=== PATIENT | male | born 1965 | race Caucasian/White ===

== ENCOUNTER 2016-10-12 07:02 | Inpatient (IN) | payer BC, OTHER ==
[2016-10-12] VITALS (10 sets, daily range): BP systolic 116–151; BP diastolic 73–92; PULSE 67–85; TEMP 36.5–37.4; O2SAT 91–96; Ht 170.2 cm; Wt 100.0 kg
[~2016-10-12] VITALS: Ht 170.2 cm; Wt 100.0 kg
[~2016-10-12 07:02] MED LIST: ALLGUNK PO; ASPCH81 PO; ATV/1 PO; AZEL137S6 NAE; CALC-48 PO; CHOL100040 PO; EPP3/2 IM; IODI1TAB PO; IPRA1AER2 INH; LACTTAB7 PO; MECL1TAB42 PO; MILK140C PO; MOME50SP5; MONT1TAB3 PO; MULTTAB58 PO; NTRC PO; NXM/40 PO; OMEG10007 PO; OREGCAP PO; RIZA10TA19 PO; SERT1TAB68 PO; ZINC1TAB PO
[2016-10-12] MEDS ORDERED: ONDANSETRON INJ 2 MG/ML 2 ML VIAL ONE ×2 (07:16→18:41)
[2016-10-12] MEDS ORDERED: SODIUM CHLORIDE 0.9% 1000ML 1,000 ML IV STA (07:21)
[2016-10-12] MEDS ORDERED: MoRPHine SULFATE 4 MG/ML 1 ML CARP\\VIAL IV STA ×3 (07:21→11:19)
--- NOTE | 2016-10-12 07:37 | EMERGENCY ROOM VISIT NOTE ---
History First contact with patient: 07:11 Chief Complaint: TESTICULAR PAIN Stated Complaint: LFT TESTICULAR TORSION 31HRS Nursing Triage Summary: pt here with left testicular pain since 2300 2 nights. pt states pain in flank also denies urinary sx History of Present Illness The patient is a 51 year old male who presents to the Emergency Department by private vehicle for evaluation of pain to the LEFT testicle. He is concern for testicular torsion. The patient developed pain to the LEFT-sided testicle at 11 PM 2 nights ago. He has had approximately 31 hours of pain to the LEFT testicle. The pain is progressively worsened prompting his visit to the emergency department. He is tried [id number] medications including ibuprofen without relief of symptoms. He reports a history of some other symptoms in the past. He denies any history of testicular torsion or undescended testicle as a child. He rates his current discomfort as a 9/10. He reports pain radiating into his abdomen and flank. He denies any fevers, chills, chest pain, palpitations, short of breath, vomiting, hematochezia, melena, hematuria, or dysuria. He does feel nauseated. He denies any previous abdominal surgeries. Review of Systems A complete 10-point Review of Systems was discussed with the patient, with pertinent positives and negatives listed in the History of Present Illness. All remaining Review of Systems questions can be considered negative unless otherwise specified. Past Medical/Surgical History Medical Problems: (1) Asthma (2) GERD (gastroesophageal reflux disease) (3) Hydronephrosis with renal calculous obstruction Surgical Problems: (1) H/O sinus surgery Family History Diabetes mellitus FH: heart disease Hypertension Social History Smoking Status: Never Smoker Alcohol Use: occasionally Marital Status: Housing Status: lives with family Occupation Status: employed Current/Historical Medications Scheduled Aspirin (Aspirin 81), 81 MG PO DAILY Azelastine Hcl (Astelin Nasal [place]), 1-2 SPRAYS NA BID Bupropion HCl (Bupropion HCl), 75 MG PO DAILY Cholecalciferol (Vitamin D-1000), 10,000 UNIT(INT) PO DAILY Citalopram Hydrobromide (Citalopram Hydrobromide), 5 MG PO DAILY Epinephrine (Epipen), 0.3 MG IM UD Fish Oil ([place]-3), 1,000 MG PO BID Fluticasone Propionate (Fluticasone Propionate), 1 SPRAY EN DAILY Iodine (Kelp) (Kelp), Unknown Dose PO DAILY Lactobacillus (Acidophilus), 1 TAB PO DAILY Milk Thistle (Silybum [place] (Milk Thistle), Unknown Dose PO DAILY Montelukast Sodium (Singulair), 10 MG PO DAILY Multiple Minerals W/ Vitamins (Mwd-Wft-Sohk-D), 2 CAP PO DAILY Multiple Vitamin (Multivitamin), 1 TAB PO Q2D Nutraceuticals (Nutraceuticals), 1 TAB PO DAILY Omeprazole (Prilosec), 20 MG PO BID Oregano (Oil Of Oregano), 1 CAP PO DAILY Rizatriptan Benzoate (Maxalt-Tire Rebuilder), 10 MG PO UD Sertraline Hcl (Zoloft), 200 MG PO DAILY Tamsulosin HCl (Tamsulosin HCl), 0.4 MG PO HS Topiramate (Topamax), 50 MG PO BID Zinc Gluconate (Zinc), 25 MG PO DAILY Scheduled PRN Fexofenadine Hcl (Lluvia Allergy), 180 MG PO UD PRN for when getting allergy shots Ibuprofen (Ibuprofen), 1 TAB PO TIDM PRN for Pain Ipratropium-Albuterol (Combivent Respimat), 2 PUFFS INH for SOB/Wheezing Lorazepam (Ativan), 1 MG PO Q6H PRN for ANXIETY Meclizine Hcl (Meclizine Hcl), 25 MG PO for Dizziness or Vertigo Phenazopyridine HCl (Phenazopyridine HCl), 200 MG PO TID PRN for Bladder pain Allergies Coded Allergies: BEE STING (Verified Allergy, Unknown, `, 10/12/16) Dust (Verified Allergy, Unknown, sneezing,watery eyes, runny nosed, 10/12/16 ) Molds and Smuts (Verified Allergy, Unknown, sneezing,watery eyes, runny nose, 10/12/16) Penicillins (Verified Allergy, Unknown, `, 10/12/16) Valproic Acid (Verified Adverse Reaction, Unknown, PANIC ATTACKS, 10/12/16) Physical Exam Vital Signs Date Time Temp Pulse Resp B/P Pulse Ox O2 Delivery O2 Flow Rate FiO2 10/12/16 13:45 36.7 67 14 127/76 96 Room Air 10/12/16 13:45 96 Room Air 10/12/16 12:54 66 20 143/99 96 Room Air 10/12/16 12:50 96 Room Air 10/12/16 11:36 72 22 149/89 96 Room Air 10/12/16 11:00 70 16 158/97 96 Room Air 10/12/16 09:19 76 20 144/93 96 Room Air 10/12/16 08:30 72 20 143/86 95 Room Air 10/12/16 08:23 Room Air 10/12/16 07:08 37.0 78 16 192/114 96 Room Air Pain Rating (0-10): 9 Physical Exam VITAL SIGNS - Vital signs and nursing notes were reviewed. GENERAL - 51-year-old Male appearing his stated age who is in no acute distress. Communicates well with provider and answers questions appropriately. HEART - RRR with normal S1/S2. No murmurs, rubs, or gallops appreciated. LUNGS - CTA bilaterally. No wheezes, rales, or rhonchi appreciated. ABDOMEN - Abdominal contour obese and without pulsations or visible masses. BS normoactive all four quadrants. Moderate tenderness to palpation appreciated in the LEFT lower quadrant. No palpable masses, hepatosplenomegaly, or ascites noted. GENITOURINARY - Uncircumcised male without penile lesions or adhesions. No urethral discharge. Exquisite testicular tenderness to palpation appreciated to the LEFT sided testicle. High-riding Testicle. Decreased cremasteric reflex LEFT versus right. No palpable masses. PSYCH - A&Ox3 and cooperates fully with examiner. Pt is very pleasant and interacts well with examiner. Medical Decision & Procedures ER Provider Diagnostic Interpretation: Radiological imaging and reports were reviewed by myself. Radiologist's Interpretation as follows: TESTICULAR ULTRASOUND HISTORY: LEFT testicular pain - ?torsion COMPARISON: None. FINDINGS: Right testis: 4.0 x 3.2 x 2.4 cm. There are no intratesticular masses. Normal color flow. Trace hydrocele. The epididymis is unremarkable. Left testis: 4.0 x 3.1 x 2.2 cm. There are 2 small similar-appearing 3 mm echogenic foci within the upper to midpole. These are unlikely to represent masses. Normal color flow. Trace hydrocele at the lower pole. The epididymis is unremarkable. IMPRESSION: 1. There are 2 small similar appearing 3 mm echogenic foci within the left testis. These are unlikely to represent masses are likely benign. Six-month follow-up is recommended to ensure stability. 2. Normal right testis. 3. Trace bilateral hydroceles. CT SCAN OF THE ABDOMEN AND PELVIS WITHOUT CONTRAST CLINICAL HISTORY: Left flank pain. COMPARISON STUDY: No previous studies for comparison. TECHNIQUE: CT scan of the abdomen and pelvis was performed from the lung bases to the proximal femurs. Images are reviewed in the axial, sagittal, and coronal planes. IV contrast was not administered for this examination. CT DOSE: 1595.48 mGy.cm FINDINGS: Lower chest: There is a 4.8 mm right lower lobe pulmonary nodule as visualized in image #[id number]. Follow-up per Fleischner criteria is recommended. Liver: There is hepatic steatosis. No focal masses are visualized. Gallbladder: No gallstones are evident. Spleen: Normal in size and attenuation. Pancreas: Unremarkable. Adrenal glands: Unremarkable. Kidneys: There is a punctate nonobstructing right renal calculus. There is a 2 mm lower pole left renal calculus. There is left-sided hydronephrosis and perinephric stranding. There is left-sided hydroureter. There is obstructing 5 mm proximal left ureteral calculus at the L4 level. Bowel: There are no transition zones indicate bowel obstruction. There is colonic diverticulosis. There are no acute peridiverticular inflammatory changes. There is no evidence of acute appendicitis. Peritoneum: There is no intraperitoneal free air or abdominal ascites. Vasculature: The abdominal aorta is normal in course and caliber. Adenopathy: None. Pelvic viscera: There are few punctate calcifications within the anterior bladder wall. Skeletal structures: No destructive osseous lesions are seen. IMPRESSION: 1. Bilateral nephrolithiasis 2. 5 mm Obstructing proximal left ureteral calculus at the L4 level 3. No evidence of bowel obstruction. No evidence of free air 4. No evidence of acute diverticulitis. No evidence of appendicitis 5. Anterior bladder wall calcifications 6. 5 mm right lower lobe pulmonary nodule. Please refer to below summary of Fleischner criteria recommendations for follow-up of incidental CT nodules (Annika Leyva, Guidelines for management of small pulmonary nodules detected on CT scans: A statement from the Fleischner Society, Radiology 237: [phone].) Low Risk Patient: Minimal or no smoking or other known risk factors for malignancy <=4 mm: No follow-up needed. >4-6 mm: Initial follow-up CT at 12 months; if unchanged, no further follow-up. >6-8 mm: Initial follow-up CT at 6-12 months then at 18-24 months if no change. >8 mm: Follow-up CT at \R\3, 9, 24 months, or PET and/or biopsy. High Risk Patient: History of smoking or other known risk factors <=4 mm: Follow-up at 12 months; if unchanged, no further follow-up. >4-6 mm: Initial follow-up CT at 6-12 months then at 18-24 months if no change. >6-8 mm: Initial follow-up CT at 3-6 months then at 9-12 and 24 months if no change. >8 mm: Same as low risk patient. Note: Nodule size measured as average of length and width. Ground glass or partly solid nodules may require longer follow-up to exclude indolent adenocarcinoma. Laboratory Results Test 10/12/16 00:00 10/12/16 07:30 10/12/16 08:25 10/12/16 10:15 Total Bilirubin 0.3 mg/dl (0.2-1) Aspartate Amino Transf (AST/SGOT) 50 U/L (15-37) Alanine Aminotransferase (ALT/SGPT) 112 U/L (12-78) Alkaline Phosphatase 100 U/L (45-117) Total Protein 7.9 gm/dl (6.4-8.2) Albumin 4.1 gm/dl (3.4-5.0) Globulin 3.8 gm/dl (2.5-4.0) Albumin/Globulin Ratio 1.1 (0.9-2) Lipase 177 U/L (73-393) Immature Granulocyte % (Auto) 0.3 % White Blood Count 8.77 K/uL (4.8-10.8) Red Blood Count 4.51 M/uL (4.7-6.1) Hemoglobin 14.2 g/dL (14.0-18.0) Hematocrit 40.7 % (42-52) Mean Corpuscular Volume 90.2 fL (80-100) Mean Corpuscular Hemoglobin 31.5 pg (25-34) Mean Corpuscular Hemoglobin Concent 34.9 g/dl (32-36) Platelet Count 238 K/uL (130-400) Mean Platelet Volume 10.0 fL (7.4-10.4) Neutrophils (%) (Auto) 77.1 % Lymphocytes (%) (Auto) 15.4 % Monocytes (%) (Auto) 5.9 % Eosinophils (%) (Auto) 1.1 % Basophils (%) (Auto) 0.2 % Neutrophils # (Auto) 6.75 K/uL (1.4-6.5) Lymphocytes # (Auto) 1.35 K/uL (1.2-3.4) Monocytes # (Auto) 0.52 K/uL (0.11-0.59) Eosinophils # (Auto) 0.10 K/uL (0-0.5) Basophils # (Auto) 0.02 K/uL (0-0.2) Immature Granulocyte # (Auto) 0.03 K/uL (0.00-0.02) Urine Color YELLOW Urine Appearance CLEAR (CLEAR) Urine pH 7.0 (4.5-7.5) Urine Specific [place] 1.015 (1.000-1.030) Urine Protein NEG (NEG) Urine Glucose (UA) NEG (NEG) Urine Ketones NEG (NEG) Urine Occult Blood 3+ (NEG) Urine Nitrite NEG (NEG) Urine Bilirubin NEG (NEG) Urine Urobilinogen NEG (NEG) Urine Leukocyte Esterase TRACE (NEG) Urine WBC (Auto) 1-5 /hpf (0-5) Urine RBC (Auto) >30 /hpf (0-4) Urine Hyaline Casts (Auto) 0 /lpf (0-5) Urine Epithelial Cells (Auto) 0-5 /lpf (0-5) Urine Bacteria (Auto) NEG (NEG) Medications Administered Medications (Trade) Dose Ordered Sig/Rochelle Route Start Time Stop Time Status Last Admin Dose Admin Ondansetron HCl 4 mg 4 mg STK-MED ONCE .ROUTE 10/12/16 07:16 10/12/16 07:19 DC 10/12/16 07:32 4 MG Sodium Chloride (Nss 1000ml) 1,000 ml @ 125 mls/hr Q8H STAT IV 10/12/16 07:21 10/12/16 14:13 DC 10/12/16 07:32 125 MLS/HR Morphine Sulfate (MoRPHine SULFATE INJ) 4 mg NOW STAT IV 10/12/16 07:21 10/12/16 07:24 DC 10/12/16 07:32 4 MG Morphine Sulfate (MoRPHine SULFATE INJ) 4 mg NOW STAT IV 10/12/16 08:54 10/12/16 08:55 DC 10/12/16 09:13 4 MG Ciprofloxacin/ Dextrose (Cipro / D5w) 400 mg NOW STAT IV 10/12/16 10:06 10/12/16 10:07 DC 10/12/16 10:16 400 MG Sodium Chloride ([place] Nasal [place]) 2 sprays NOW ONCE NA 10/12/16 10:15 10/12/16 10:16 DC 10/12/16 10:16 2 SPRAYS Morphine Sulfate (MoRPHine SULFATE INJ) 4 mg NOW STAT IV 10/12/16 11:19 10/12/16 11:20 DC 10/12/16 11:41 4 MG Ketorolac Tromethamine 30 mg 30 mg NOW STAT IV 10/12/16 12:18 10/12/16 12:36 DC 10/12/16 12:54 30 MG Sodium Chloride (Nss 1000ml) 1,000 ml @ 100 mls/hr Q10H IV 10/12/16 12:30 10/13/16 11:11 DC 10/13/16 08:49 100 MLS/HR ED Course Patient was seen and evaluated by myself. Labs were drawn, saline lock in place. The patient was hydrated with normal saline at a rate of 125 mL per hour. Patient was treated with formal grams morphine and 4 mg Zofran. He was sent emergently to ultrasound for testicular ultrasound. Upon return, ultrasound was found be unremarkable. Laboratory results demonstrate no acute leukocytosis, significant anemia, or bandemia. The patient has no significant electrolyte abnormalities. He was treated with an additional 4 mg morphine for ongoing pain. CT the abdomen and pelvis without contrast was ordered. Imaging results as above. Imaging results concerning for hydronephrosis as well as obstructing stone. The patient was treated with IV Cipro pending urinalysis. Urinalysis is not concerning for infection, however. Patient was treated with an additional 4 mg morphine. Patient was offered admission versus outpatient management. Patient elects to be admitted for further evaluation and management. Patient admitted in stable condition. Medical Decision Given the patient's presentation and exam findings, I did elect to perform the above-mentioned workup. The patient presents today complained primarily of testicular pain. His symptoms have been ongoing for the past 31 hours. Well the patient's exam is not as consistent with acute torsion, but most immediate concern is to rule out this surgical emergency. Because, an immediate ultrasound was obtained. The patient's pain was adequately controlled the emergency setting. He has no fever leukocytosis. His labs are essentially unremarkable. After rule out of torsion, a CT of the abdomen and pelvis was obtained which confirms suspicion of ureteral lithiasis. The patient is also found to have hydronephrosis as well as perinephric straining. He was treated with intravenous antibiotics. The patient is not a good candidate for outpatient management this point as he is hard a substantial amount of pain medications in the emergency department which cannot be replicated in the outpatient setting. The patient will be admitted to medicine services with consultation from urology. Patient admitted in stable condition. In the evaluation and treatment of this patient, the following differential diagnoses were considered: Appendicitis, Diverticulitis, Diverticulosis, Colitis , Ischemic Colitis, Inflammatory Bowel Disease, Irritable Bowel Disease, Testicular Torsion, Kidney Stone, Pyelonephritis, Hydronephrosis, Cholecystitis , Ascending Cholangitis, Choledocholithiasis, GERD. Impression Primary Impression: Hydronephrosis with renal calculous obstruction Departure Information Dispostion Admitted as an inpatient Condition GOOD Prescriptions Ibuprofen (Ibuprofen) 800 Mg Tab 1 TAB PO TIDM Y for Pain for 5 Days, #15 TABS Take 1 tablet by mouth three times a day with meals as needed for pain. Prov: Sona Wolf .GABRIELLA 10/13/16 Phenazopyridine HCl (Phenazopyridine HCl) 200 Mg Tab 200 MG PO TID Y for Bladder pain for 3 Days, #9 TAB Take 1 tablet by mouth three times a day after meals as needed for burning with urination x 3 days. Prov: Sona Wolf .GABRIELLA 10/13/16 Tamsulosin HCl (Tamsulosin HCl) 0.4 Mg Cap 0.4 MG PO HS for 10 Days, #10 CAP Take 1 capsule by mouth at bedtime x 10 days Prov: Sona Wolf PA-C 10/13/16 Referrals Pritesh Caldwell M.D. (PCP) Patient Instructions My [facility]
[2016-10-12] MEDS ORDERED: ASTN (07:53)
[2016-10-12] MEDS ORDERED: FEXO1TAB49 PO (07:53)
[2016-10-12] MEDS ORDERED: TPM/50 PO (07:53)
[2016-10-12] MEDS ORDERED: CITA10TA4 PO (07:53)
[2016-10-12] MEDS ORDERED: OMEP20CA9 PO (07:53)
[2016-10-12] MEDS ORDERED: FLNIN/ EN (07:53)
[2016-10-12] MEDS ORDERED: ASPI-435 PO (07:53)
[2016-10-12] MEDS ORDERED: WLL75 PO (07:53)
[2016-10-12 08:07] LABS: BUN/CREATININE RATIO 11.2 (10-20); CALCIUM 8.9 mg/dl (8.5-10.1); CREATININE 1.2 mg/dl (0.60-1.40); MAGNESIUM 2.3 mg/dl (1.8-2.4); POTASSIUM 4.1 mmol/L (3.5-5.1)
[2016-10-12 08:09] LABS: ALB/GLOB RATIO 1.1 (0.9-2)
--- NOTE | 2016-10-12 08:13 | DIAGNOSTIC IMAGING REPORT ---
TESTICULAR ULTRASOUND HISTORY: LEFT testicular pain - ?torsion COMPARISON: None. FINDINGS: Right testis: 4.0 x 3.2 x 2.4 cm. There are no intratesticular masses. Normal color flow. Trace hydrocele. The epididymis is unremarkable. Left testis: 4.0 x 3.1 x 2.2 cm. There are 2 small similar-appearing 3 mm echogenic foci within the upper to midpole. These are unlikely to represent masses. Normal color flow. Trace hydrocele at the lower pole. The epididymis is unremarkable. IMPRESSION: 1. There are 2 small similar appearing 3 mm echogenic foci within the left testis. These are unlikely to represent masses are likely benign. Six-month follow-up is recommended to ensure stability. 2. Normal right testis. 3. Trace bilateral hydroceles. Electronically signed by: Karan Mae M.D. 10/12/2016 8:12 AM Dictated Date/Time: 10/12/2016 8:08 AM
[2016-10-12 08:34] LABS: BASO % 0.2 %; BASO ABS # 0.02 K/uL (0-0.2); COMPLETE YES; EOS % 1.1 %; HEMATOCRIT 40.7 % (42-52); IG% 0.3 %; LYMPH % 15.4 %; LYMPH ABS # 1.35 K/uL (1.2-3.4); MEAN CELL VOLUME 90.2 fL (80-100); MEAN CORPUSCULAR HEMOGLOBIN 31.5 pg (25-34); MEAN CORPUSCULAR HGB CONC 34.9 g/dl (32-36); MONO % 5.9 %; NEUT % 77.1 %; PLATELET COUNT 238 K/uL (130-400); RED BLOOD COUNT 4.51 M/uL (4.7-6.1); WHITE BLOOD COUNT 8.77 K/uL (4.8-10.8)
--- NOTE | 2016-10-12 09:36 | DIAGNOSTIC IMAGING REPORT ---
CT SCAN OF THE ABDOMEN AND PELVIS WITHOUT CONTRAST CLINICAL HISTORY: Left flank pain. COMPARISON STUDY: No previous studies for comparison. TECHNIQUE: CT scan of the abdomen and pelvis was performed from the lung bases to the proximal femurs. Images are reviewed in the axial, sagittal, and coronal planes. IV contrast was not administered for this examination. CT DOSE: 1595.48 mGy.cm FINDINGS: Lower chest: There is a 4.8 mm right lower lobe pulmonary nodule as visualized in image #[id number]. Follow-up per Fleischner criteria is recommended. Liver: There is hepatic steatosis. No focal masses are visualized. Gallbladder: No gallstones are evident. Spleen: Normal in size and attenuation. Pancreas: Unremarkable. Adrenal glands: Unremarkable. Kidneys: There is a punctate nonobstructing right renal calculus. There is a 2 mm lower pole left renal calculus. There is left-sided hydronephrosis and perinephric stranding. There is left-sided hydroureter. There is obstructing 5 mm proximal left ureteral calculus at the L4 level. Bowel: There are no transition zones indicate bowel obstruction. There is colonic diverticulosis. There are no acute peridiverticular inflammatory changes. There is no evidence of acute appendicitis. Peritoneum: There is no intraperitoneal free air or abdominal ascites. Vasculature: The abdominal aorta is normal in course and caliber. Adenopathy: None. Pelvic viscera: There are few punctate calcifications within the anterior bladder wall. Skeletal structures: No destructive osseous lesions are seen. IMPRESSION: 1. Bilateral nephrolithiasis 2. 5 mm Obstructing proximal left ureteral calculus at the L4 level 3. No evidence of bowel obstruction. No evidence of free air 4. No evidence of acute diverticulitis. No evidence of appendicitis 5. Anterior bladder wall calcifications 6. 5 mm right lower lobe pulmonary nodule. Please refer to below summary of Fleischner criteria recommendations for follow-up of incidental CT nodules (Annika Leyva, Guidelines for management of small pulmonary nodules detected on CT scans: A statement from the Fleischner Society, Radiology 237: [phone].) Low Risk Patient: Minimal or no smoking or other known risk factors for malignancy <=4 mm: No follow-up needed. >4-6 mm: Initial follow-up CT at 12 months; if unchanged, no further follow-up. >6-8 mm: Initial follow-up CT at 6-12 months then at 18-24 months if no change. >8 mm: Follow-up CT at \R\3, 9, 24 months, or PET and/or biopsy. High Risk Patient: History of smoking or other known risk factors <=4 mm: Follow-up at 12 months; if unchanged, no further follow-up. >4-6 mm: Initial follow-up CT at 6-12 months then at 18-24 months if no change. >6-8 mm: Initial follow-up CT at 3-6 months then at 9-12 and 24 months if no change. >8 mm: Same as low risk patient. Note: Nodule size measured as average of length and width. Ground glass or partly solid nodules may require longer follow-up to exclude indolent adenocarcinoma. Electronically signed by: Marty Bassett M.D. 10/12/2016 9:35 AM Dictated Date/Time: 10/12/2016 9:27 AM
[2016-10-12] MEDS ORDERED: CIPROFLOXACIN 400MG / 200ML D5W IV STA (10:06)
[2016-10-12] MEDS ORDERED: SODIUM CHLORIDE 0.65% NA SOLN 45 ML (OCEAN) ONE (10:15)
[2016-10-12 10:21] LABS: URINE APPEARANCE CLEAR (CLEAR); URINE BILIRUBIN NEG (NEG); URINE COLOR YELLOW; URINE EPITHELIAL CELL AUTO 0-5 /lpf (0-5); URINE NITRITE NEG (NEG); URINE SPECIFIC GRAVITY 1.015 (1.000-1.030); UROBILINOGEN NEG (NEG); ZZUR CULT IF INDIC CLEAN CATCH NO
[2016-10-12 10:24] LABS: MANUAL MICROSCOPIC REQUIRED? NO; REVIEW REQ? NO
[2016-10-12] MEDS ORDERED: KETOROLAC TROMETHAMINE 30 MG/ML VIAL IV STA (12:18)
[2016-10-12] MEDS ORDERED: POLYETHYLENE (MIRALAX) 17 GM PACK PO PRN (12:30)
[2016-10-12] MEDS ORDERED: ALUMINUM/MAGNESIUM/SIMETH (MAALOX MAX) 30 ML UDC PO PRN (12:30)
[2016-10-12] MEDS ORDERED: MAGNESIUM HYDROXIDE SUSP 30 ML UDC PO PRN (12:30)
[2016-10-12] MEDS ORDERED: ACETAMINOPHEN 325 MG TAB PO PRN (12:30)
[2016-10-12] MEDS ORDERED: KETOROLAC TROMETHAMINE 30 MG/ML VIAL IV PRN (12:30)
[2016-10-12] MEDS ORDERED: ONDANSETRON INJ 2 MG/ML 2 ML VIAL IV PRN (12:30)
[2016-10-12] MEDS ORDERED: MoRPHine SULFATE 4 MG/ML 1 ML CARP\\VIAL IV PRN (12:45)
[2016-10-12] MEDS ORDERED: IPRATROPIUM BROMIDE/ALBUTEROL respimat INH INH PRN (12:45)
[2016-10-12] MEDS ORDERED: MoRPHine SULFATE 2 MG/ML CARP IV PRN (12:45)
[2016-10-12] MEDS ORDERED: LORAZEPAM 1 MG TAB PO PRN (12:45)
[2016-10-12] MEDS ORDERED: MONTELUKAST SOD 10 MG TAB PO STA (12:59)
--- NOTE | 2016-10-12 13:00 | History and Physical ---
History & Physical Date & Time of Service: Oct 12, 2016 at 12:57 Chief Complaint: Lft Testicular Torsion 31HRS Primary Care Physician: No Doctor, Assigned History of Present Illness Source: patient Mr. Pike is a 51 y/o male with PMHx of CAD with PFO, Major Depression, Asthma , JENNI, and GERD who presents to the ED complaining of left testicular pain that started 2 nights ago. Patient states that he has a dull aching pain of the left testicle that was initially manageable. This pain has slowly been progressing over the past couple of days. He felt that his L testicle seem to be retracted. As this pain progressed he reports associated left flank pain and left lower quadrant abdominal pain. He rated his pain a 9/10 upon presentation with some improvement with narcotics. He has been utilizing over- the-counter ibuprofen without any relief. Associated nausea. He denies fever/ chills, chest pain, shortness of breath, vomiting, dysuria, constipation/ diarrhea. In the ED, he is afebrile, without leukocytosis, and normotensive. Urinalysis significant for 3+ occult blood. Left testicular ultrasound with 23 mm echogenic foci of the left testis which are likely benign with trace bilateral hydroceles. CT of the abdomen and pelvis shows bilateral nephrolithiasis, 5 mm obstructing proximal left ureteral calculi, left-sided hydronephrosis and perinephritic stranding, and left-sided hydroureter. He will be admitted to [facility] for pain management and hydration. Past Medical/Surgical History Medical Problems: (1) Asthma Status: Chronic (2) GERD (gastroesophageal reflux disease) Status: Chronic Surgical Problems: (1) H/O sinus surgery Status: Resolved Family History Diabetes mellitus FH: heart disease Hypertension Social History Smoking Status: Never Smoker Smokeless Tobacco Use: No Alcohol Use: socially Drug Use: none Marital Status: Occupational Status: employed Immunizations History of Influenza Vaccine: No Influenza Vaccine Date: May 12, 2011 History of Tetanus Vaccine?: Yes History of Pneumococcal: No History of Hepatitis B Vaccine: No Multi-Drug Resistant Organisms History of MDRO: No Allergies Coded Allergies: BEE STING (Verified Allergy, Unknown, `, 10/12/16) Dust (Verified Allergy, Unknown, sneezing,watery eyes, runny nosed, 10/12/16 ) Molds and Smuts (Verified Allergy, Unknown, sneezing,watery eyes, runny nose, 10/12/16) Penicillins (Verified Allergy, Unknown, `, 10/12/16) Valproic Acid (Verified Adverse Reaction, Unknown, PANIC ATTACKS, 10/12/16) Home Medications Scheduled Aspirin (Aspirin 81), 81 MG PO DAILY Azelastine Hcl (Astelin Nasal [place]), 1-2 SPRAYS NA BID Bupropion HCl (Bupropion HCl), 75 MG PO DAILY Cholecalciferol (Vitamin D-1000), 10,000 UNIT(INT) PO DAILY Citalopram Hydrobromide (Citalopram Hydrobromide), 5 MG PO DAILY Epinephrine (Epipen), 0.3 MG IM UD Fish Oil ([place]-3), 1,000 MG PO BID Fluticasone Propionate (Fluticasone Propionate), 1 SPRAY EN DAILY Iodine (Kelp) (Kelp), Unknown Dose PO DAILY Lactobacillus (Acidophilus), 1 TAB PO DAILY Milk Thistle (Silybum Marianum (Milk Thistle), Unknown Dose PO DAILY Montelukast Sodium (Singulair), 10 MG PO DAILY Multiple Minerals W/ Vitamins (Luw-Vrq-Eaju-D), 2 CAP PO DAILY Multiple Vitamin (Multivitamin), 1 TAB PO Q2D Nutraceuticals (Nutraceuticals), 1 TAB PO DAILY Omeprazole (Prilosec), 20 MG PO BID Oregano (Oil Of Oregano), 1 CAP PO DAILY Rizatriptan Benzoate (Maxalt-Power Checker), 10 MG PO UD Sertraline Hcl (Zoloft), 200 MG PO DAILY Topiramate (Topamax), 50 MG PO BID Zinc Gluconate (Zinc), 25 MG PO DAILY Scheduled PRN Fexofenadine Hcl (Lluvia Allergy), 180 MG PO UD PRN for when getting allergy shots Ipratropium-Albuterol (Combivent Respimat), 2 PUFFS INH for SOB/Wheezing Lorazepam (Ativan), 1 MG PO Q6H PRN for ANXIETY Meclizine Hcl (Meclizine Hcl), 25 MG PO for Dizziness or Vertigo Review of Systems Constitutional: No chills, No fever Eyes: No worsening of vision ENT: No nasal symptoms, No sore throat, No trouble swallowing Respiratory: No cough, No shortness of breath Cardiovascular: No chest pain Abdomen: + nausea, + pain (LLQ and L Flank), No constipation, No diarrhea, No vomiting Musculoskeletal: No calf pain, No swelling Genitourinary - Male: No dysuria Hematologic / Lymphatic: No abnormal bleeding/bruising, No clotting problems Integumentary: No rash Physical Exam Vital Signs Date Time Temp Pulse Resp B/P Pulse Ox O2 Delivery O2 Flow Rate FiO2 10/12/16 12:54 66 20 143/99 96 Room Air 10/12/16 11:36 72 22 149/89 96 Room Air 10/12/16 11:00 70 16 158/97 96 Room Air 10/12/16 09:19 76 20 144/93 96 Room Air 10/12/16 08:30 72 20 143/86 95 Room Air 10/12/16 08:23 Room Air 10/12/16 07:08 37.0 78 16 192/114 96 Room Air General Appearance: WD/WN, no apparent distress Head: normocephalic, atraumatic Eyes: sclerae normal ENT: hearing grossly normal Neck: supple, no JVD, trachea midline Respiratory/Chest: lungs clear, normal breath sounds, no respiratory distress, no accessory muscle use Cardiovascular: regular rate, rhythm, no gallop, no murmur Abdomen/GI: normal bowel sounds, soft, + tenderness (LLQ to light touch) Back: normal inspection, + left CVA tenderness Extremities/Musculoskelatal: normal inspection, normal capillary refill, no pedal edema Neurologic/Psych: alert, oriented x 3 Skin: normal color, warm/dry Diagnostics Laboratory Results Results Past 24 Hours Test 10/12/16 07:30 10/12/16 08:25 10/12/16 10:15 Range/Units Sodium Level 140 136-145 mmol/L Potassium Level 4.1 3.5-5.1 mmol/L Chloride Level 109 98-107 mmol/L Carbon Dioxide Level 20 21-32 mmol/L Anion Gap 11.0 3-11 mmol/L Blood Urea Nitrogen 13 7-18 mg/dl Creatinine 1.20 0.60-1.40 mg/dl Est Creatinine Clear Calc Drug Dose 80.2 ml/min Estimated GFR () 79.5 Estimated GFR (Non- 68.6 BUN/Creatinine Ratio 11.2 10-20 Random Glucose 135 70-99 mg/dl Calcium Level 8.9 8.5-10.1 mg/dl Magnesium Level 2.3 1.8-2.4 mg/dl Total Bilirubin 0.3 0.2-1 mg/dl Aspartate Amino Transf (AST/SGOT) 50 15-37 U/L Alanine Aminotransferase (ALT/SGPT) 112 12-78 U/L Alkaline Phosphatase 100 45-117 U/L Total Protein 7.9 6.4-8.2 gm/dl Albumin 4.1 3.4-5.0 gm/dl Globulin 3.8 2.5-4.0 gm/dl Albumin/Globulin Ratio 1.1 0.9-2 Lipase 177 73-393 U/L White Blood Count 8.77 4.8-10.8 K/uL Red Blood Count 4.51 4.7-6.1 M/uL Hemoglobin 14.2 14.0-18.0 g/dL Hematocrit 40.7 42-52 % Mean Corpuscular Volume 90.2 80-100 fL Mean Corpuscular Hemoglobin 31.5 25-34 pg Mean Corpuscular Hemoglobin Concent 34.9 32-36 g/dl Platelet Count 238 130-400 K/uL Mean Platelet Volume 10.0 7.4-10.4 fL Neutrophils (%) (Auto) 77.1 % Lymphocytes (%) (Auto) 15.4 % Monocytes (%) (Auto) 5.9 % Eosinophils (%) (Auto) 1.1 % Basophils (%) (Auto) 0.2 % Neutrophils # (Auto) 6.75 1.4-6.5 K/uL Lymphocytes # (Auto) 1.35 1.2-3.4 K/uL Monocytes # (Auto) 0.52 0.11-0.59 K/uL Eosinophils # (Auto) 0.10 0-0.5 K/uL Basophils # (Auto) 0.02 0-0.2 K/uL RDW Standard Deviation 43.5 36.4-46.3 fL RDW Coefficient of Variation 13.1 11.5-14.5 % Immature Granulocyte % (Auto) 0.3 % Immature Granulocyte # (Auto) 0.03 0.00-0.02 K/uL Urine Color YELLOW Urine Appearance CLEAR CLEAR Urine pH 7.0 4.5-7.5 Urine Specific [place] 1.015 1.000-1.030 Urine Protein NEG NEG Urine Glucose (UA) NEG NEG Urine Ketones NEG NEG Urine Occult Blood 3+ NEG Urine Nitrite NEG NEG Urine Bilirubin NEG NEG Urine Urobilinogen NEG NEG Urine Leukocyte Esterase TRACE NEG Urine WBC (Auto) 1-5 0-5 /hpf Urine RBC (Auto) >30 0-4 /hpf Urine Hyaline Casts (Auto) 0 0-5 /lpf Urine Epithelial Cells (Auto) 0-5 0-5 /lpf Urine Bacteria (Auto) NEG NEG Diagnostic Radiology CT SCAN OF THE ABDOMEN AND PELVIS WITHOUT CONTRAST CLINICAL HISTORY: Left flank pain. COMPARISON STUDY: No previous studies for comparison. TECHNIQUE: CT scan of the abdomen and pelvis was performed from the lung bases to the proximal femurs. Images are reviewed in the axial, sagittal, and coronal planes. IV contrast was not administered for this examination. CT DOSE: 1595.48 mGy.cm FINDINGS: Lower chest: There is a 4.8 mm right lower lobe pulmonary nodule as visualized in image #[id number]. Follow-up per Fleischner criteria is recommended. Liver: There is hepatic steatosis. No focal masses are visualized. Gallbladder: No gallstones are evident. Spleen: Normal in size and attenuation. Pancreas: Unremarkable. Adrenal glands: Unremarkable. Kidneys: There is a punctate nonobstructing right renal calculus. There is a 2 mm lower pole left renal calculus. There is left-sided hydronephrosis and perinephric stranding. There is left-sided hydroureter. There is obstructing 5 mm proximal left ureteral calculus at the L4 level. Bowel: There are no transition zones indicate bowel obstruction. There is colonic diverticulosis. There are no acute peridiverticular inflammatory changes. There is no evidence of acute appendicitis. Peritoneum: There is no intraperitoneal free air or abdominal ascites. Vasculature: The abdominal aorta is normal in course and caliber. Adenopathy: None. Pelvic viscera: There are few punctate calcifications within the anterior bladder wall. Skeletal structures: No destructive osseous lesions are seen. IMPRESSION: 1. Bilateral nephrolithiasis 2. 5 mm Obstructing proximal left ureteral calculus at the L4 level 3. No evidence of bowel obstruction. No evidence of free air 4. No evidence of acute diverticulitis. No evidence of appendicitis 5. Anterior bladder wall calcifications 6. 5 mm right lower lobe pulmonary nodule. Please refer to below summary of Fleischner criteria recommendations for follow-up of incidental CT nodules (Annika Leyva, Guidelines for management of small pulmonary nodules detected on CT scans: A statement from the Fleischner Society, Radiology 237: [phone].) Low Risk Patient: Minimal or no smoking or other known risk factors for malignancy <=4 mm: No follow-up needed. >4-6 mm: Initial follow-up CT at 12 months; if unchanged, no further follow-up. >6-8 mm: Initial follow-up CT at 6-12 months then at 18-24 months if no change. >8 mm: Follow-up CT at \R\3, 9, 24 months, or PET and/or biopsy. High Risk Patient: History of smoking or other known risk factors <=4 mm: Follow-up at 12 months; if unchanged, no further follow-up. >4-6 mm: Initial follow-up CT at 6-12 months then at 18-24 months if no change. >6-8 mm: Initial follow-up CT at 3-6 months then at 9-12 and 24 months if no change. >8 mm: Same as low risk patient. Note: Nodule size measured as average of length and width. Ground glass or partly solid nodules may require longer follow-up to exclude indolent adenocarcinoma. TESTICULAR ULTRASOUND HISTORY: LEFT testicular pain - ?torsion COMPARISON: None. FINDINGS: Right testis: 4.0 x 3.2 x 2.4 cm. There are no intratesticular masses. Normal color flow. Trace hydrocele. The epididymis is unremarkable. Left testis: 4.0 x 3.1 x 2.2 cm. There are 2 small similar-appearing 3 mm echogenic foci within the upper to midpole. These are unlikely to represent masses. Normal color flow. Trace hydrocele at the lower pole. The epididymis is unremarkable. IMPRESSION: 1. There are 2 small similar appearing 3 mm echogenic foci within the left testis. These are unlikely to represent masses are likely benign. Six-month follow-up is recommended to ensure stability. 2. Normal right testis. 3. Trace bilateral hydroceles. Impression Assessment and Plan Mr. Pike is a 51 y/o male with PMHx of CAD with PFO, Major Depression, Asthma , and GERD who presents to the ED complaining of left testicular pain that started 2 nights ago. L Obstructing Nephrolithiasis with Hydronephrosis: - Ciprofloxacin 400 mg IV BID - NSS at 100 mL/hr - Toradol 30 mg IV Q6H PRN - Morphine 2-4 mg IV Q2H PRN - Flomax 0.4 mg daily - Consult urology - spoke with Dr. Gill -- NPO at midnight - may pass without intervention - monitor JENNI: - Set-up CPAP Asthma: Without Exacerbation - Combivent PRN and Singulair 10 mg daily CAD with PFO: - Hold ASA in case of urology intervention GERD: - Protonix 40 mg daily as Nexium interchange Major Depression/Mood Disorder: - Wellbutrin 75 mg daily and Zoloft 200 mg daily - Topamax 50 mg BID DVT Prophylaxis: - NHAN/SCDs Code Status: - FULL RESUSCITATION Disposition: Return home Pt seen/examined - reviewed orders and above with PA 51 y/o M Hx CAD, depression - presenting with B/L flanks pain CT revealed a 5mm obstructing ureteral calculus OE AAO x 3 CTAB ND, ND (+) flank pain L P: Pt will be evaluated by urology Placed on Flomax, IVF and analgesics as needed Will cont home meds as possible Level of Care Med/Surg Resuscitation Status FULL RESUSCITATION VTE Prophylaxis VTE Risk Assessment Done? Y/N: Yes Risk Level: Moderate Given or contraindicated: T.E.D. Stockings, SCD's Social Service Consult None Apply
[2016-10-12] MEDS: SODIUM CHLORIDE 0.9% 1000ML 1,000 ML IV SCH ×2 (14:22→22:42)
--- NOTE | 2016-10-12 16:40 | Urology Consultation ---
History General Date of Service: Oct 12, 2016. Chief Complaint: left ureteral stone Primary Care Physician: No Doctor, Assigned Pt seen a urologist before?: No History of Present Illness I am asked by Dr Rudy Jaimes to evaluate and treat patient for left ureteral stone. he has had left renal colic for 2 days. he has associated nausea no emesis. He had referred pain to left testis and ER u/s shows a non suspicious echogenic focus in testis no tumor no torsion. CT shows a left 5mm upper ureteral stone with hydroureteronephrosis. he has small stones non obstructing in kidneys bilaterally. He is resting comfortably now. Imaging Imaging: CT, Ultrasound Laboratory Results Past 24 Hours Test 10/12/16 07:30 10/12/16 08:25 10/12/16 10:15 Range/Units Sodium Level 140 136-145 mmol/L Potassium Level 4.1 3.5-5.1 mmol/L Chloride Level 109 98-107 mmol/L Carbon Dioxide Level 20 21-32 mmol/L Anion Gap 11.0 3-11 mmol/L Blood Urea Nitrogen 13 7-18 mg/dl Creatinine 1.20 0.60-1.40 mg/dl Est Creatinine Clear Calc Drug Dose 80.2 ml/min Estimated GFR () 79.5 Estimated GFR (Non- 68.6 BUN/Creatinine Ratio 11.2 10-20 Random Glucose 135 70-99 mg/dl Calcium Level 8.9 8.5-10.1 mg/dl Magnesium Level 2.3 1.8-2.4 mg/dl Total Bilirubin 0.3 0.2-1 mg/dl Aspartate Amino Transf (AST/SGOT) 50 15-37 U/L Alanine Aminotransferase (ALT/SGPT) 112 12-78 U/L Alkaline Phosphatase 100 45-117 U/L Total Protein 7.9 6.4-8.2 gm/dl Albumin 4.1 3.4-5.0 gm/dl Globulin 3.8 2.5-4.0 gm/dl Albumin/Globulin Ratio 1.1 0.9-2 Lipase 177 73-393 U/L White Blood Count 8.77 4.8-10.8 K/uL Red Blood Count 4.51 4.7-6.1 M/uL Hemoglobin 14.2 14.0-18.0 g/dL Hematocrit 40.7 42-52 % Mean Corpuscular Volume 90.2 80-100 fL Mean Corpuscular Hemoglobin 31.5 25-34 pg Mean Corpuscular Hemoglobin Concent 34.9 32-36 g/dl Platelet Count 238 130-400 K/uL Mean Platelet Volume 10.0 7.4-10.4 fL Neutrophils (%) (Auto) 77.1 % Lymphocytes (%) (Auto) 15.4 % Monocytes (%) (Auto) 5.9 % Eosinophils (%) (Auto) 1.1 % Basophils (%) (Auto) 0.2 % Neutrophils # (Auto) 6.75 1.4-6.5 K/uL Lymphocytes # (Auto) 1.35 1.2-3.4 K/uL Monocytes # (Auto) 0.52 0.11-0.59 K/uL Eosinophils # (Auto) 0.10 0-0.5 K/uL Basophils # (Auto) 0.02 0-0.2 K/uL RDW Standard Deviation 43.5 36.4-46.3 fL RDW Coefficient of Variation 13.1 11.5-14.5 % Immature Granulocyte % (Auto) 0.3 % Immature Granulocyte # (Auto) 0.03 0.00-0.02 K/uL Urine Color YELLOW Urine Appearance CLEAR CLEAR Urine pH 7.0 4.5-7.5 Urine Specific [place] 1.015 1.000-1.030 Urine Protein NEG NEG Urine Glucose (UA) NEG NEG Urine Ketones NEG NEG Urine Occult Blood 3+ NEG Urine Nitrite NEG NEG Urine Bilirubin NEG NEG Urine Urobilinogen NEG NEG Urine Leukocyte Esterase TRACE NEG Urine WBC (Auto) 1-5 0-5 /hpf Urine RBC (Auto) >30 0-4 /hpf Urine Hyaline Casts (Auto) 0 0-5 /lpf Urine Epithelial Cells (Auto) 0-5 0-5 /lpf Urine Bacteria (Auto) NEG NEG Labs were reviewed and are within normal limits unless listed below. Labs are available in the chart and at [facility] Past History asthma (uses singulair), depression, GERD, seasonal allergies, other (patent foramen ovale) Past Surgical History: sinus surgery Family History Diabetes mellitus FH: heart disease Hypertension parents long lived Social History Hx Tobacco Use In Past Year?: No Smoking: non-smoker Alcohol: occasional Marital status: Occupation status: employed Immunizations History of Influenza Vaccine: No Influenza Vaccine Date: May 12, 2011 History of Tetanus Vaccine?: Yes History of Pneumococcal: No History of Hepatitis B Vaccine: No History of MDRO No Allergies Coded Allergies: BEE STING (Verified Allergy, Unknown, `, 10/12/16) Dust (Verified Allergy, Unknown, sneezing,watery eyes, runny nosed, 10/12/16 ) Molds and Smuts (Verified Allergy, Unknown, sneezing,watery eyes, runny nose, 10/12/16) Penicillins (Verified Allergy, Unknown, `, 10/12/16) Valproic Acid (Verified Adverse Reaction, Unknown, PANIC ATTACKS, 10/12/16) Medications Home Medications: Home Meds and Scripts Medications Dose Route/Sig Max Daily Dose Days Date Category Fluticasone Propionate 120 Sprays/6000 Mcg Inha 1 [place]anks EN DAILY 10/12/16 Reported Bupropion HCl 75 Mg Tab 75 Mg PO DAILY 10/12/16 Reported Prilosec (Omeprazole) 20 Mg Cap 20 Mg PO BID 10/12/16 Reported Topamax (Topiramate) 50 Mg Tab 50 Mg PO BID 10/12/16 Reported Citalopram Hydrobromide 10 Mg Tab 5 Mg PO DAILY 10/12/16 Reported Lluvia Allergy (Fexofenadine Hcl) 180 Mg Tab 180 Mg PO UD PRN 14 10/12/16 Reported Astelin Nasal [place] (Azelastine Hcl) 200 Sprays/30 Ml Cranks 1-2 Sprays NA BID 10/12/16 Reported Aspirin 81 (Aspirin) 81 Mg Tab 81 Mg PO DAILY 10/12/16 Reported Nutraceuticals (Miscellaneous) Ea 1 Tab PO DAILY 06/22/14 Reported Acidophilus (Lactobacillus) 1 Tab Tab 1 Tab PO DAILY 06/22/14 Reported Oil Of Oregano (Oregano) 1,500 Mg Cap 1 Cap PO DAILY 06/22/14 Reported Zinc (Zinc Gluconate) 50 Mg Tab 25 Mg PO DAILY 06/22/14 Reported Bqn-Fwh-Dlgu-D (Multiple Minerals W/ Vitamins) 1 Tab Tab 2 Cap PO DAILY 06/22/14 Reported Maxalt-Director Of Financial Planning (Rizatriptan Benzoate) 10 Mg Tab 10 Mg PO UD 06/22/14 Reported Zoloft (Sertraline Hcl) 100 Mg Tab 200 Mg PO DAILY 06/22/14 Reported Milk Thistle (Milk Thistle (Silybum Marianum) 140 Mg Cap Unknown Dose PO DAILY 06/22/14 Reported Kelp (Iodine (Kelp)) 150 Mcg Tab Unknown Dose PO DAILY 06/22/14 Reported Ativan (Lorazepam) 1 Mg Tab 1 Mg PO Q6H PRN 03/08/14 Reported Meclizine Hcl 25 Mg Tab 25 Mg PO PRN 03/08/14 Reported Combivent Respimat (Ipratropium-Albuterol) 1 Aer Aer 2 Puffs INH PRN 10/15/13 Reported Singulair (Montelukast Sodium) 10 Mg Tab 10 Mg PO DAILY 10/15/13 Reported Vitamin D-1000 (Cholecalciferol) 1,000 Unit Tab 10,000 Unit(Int) PO DAILY 07/29/13 Reported Epipen (Epinephrine) 0.3 Mg/0.3 Ml Inj 0.3 Mg IM UD 01/18/12 Reported Multivitamin (Multiple Vitamin) 1 Tab Tab 1 Tab PO Q2D 01/18/12 Reported [place]-3 (Fish Oil) 1 Ea Cap 1,000 Mg PO BID 08/06/11 Reported Inpatient Medications: Current Inpatient Medications Medications (Trade) Dose Ordered Sig/Rochelle Route Start Time Stop Time Status Last Admin Dose Admin Acetaminophen (Tylenol Tab) 650 mg Q4H PRN PO 10/12/16 12:30 11/11/16 12:29 Al Hydrox/Mg Hydrox/Simethicone (Maalox Max Susp) 15 ml Q4H PRN PO 10/12/16 12:30 11/11/16 12:29 Magnesium Hydroxide (Milk Of Magnesia Susp) 30 ml Q6H PRN PO 10/12/16 12:30 11/11/16 12:29 Polyethylene (Miralax Powder Packet) 17 gm DAILY PRN PO 10/12/16 12:30 11/11/16 12:29 Ondansetron HCl (Zofran Inj) 4 mg Q6H PRN IV 10/12/16 12:30 11/11/16 12:29 Ketorolac Tromethamine 30 mg 30 mg Q6H PRN IV 10/12/16 12:30 10/17/16 12:29 Ciprofloxacin/ Dextrose 400 mg/ Prmx 200 ml @ 100 mls/hr Q12H IV 10/12/16 21:00 10/17/16 08:59 Sodium Chloride (Nss 1000ml) 1,000 ml @ 100 mls/hr Q10H IV 10/12/16 12:30 11/11/16 12:29 10/12/16 14:22 100 MLS/HR Morphine Sulfate (MoRPHine SULFATE INJ) 2 mg Q2H PRN IV 10/12/16 12:45 10/26/16 12:44 Morphine Sulfate (MoRPHine SULFATE INJ) 4 mg Q2H PRN IV 10/12/16 12:45 10/26/16 12:44 Bupropion HCl (Wellbutrin Tab) 75 mg DAILY PO 10/13/16 09:00 11/12/16 08:59 Fluticasone Propionate (Flonase Nasal [place]) 1 sprays DAILY GENIE 10/13/16 09:00 11/12/16 08:59 Albuterol/ Ipratropium (Combivent Respimat Inh) 2 puffs QID PRN INH 10/12/16 12:45 11/11/16 12:44 Lactobacillus Acidophilus (Floranex Tab) 4 tab DAILY PO 10/13/16 09:00 11/12/16 08:59 Lorazepam (Ativan Tab) 1 mg Q6H PRN PO 10/12/16 12:45 11/11/16 12:44 Montelukast Sodium (Singulair Tab) 10 mg HS PO 10/12/16 21:00 11/11/16 20:59 Sertraline HCl (Zoloft Tab) 200 mg DAILY PO 10/13/16 09:00 11/12/16 08:59 Topiramate (Topamax Tab) 50 mg BID PO 10/12/16 21:00 11/11/16 20:59 Pantoprazole Sodium (Protonix Tab) 40 mg QAM PO 10/13/16 09:00 11/12/16 08:59 Tamsulosin HCl (Flomax Cap) 0.4 mg HS PO 10/12/16 21:00 11/11/16 20:59 Review of Systems Review of Systems Constitutional: No chills, No fever, No frequent headaches Endocrine: + excessive thirst, + tired/sluggish, + too cold Gastrointestinal: + abdominal pain, + indigestion, + nausea, No constipation Cardiovascular: No chest pain, No palpitations, No swelling ankles/feet Respiratory: No chronic cough, No shortness of breath, No wheezing Musculoskeletal: + arthritis, + joint pain Male : + kidney stones, No blood in urine, No frequent urination, No infections, No painful urination, No weak stream Physical Exam Vital Signs: Vital Signs Past 12 Hours Date Time Temp Pulse Resp B/P Pulse Ox O2 Delivery O2 Flow Rate FiO2 10/12/16 15:00 36.7 69 17 132/83 93 Room Air 10/12/16 13:45 36.7 67 14 127/76 96 Room Air 10/12/16 13:45 96 Room Air 10/12/16 12:54 66 20 143/99 96 Room Air 10/12/16 12:50 96 Room Air 10/12/16 11:36 72 22 149/89 96 Room Air 10/12/16 11:00 70 16 158/97 96 Room Air 10/12/16 09:19 76 20 144/93 96 Room Air 10/12/16 08:30 72 20 143/86 95 Room Air 10/12/16 08:23 Room Air 10/12/16 07:08 37.0 78 16 192/114 96 Room Air Physical Exam: General Appearance: WD/WN, no apparent distress, + obese Eyes: bilateral eyes normal inspection ENT: hearing grossly normal Neck: no adenopathy, no JVD, trachea midline Respiratory/Chest: normal breath sounds, no respiratory distress, no accessory muscle use Cardiovascular: regular rate, rhythm, no edema Gastrointestinal: Abdomen: normal abdomen Bladder: normal bladder Renal: normal renal Hernia: absent hernia Extremities: non-tender, normal inspection, no pedal edema, no calf tenderness Neurologic/Psychiatric: alert, normal mood/affect, oriented x 3 Skin: normal color, warm/dry, no rash Assessment & Plan Assessment & Plan 5mm left upper ureteral stone with obstruction and pain options are left ureteroscopy with laser lithotripsy basket stone extraction and stent tonight or observation and trial to pass stone over next few weeks He opted for ureteroscopy I explained surgery and risks he signed consent having had opportunity to ask questions. 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
[2016-10-12] MEDS ORDERED: FENTANYL CITRATE INJ 50 MCG/1 ML 2 ML VIAL IV PRN (17:00)
[2016-10-12] MEDS ORDERED: ATROPINE SULFATE 0.1 MG/ML 5ML SYR IV PRN (17:00)
[2016-10-12] MEDS ORDERED: EpHEDrine SULFATE INJ 50 MG/ML AMP IV PRN (17:00)
[2016-10-12] MEDS ORDERED: CEFAZOLIN IV 2,000 MG/60 ML D5W IV ONE (17:43)
[2016-10-12] MEDS ORDERED: FENTANYL CITRATE INJ 50 MCG/1 ML 2 ML VIAL ONE (17:49)
[2016-10-12] MEDS ORDERED: MIDAZOLAM HCL 1 MG/ML 2ML VIAL ONE (17:49)
[2016-10-12] MEDS ORDERED: DEXAMETHASONE SOD INJ 4 MG/ML VIAL ONE (18:41)
[2016-10-12] MEDS ORDERED: LIDOCAINE HCL 2% 2 ML VIAL (20MG/ML) ONE (18:41)
[2016-10-12] MEDS ORDERED: BELLADONNA/OPIUM SUPP 60 MG SUPP PR ONE (18:41)
[2016-10-12] MEDS ORDERED: PROPOFOL IV EMULSION 10 MG/ML 20 ML VIAL IV ONE (18:41)
[2016-10-12] MEDS ORDERED: BELLADONNA/OPIUM 60 MG SUPP PR ONE (18:45)
--- NOTE | 2016-10-12 19:08 | [facility] Operative Report ---
Operative Report Operative Date Oct 12, 2016. Pre-Operative Diagnosis Obstructing Left Ureteral Stone Post-Operative Diagnosis same Procedure(s) Performed cysto, left ureteroscopy laser lithotripsy basket stone extraction stent placement Surgeon Dr. Trinity Hancock Head Of Sales And Marketing Surgeon(s) None Estimated Blood Loss 2ml Findings radio-opaque left ureteral stone Specimens A. Left Ureteral Stone Fragments for Analysis Drains 6 fr 24 centimeter double J stent Anesthesia LMA Complication(s) None Disposition Recovery Room / PACU Indications obstructing 5mm left upper ureteral stone Description of Procedure Patient was given general LMA and placed in lithotomy position. His genitals were prepped and draped in sterile fashion. Time out held with team. I placed a 21 fr rigid cystoscope to bladder. The urethra is unremarkable. The prostate is not obstructing. The UOs are very laterally displaced. I placed a road runner wire up left ureter and once it went above the stone there was increased pink efflux from left UO. I removed scope and placed a dual lumen cath to place a second wire. I placed a flexible ureteroscope over the second wire easily to the mid ureter. Under vision I advanced the ureteroscope to the stone. I used a 200 micron to fragment the stone into about 6 pieces. i used a 1.9 fr zero tip basket to extract the stones until the ureter was clear. I then replaced the cystoscope and rinsed the fragments out of the ureter. I placed a 6 fr 24 centimeter double J stent under fluoro guidance. I placed a B and O suppository for post-op pain. He transferred to recovery under my escort, in stable condition. 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 Any exceptions are noted below.
[2016-10-12] MEDS ORDERED: PHENAZOPYRIDINE HCL 200 MG TAB PO PRN (19:15)
--- NOTE | 2016-10-12 19:19 | DIAGNOSTIC IMAGING REPORT ---
INTRAOPERATIVE RADIOGRAPH CLINICAL HISTORY: Laser lithotripsy and ureteral stent placement. Fluoroscopy time: 60 seconds. FINDINGS: A single spot fluoroscopic image of the left pelvis from a lithotripsy and left ureteral stent placement procedure is presented. The tip of the left ureteral stent is visualized projecting over the bladder. IMPRESSION: Fluoroscopic image from a left ureteral stent placement procedure as above. See operative report for detailed findings. Electronically signed by: Jett Lambert M.D. 10/12/2016 7:18 PM Dictated Date/Time: 10/12/2016 7:17 PM
[2016-10-12] MEDS ORDERED: HydrALAZINE HCL 20 MG/ML VIAL ONE (19:35)
[2016-10-12] MEDS ORDERED: NURSING VERBAL MED ORDER ONE (19:45)
--- NOTE | 2016-10-12 19:47 | Anesthesiology Progress Note ---
Anesthesia Post Op Note Date & Time Oct 12, 2016 at 19:48 Vital Signs Pain Intensity: 0 Vital Signs Past 12 Hours Date Time Temp Pulse Resp B/P Pulse Ox O2 Delivery O2 Flow Rate FiO2 10/12/16 19:37 77 20 151/96 94 10/12/16 19:37 77 20 10/12/16 19:36 137/104 10/12/16 19:33 148/96 10/12/16 19:32 86 18 10/12/16 19:32 86 18 90 10/12/16 19:31 151/100 10/12/16 19:27 87 22 10/12/16 19:27 87 22 98 10/12/16 19:26 150/96 10/12/16 19:22 81 19 100 10/12/16 19:22 82 19 10/12/16 19:21 159/99 10/12/16 19:17 74 18 10/12/16 19:17 75 18 100 10/12/16 19:16 143/96 10/12/16 19:13 156/108 10/12/16 19:12 92 18 10/12/16 19:12 90 18 100 10/12/16 19:10 187/112 10/12/16 19:10 184/110 10/12/16 19:08 154/113 10/12/16 19:07 37.1 82 20 175/110 100 Mask 10 10/12/16 19:07 101 23 175/110 100 10/12/16 19:07 101 23 10/12/16 17:00 Room Air 10/12/16 15:00 36.7 69 17 132/83 93 Room Air 10/12/16 13:45 36.7 67 14 127/76 96 Room Air 10/12/16 13:45 96 Room Air 10/12/16 12:54 66 20 143/99 96 Room Air 10/12/16 12:50 96 Room Air 10/12/16 11:36 72 22 149/89 96 Room Air 10/12/16 11:00 70 16 158/97 96 Room Air 10/12/16 09:19 76 20 144/93 96 Room Air 10/12/16 08:30 72 20 143/86 95 Room Air 10/12/16 08:23 Room Air Notes Mental Status: alert / awake / arousable, participated in evaluation Pt Amnestic to Procedure: Yes Nausea / Vomiting: adequately controlled Pain: adequately controlled Airway Patency, RR, SpO2: stable & adequate BP & HR: stable & adequate Hydration State: stable & adequate Anesthetic Complications: no major complications apparent
[2016-10-12] MEDS ORDERED: CIPROFLOXACIN / D5W 400 MG in PREMIXED IN D5W 200 ML IV SCH (21:00)
[2016-10-12] MEDS ORDERED: TAMSULOSIN HCL 0.4 MG CAP PO SCH (21:00)
[2016-10-12] MEDS ORDERED: MONTELUKAST SOD 10 MG TAB PO SCH (21:00)
[2016-10-12] MEDS: TOPIRAMATE 25 MG TAB PO SCH (21:05)
[2016-10-13 03:46] VITALS: BP 116/71; PULSE 76; TEMP 36.7; O2SAT 94
[2016-10-13] MEDS ORDERED: CEFAZOLIN IV 2,000 MG/60 ML D5W IV SCH (06:00)
[2016-10-13 06:26] LABS: MEAN CELL VOLUME 90.9 fL (80-100); MEAN CORPUSCULAR HEMOGLOBIN 30.9 pg (25-34); MEAN PLATELET VOLUME 9.8 fL (7.4-10.4); PLATELET COUNT 222 K/uL (130-400); WHITE BLOOD COUNT 10.15 K/uL (4.8-10.8)
[2016-10-13 06:57] LABS: CALCIUM 8.2 mg/dl (8.5-10.1); CREATININE 1.2 mg/dl (0.60-1.40); MAGNESIUM 2.3 mg/dl (1.8-2.4); POTASSIUM 4.2 mmol/L (3.5-5.1)
[2016-10-13 07:37] VITALS: BP 144/80; PULSE 84; TEMP 36.6; O2SAT 96
[2016-10-13] MEDS: SODIUM CHLORIDE 0.9% 1000ML 1,000 ML IV SCH (08:49)
[2016-10-13] MEDS: TOPIRAMATE 25 MG TAB PO SCH (08:50)
[2016-10-13] MEDS ORDERED: LACTOBACILLUS ACIDOPHILUS (FLORANEX) TAB PO SCH (09:00)
[2016-10-13] MEDS ORDERED: PANTOprazole SOD 40 MG TAB PO SCH (09:00)
[2016-10-13] MEDS ORDERED: FLUTICASONE PROPIONATE NA SPR 16 GM BTL NAE SCH (09:00)
[2016-10-13] MEDS ORDERED: SERTRALINE HCL 100 MG TAB PO SCH (09:00)
[2016-10-13] MEDS ORDERED: PHEN-1043 PO (09:27)
[2016-10-13] MEDS ORDERED: FLM4 PO (09:27)
[2016-10-13] MEDS ORDERED: MTR800 PO (09:47)
[2016-10-13] MEDS ORDERED: KETOROLAC TROMETHAMINE 30 MG/ML VIAL IV ONE (10:00)
--- NOTE | 2016-10-13 10:04 | Discharge Instructions ---
Discharge Instructions Date of Service Oct 13, 2016. Admission Reason for Admission: Hydronephrosis With Renal Calculous Obstruction Discharge Discharge Diagnosis / Problem: Obstructive left ureteral stone with left hydronephrosis Discharge Goals Goal(s): Decrease discomfort, Diagnostic testing, Therapeutic intervention Activity Recommendations Activity Limitations: resume your previous activity . Instructions / Follow-Up Instructions / Follow-Up You were admitted to the hospital with left testicular pain as well as left flank pain. In the ER you were found to have kidney stones, and there was a stone in the left ureter (which connects the kidney to the bladder) that was obstructive. Urology was consulted, and you underwent cystoscopy and lithotripsy to remove the stone. You are now medically stable for discharge to home. Due to the procedure and the stones, there may be some blood in the urine for the next few days; this is normal. You have been given medications to help with any residual pain. Medications: *You may take Pyridium (phenazopyridine) 200 mg by mouth three times a day with meals as needed for burning with urination. This medication will turn your urine orange; this is normal. *Please take Flomax (tamsulosin) 0.4 mg by mouth at bedtime for the next [address] Hancock' recommendations. *You may take ibuprofen 800 mg by mouth three times a day as needed for pain. Take this medication with food to help prevent GI upset. *You may resume your other home medications as prescribed. Follow up: *Please follow up with urology (Dr. Hancock) in 1-2 weeks regarding your procedure. *Please follow up with your primary care provider in 1 week regarding your hospital stay. Please seek medical attention if you experience fevers, chills, sweats, chest pain, shortness of breath, nausea, vomiting, or if your pain is not improving or is concerning. Current Hospital Diet Patient's current hospital diet: Regular Diet Discharge Diet Recommended Diet: Regular Diet Procedures Procedures Performed: Cystoscopy, Left Flexible Ureteroscopic Laser Lithotripsy with Basket Stone Extraction and Left Ureteral Stent Insertion Pending Studies Studies pending at discharge: yes List of pending studies: Ureteral stone analysis Medical Emergencies . Who to Call and When: Medical Emergencies: If at any time you feel your situation is an emergency, please call 911 immediately. . Non-Emergent Contact Non-Emergency issues call your: Primary Care Provider, Urologist Call Non-Emergent contact if: you have a fever, your pain is worsening, your pain is concerning you, you have any medication questions . Past History Medical & Surgical History: (1) Hydronephrosis with renal calculous obstruction . "Provider Documentation" section prepared by Sona Wolf. VTE Core Measure Inpt VTE Proph given/why not?: Rosamaria Henry, SCD's
[2016-10-13 10:15] VITALS: BP 144/80; PULSE 84; TEMP 36.6; O2SAT 96
--- NOTE | 2016-10-13 10:17 | Anesthesiology Progress Note ---
Anesthesia Post Op Note Date & Time Oct 13, 2016 at 10:17 Vital Signs Pain Intensity: 0.0 Vital Signs Past 12 Hours Date Time Temp Pulse Resp B/P Pulse Ox O2 Delivery O2 Flow Rate FiO2 10/13/16 07:37 36.6 84 16 144/80 96 Room Air 10/13/16 03:46 36.7 76 18 116/71 94 CPAP 10/12/16 23:46 36.7 80 18 126/82 91 Room Air 10/12/16 23:38 84 95 10/12/16 23:00 93 Room Air CPAP Notes Mental Status: alert / awake / arousable, participated in evaluation Pt Amnestic to Procedure: Yes Nausea / Vomiting: adequately controlled Pain: adequately controlled Airway Patency, RR, SpO2: stable & adequate BP & HR: stable & adequate Hydration State: stable & adequate Anesthetic Complications: no major complications apparent
--- NOTE | 2016-10-13 12:19 | Discharge Summary ---
Discharge Summary Date of Service Oct 13, 2016. (Sona Wolf PA-C) Discharge Summary Admission Date: Oct 12, 2016 at 13:57 Discharge Date: Oct 13, 2016 Discharge Disposition: Home Principal Diagnosis: Obstructing left ureteral stone with left hydronephrosis Immunizations: Have You Had Influenza Vaccine: No Influenza Vaccine Date: May 12, 2011 History of Tetanus Vaccine?: Yes History of Pneumococcal: No History of Hepatitis B Vaccine: No Procedures: [place], [place] Operative Report Patient Name: JUSTIN KNUTSON I Admit Date: 10/12/1702/08/17 [facility] Rec: [id number] Att Phy: Rudy Jaimes MD Acct ID: [id number] Kelsie Phy: No Doctor, Assigned Date: 1965 Fam Phy: Justin Caldwell M.D. Age: 51 Location: [facility] Sex: M Room/Bed: [facility] CC: No Doctor, Assigned Trinity Hancock MD *NOTICE TO RECEIVING LIBERTARIAN/AGENCY This information is strictly Confidential and protected under [place] law. [place] law prohibits you from making any further disclosure of this information unless further disclosure is expressly permitted by the written consent of the person to whom it pertains or is authorized by law. A general authorization for the release of medical or other information is not sufficient for this purpose. Hospital accepts no responsibility if the information is made available to any other person, INCLUDING THE PATIENT. Operative Report Operative Date Oct 12, 2016. Pre-Operative Diagnosis Obstructing Left Ureteral Stone Post-Operative Diagnosis same Procedure(s) Performed cysto, left ureteroscopy laser lithotripsy basket stone extraction stent placement Surgeon Dr. Trinity Hancock Dining Server Surgeon(s) None Estimated Blood Loss 2ml Findings radio-opaque left ureteral stone Specimens A. Left Ureteral Stone Fragments for Analysis Drains 6 fr 24 centimeter double J stent Anesthesia LMA Complication(s) None Disposition Recovery Room / PACU Indications obstructing 5mm left upper ureteral stone Description of Procedure Patient was given general LMA and placed in lithotomy position. His genitals were prepped and draped in sterile fashion. Time out held with team. I placed a 21 fr rigid cystoscope to bladder. The urethra is unremarkable. The prostate is not obstructing. The UOs are very laterally displaced. I placed a road runner wire up left ureter and once it went above the stone there was increased pink efflux from left UO. I removed scope and placed a dual lumen cath to place a second wire. I placed a flexible ureteroscope over the second wire easily to the mid ureter. Under vision I advanced the ureteroscope to the stone. I used a 200 micron to fragment the stone into about 6 pieces. i used a 1.9 fr zero tip basket to extract the stones until the ureter was clear. I then replaced the cystoscope and rinsed the fragments out of the ureter. I placed a 6 fr 24 centimeter double J stent under fluoro guidance. I placed a B and O suppository for post-op pain. He transferred to recovery under my escort, in stable condition. 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 Any exceptions are noted below. <Electronically signed by Trinity Hancock MD> Signed: 10/12/161907 Signed: The status of this report is Signed * If report status is Draft, the document has not been finalized by the responsible provider. MNE: OPREPORT <AttendingPhy>Rudy Jaimes MD</AttendingPhy><EDPhy>Jett Monteiro M.D.</EDPhy> <FamilyPhy>Justin Caldwell M.D.</FamilyPhy> <PrimaryPhy>No Doctor, Assigned</ PrimaryPhy><UnitNumber>[id number]</UnitNumber><VisitNumber>[id number]</ VisitNumber><PatientName>JUSTIN KNUTSON I</PatientName><DateOfBirth>1965</ DateOfBirth><Age>51</Age><Location>[facility]</Location><ServiceDate>10/12/16</ ServiceDate><CC>No Doctor, Assigned Trinity Hancock MD</CC><MNE>OPREPORT</MNE> (Sona Wolf PA-C) Medication Reconciliation New Medications: Ibuprofen (Ibuprofen) 800 Mg Tab 1 TAB PO TIDM PRN for Pain for 5 Days, #15 TABS Take 1 tablet by mouth three times a day with meals as needed for pain. Phenazopyridine HCl (Phenazopyridine HCl) 200 Mg Tab 200 MG PO TID PRN for Bladder pain for 3 Days, #9 TAB Take 1 tablet by mouth three times a day after meals as needed for burning with urination x 3 days. Tamsulosin HCl (Tamsulosin HCl) 0.4 Mg Cap 0.4 MG PO HS for 10 Days, #10 CAP Take 1 capsule by mouth at bedtime x 10 days Continued Medications: Aspirin (Aspirin 81) 81 Mg Tab 81 MG PO DAILY Azelastine Hcl (Astelin Nasal [place]) 200 Sprays/30 Ml [place] 1-2 SPRAYS NA BID, BTL Bupropion HCl (Bupropion HCl) 75 Mg Tab 75 MG PO DAILY, #90 Cholecalciferol (Vitamin D-1000) 1,000 Unit Tab 51512 UNIT(INT) PO DAILY Citalopram Hydrobromide (Citalopram Hydrobromide) 10 Mg Tab 5 MG PO DAILY, #15 Epinephrine (Epipen) 0.3 Mg/0.3 Ml Inj 0.3 MG IM UD, INJ Fexofenadine Hcl (Lluvia Allergy) 180 Mg Tab 180 MG PO UD PRN for when getting allergy shots for 14 Days, TAB 2 Refills Fish Oil (Minerva-3) 1 Ea Cap 1000 MG PO BID, 0 Refills Fluticasone Propionate (Fluticasone Propionate) 120 Sprays/6000 Mcg Inha 1 SPRAY EN DAILY, #16 Iodine (Kelp) (Kelp) 150 Mcg Tab Unknown Dose PO DAILY Ipratropium-Albuterol (Combivent Respimat) 1 Aer Aer 2 PUFFS INH PRN for SOB/Wheezing, INH Lactobacillus (Acidophilus) 1 Tab Tab 1 TAB PO DAILY Lorazepam (Ativan) 1 Mg Tab 1 MG PO Q6H PRN for ANXIETY, TAB Meclizine Hcl (Meclizine Hcl) 25 Mg Tab 25 MG PO PRN for Dizziness or Vertigo Milk Thistle (Silybum Marianum (Milk Thistle) 140 Mg Cap Unknown Dose PO DAILY Montelukast Sodium (Singulair) 10 Mg Tab 10 MG PO DAILY, TAB Multiple Minerals W/ Vitamins (Jgk-Alj-Zoap-D) 1 Tab Tab 2 CAP PO DAILY Multiple Vitamin (Multivitamin) 1 Tab Tab 1 TAB PO Q2D, TAB Nutraceuticals (Nutraceuticals) Ea 1 TAB PO DAILY Omeprazole (Prilosec) 20 Mg Cap 20 MG PO BID, #60 Oregano (Oil Of Oregano) 1,500 Mg Cap 1 CAP PO DAILY Rizatriptan Benzoate (Maxalt-Mold Filler And Drainer) 10 Mg Tab 10 MG PO UD, TAB Sertraline Hcl (Zoloft) 100 Mg Tab 200 MG PO DAILY, TAB Topiramate (Topamax) 50 Mg Tab 50 MG PO BID, #60 Zinc Gluconate (Zinc) 50 Mg Tab 25 MG PO DAILY Referrals At Discharge Follow up Referrals: Physician Referral - Within 1 Week with Justin Caldwell M.D. Urologist Referral - Within 1-2 Weeks with Trinity Hancock .MD Discharge Exam Patient complains of dysuria and hematuria. He states he has a 3/10 sharp pain in his left testicle and lower abdomen. This pain becomes much more severe during and following urination. He currently denies any back pain. The patient denies fevers, chills, sweats, chest pain, palpitations, claudication, cough, wheezing, shortness of breath, nausea, vomiting, urinary retention, paralysis, weakness, numbness and tingling. Review of Systems: Constitutional: No chills, No fever, No sweats Eyes: No diplopia, No eye pain, No worsening of vision ENT: No hearing loss, No sore throat, No trouble swallowing Respiratory: No cough, No shortness of breath, No wheezing Cardiovascular: No chest pain, No claudication, No palpitations Abdomen: + pain (lower abdomen), No nausea, No vomiting Musculoskeletal: No calf pain, No joint pain, No muscle pain Genitourinary - Male: + dysuria, + hematuria, + problem reported (left testicular pain), No urinary retention Neurologic: No numbness/tingling, No paralysis, No weakness Integumentary: No color change, No itch, No rash Physical Exam: General Appearance: WD/WN, no apparent distress, + obese Eyes: normal inspection, PERRL, EOMI ENT: normal ENT inspection, hearing grossly normal, pharynx normal Neck: supple, no JVD, trachea midline Respiratory/Chest: lungs clear, normal breath sounds, no respiratory distress Cardiovascular: regular rate, rhythm, no gallop, no murmur Abdomen / GI: normal bowel sounds, soft, + tenderness (LLQ TTP) Extremities: normal inspection, no calf tenderness, no pedal edema Neurologic/Psychiatric: alert, normal mood/affect, oriented x 3 Skin: normal color, warm/dry, no rash (Sona Wolf ., GABRIELLA) Hospital Course 51 y/o male with a history of CAD with PFO, depression, asthma, and GERD who presents to the ED on 10/12 complaining of left testicular pain that started 2 days prior to arrival. The pain then progressed to his left flank and left lower quadrant pain with associated nausea. CT of the abdomen/pelvis revealed bilateral nephrolithiasis with an obstructing stone in the left ureter along with left hydronephrosis. Testicular ultrasound showed small echogenic foci in the left testes which are likely benign. Patient is afebrile, vital signs stable. UA positive for 3+ blood. Labs otherwise grossly unremarkable. Left obstructing ureteral stone with hydronephrosis -Admitted to med/surg -Urology consulted, appreciate recs: left ureteroscopy with laser lithotripsy basket stone extraction and stent performed 10/12. Postoperatively recommended Pyridium 3 days, Flomax 10 days and oral pain management -NSS at 100 cc/hr -Toradol 30 mg IV Q6H prn pain -Morphine 2-4 mg IV Q2H prn pain -Flomax 0.4 mg daily. Will continue for 10 days as an outpatient per urology recommendations -Pt given ibuprofen 800 mg PO TID for pain at discharge as he received very little pain medication during stay. Gave 1 dose Toradol prior to discharge CAD with PFO -Hold ASA due to procedure Depression with anxiety -Continue Wellbutrin 75 mg PO qd and Zoloft 200 mg daily Migraines -Continue Topamax 50 mg BID Asthma--stable -Continue Combivent PRN and Singulair 10 mg PO qd GERD -Continue Prilosec 20 mg PO BID JENNI -Continue CPAP DVT prophylaxis -Hold chemical prophylaxis due to procedure -NHAN mejia and Yadira Code Status -Level I, FULL RESUSCITATION STATUS Dispo -Pt medically stable for discharge, will return home Total Time Spent: Greater than 30 minutes This includes examination of the patient, discharge planning, medication reconciliation, and communication with other providers. (Sona Wolf ., PA-C) I agree with PA assessment and plan and have seen and examined pt myself S/P lithotripsy and basket extraction VSS Labs reviewed Pyridium and flomax on DC F/U with urology on DC (Rich Brown D.OFalguni) Discharge Instructions Please refer to the electronic Patient Visit Report (Discharge Instructions) for additional information. (Sona Wolf ., PA-C) Additional Copies To Justin Caldwell M.D.
== END 2016-10-13 11:11 | disposition home or self-care (01) | DRG 694 ==
LOC: ENRESERVDT → ENRESERVTM → C.EDB 07:03 → C.MSW 13:57
PROVIDERS: ADMIT Internal Medicine; ATTEND Internal Medicine
PROC: 0T778DZ Dilation of Left Ureter with Intraluminal Device, Via Natural or Artificial Opening Endoscopic (ICD-10-PCS; principal; 2016-10-12 16:30)
PROC: 0TF78ZZ Fragmentation in Left Ureter, Via Natural or Artificial Opening Endoscopic (ICD-10-PCS; principal; 2016-10-12 16:30)
DX: N13.2 Hydronephrosis with renal and ureteral calculous obstruction (principal); Q21.1 Atrial septal defect; J45.909 Unspecified asthma, uncomplicated; K21.9 Gastro-esophageal reflux disease without esophagitis; G47.33 Obstructive sleep apnea (adult) (pediatric); I25.10 Atherosclerotic heart disease of native coronary artery without angina pectoris; F32.9 Major depressive disorder, single episode, unspecified; Z79.82 Long term (current) use of aspirin; Z91.030 Bee allergy status; Z88.0 Allergy status to penicillin; Z83.3 Family history of diabetes mellitus; Z82.49 Family history of ischemic heart disease and other diseases of the circulatory system

== ENCOUNTER → 2017-04-13 | Outpatient (CLI) | payer OTHER ==
[~2017-04-13] MED LIST changes: -ALLGUNK PO; -ASPCH81 PO; +ASPI-435 PO; +ASTN; -AZEL137S6 NAE; +CITA10TA4 PO; +FEXO1TAB49 PO; +FLM4 PO; +FLNIN/ EN; -MOME50SP5; +MTR800 PO; -NXM/40 PO; +OMEP20CA9 PO; +PHEN-1043 PO; +TPM/50 PO; +WLL75 PO
[2017-04-13 13:41] LABS: BASO % 0.6 %; BASO ABS # 0.04 K/uL (0-0.2); COMPLETE YES; EOS % 3.2 %; HEMATOCRIT 41.1 % (42-52); IG% 0.3 %; LYMPH % 34.7 %; LYMPH ABS # 2.31 K/uL (1.2-3.4); MEAN CELL VOLUME 91.3 fL (80-100); MEAN CORPUSCULAR HEMOGLOBIN 30.9 pg (25-34); MEAN CORPUSCULAR HGB CONC 33.8 g/dl (32-36); MEAN PLATELET VOLUME 10.2 fL (7.4-10.4); MONO % 8.9 %; NEUT % 52.3 %; PLATELET COUNT 222 K/uL (130-400); WHITE BLOOD COUNT 6.66 K/uL (4.8-10.8)
[2017-04-13 14:20] LABS: ALT/SGPT 151 U/L (12-78); BLOOD UREA NITROGEN 15 mg/dl (7-18); BUN/CREATININE RATIO 15.7 (10-20); CALCIUM 9.3 mg/dl (8.5-10.1); CARBON DIOXIDE 29 mmol/L (21-32); CHLORIDE 106 mmol/L (98-107); CHOLESTEROL 159 mg/dl (0-200); CREATININE 0.96 mg/dl (0.60-1.40); GLUCOSE 90 mg/dl (70-99); POTASSIUM 4.2 mmol/L (3.5-5.1); SODIUM 140 mmol/L (136-145); TRIGLYCERIDES 120 mg/dl (0-150); VERY LOW DENSITY LIPOPROT CALC 24 mg/dl
[2017-04-13 14:23] LABS: ALB/GLOB RATIO 1.2 (0.9-2); ALKALINE PHOSPHATASE 88 U/L (45-117); AST/SGOT 75 U/L (15-37); CHOLESTEROL/HDL RATIO 4.1; HDL CHOLESTEROL 39 mg/dl; LDL CHOLESTEROL CALCULATED 96 mg/dl
== END | disposition home or self-care (01) ==
LOC: C.LABBC 09:42
PROVIDERS: ATTEND Family Medicine Sports Medicine
DX: E78.5 Hyperlipidemia, unspecified (principal)

== ENCOUNTER 2019-07-08 15:53 | Inpatient (IN) ==
--- NOTE | 2019-07-08 16:25 | XRay Report ---
XR chest 1V portable CLINICAL HISTORY: SOB dyspnea COMPARISON STUDY: 06/10/2019 FINDINGS: The bones soft tissues and hemidiaphragms are normal. The cardiomediastinal silhouette is n ormal. The lungs are clear. The pulmonary vasculature is normal. IMPRESSION: Negative chest. The above report was generated using voice recognition software. It may contain grammatical, syntax or spelling errors. Electronically signed by: Anil Lorenzo M.D. 07/08/2019 4:23 PM
--- NOTE | 2019-07-08 16:38 | Emergency Department Note ---
Entered by Vicki Arias acting as a scribe for History of Present Illness General Chief complaint: Illness Stated complaint: WEAK LEGS,SORE MUSCLES,TINGLING HANDS AND FEET Time Seen by Provider: 07/08/19 16:00 Source: patient History of Present Illness Onset (ago): day(s) 3 Location: chest Radiation: non-radiation Pain Consistency: + intermittent Maximum Pain Intensity: 6 Current Pain Intensity: 7 Quality: + other (chest pain) Relieved By: + rest Exacerbated By: + movement Associated symptoms: + chest pain, + shortness of breath, + weakness and + other (tingling in feet and hands); no fever/chills Treatments prior to arrival: none The patient is a 54 year old male presenting to the Emergency Department complaining of intermittent chest pain starting 3 days ago. The patient reports that he sometimes experiences chest pain that is non-radiating. He states that his chest pain worsens with exertion and improves with rest. He explains that he experiences chest pain for 5 to 6 minutes at a time and that he has been experiencing these episodes 2 to 3 times per day. He notes that he becomes short of breath upon exertion along with his chest pain. He rates his chest pain when it is at its worst 7/10. He adds that both of his hands and both of his feet are tingling. The patient reports that both of his legs are bruised and that they feel weak. He states that he has not taken any medications for his chest pain. He notes that he follows with [facility] cardiology but that he has not been seen in the office since 2014. He adds that he regularly takes Aspirin. He reports that he has a PFO. The patient denies fevers, chills, history of blood clots and COPD. Home Medications Home Medications Medication Instructions Recorded Confirmed Type acidophilus-pectin, citrus 1 cap PO DAILY 07/03/18 07/08/19 History [Acidophilus Probiotic] aspirin 81 mg PO DAILY 07/03/18 07/08/19 History cholecalciferol (vitamin D3) 5,000 unit PO DAILY 07/03/18 07/08/19 History [Vitamin D3] epinephrine [EpiPen] 0.3 mg IM Q3H PRN 07/03/18 07/08/19 History fexofenadine [Lluvia Allergy] 180 mg PO DAILY PRN 07/03/18 07/08/19 History ipratropium-albuterol [Combivent 1 puff INHALATION QID PRN 07/03/18 07/08/19 History Respimat] montelukast 10 mg PO DAILY 07/03/18 07/08/19 History multivitamin 1 tab PO DAILY 07/03/18 07/08/19 History omega 5-ncu-tlo-fish oil [[place]-3] 1 cap PO DAILY 07/03/18 07/08/19 History sertraline 100 mg PO DAILY 07/03/18 07/08/19 History topiramate 100 mg PO DAILY 07/03/18 07/08/19 History zinc 50 mg PO DAILY 07/03/18 07/08/19 History ibuprofen 400 - 600 mg PO DIRECTED PRN 07/08/19 07/08/19 History iodine (kelp) [Kelp] 0.15 mcg PO DAILY 07/08/19 07/08/19 History Allergies Allergy/AdvReac Type Severity Reaction Status Date / Time bee venom protein (honey bee) Allergy Severe Anaphylaxis Verified 07/08/19 16:43 mold Allergy Intermediate sneezing,watery Verified 07/08/19 16:43 eyes, runny nose Penicillins Allergy Intermediate Hives Verified 07/08/19 16:43 rizatriptan [From Maxalt] AdvReac Severe Chest Pain Verified 07/08/19 16:43 valproic acid AdvReac Intermediate PANIC Verified 07/08/19 16:43 ATTACKS Dust Allergy Intermediate sneezing,watery Uncoded 07/08/19 16:43 eyes, runny nosed Past Med/Surg History Medical History Asthma (Chronic) Coronary artery disease GERD (gastroesophageal reflux disease) (Chronic) Kidney stone Surgical History H/O sinus surgery (Resolved) Social History Preferred Language: Yemeni Feels Safe at Home: Yes Smoking Status: Never smoker Review of Systems See HPI for pertinent positives & negatives. and A total of 10 systems reviewed and were otherwise negative Physical Exam Vital Signs Vital Signs - 24 hr 07/08/19 15:54 07/08/19 16:32 07/08/19 16:37 Temperature 36.8 C Temperature Source Oral Pulse Rate 88 70 Respiratory Rate 20 15 Respiratory Effort / Characteristics Non-Labored Respiratory Depth Normal Blood Pressure 144/89 H 116/78 Blood Pressure Mean 107 84 Pulse Oximetry 98 96 Oxygen Delivery Method Room Air Room Air Sepsis Recent Fever Within 48 Hours No Sepsis Action Taken by Nursing No Action Required 07/08/19 16:59 07/08/19 17:00 07/08/19 17:01 Temperature Temperature Source Pulse Rate 70 78 74 Respiratory Rate 15 14 13 Respiratory Effort / Characteristics Respiratory Depth Blood Pressure 114/76 Blood Pressure Mean 90 Pulse Oximetry Oxygen Delivery Method Sepsis Recent Fever Within 48 Hours Sepsis Action Taken by Nursing 07/08/19 17:06 Temperature Temperature Source Pulse Rate 70 Respiratory Rate 19 Respiratory Effort / Characteristics Respiratory Depth Blood Pressure 130/83 Blood Pressure Mean 89 Pulse Oximetry Oxygen Delivery Method Sepsis Recent Fever Within 48 Hours Sepsis Action Taken by Nursing GENERAL: Patient is in no acute distress. HEENT: No acute trauma, normocephalic atraumatic, mucous membranes moist, no nasal congestion, no scleral icterus. NECK: No stridor, no adenopathy, no meningismus, trachea is midline. LUNGS: Clear to auscultation bilaterally, no wheeze, no rhonchi, breath sounds equal. HEART: Without murmurs gallops or rubs, regular rate and rhythm. ABDOMEN: Soft, nontender, bowel sounds positive, no hernias, no peritonitis. EXTREMITIES: Fairly older contusion to right anterior proximal leg. No cyanosis or edema, full range of motion of all the joints without pain or difficulty. NEUROLOGIC: Oriented x 3, no acute motor or sensory deficits, no focal weakness. SKIN: No rash, no jaundice, no diaphoresis. Course Course 1602: The patient was evaluated in room C7, and a complete history and physical examination were performed. 1615: I discussed the patients case with Dr. Maximo Romero automatic brine mixer operator. He recommends that the patient stay in the hospital for a further workup including serial enzymes and a stress test. 1718: I reevaluated the patient at this time who is agreeable to staying in the hospital. 1728: I discussed the patients case with Dr. Shakir Romero hospitalist. He will evaluate the patient for further management. Medical Decision Making Differential Diagnosis Differential diagnoses include cardiac ischemia, FL, CHF, pneumonia, bronchitis, angina, anemia, aortic dissection and PE amongst others. Medical Records Attestation: I reviewed the patient's medical records. Home Medications Current Medication List: was personally reviewed by me Laboratory Data Attestation: I reviewed the patient's lab results. Result diagrams: 07/08/19 16:30 07/08/19 16:30 Lab Results 07/08/19 07/08/19 07/08/19 Range/Units 16:30 16:30 16:30 WBC 7.72 (4.8-10.8) K/uL RBC 4.14 L (4.7-6.1) M/uL Hgb 13.4 L (14.0-18.0) g/dL Hct 38.6 L (42-52) % MCV 93.2 (80-100) fL MCH 32.4 (25-34) pg MCHC 34.7 (32-36) g/dL RDW Std Deviation 42.8 (36.4-46.3) fL RDW Coeff of [place]aliy 12.5 (11.5-14.5) % Plt Count 232 (130-400) K/uL MPV 9.8 (7.4-10.4) fL Immature Gran % (Auto) 0.1 % Neut % (Auto) 49.5 % Lymph % (Auto) 38.0 % [place] % (Auto) 9.3 % Eos % (Auto) 2.7 % Baso % (Auto) 0.4 % Immature Gran # (Auto) 0.01 (0.00-0.02) K/uL Neut # (Auto) 3.82 (1.4-6.5) K/uL Lymph # (Auto) 2.93 (1.2-3.4) K/uL [place] # (Auto) 0.72 H (0.11-0.59) K/uL Eos # (Auto) 0.21 (0-0.5) K/uL Baso # (Auto) 0.03 (0-0.2) K/uL PT 10.7 (9.0-12.0) Seconds INR 1.0 (0.9-1.1) APTT 23.6 (21.0-31.0) Seconds PTT Ratio 0.9 Sodium 141 (136-145) mmol/L Potassium 3.6 (3.5-5.1) mmol/L Chloride 112 H (98-107) mmol/L Carbon Dioxide 24 (21-32) mmol/L Anion Gap 6.0 (3-11) BUN 16 (7-18) mg/dl Creatinine 1.08 (0.6-1.4) mg/dl Est Cr Clr Drug Dosing 84.6 ml/min Est GFR ( Amer) 88.5 Est GFR (Non-Af Amer) 76.3 BUN/Creatinine Ratio 14.7 (10-20) Glucose 111 H (70-99) mg/dl Calcium 9.2 (8.5-10.1) mg/dl Magnesium 2.3 (1.8-2.4) mg/dl Total Bilirubin 0.2 (0.2-1) mg/dl AST 48 H (15-37) U/L ALT 103 H (12-78) U/L Alkaline Phosphatase 124 H (45-117) U/L Troponin I < 0.015 (0-0.045) ng/ml Total Protein 7.5 (6.4-8.2) gm/dl Albumin 3.8 (3.4-5.0) gm/dl Globulin 3.7 (2.5-4.0) gm/dl Albumin/Globulin Ratio 1.0 (0.9-2) Imaging Data Radiologist's Impression: Radiology results as stated below per my review and the radiologist's interpretation: XR chest 1V portable CLINICAL HISTORY: SOB dyspnea COMPARISON STUDY: 06/10/2019 FINDINGS: The bones soft tissues and hemidiaphragms are normal. The cardiomediastinal silhouette is normal. The lungs are clear. The pulmonary vasculature is normal. IMPRESSION: Negative chest. The above report was generated using voice recognition software. It may contain grammatical, syntax or spelling errors. Electronically signed by: Anil Lorenzo M.D. 07/08/2019 4:23 PM ECG Data Attestation: I personally reviewed and interpreted this ECG as follows: Indication: + chest pain Rate (beats per minute): 77 Rhythm: + normal sinus ECG ST segments: no ST elevation ECG Findings: + Other (QTC 423.); no PVCs Blood Pressure Blood Pressure Findings: Elevated blood pressure Blood Pressure Disposition: further management by hospitalist [facility] Narrative There is no leukocytosis or concerning anemia. The patient has a normal platelet count. No coagulopathy. No significant electrolyte abnormality or kidney failure. There were a few liver enzyme elevations, the bilirubin however was normal. EKG shows a normal sinus rhythm, no acute ischemia. Cardiac enzyme testing x1 is not consistent with acute cardiac injury. Chest film does not show mediastinal widening, pneumonia or pneumothorax. The patient presents with exertional chest pain and dyspnea. He has to rest to feel better. He does have some known coronary disease diagnosed sometime ago. He apparently has not seen cardiology in 4-5 years. I discussed the case with his automatic brine mixer operator, a hospital stay and further cardiac work-up was felt warranted. I spoke to the patient, I talked with case management. The on-call hospitalist has been consulted. Impression & Plan Precordial chest pain, Shortness of breath Discharge Plan Visit Data Chief Complaint: Illness Stated Complaint: WEAK LEGS,SORE MUSCLES,TINGLING HANDS AND FEET ED Provider: Jett Monteiro Discharge Problem: Precordial chest pain, Shortness of breath Patient Disposition: Being Evaluated by Hospitalist Forms Stand Alone Forms: My [facility] Prescriptions Prescriptions: No Action Kelp 0.15 mg Tablet 0.15 mcg PO DAILY RF: 0 ibuprofen 200 mg Tablet 400 - 600 mg PO DIRECTED PRN (Reason: Pain) RF: 0 multivitamin Tablet 1 tab PO DAILY RF: 0 sertraline 100 mg tablet 100 mg PO DAILY RF: 0 fexofenadine [Lluvia Allergy] 180 mg Tablet 180 mg PO DAILY PRN (Reason: WHEN GETS ALLERGY SHOTS) RF: 0 aspirin 81 mg Tablet,Delayed Release (Dr/Ec) 81 mg PO DAILY RF: 0 montelukast 10 mg tablet 10 mg PO DAILY RF: 0 zinc 50 mg Tablet 50 mg PO DAILY RF: 0 epinephrine [EpiPen] 0.3 mg/0.3 mL Auto-Injector 0.3 mg IM Q3H PRN (Reason: Allergic Reaction) RF: 0 topiramate 100 mg tablet 100 mg PO DAILY RF: 0 cholecalciferol (vitamin D3) [Vitamin D3] 5,000 unit Tablet 5,000 unit PO DAILY RF: 0 acidophilus-pectin, citrus [Acidophilus Probiotic] 100 million cell-10 mg Capsule 1 cap PO DAILY RF: 0 Combivent Respimat 20-100 mcg/actuation Mist 1 puff INHALATION QID PRN (Reason: Shortness Of Breath) RF: 0 [place]-3 350 mg-235 mg- 90 mg-597 mg Capsule,Delayed Release(Dr/Ec) 1 cap PO DAILY RF: 0 Referrals Referrals: Alex Diamond DO [Primary Care Provider] - The scribe's documentation has been prepared under my direction and personally reviewed by me in its entirety. I confirm that the note above accurately reflects all work, treatment, procedures, and medical decision making performed by me.
[2019-07-08 16:41] LABS: Basophils # (auto) 0.03 K/uL (0-0.2); Basophils % (auto) 0.4 %; Eosinophils # (auto) 0.21 K/uL (0-0.5); Eosinophils % (auto) 2.7 %; Hematocrit (blood only) 38.6 % (42-52); Hemoglobin 13.4 g/dL (14.0-18.0); Immature Granulocytes # (auto) 0.01 K/uL (0.00-0.02); Immature Granulocytes % (auto) 0.1 %; Lymphocytes # (auto) 2.93 K/uL (1.2-3.4); Mean Corpuscular Hemoglobin 32.4 pg (25-34); Mean Corpuscular Hgb Conc 34.7 g/dL (32-36); Mean Corpuscular Volume 93.2 fL (80-100); Mean Platelet Volume 9.8 fL (7.4-10.4); Monocytes # (auto) 0.72 K/uL (0.11-0.59); Monocytes % (auto) 9.3 %; Neutrophils # (auto) 3.82 K/uL (1.4-6.5); Neutrophils % (auto) 49.5 %; Platelet Count 232 K/uL (130-400); RDW Coefficient of Variation 12.5 % (11.5-14.5); RDW Standard Deviation 42.8 fL (36.4-46.3); Red Blood Count 4.14 M/uL (4.7-6.1); White Blood Count 7.72 K/uL (4.8-10.8)
[2019-07-08 16:53] LABS: Partial Thromboplastin Ratio 0.9; Partial Thromboplastin Time 23.6 Seconds (21.0-31.0); Prothrombin Time 10.7 Seconds (9.0-12.0)
[2019-07-08 17:00] LABS: Alanine Aminotransferase 103 U/L (12-78); Albumin Level 3.8 gm/dl (3.4-5.0); Aspartate Aminotransferase 48 U/L (15-37); BUN Creatinine Ratio 14.7 (10-20); Blood Urea Nitrogen 16 mg/dl (7-18); Calcium 9.2 mg/dl (8.5-10.1); Carbon Dioxide 24 mmol/L (21-32); Chloride 112 mmol/L (98-107); Creatinine Clr Calc Pharmacy 84.6 ml/min; Est GFR (African American) 88.5; Est GFR (Non-African American) 76.3; Glucose 111 mg/dl (70-99); Magnesium 2.3 mg/dl (1.8-2.4); Potassium 3.6 mmol/L (3.5-5.1); Sodium 141 mmol/L (136-145)
[2019-07-08 17:04] LABS: Alkaline Phosphatase 124 U/L (45-117); Bilirubin,Total 0.2 mg/dl (0.2-1); Globulin 3.7 gm/dl (2.5-4.0); Total Protein 7.5 gm/dl (6.4-8.2); Troponin I < 0.015 ng/ml (0-0.045)
--- NOTE | 2019-07-08 18:07 | History & Physical Report ---
Date of Service July 08, 2019 Assessment & Plan (1) Precordial chest pain: Patient presents with exertional dyspnea and chest pressure. History of nonocclusive coronary artery disease per cardiac CT in 2013. History of slightly elevated cholesterol. No history of hypertension, although episodic elevations noted. Nonsmoker. No family history of premature CAD. Troponin ED negative. No acute EKG changes. Check repeat troponin in about 6 hours. Check lipid profile. Consult Cardiology. Keep NPO after midnight pending Cardiology input & plan. (2) Asthma: Pulmonary status appears to be stable. Continue montelukast and Combivent. Consider PFT's if cardiac work-up unrevealing. (3) Pulmonary nodules: CT of chest performed on 03/08/2019 demonstrated multiple small pulmonary nodules, largest measuring [address] of chest in 6 to 12 months recommended per Fleischner Society guidelines. (4) Abnormal LFTs: Total bilirubin 0.2, AST 48, ALT 103, alkaline phosphatase 124. Transaminases were elevated in April 2017. Recent CT scans of chest abdomen have demonstrated fatty liver. Patient does not consume alcoholic beverages. Follow. (5) DVT prophylaxis: Risk of VTE less than 1.5% per IMPROVE Risk Assessment Model. DVT prophylaxis, therefore, is not indicated. Ambulate. (6) Discharge planning issues: Anticipated discharge home. Primary care follow-up with Dr. Diamond. Cardiology follow-up with Dr. Marsh as needed. History of Present Illness Chief Complaint: chest pain and dyspnea Primary Care Provider: Alex Diamond DO 54-year-old male followed by Dr. Diamond in [place] for primary care and Dr. Marsh for Cardiology. History of nonocclusive coronary artery disease per cardiac CT in 2013. Also has history of PFO, asthma, GERD. Patient has noted increasing dyspnea on exertion that started few days ago. Symptoms start after walking around 150 feet, but more quickly if walking up hill. If he continues to ambulate, he then develops midsternal chest pressure that does not radiate. No associated sweats, nausea, vomiting. Symptoms relieved by rest. He has not tried taking any medications for symptoms. History of asthma, but current symptoms are different that he has experienced in the past. History of dyslipidemia. No history of hypertension. Non-smoker. No history of early coronary artery disease. Under a lot of stress. Allergies Allergy/AdvReac Type Severity Reaction Status Date / Time bee venom protein (honey bee) Allergy Severe Anaphylaxis Verified 07/08/19 16:43 mold Allergy Intermediate sneezing,watery Verified 07/08/19 16:43 eyes, runny nose Penicillins Allergy Intermediate Hives Verified 07/08/19 16:43 rizatriptan [From Maxalt] AdvReac Severe Chest Pain Verified 07/08/19 16:43 valproic acid AdvReac Intermediate PANIC Verified 07/08/19 16:43 ATTACKS Dust Allergy Intermediate sneezing,watery Uncoded 07/08/19 16:43 eyes, runny nosed Home Medications Home Medications Medication Instructions Recorded Confirmed Type acidophilus-pectin, citrus 1 cap PO DAILY 07/03/18 07/08/19 History [Acidophilus Probiotic] aspirin 81 mg PO DAILY 07/03/18 07/08/19 History cholecalciferol (vitamin D3) 5,000 unit PO DAILY 07/03/18 07/08/19 History [Vitamin D3] epinephrine [EpiPen] 0.3 mg IM Q3H PRN 07/03/18 07/08/19 History fexofenadine [Lluvia Allergy] 180 mg PO DAILY PRN 07/03/18 07/08/19 History ipratropium-albuterol [Combivent 1 puff INHALATION QID PRN 07/03/18 07/08/19 History Respimat] montelukast 10 mg PO DAILY 07/03/18 07/08/19 History multivitamin 1 tab PO DAILY 07/03/18 07/08/19 History omega 6-bco-qwx-fish oil [[place]-3] 1 cap PO DAILY 07/03/18 07/08/19 History sertraline 100 mg PO DAILY 07/03/18 07/08/19 History topiramate 100 mg PO DAILY 07/03/18 07/08/19 History zinc 50 mg PO DAILY 07/03/18 07/08/19 History ibuprofen 400 - 600 mg PO DIRECTED PRN 07/08/19 07/08/19 History iodine (kelp) [Kelp] 0.15 mcg PO DAILY 07/08/19 07/08/19 History Past Med/Surg History Medical History (Updated 07/08/19 @ 22:04 by Rinku Schilling MD) Asthma (Chronic) Coronary artery disease nonocclusive disease per cardiac CT 2013 GERD (gastroesophageal reflux disease) (Chronic) Patent foramen ovale Post concussion syndrome (Inactive) Pulmonary nodules (Chronic) Noted on CT chest 03/08/19, multiple, larges 7 mm. Follow-up CT 6-12 months per Fleischner Society guidelines Renal calculi CT 07/03/18 Surgical History (Updated 07/08/19 @ 21:48 by Rinku Schilling MD) History of sinus surgery Family History (Updated 07/08/19 @ 21:49 by Rinku Schilling MD) Mother Osteoporosis Father Hypertension Stroke suspected intracranial aneurysm Social History Preferred Language: Wolof Communication Ability: Effective Yard Attendant Required: No Beliefs That Will Affect Care: None Current Living Situation: Spouse Other Information That Helps Us Care for You: No Feels Safe at Home: Yes Safety Concerns: Feels Safe At This Time Smoking Status: Never smoker Hx Alcohol Use: No Hx Substance Use: No Review of Systems Constitutional: no fever and no weight loss Eyes: no diplopia and no worsening vision Ear, Nose, Mouth, Throat: + nasal congestion and + sinus pain/pressure; no sore throat Respiratory: + cough (attributed to postnasal drainage) Cardiovascular: as per Subjective / HPI Gastrointestinal: no nausea, no vomiting, no constipation, no diarrhea/loose stools, no blood in stools and no melena Musculoskeletal: + joint pain; no myalgia Integumentary: no rash and no new lesions Neurologic: + headache(s) (occasional) Psychiatric: lots of stress Endocrine: no polydipsia and no polyuria Hematologic / Lymphatic: no easy bleeding, no easy bruising and no lymphadenopathy Physical Exam Constitutional: WD/WN, vitals as above no acute distress Eyes: PERRL, conjunctivae normal, anicteric sclerae ENMT: external ear and nose normal, oropharynx normal Neck: trachea midline, no thyromegaly Respiratory: normal respiratory effort, lungs clear to auscultation Cardiovascular: Rate/Rhythm: regular rate Heart Sounds: no gallop, no murmur and no cardiac rub Vessels: no JVD Extremities: normal capillary refill; no calf tenderness and no edema Gastrointestinal (Abdomen): normal bowel sounds, soft, nontender, no hepatosplenomegaly Musculoskeletal: Head/Neck/Chest: neck supple Extremities: strength 5/5 throughout; no cyanosis and no clubbing Skin: no rashes, warm and dry Neurologic: PERRL, EOMI no facial palsy no dysarthria or aphasia patellar DTR's 2/2 bilat Psychiatric: Orientation: alert and oriented x 3 Affect: euthymic affect Lymphatic: no cervical lymphadenopathy Results & Data Vital Signs (Past 12 Hours) Vital Signs Temp Pulse Resp BP Pulse Ox 07/08/19 17:06 70 19 130/83 07/08/19 17:01 74 13 07/08/19 17:00 78 14 114/76 07/08/19 16:59 70 15 07/08/19 16:37 96 07/08/19 16:32 70 15 116/78 07/08/19 15:54 36.8 C 88 20 144/89 H 98 Laboratory Results Laboratory Results - last 24 hr 07/08/19 07/08/19 07/08/19 16:30 16:30 16:30 WBC 7.72 RBC 4.14 L Hgb 13.4 L Hct 38.6 L MCV 93.2 MCH 32.4 MCHC 34.7 RDW Std Deviation 42.8 RDW Coeff of Daily 12.5 Plt Count 232 MPV 9.8 Immature Gran % (Auto) 0.1 Neut % (Auto) 49.5 Lymph % (Auto) 38.0 [place] % (Auto) 9.3 Eos % (Auto) 2.7 Baso % (Auto) 0.4 Immature Gran # (Auto) 0.01 Neut # (Auto) 3.82 Lymph # (Auto) 2.93 [place] # (Auto) 0.72 H Eos # (Auto) 0.21 Baso # (Auto) 0.03 PT 10.7 INR 1.0 APTT 23.6 PTT Ratio 0.9 Sodium 141 Potassium 3.6 Chloride 112 H Carbon Dioxide 24 Anion Gap 6.0 BUN 16 Creatinine 1.08 Est Cr Clr Drug Dosing 84.6 Est GFR ( Amer) 88.5 Est GFR (Non-Af Amer) 76.3 BUN/Creatinine Ratio 14.7 Glucose 111 H Calcium 9.2 Magnesium 2.3 Total Bilirubin 0.2 AST 48 H ALT 103 H Alkaline Phosphatase 124 H Troponin I < 0.015 Total Protein 7.5 Albumin 3.8 Globulin 3.7 Albumin/Globulin Ratio 1.0 Diagnostic Findings Chest x-ray reviewed. Normal cardiac silhouette, no infiltrates, effusions, CHF. ECG Additional Comments: EKG performed at 1616 reviewed and demonstrated normal sinus rhythm at 80/minute, no acute ST or T wave abnormalities. Code Status & VTE Plan VTE Prophylaxis Plan VTE Prophylaxis will be ordered: No
[2019-07-08] MEDS ORDERED: IPRATROPIUM BROMIDE/ALBUTEROL respimat INH INH PRN (19:34)
[2019-07-08] MEDS ORDERED: FEXOFENADINE HCL 180 MG TAB PO PRN (19:34)
[2019-07-08] MEDS ORDERED: NITROGLYCERIN SL 0.4 MG/TAB TAB SL PRN (19:34)
[2019-07-08] MEDS ORDERED: ACETAMINOPHEN 325 MG TAB PO PRN (19:34)
[2019-07-08] MEDS: MONTELUKAST SODIUM 10 MG TABLET PO SCH (20:38)
[2019-07-09 06:18] LABS: Chol HDL Ratio 5; Cholesterol 162 mg/dl (0-200); HDL Cholesterol 36 mg/dl; LDL Cholesterol Calculated 98 mg/dl; Triglycerides 142 mg/dl (0-150); VLDL Cholesterol 28 mg/dl
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
[2019-07-09] MEDS: ASPIRIN 81 MG ECTAB PO SCH (08:33)
[2019-07-09] MEDS: TOPIRAMATE 100 MG TAB PO SCH (08:33)
[2019-07-09] MEDS: SERTRALINE HCL 100 MG TABLET PO SCH (08:34)
[2019-07-09] MEDS: LACTOBACILLUS ACIDOPHILUS (FLORANEX) TAB PO SCH ×2 (08:35→15:01)
[2019-07-09] MEDS: CHOLECALCIFEROL 1,000 UNITS TAB PO SCH ×2 (08:36→14:59)
[2019-07-09] MEDS ORDERED: NON-FORMULARY MEDICATION (Zinc 50 MG) PO SCH (09:00)
[2019-07-09] MEDS ORDERED: IODINE PO SCH (09:00)
[2019-07-09] MEDS ORDERED: ATROPINE SULFATE 0.1 MG/ML 10ML SYR IV ONE (10:14)
[2019-07-09] MEDS ORDERED: DOBUTamine HCL 12.5 MG/ML 20 ML VIAL IV ONE (10:15)
[2019-07-09] MEDS ORDERED: METOPROLOL TARTRATE 1 MG/ML VIAL IV ONE (10:15)
[2019-07-09] MEDS ORDERED: HEPARIN (PORCINE) 1000 UNIT/ML 10 ML (CATH LAB USE ONLY) ONE (12:16)
[2019-07-09] MEDS ORDERED: NiCARDipine HCL INJ 2.5 MG/ML 10 ML AMP ONE (12:16)
[2019-07-09] MEDS ORDERED: fentaNYL citrate 100 MCG/2 ML VIAL ONE (12:16)
[2019-07-09] MEDS ORDERED: MIDAZOLAM HCL 1 MG/ML 2ML VIAL ONE (12:17)
[2019-07-09] MEDS ORDERED: NITROGLYCERIN/D5W 100MCG/ML 20ML SYR ONE (12:17)
--- NOTE | 2019-07-09 13:03 | Pre Anesthesia Assessment ---
Date of Service July 09, 2019 Pre Sedation Assessment Vital Signs Temp Pulse Pulse Resp BP BP BP 07/09/19 12:13 78 18 118/78 07/09/19 11:49 36.8 C 72 18 141/66 H 07/09/19 07:53 36.8 C 62 18 132/69 07/09/19 04:04 36.5 C 58 L 20 122/81 07/09/19 04:00 60 18 07/09/19 01:39 70 07/08/19 23:36 36.4 C L 65 20 142/80 H 07/08/19 22:19 74 18 07/08/19 20:26 71 07/08/19 19:15 37.0 C 66 20 142/94 H 07/08/19 18:31 67 23 07/08/19 18:30 69 18 132/93 07/08/19 18:01 73 22 07/08/19 18:00 73 114/69 07/08/19 17:31 66 07/08/19 17:30 67 127/79 07/08/19 17:07 70 19 07/08/19 17:06 70 19 130/83 07/08/19 17:01 74 13 07/08/19 17:00 78 14 114/76 07/08/19 16:59 70 15 07/08/19 16:37 07/08/19 16:32 70 15 116/78 07/08/19 15:54 36.8 C 88 20 144/89 H Pulse Ox 07/09/19 12:13 07/09/19 11:49 96 07/09/19 07:53 92 07/09/19 04:04 98 07/09/19 04:00 96 07/09/19 01:39 07/08/19 23:36 97 07/08/19 22:19 96 07/08/19 20:26 07/08/19 19:15 97 07/08/19 18:31 07/08/19 18:30 07/08/19 18:01 07/08/19 18:00 07/08/19 17:31 07/08/19 17:30 07/08/19 17:07 07/08/19 17:06 07/08/19 17:01 07/08/19 17:00 07/08/19 16:59 07/08/19 16:37 96 07/08/19 16:32 07/08/19 15:54 98 Cardiovascular RRR, no murmur, no edema Respiratory normal respiratory effort, lungs clear to auscultation Pre-Sedation Airway Assessment Smoking Status: Never smoker Hx Sleep Apnea: Yes Short, Thick Neck: No Thyromental Distance: > or= 3.5 Finger Breadths Oral Cavity: + WNL Mallampati Class: III ASA: ASA2 NPO Status Date of Last Intake of Fluids: 07/08/19 Time of Last Intake of Fluids: 23:00 Date of Last Intake of Solid Food: 07/08/19 Time of Last Intake of Solid Foods: 23:00 Procedure Planning Contraindications for Sedation: none Current Medications Reviewed: Yes Notes The planned sedation has been discussed with the patient. Informed Consent was obtained. I have identified the patient, determined the appropriateness of sedation and have assessed the patient immediately prior to the procedure. All medicine(s) and interventions are by my order.
--- NOTE | 2019-07-09 13:52 | Post Anesthesia Assessment ---
Date of Service July 09, 2019 Post Sedation Assessment Vital Signs Temp Pulse Pulse Resp BP BP BP 07/09/19 12:13 78 18 118/78 07/09/19 11:49 36.8 C 72 18 141/66 H 07/09/19 07:53 36.8 C 62 18 132/69 07/09/19 04:04 36.5 C 58 L 20 122/81 07/09/19 04:00 60 18 07/09/19 01:39 70 07/08/19 23:36 36.4 C L 65 20 142/80 H 07/08/19 22:19 74 18 07/08/19 20:26 71 07/08/19 19:15 37.0 C 66 20 142/94 H 07/08/19 18:31 67 23 07/08/19 18:30 69 18 132/93 07/08/19 18:01 73 22 07/08/19 18:00 73 114/69 07/08/19 17:31 66 07/08/19 17:30 67 127/79 07/08/19 17:07 70 19 07/08/19 17:06 70 19 130/83 07/08/19 17:01 74 13 07/08/19 17:00 78 14 114/76 07/08/19 16:59 70 15 07/08/19 16:37 07/08/19 16:32 70 15 116/78 07/08/19 15:54 36.8 C 88 20 144/89 H Pulse Ox 07/09/19 12:13 07/09/19 11:49 96 07/09/19 07:53 92 07/09/19 04:04 98 07/09/19 04:00 96 07/09/19 01:39 07/08/19 23:36 97 07/08/19 22:19 96 07/08/19 20:26 07/08/19 19:15 97 07/08/19 18:31 07/08/19 18:30 07/08/19 18:01 07/08/19 18:00 07/08/19 17:31 07/08/19 17:30 07/08/19 17:07 07/08/19 17:06 07/08/19 17:01 07/08/19 17:00 07/08/19 16:59 07/08/19 16:37 96 07/08/19 16:32 07/08/19 15:54 98 Recovery Score Activity: Moves 4 extremities Respiration: Deep Breath/Cough Circulation: +/-20% PreAnes Value Consciousness: Fully Awake Oxygen Saturation: > 92% On Room Air Discharge Sedation Level of Care: Phase I Post Sedation Plan On clinical assessment, the patient appears to have tolerated the sedation without complications. Patient is recovering as anticipated. Patient will continue to be monitored by nursing and may be discharged when sedation discharge criteria are met per below protocol. Upon Completions of procedure up to 15 minutes continue every 5 minute vital signs and the P.A.R. score; then discharge to a Phase I or Fast Track to Phase II per the following guidelines: * Discharge Patient to appropriate Phase II area if PAR is 8 or greater or return to pre- procedure baseline. The post - procedure orders will be as directed. * If PAR score is less than 8 or not return to pre-procedure baseline then patient will follow Phase I monitoring till PAR is reached for Phase II. The Phase I may be done in procedure room or may call to secure a Phase I area. * If naloxone or flumazenil are used for reversal, hold in Phase I for continued monitoring from when last reversal dose was given for a minimum of 60 minutes or longer pending the nurse and/or physician discretion of patient condition before discharge to Phase II. Please call the Sedation Physician to re-evaluate and complete post-note for discharge to Phase II area. Do NOT discharge from procedure sedation or Phase 1 until post- sedation evaluation note is complete by procedure /sedation MD Sedation Discharge Instructions to be given to the patient at discharge to home.
--- NOTE | 2019-07-09 13:56 | Cardiac Catheterization ---
Cardiac Cath Procedure Full Procedure Date July 09, 2019 Pre-Procedure Diagnosis Pre-Procedure Diagnosis: Angina, Positive Stress Test and Cardiothoracic Symptom AUC Score AUC Score: 7 Post-Procedure Diagnosis Post-Procedure Diagnosis: Mild CAD and Elevated Intracardiac Pressures Procedure(s) Performed Procedure(s) Performed: Coronary Angiography and Left Heart Cath Javascript Application Developer Codey Marsh DO Cable Strander(s) Paulie VEGA Estimated Blood Loss Estimated Blood Loss: 5cc Medication(s) Medication(s): Fentanyl, Heparin, Lidocaine 1%, Nicardipine, Nitroglycerin and Versed Summary of Findings Mild nonobstructive CAD. Elevated LVEDP Hemodynamics Rest Ao:: 105/73/89 Final Ao: 104/68/86 Recommendations Recommendations: Medical Therapy and/or Counseling Specimens Specimens: None Radiation Exposure (mGy) 1881 Contrast (mls) 70 Fluids (cc crystalloids) Fluids (cc crystalloids): 60 Nss Anesthesia Moderate sedation. Start 1321. End 1347. Sedation monitor Dionne VEGA Procedural Complication(s) None Disposition PCU I attest to the content of the Intraoperative Record and any orders documented therein. Any exceptions are noted below. ACC Data: Nursing Secretary Cardiac Status Clinical evaluation leading to the procedure CAD Presenation: Unstable angina Anginal Classification: CCS III Heart Failure: No Cardiogenic Shock within 24 Hours: No Cardiac Arrest within 24 Hours: No Imaging Studies Past 6 Months: Yes Stress Studies Past 6 Months: Yes Stress Echocardiogram: Yes - Indeterminant Coronary Anatomy Dominant: Co-Dominant Left Main (% Stenosis): Distal (10%) LAD (% Stenosis): Distal (10-20%) D1 (% Stenosis): Ostial (20%) and Mid (20%) Circumflex (% Stenosis): Mid (10%) OM1 (% Stenosis): Normal L PL1 (% Stenosis): Normal L PDA (% Stenosis): Normal RCA (% Stenosis): Mid (20%) R PDA (% Stenosis): Distal (30%) AM (% Stenosis): Normal Ramus (% Stenosis): Normal Diagnostic Physicians Name: Codey Marsh DO Status: Urgent Closure Device Percutaneous Entry Location: Radial Closure Device: Radial Band Recommendations: Medical Therapy and/or Counseling Intraprocedure Events Significant Disection: No Perforation: No
[2019-07-09] MEDS ORDERED: ACETAMINOPHEN 325 MG TAB PO PRN (14:05)
[2019-07-09] MEDS ORDERED: ONDANSETRON INJ 2 MG/ML 2 ML VIAL IV PRN (14:05)
[2019-07-09] MEDS ORDERED: SODIUM CHLORIDE 0.65% NA SOLN 45 ML (OCEAN) ONE (14:22)
[2019-07-09] MEDS ORDERED: NURSING DECISION MEDICATION ONE (14:25)
[2019-07-09] MEDS ORDERED: SODIUM CHLORIDE 0.65% NA SOLN 45 ML (OCEAN) PRN (14:30)
[2019-07-09] MEDS: MONTELUKAST SODIUM 10 MG TABLET PO SCH (15:01)
--- NOTE | 2019-07-09 15:32 | Communication Note ---
Date of Service: July 09, 2019 Cardiac catheterization with favorable findings of very mild nonobstructive CAD. Patient's LDL cholesterol while hospitalized was 98 mg/dL. Recommend initiation of pravastatin 10 mg daily. This is being selected as it is well-tolerated, and affordable. Chest discomfort may be due to his left rib fracture diagnosed a month ago.
[2019-07-09] MEDS ORDERED: Nursing to Pharmacy Communication ONE (15:33)
[2019-07-09] MEDS ORDERED: PRAVASTATIN SOD 10 MG TAB PO SCH (17:00)
--- NOTE | 2019-07-09 19:54 | Hospitalist Progress Note ---
Date of Service July 09, 2019 Assessment & Plan (1) Precordial chest pain: symptom has resolved Patient presents with exertional dyspnea and chest pressure. History of nonocclusive coronary artery disease per cardiac CT in 2013. History of slightly elevated cholesterol. No history of hypertension, although episodic elevations noted. Nonsmoker. No family history of premature CAD. Troponin ED negative. No acute EKG changes. appreciate input from Cardiology pt had Chest discomfort during Dobutamine stress test underwent cardiac cath today -shows mild non occlusive coronary artery disease medical management with risk factor reduction recommended (2) Asthma: Pulmonary status appears to be stable. Continue montelukast and Combivent. Consider PFT's if cardiac work-up unrevealing. (3) Pulmonary nodules: CT of chest performed on 03/08/2019 demonstrated multiple small pulmonary nodules, largest measuring [address] of chest in 6 to 12 months recommended per Fleischner Society guid elijosh. (4) Abnormal LFTs: Total bilirubin 0.2, AST 48, ALT 103, alkaline phosphatase 124. Transaminases were elevated in April 2017. Recent CT scans of chest abdomen have demonstrated fatty liver. Patient does not consume alcoholic beverages. Follow. (5) DVT prophylaxis: Risk of VTE less than 1.5% per IMPROVE Risk Assessment Model. DVT prophylaxis, therefore, is not indicated. Ambulate. (6) Discharge planning issues: Anticipated discharge home. Primary care follow-up with Dr. Diamond. Cardiology follow-up with Dr. Marsh as needed. Subjective no complain of chest pain or SOB Physical Exam Constitutional: WD/WN, vitals as above + obese; no acute distress Eyes: PERRL, conjunctivae normal, anicteric sclerae ENMT: Mallampati Class: III Neck: trachea midline, no thyromegaly normal visual inspection Respiratory: normal respiratory effort, lungs clear to auscultation Cardiovascular: RRR, no murmur, no edema Rate/Rhythm: regular rate Heart Sounds: no gallop, no murmur and no cardiac rub Vessels: no JVD Extremities: normal capillary refill; no calf tenderness and no edema Gastrointestinal (Abdomen): normal bowel sounds, soft, nontender, no hepatosplenomegaly Musculoskeletal: no cyanosis or clubbing, extremities motor strength 5/5 Head/Neck/Chest: neck supple Extremities: strength 5/5 throughout; no cyanosis and no clubbing Skin: no rashes, warm and dry Neurologic: PERRL, EOMI, accommodation nl, no face palsy, no dysarthria Psychiatric: A+Ox3, euthymic affect Orientation: alert and oriented x 3 Affect: euthymic affect Lymphatic: no cervical lymphadenopathy Results & Data Vital Signs (Past 12 Hours) Vital Signs Temp Pulse Pulse Pulse Resp BP BP 07/09/19 19:21 36.8 C 71 18 114/76 07/09/19 19:17 67 07/09/19 18:20 74 18 134/82 07/09/19 17:20 71 17 118/73 07/09/19 16:20 72 18 133/82 07/09/19 15:43 36.6 C 70 18 120/80 07/09/19 15:20 72 17 112/72 07/09/19 15:05 70 20 111/72 07/09/19 14:49 78 20 114/73 07/09/19 14:30 67 20 111/75 07/09/19 14:17 36.8 C 68 20 114/71 07/09/19 14:05 63 18 114/68 07/09/19 14:00 63 18 117/80 07/09/19 13:55 63 18 114/80 07/09/19 12:13 78 18 118/78 07/09/19 11:49 36.8 C 72 18 141/66 H Pulse Ox 07/09/19 19:21 95 07/09/19 19:17 07/09/19 18:20 95 07/09/19 17:20 96 07/09/19 16:20 97 07/09/19 15:43 97 07/09/19 15:20 99 07/09/19 15:05 95 07/09/19 14:49 96 07/09/19 14:30 96 07/09/19 14:17 96 07/09/19 14:05 93 07/09/19 14:00 93 07/09/19 13:55 93 07/09/19 12:13 07/09/19 11:49 96
[2019-07-10] MEDS: TOPIRAMATE 100 MG TAB PO SCH (08:03)
[2019-07-10] MEDS: SERTRALINE HCL 100 MG TABLET PO SCH (08:03)
[2019-07-10] MEDS: CHOLECALCIFEROL 1,000 UNITS TAB PO SCH (08:36)
[2019-07-10] MEDS: ASPIRIN 81 MG ECTAB PO SCH (08:37)
[2019-07-10] MEDS: LACTOBACILLUS ACIDOPHILUS (FLORANEX) TAB PO SCH (08:37)
[2019-07-10] MEDS ORDERED: MONTELUKAST SODIUM 10 MG TABLET PO SCH (09:00)
[2019-07-10 11:47] VITALS: BP 94/61; TEMP 99; O2SAT 98
[2019-07-10 14:30] VITALS: PULSE 70
--- NOTE | 2019-07-10 14:35 | Discharge Summary ---
Date of Service July 10, 2019 Admission HPI Per Admitting Provider 54-year-old male followed by Dr. Diamond in [place] for primary care and Dr. Marcial for Cardiology. History of nonocclusive coronary artery disease per cardiac CT in 2013. Also has history of PFO, asthma, GERD. Patient has noted increasing dyspnea on exertion that started few days ago. Symptoms start after walking around 150 feet, but more quickly if walking uphill. If he continues to ambulate, he then develops midsternal chest pressure that does not radiate. No associated sweats, nausea, vomiting. Symptoms relieved by rest. He has not tried taking any medications for symptoms. History of asthma, but current symptoms are different that he has experienced in the past. History of dyslipidemia. No history of hypertension. Non-smoker. No history of early coronary artery disease. Under a lot of stress. Principal Diagnosis CHEST PAIN -RESOLVED, NON OCCLUSIVE CORONARY ARTERY DISEASE Discharge Exam Constitutional WD/WN, vitals as above + obese; no acute distress Eyes PERRL, conjunctivae normal, anicteric sclerae ENMT Mallampati Class: III Neck trachea midline, no thyromegaly normal visual inspection Respiratory normal respiratory effort, lungs clear to auscultation Cardiovascular RRR, no murmur, no edema Rate/Rhythm: regular rate Heart Sounds: no gallop, no murmur and no cardiac rub Vessels: no JVD Extremities: normal capillary refill; no calf tenderness and no edema Gastrointestinal (Abdomen) normal bowel sounds, soft, nontender, no hepatosplenomegaly Musculoskeletal no cyanosis or clubbing, extremities motor strength 5/5 Head/Neck/Chest: neck supple Extremities: strength 5/5 throughout; no cyanosis and no clubbing Skin no rashes, warm and dry Neurologic PERRL, EOMI, accommodation nl, no face palsy, no dysarthria Psychiatric A+Ox3, euthymic affect Orientation: alert and oriented x 3 Affect: euthymic affect Lymphatic no cervical lymphadenopathy Discharge Data Allergies Allergy/AdvReac Type Severity Reaction Status Date / Time bee venom protein (honey bee) Allergy Severe Anaphylaxis Verified 07/08/19 16:43 mold Allergy Intermediate sneezing,watery Verified 07/08/19 16:43 eyes, runny nose Penicillins Allergy Intermediate Hives Verified 07/08/19 16:43 rizatriptan [From [facility]] AdvReac Severe Chest Pain Verified 07/08/19 16:43 valproic acid AdvReac Intermediate PANIC Verified 07/08/19 16:43 ATTACKS Dust Allergy Intermediate sneezing,watery Uncoded 07/08/19 16:43 eyes, runny nosed Consultations 07/08/19 17:27 ED Decision to Admit Stat 07/08/19 19:34 Consult Cardiology Routine Procedures Performed Operation Date: 07/09/19 11:55 Actual Procedures p Cath, Left with Cors and Vent - Codey Marcial DO s Cineradiography w/Routine Exam - Codey Marcial DO Ordered Studies 07/09/19 11:54 CL Cath Imgs for PACS use only Routine Hospital Course (1) Precordial chest pain: symptom has resolved Patient presents with exertional dyspnea and chest pressure. History of nonocclusive coronary artery disease per cardiac CT in 2013. History of slightly elevated cholesterol. No history of hypertension, although episodic elevations noted. Nonsmoker. No family history of premature CAD. Troponin ED negative. No acute EKG changes. appreciate input from Cardiology pt had Chest discomfort during Dobutamine stress test underwent cardiac cath -shows mild non occlusive coronary artery disease medical management with risk factor reduction recommended pt started on statin Pt was kept overnight as noted to have woozing /bleeding at the rt radial artery cath site no bleeding noted at Cath site no complain of chest pain or sob stable to be discharged home today cardiology follow up with Dr Gregory Lyn at [facility] (2) Asthma: Pulmonary status appears to be stable. Continue montelukast and Combivent. Consider PFT's if cardiac work-up unrevealing. (3) Pulmonary nodules: CT of chest performed on 03/08/2019 demonstrated multiple small pulmonary nodules, largest measuring [address] of chest in 6 to 12 months recommended per Fleischner Society guidelines. (4) Abnormal LFTs: Total bilirubin 0.2, AST 48, ALT 103, alkaline phosphatase 124. Transaminases were elevated in April 2017. Recent CT scans of chest abdomen have demonstrated fatty liver. Patient does not consume alcoholic beverages. Follow. (5) DVT prophylaxis: Risk of VTE less than 1.5% per IMPROVE Risk Assessment Model. DVT prophylaxis, therefore, is not indicated. Ambulate. (6) Discharge planning issues: stable to be discharged home. Primary care follow-up with Dr. Diamond. Cardiology follow-up with Dr. Marcial Total Time Total Time Spent Total Time Spent (In Minutes): 35 mins Total Time Includes: Examination of the Patient, Discharge Planning, Medication Reconciliation and Communication With Other Providers Discharge Plan Discharge Items Patient Disposition: Home - Self-Care Reason For Visit: CHEST PAIN Discharge Diagnosis: CHEST PAIN /CORONARY ARTERY DISEASE Activity: As commented below Non-emergency contact: Primary Care Provider Call non-emergency contact if: you have any medication questions Follow-up/Referrals: Codey Marcial DO [Technical Support Representative] - (august 08 @ 11 am ) Alex Diamond DO [Primary Care Provider] - Diet: Heart Healthy Addtl Attending Provider Instructions: ACTIVITY RECOMMENDATIONS: Excess manipulation of the wrist should be avoided for the next 24 hours. * No lifting over 2 pounds (approximately a 1/2 gallon of milk) with the utilized arm for 24 hours. * No strenuous activity such as bowling or tennis for 2 days. *You may shower .. Do not take a tub bath or submerge the puncture site in water for the next 2 days. *Do not operate any motorized equipment for 2 days. SPECIAL CARE INSTRUCTIONS: The site may be slightly bruised and sore following your procedure. Should any of the following occur, contact the Dr. who performed your procedure. 1. Redness/inflammation, swelling, chills, or fever, or colored drainage at procedure site within 3-7 days after your procedure. 2. Coldness, discoloration, ongoing numbness, severe pain, or swelling. Expect mild tingling of hand and tenderness at the puncture site for up to three days. If this persists beyond three days, or other symptoms develop, notify the Dr. who performed your procedure. BLEEDING: If the procedure site on your wrist begins to bleed, do not panic 1. Place 1 or 2 fingers firmly just slightly above the insertion site to stop the bleeding. You may be able to feel your pulse as you hold pressure. 2. Lift your finger after 5 minutes to see if the bleeding has stopped. 3. Once the bleeding has stopped, gently wipe the wrist area clean with a bandage. * If the bleeding from your wrist does not stop after 10 minutes, or if there is a large amount of bleeding or spurting, call 911 (do not drive yourself to the hospital). SKIN IRRITATION: * You may experience some redness and/or swelling in the area where radiation was administered. If any skin irritation occurs, please contact your family physician. FOLLOW UP VISIT: Keep any scheduled doctor appointments. DO NOT TAKE IBUPROPHEN , NAPROXEN , ALEVE , ADVIL , MOTRIN -CAN INCREASE RISK FOR FUTURE HEART ATTACK CAN TAKE TYLENOL NEEDED FOR PAIN /FEVER CARDIOLOGY FOLLOW UP WITH DR GREGORY MARCIAL ON 08/08/2009 @ 11 AM Pending Studies at Discharge: No Stand-Alone Forms: My [facility] RefleXion Medical, Smoking Cessation Medications and DC Order Prescriptions: New pravastatin 10 mg Tablet 10 mg PO DAILY 30 Days Qty: 30 RF: 3 Continued Kelp 0.15 mg Tablet 0.15 mcg PO DAILY RF: 0 multivitamin Tablet 1 tab PO DAILY RF: 0 sertraline 100 mg tablet 100 mg PO DAILY RF: 0 fexofenadine [Lluvia Allergy] 180 mg Tablet 180 mg PO DAILY PRN (Reason: WHEN GETS ALLERGY SHOTS) RF: 0 aspirin 81 mg Tablet,Delayed Release (Dr/Ec) 81 mg PO DAILY RF: 0 montelukast 10 mg tablet 10 mg PO DAILY RF: 0 zinc 50 mg Tablet 50 mg PO DAILY RF: 0 epinephrine [EpiPen] 0.3 mg/0.3 mL Auto-Injector 0.3 mg IM Q3H PRN (Reason: Allergic Reaction) RF: 0 topiramate 100 mg tablet 100 mg PO DAILY RF: 0 cholecalciferol (vitamin D3) [Vitamin D3] 5,000 unit Tablet 5,000 unit PO DAILY RF: 0 acidophilus-pectin, citrus [Acidophilus Probiotic] 100 million cell-10 mg Capsule 1 cap PO DAILY RF: 0 Combivent Respimat 20-100 mcg/actuation Mist 1 puff INHALATION QID PRN (Reason: Shortness Of Breath) RF: 0 Sheridan-3 350 mg-235 mg- 90 mg-597 mg Capsule,Delayed Release(Dr/Ec) 1 cap PO DAILY RF: 0 Discontinued ibuprofen 200 mg Tablet 400 - 600 mg PO DIRECTED PRN (Reason: Pain) RF: 0 Discharge Orders: Discharge Order (Routine); Ordered 07/10/19 Ordered By: Vania Wright Admission Data Admit Date/Time: 07/09/19 14:06 Attending Provider: Vania Wright Admit Provider: Rinku Schilling Primary Care Provider: Alex Diamond Other Providers: Rinku Schilling ; Shimon Jack Other Interventions: Discharge Summary Assessment (RN) Last Done: 07/10/19 14:28 DC Date/Time DO NOT enter until pt leaves facility: 07/10/19 15:15
== END 2019-07-10 15:15 | disposition home or self-care (01) | DRG 287 ==
LOC: 2S 15:53 → ED 15:53 → SUATTDRO 18:06 → 2S 18:28
DX: Q21.1 Atrial septal defect; Z88.0 Allergy status to penicillin; R94.5 Abnormal results of liver function studies; Z79.899 Other long term (current) drug therapy; K21.9 Gastro-esophageal reflux disease without esophagitis; Z91.048 Other nonmedicinal substance allergy status; K76.0 Fatty (change of) liver, not elsewhere classified; R06.00 Dyspnea, unspecified; Z91.030 Bee allergy status; Z79.82 Long term (current) use of aspirin; J45.909 Unspecified asthma, uncomplicated; I25.10 Atherosclerotic heart disease of native coronary artery without angina pectoris; E78.00 Pure hypercholesterolemia, unspecified; R07.2 Precordial pain; Z88.8 Allergy status to other drugs, medicaments and biological substances

== ENCOUNTER 2022-04-13 22:51 | Observation (INO) ==
[2022-04-13] MEDS ORDERED: METOCLOPRAMIDE HCL INJ 5 MG/ML 2 ML VIAL IV STA (23:40)
[2022-04-13] MEDS ORDERED: diphenhydrAMINE 50 MG/ML VIAL IV STA (23:40)
--- NOTE | 2022-04-13 23:43 | Emergency Department Note ---
Impression & Plan Headache, Vertigo ADMIT ED Provider Note HPI: The patient is a 56-year-old male who presents emergency department chief complaint of a headache. Patient states his headache began about 2 and half hours prior to arrival to the ED. Patient states it was gradual in onset, states it now is in the top third of his head and he describes it as a "bandlike" pressure. Patient denies any fevers, states he has had some nausea. On arrival here to the ED the patient is hemodynamically stable, he does not have any focal deficits, he appears in mild distress secondary to his headache but otherwise is nontoxic-appearing and saturating well on room air. Patient is afebrile on arrival. ROS: -NEURO: Headache *10 point review systems was conducted and is otherwise negative unless stated above *Outpatient medications and allergy history reviewed PE: General: Alert, NAD HEENT: Normocephalic, atraumatic Eyes: Extraocular eye movement is intact, no scleral erythema Pulmonary: Clear to auscultation bilaterally, no wheezing Cardio: Regular rate and rhythm GI: Abdomen is soft, nontender : No suprapubic tenderness MSK: No evidence of trauma or malformation of the extremities, no edema Skin: No evidence of rash Neuro: Alert, no focal deficits, equal bilateral director stars strength, symmetrical facial movements are appreciated, patient does not have any drift of the upper extremities or lower extremities with testing against gravity, no ataxia on [id number] testing bilaterally 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: - An order was placed for continuous cardiac monitoring - Patient was noted to be in sinus rhythm with a rate of 78 EKG: Rate: 74 Rhythm: Normal sinus rhythm Intervals: Within normal limits ST changes: No ST elevation Time: 0152 NIH STROKE SCALE: 1A: Level of consciousness Alert; keenly responsive 0 1B: Ask month and age Both questions right 0 1C: 'Blink eyes' & 'squeeze hands' Performs both tasks 0 2: Horizontal extraocular movements Normal 0 3: Visual brooks No visual loss 0 4: Facial palsy Normal symmetry 0 5A: Left arm motor drift No drift for 10 seconds 0 5B: Right arm motor drift No drift for 10 seconds 0 6A: Left leg motor drift No drift for 5 seconds 0 6B: Right leg motor drift No drift for 5 seconds 0 7: Limb Ataxia No ataxia 0 8: Sensation Normal; no sensory loss 0 9: Language/aphasia Normal; no aphasia 0 10: Dysarthria Normal 0 11: Extinction/inattention No abnormality 0 TOTAL NIH SCORE =0 Medical Decision Making: Patient presented to the emergency department with cute onset headache, patient stated that the headache began about 2.5 hours prior to arrival to the ED. He describes it as a bandlike pressure sensation above the top portion of his head. Patient states he also has some nausea, on arrival here to the ED he does not have any focal deficits, he appears in mild distress secondary to his symptoms but otherwise is alert, he answers my questions appropriately and does not have any focal deficits. Shortly after arrival patient was placed on compliance monitor, IV was established, lab work obtained, lab work does not show any evidence of leukocytosis, patient does not have a fever here in the ED, low suspicion for meningitis. CT imaging of the head was obtained and does not show any evidence of any acute process, low suspicion for subarachnoid hemorrhage given that the CT imaging was obtained within the 6-hour window and does not show any evidence of any acute intracranial bleeding. Patient was given IV Reglan and IV Benadryl in addition IV fluids for symptoms, on my reassessment he states that he is feeling improved but remains with some headache as well as photophobia and some nausea. EKG was obtained that shows normal sinus rhythm without any ischemic changes or arrhythmia, troponin is negative x1. Chest x-ray was obtained that does not show any evidence of any acute process per my interpretation. On my reassessment patient is now saying that he is feeling improved, he was complaining of some dizziness later in his stay, and he does not exhibit any ataxia on [id number] testing, over concern for the possibility of a posterior circulation issue/stroke, patient was ambulated and unfortunately had multiple episodes of dizziness with ambulation that required him to sit back down in a chair. Although his symptoms do seem to worsen with certain motions they are relatively severe and the patient does appear to be uncomfortable. Given his age and risk factors, I do feel he should be admitted for MRI imaging of the brain to rule out a posterior circulation stroke. At this time given that patient is having transient episodes of symptomatic improvement and diagnosis of an ischemic event is still currently in question, we will forego any potential lysis as risk would likely outweigh benefit at this point. I dis cussed this with the patient and he is in agreement. Case was then discussed with the on-call admitting hospitalist for [facility], Dr. Huitron, and the patient was admitted in stable condition for further care. Patient was ordered aspirin prior to admission. Diagnosis: 1. Headache, acute, non-intractable 2. Vertigo, unspecified, intractable 3. Nausea Disposition: Admission Anil He DO Emergency Medicine Past Med/Surg History Medical History (Updated 04/14/22 @ 02:24 by Anil He DO) Asthma Coronary artery disease nonocclusive disease per cardiac CT 2013 GERD (gastroesophageal reflux disease) Patent foramen ovale Post concussion syndrome Pulmonary nodules Noted on CT chest 03/08/19, multiple, larges 7 mm. Follow-up CT 6-12 months per Fleischner Society guidelines Renal calculi CT 07/03/18 Surgical History History of sinus surgery Family History Mother Osteoporosis Father Hypertension Stroke suspected intracranial aneurysm Social History Smoking Status: Never smoker Hx Alcohol Use: No Hx Substance Use: No Preferred Language: Syriac Communication Ability: Effective Stripper Color Required: No Beliefs That Will Affect Care: None Current Living Situation: Spouse Feels Safe at Home: Yes Assistive Devices: None Allergies Allergies Allergy/AdvReac Type Severity Reaction Status Date / Time bee venom protein (honey bee) Allergy Severe Anaphylaxis Verified 04/14/22 01:48 mold Allergy Intermediate sneezing,watery Verified 04/14/22 01:48 eyes, runny nose Penicillins Allergy Intermediate Hives Verified 04/14/22 01:48 rizatriptan [From [facility]] AdvReac Severe Chest Pain Verified 04/14/22 01:48 Iodinated Contrast Media AdvReac Intermediate ITCHING Unverified 04/14/22 01:48 valproic acid AdvReac Intermediate PANIC Verified 04/14/22 01:48 ATTACKS Dust Allergy Intermediate sneezing,watery Uncoded 04/14/22 01:48 eyes, runny nosed Home Meds Home Medications Medication Instructions Recorded Confirmed acidophilus 100 million 1 cap PO QAM 07/03/18 04/14/22 cell-pectin, citrus 10 mg capsule (Acidophilus Probiotic) aspirin 81 mg tablet,delayed 81 mg PO QAM 07/03/18 04/14/22 release cholecalciferol (vitamin D3) 125 5,000 unit PO QAM 07/03/18 04/14/22 mcg (5,000 unit) tablet (Vitamin D3) epinephrine 0.3 mg/0.3 mL 0.3 mg IM Q3H PRN Allergic Reaction 07/03/18 04/14/22 injection, auto-injector (EpiPen) fexofenadine 180 mg tablet 180 mg PO DAILY PRN WHEN GETS 07/03/18 04/14/22 (Lluvia Allergy) ALLERGY SHOTS ipratropium 20 mcg-albuterol 100 1 puff inhalation QID PRN 07/03/18 04/14/22 mcg/actuation mist for inhalation Shortness Of Breath (Combivent Respimat) montelukast 10 mg tablet 10 mg PO QAM 07/03/18 04/14/22 multivitamin 1 tab PO QAM 07/03/18 04/14/22 omega 3 350 mg-dha 235 mg-epa 90 1 cap PO QAM 07/03/18 04/14/22 mg-fish oil 597 mg capsule,delay rel (Thornton-3) zinc 50 mg tablet 50 mg PO QAM 07/03/18 04/14/22 iodine (kelp) 0.15 mg tablet (Kelp) 0.15 mcg PO QAM 07/08/19 04/14/22 acetaminophen 500 mg tablet 500 mg PO Q6H PRN Pain 09/26/19 04/14/22 (Tylenol Extra Strength) omeprazole 20 mg capsule,delayed 20 mg PO DAILY PRN Acid Reflux 09/26/19 release Previous Rx's Medication Instructions Recorded docusate sodium 100 mg capsule 100 mg PO BID #60 caps 09/26/19 (Colace) oxycodone 5 mg tablet 5 mg PO Q6H PRN pain #14 tabs 09/26/19 Results & Data (ED) Vital Signs Vital Signs - 24 hr 04/13/22 23:02 04/14/22 00:17 04/14/22 01:08 Temperature 36.8 C Temperature Source Oral Pulse Rate 66 Pulse Rate [Apical] 68 74 Respiratory Rate 18 18 18 Respiratory Effort / Characteristics Non-Labored Respiratory Depth Normal Blood Pressure 152/91 H Blood Pressure [Right Arm] 133/87 127/76 Blood Pressure Mean 111 Blood Pressure Mean [Right Arm] 102 93 Pulse Oximetry 97 97 95 Oxygen Delivery Method Room Air Room Air Room Air Sepsis Recent Fever Within 48 Hours No Sepsis New/Unexplained Change in Mental Status No Sepsis Action Taken by Nursing No Action Required 04/14/22 01:30 Temperature Temperature Source Pulse Rate Pulse Rate [Apical] 72 Respiratory Rate 18 Respiratory Effort / Characteristics Non-Labored Respiratory Depth Normal Blood Pressure Blood Pressure [Right Arm] 123/71 Blood Pressure Mean Blood Pressure Mean [Right Arm] 88 Pulse Oximetry 96 Oxygen Delivery Method Room Air Sepsis Recent Fever Within 48 Hours Sepsis New/Unexplained Change in Mental Status Sepsis Action Taken by Nursing Laboratory Data Result diagrams: 04/14/22 00:18 04/14/22 00:18 Lab Results 04/14/22 04/14/22 04/14/22 Range/Units 00:18 00:18 00:18 WBC 10.50 (4.8-10.8) K/ul RBC 4.55 L (4.63-6.08) M/uL Hgb 14.6 (14.0-18.0) g/dl Hct 41.8 (40.1-51.0) % MCV 91.9 (80.0-100.0) fL MCH 32.1 (25.0-34.0) pg MCHC 34.9 (32.0-36.0) g/dL RDW Std Deviation 41.4 (36.4-46.3) fL RDW Coeff of Daily 12.3 (11.5-14.5) % Plt Count 230 (130-400) K/uL MPV 10.1 (9.4-12.4) fL Immature Gran % (Auto) 0.5 % Neut % (Auto) 58.8 % Lymph % (Auto) 27.4 % [place] % (Auto) 9.5 % Eos % (Auto) 3.3 % Baso % (Auto) 0.5 % Neut # (Auto) 6.17 (1.4-6.5) K/uL Lymph # (Auto) 2.88 (1.2-3.4) K/uL [place] # (Auto) 1.00 H (0.24-0.82) K/uL Eos # (Auto) 0.35 (0-0.50) K/uL Baso # (Auto) 0.05 (0-0.2) K/uL Immature Gran # (Auto) 0.05 H (0.00-0.02) K/uL PT 11.3 (9.0-12.0) Seconds INR 1.1 (0.9-1.1) Sodium 137 (136-145) mmol/L Potassium 3.5 (3.5-5.1) mmol/L Chloride 101 (98-107) mmol/L Carbon Dioxide 27 (21-32) mmol/L Anion Gap 9 (3-11) BUN 13 (6-23) mg/dl Creatinine 1.05 (0.6-1.4) mg/dl Est Cr Clr Drug Dosing 91.2 ml/min Est GFR ( Amer) 90.3 ml/min Est GFR (Non-Af Amer) 77.9 ml/min BUN/Creatinine Ratio 12.4 (10-20) Glucose 103 H (70-99(Fasting)) mg/dl Calcium 9.5 (8.5-10.1) mg/dl Total Bilirubin 0.5 (0.2-1.0) mg/dl AST 50 H (13-39) U/L ALT 80 H (7-52) U/L Alkaline Phosphatase 88 (34-104) U/L Troponin I High Sens (0-20) pg/ml Total Protein 7.2 (6.0-8.3) gm/dl Albumin 4.2 (3.4-5.0) gm/dl Globulin 3.0 (2.5-4.0) gm/dl Albumin/Globulin Ratio 1.4 (0.9-2) 04/14/22 Range/Units 00:18 WBC (4.8-10.8) K/ul RBC (4.63-6.08) M/uL Hgb (14.0-18.0) g/dl Hct (40.1-51.0) % MCV (80.0-100.0) fL MCH (25.0-34.0) pg MCHC (32.0-36.0) g/dL RDW Std Deviation (36.4-46.3) fL RDW Coeff of Daily (11.5-14.5) % Plt Count (130-400) K/uL MPV (9.4-12.4) fL Immature Gran % (Auto) % Neut % (Auto) % Lymph % (Auto) % [place] % (Auto) % Eos % (Auto) % Baso % (Auto) % Neut # (Auto) (1.4-6.5) K/uL Lymph # (Auto) (1.2-3.4) K/uL [place] # (Auto) (0.24-0.82) K/uL Eos # (Auto) (0-0.50) K/uL Baso # (Auto) (0-0.2) K/uL Immature Gran # (Auto) (0.00-0.02) K/uL PT (9.0-12.0) Seconds INR (0.9-1.1) Sodium (136-145) mmol/L Potassium (3.5-5.1) mmol/L Chloride (98-107) mmol/L Carbon Dioxide (21-32) mmol/L Anion Gap (3-11) BUN (6-23) mg/dl Creatinine (0.6-1.4) mg/dl Est Cr Clr Drug Dosing ml/min Est GFR ( Amer) ml/min Est GFR (Non-Af Amer) ml/min BUN/Creatinine Ratio (10-20) Glucose (70-99(Fasting)) mg/dl Calcium (8.5-10.1) mg/dl Total Bilirubin (0.2-1.0) mg/dl AST (13-39) U/L ALT (7-52) U/L Alkaline Phosphatase (34-104) U/L Troponin I High Sens 5.4 (0-20) pg/ml Total Protein (6.0-8.3) gm/dl Albumin (3.4-5.0) gm/dl Globulin (2.5-4.0) gm/dl Albumin/Globulin Ratio (0.9-2) Administered Medications Discontinued Medications Diphenhydramine HCl (Diphenhydramine 50 Mg/Ml Vial) 25 mg IV NOW STA Stop: 04/13/22 23:41 Last Admin: 04/14/22 00:21 Dose: 25 mg Documented By: LOUIE Sodium Chloride (Nss) 500 mls @ 999 mls/hr IV .Q31M WILLIE Stop: 04/14/22 00:15 Last Infusion: 04/14/22 00:55 Dose: 0 mls/hr Documented By: Admin: 04/14/22 00:21 Dose: 999 mls/hr Documented By: LOUIE Meclizine HCl (Meclizine Hcl 25 Mg Tab) 25 mg PO NOW STA Stop: 04/14/22 01:40 Last Admin: 04/14/22 01:51 Dose: 25 mg Documented By: LOUIE Metoclopramide HCl (Metoclopramide Hcl Inj 5 Mg/Ml 2 Ml Vial) 10 mg IV NOW STA Stop: 04/13/22 23:41 Last Admin: 04/14/22 00:21 Dose: 10 mg Documented By: LOUIE Discharge Plan Visit Data Chief Complaint: Headache Stated Complaint: Headache/Back Pain ED Provider: Anil He Discharge Problem: Headache, Vertigo Patient Disposition: Admitted As Inpatient Forms Stand Alone Forms: [facility] Prescriptions Prescriptions: No Action Kelp 0.15 mg Tablet 0.15 mcg PO QAM multivitamin Tablet 1 tab PO QAM fexofenadine [Lluvia Allergy] 180 mg Tablet 180 mg PO DAILY PRN (Reason: WHEN GETS ALLERGY SHOTS) aspirin 81 mg Tablet,Delayed Release (Dr/Ec) 81 mg PO QAM montelukast 10 mg tablet 10 mg PO QAM zinc 50 mg Tablet 50 mg PO QAM epinephrine [EpiPen] 0.3 mg/0.3 mL Auto-Injector 0.3 mg IM Q3H PRN (Reason: Allergic Reaction) cholecalciferol (vitamin D3) [Vitamin D3] 5,000 unit Tablet 5,000 unit PO QAM acidophilus-pectin, citrus [Acidophilus Probiotic] 100 million cell-10 mg Capsule 1 cap PO QAM Combivent Respimat 20-100 mcg/actuation Mist 1 puff INHALATION QID PRN (Reason: Shortness Of Breath) Thornton-3 350 mg-235 mg- 90 mg-597 mg Capsule,Delayed Release(Dr/Ec) 1 cap PO QAM oxycodone 5 mg tablet 5 mg PO Q6H PRN (Reason: pain) Qty: 14 0RF acetaminophen [Tylenol Extra Strength] 500 mg Tablet 500 mg PO Q6H PRN (Reason: Pain) omeprazole 20 mg Capsule,Delayed Release(Dr/Ec) 20 mg PO DAILY PRN (Reason: Acid Reflux) docusate sodium [Colace] 100 mg capsule 100 mg PO BID Qty: 60 0RF Referrals Referrals: Alex Diamond DO [Primary Care Provider] -
[2022-04-13] MEDS ORDERED: SODIUM CHLORIDE 0.9% 500 ML IV SCH (23:45)
[2022-04-14 00:26] LABS: Basophils # (auto) 0.05 K/uL (0-0.2); Basophils % (auto) 0.5 %; Eosinophils # (auto) 0.35 K/uL (0-0.50); Eosinophils % (auto) 3.3 %; Hematocrit (blood only) 41.8 % (40.1-51.0); Hemoglobin 14.6 g/dl (14.0-18.0); Immature Granulocytes # (auto) 0.05 K/uL (0.00-0.02); Immature Granulocytes % (auto) 0.5 %; Lymphocytes # (auto) 2.88 K/uL (1.2-3.4); Lymphocytes % (auto) 27.4 %; Mean Corpuscular Hemoglobin 32.1 pg (25.0-34.0); Mean Corpuscular Hgb Conc 34.9 g/dL (32.0-36.0); Mean Corpuscular Volume 91.9 fL (80.0-100.0); Mean Platelet Volume 10.1 fL (9.4-12.4); Monocytes % (auto) 9.5 %; Neutrophils # (auto) 6.17 K/uL (1.4-6.5); Neutrophils % (auto) 58.8 %; Platelet Count 230 K/uL (130-400); RDW Coefficient of Variation 12.3 % (11.5-14.5); RDW Standard Deviation 41.4 fL (36.4-46.3); Red Blood Count 4.55 M/uL (4.63-6.08)
[2022-04-14 01:35] LABS: INR 1.1 (0.9-1.1); Prothrombin Time 11.3 Seconds (9.0-12.0)
[2022-04-14 01:38] LABS: Albumin Globulin Ratio 1.4 (0.9-2); Albumin Level 4.2 gm/dl (3.4-5.0); BUN Creatinine Ratio 12.4 (10-20); Bilirubin,Total 0.5 mg/dl (0.2-1.0); Calcium 9.5 mg/dl (8.5-10.1); Creatinine Clr Calc Pharmacy 91.2 ml/min; Est GFR (African American) 90.3 ml/min; Est GFR (Non-African American) 77.9 ml/min; Potassium 3.5 mmol/L (3.5-5.1); Total Protein 7.2 gm/dl (6.0-8.3)
[2022-04-14] MEDS ORDERED: MECLIZINE HCL 25 MG TAB PO STA (01:39)
[2022-04-14] MEDS ORDERED: ASPIRIN CHEW 324 MG PO STA (02:14)
--- NOTE | 2022-04-14 02:29 | History & Physical Report ---
Date of Service April 14, 2022 Assessment & Plan (1) Headache: Plan: Headache symptoms associated with vertigo (hx BPPV, postconcussive syndrome as per records) and transient bilateral leg weakness TIA versus atypical migraine hx nonocclusive CAD asthma, stable hx NAFLD chronic anemia, hemoglobin better than baseline fibromyalgia OBS Medical telemetry Neurochecks MRI brain May need additional stroke work-up/Neurology opinion pending MRI results [facility] Full code Text document was generated using [employer] voice recognition software. It may contain grammatical or spelling errors. Kindly contact undersigned for clarification of any documentation item in question. History of Present Illness Chief Complaint: Headache, dizziness Primary Care Provider: Alex Diamond DO History obtained from patient and records. Medical history significant for nonocclusive CAD, PFO, asthma, GERD, NAFLD, chronic anemia (baseline hemoglobin of 13), BPPV, postconcussive syndrome as per records, past alcohol abuse, fibromyalgia. Last confinement July 2019 for chest pain. Nonocclusive CAD on cardiac catheterization. Last night, patient noted pins, needles whooshing sensation on the upper third of his head after he got out from under a vehicle he was working on. Sensation later transformed to an achy headache associated with dizziness described as spinning sensation similar to his BPPV attacks but not as bad. Some nausea symptoms. Transient bilateral leg weakness. No relief with Tylenol medication given by . No chest pain. Transient shortness of breath enroute to the ER. Discomfort improved after Phenergan, Reglan, and meclizine administration at the ER. Recurrent vertigo when ED staff tried to walk him around prior to ED discharge. Patient currently with a headache symptoms but not as bad as what he had at home. Medical History as above Surgical History : Nasal septum repair Family History : Appendiceal cancer, DM, stroke, hypertension Personal/Social history : Non-smoker, past alcohol abuse, disabled Allergies Allergy/AdvReac Type Severity Reaction Status Date / Time bee venom protein (honey bee) Allergy Severe Anaphylaxis Verified 04/14/22 01:48 mold Allergy Intermediate sneezing,watery Verified 04/14/22 01:48 eyes, runny nose Penicillins Allergy Intermediate Hives Verified 04/14/22 01:48 [facility] AdvReac Severe Chest Pain Verified 04/14/22 01:48 Iodinated Contrast Media AdvReac Intermediate ITCHING Unverified 04/14/22 01:48 valproic acid AdvReac Intermediate PANIC Verified 04/14/22 01:48 ATTACKS Dust Allergy Intermediate sneezing,watery Uncoded 04/14/22 01:48 eyes, runny nosed Home Medications Medication Instructions Recorded Confirmed Type acidophilus 100 million 1 cap PO QAM 07/03/18 04/14/22 History cell-pectin, citrus 10 mg capsule (Acidophilus Probiotic) aspirin 81 mg tablet,delayed 81 mg PO QAM 07/03/18 04/14/22 History release cholecalciferol (vitamin D3) 125 5,000 unit PO QAM 07/03/18 04/14/22 History mcg (5,000 unit) tablet (Vitamin D3) epinephrine 0.3 mg/0.3 mL 0.3 mg IM Q3H PRN Allergic Reaction 07/03/18 04/14/22 History injection, auto-injector (EpiPen) fexofenadine 180 mg tablet 180 mg PO DAILY PRN WHEN GETS 07/03/18 04/14/22 History (Lluvia Allergy) ALLERGY SHOTS ipratropium 20 mcg-albuterol 100 1 puff inhalation QID PRN 07/03/18 04/14/22 History mcg/actuation mist for inhalation Shortness Of Breath (Combivent Respimat) montelukast 10 mg tablet 10 mg PO QAM 07/03/18 04/14/22 History multivitamin 1 tab PO QAM 07/03/18 04/14/22 History omega 3 350 mg-dha 235 mg-epa 90 1 cap PO QAM 07/03/18 04/14/22 History mg-fish oil 597 mg capsule,delay rel (Reva-3) zinc 50 mg tablet 50 mg PO QAM 07/03/18 04/14/22 History iodine (kelp) 0.15 mg tablet (Kelp) 0.15 mcg PO QAM 07/08/19 04/14/22 History acetaminophen 500 mg tablet 500 mg PO Q6H PRN Pain 09/26/19 04/14/22 History (Tylenol Extra Strength) docusate sodium 100 mg capsule 100 mg PO BID #60 caps 09/26/19 04/14/22 Rx (Colace) omeprazole 20 mg capsule,delayed 20 mg PO DAILY PRN Acid Reflux 09/26/19 04/14/22 History release oxycodone 5 mg tablet 5 mg PO Q6H PRN pain #14 tabs 09/26/19 04/14/22 Rx Past Med/Surg History Medical History (Updated 04/14/22 @ 02:24 by Anil He DO) Asthma Coronary artery disease nonocclusive disease per cardiac CT 2013 GERD (gastroesophageal reflux disease) Patent foramen ovale Post concussion syndrome Pulmonary nodules Noted on CT chest 03/08/19, multiple, larges 7 mm. Follow-up CT 6-12 months per Fleischner Society guidelines Renal calculi CT 07/03/18 Surgical History History of sinus surgery Family History Mother Osteoporosis Father Hypertension Stroke suspected intracranial aneurysm Social History Smoking Status: Never smoker Second Hand Exposure: No; Do You Dip or Chew Tobacco: No; Tobacco Cessation Education Requested by Patient: No Hx Alcohol Use: Yes Hx Substance Use: No Preferred Language: [place] Rican Communication Ability: Effective Chief Strategy Officer Required: No Beliefs That Will Affect Care: None Current Living Situation: Spouse Other Information That Helps Us Care for You: No Feels Safe at Home: Yes Safety Concerns: Feels Safe At This Time Assistive Devices: Cane, Denture - Upper and Glasses Assistive Devices Comment: used cane in past but not always Review of Systems Review of Systems: As per HPI, all other systems reviewed and negative Physical Exam Physical Exam: GENERAL: Comfortable, slightly anxious, obese, no respiratory distress SKIN: Normal color, warm HEENT: Bespectacled, [place] palpebral conjunctivae, no ptosis, dry buccal mucosa NECK : Supple, short neck, no tenderness CHEST : CTA, no tenderness HEART : RRR, no obvious murmurs ABDOMEN: Some distention, nontender EXTREMITIES : No LE swelling/tenderness, no other conspicuous deformities noted NEUROLOGIC : Coherent, no facial asymmetry, gait and stance not assessed Results & Data Results & Data ([facility]) Vital Signs (Past 12 Hours) Vital Signs Temp Pulse Pulse Resp BP BP Pulse Ox 04/14/22 01:30 72 18 123/71 96 04/14/22 01:08 74 18 127/76 95 04/14/22 00:17 68 18 133/87 97 04/13/22 23:02 36.8 C 66 18 152/91 H 97 O2 Del Method 04/14/22 01:30 Room Air 04/14/22 01:08 Room Air 04/14/22 00:17 Room Air 04/13/22 23:02 Room Air Laboratory Results Laboratory Results WBC 10.50 K/ul (4.8-10.8) 04/14/22 00:18 RBC 4.55 M/uL (4.63-6.08) L 04/14/22 00:18 Hgb 14.6 g/dl (14.0-18.0) 04/14/22 00:18 Hct 41.8 % (40.1-51.0) 04/14/22 00:18 MCV 91.9 fL (80.0-100.0) 04/14/22 00:18 MCH 32.1 pg (25.0-34.0) 04/14/22 00:18 MCHC 34.9 g/dL (32.0-36.0) 04/14/22 00:18 RDW Std Deviation 41.4 fL (36.4-46.3) 04/14/22 00:18 RDW Coeff of Daily 12.3 % (11.5-14.5) 04/14/22 00:18 Plt Count 230 K/uL (130-400) 04/14/22 00:18 MPV 10.1 fL (9.4-12.4) 04/14/22 00:18 Immature Gran % (Auto) 0.5 % 04/14/22 00:18 Neut % (Auto) 58.8 % 04/14/22 00:18 Lymph % (Auto) 27.4 % 04/14/22 00:18 [place] % (Auto) 9.5 % 04/14/22 00:18 Eos % (Auto) 3.3 % 04/14/22 00:18 Baso % (Auto) 0.5 % 04/14/22 00:18 Neut # (Auto) 6.17 K/uL (1.4-6.5) 04/14/22 00:18 Lymph # (Auto) 2.88 K/uL (1.2-3.4) 04/14/22 00:18 [place] # (Auto) 1.00 K/uL (0.24-0.82) H 04/14/22 00:18 Eos # (Auto) 0.35 K/uL (0-0.50) 04/14/22 00:18 Baso # (Auto) 0.05 K/uL (0-0.2) 04/14/22 00:18 Immature Gran # (Auto) 0.05 K/uL (0.00-0.02) H 04/14/22 00:18 PT 11.3 Seconds (9.0-12.0) 04/14/22 00:18 INR 1.1 (0.9-1.1) 04/14/22 00:18 Sodium 137 mmol/L (136-145) 04/14/22 00:18 Potassium 3.5 mmol/L (3.5-5.1) 04/14/22 00:18 Chloride 101 mmol/L (98-107) 04/14/22 00:18 Carbon Dioxide 27 mmol/L (21-32) 04/14/22 00:18 Anion Gap 9 (3-11) 04/14/22 00:18 BUN 13 mg/dl (6-23) 04/14/22 00:18 Creatinine 1.05 mg/dl (0.6-1.4) 04/14/22 00:18 Est Cr Clr Drug Dosing 91.2 ml/min 04/14/22 00:18 Est GFR ( Amer) 90.3 ml/min 04/14/22 00:18 Est GFR (Non-Af Amer) 77.9 ml/min 04/14/22 00:18 BUN/Creatinine Ratio 12.4 (10-20) 04/14/22 00:18 Glucose 103 mg/dl (70-99(Fasting)) H 04/14/22 00:18 Calcium 9.5 mg/dl (8.5-10.1) 04/14/22 00:18 Total Bilirubin 0.5 mg/dl (0.2-1.0) 04/14/22 00:18 AST 50 U/L (13-39) H 04/14/22 00:18 ALT 80 U/L (7-52) H 04/14/22 00:18 Alkaline Phosphatase 88 U/L (34-104) 04/14/22 00:18 Troponin I High Sens 5.4 pg/ml (0-20) 04/14/22 00:18 Total Protein 7.2 gm/dl (6.0-8.3) 04/14/22 00:18 Albumin 4.2 gm/dl (3.4-5.0) 04/14/22 00:18 Globulin 3.0 gm/dl (2.5-4.0) 04/14/22 00:18 Albumin/Globulin Ratio 1.4 (0.9-2) 04/14/22 00:[address] head initial read: Prior head CT 03/08/2014 and MRI 04/29/2014 No evidence of acute intracranial abnormality. Prior sinus surgery. Partiallyvisualized paranasal sinuses and mastoid air cells are clear Chest x-ray as per my interpretation elevated right hemidiaphragm, atelectasis EKG as per my interpretation : Rate 75, NSR, normal axis, diffuse T wave flattening over the limb leads (1) Headache Headache chronicity pattern: episodic headache Headache type: unspecified Intractability: not intractable Qualified Code(s): R51.9 - Headache, unspecified
[2022-04-14] MEDS ORDERED: oxyCODONE HCL IR 5 MG TAB (IMMEDIATE RELEASE) PO STA (03:17)
[2022-04-14] MEDS ORDERED: PROMETHAZINE HCL 12.5 MG in SODIUM CHLORIDE 0.9% 50 ML IV PRN (03:17)
[2022-04-14] MEDS ORDERED: LACTATED RINGER'S 1,000 ML IV ONE (03:17)
[2022-04-14] MEDS ORDERED: LORazepam 0.5 MG TAB PO PRN (03:17)
[2022-04-14] MEDS ORDERED: PANTOprazole 40 MG TAB PO PRN (05:29)
[2022-04-14] MEDS ORDERED: oxyCODONE HCL IR 5 MG TAB (IMMEDIATE RELEASE) PO PRN (05:29)
[2022-04-14] MEDS ORDERED: ACETAMINOPHEN 500 MG TAB PO PRN (05:29)
[2022-04-14] MEDS ORDERED: FEXOFENADINE HCL 180 MG TAB PO PRN (05:29)
[2022-04-14] MEDS ORDERED: IPRATROPIUM BROMIDE/ALBUTEROL respimat INH INH PRN (05:29)
[2022-04-14] MEDS ORDERED: Albuterol HFA 8 GM Inhaler (Combivent Respimat P&T Subs) INH PRN (05:41)
[2022-04-14] MEDS ORDERED: Ipratropium HFA Inhaler (Combivent Respimat P&T Subs) INH PRN (05:42)
--- NOTE | 2022-04-14 06:44 | CT Scan Report ---
CT head/brain wo con CLINICAL HISTORY: 56 years-old Male with Headache. Acute headache TECHNIQUE: Multiple axial CT images of the head were obtained without contrast. A dose lowering tech nique was utilized adhering to the principles of ALARA. CT DOSE: 614.27 mGy.cm COMPARISON: Head CT 03/08/2014 FINDINGS: No acute intracranial hemorrhage, midline shift, intracranial mass, hydrocephalus, territorial ischem ia or abnormal extra-axial collection. The calvarium is intact. Trace left mastoid effusion. The right mastoid air cells are clear. Postope rative changes of the paranasal sinuses with mild mucoperiosteal thickening of the right maxillary si nus. IMPRESSION: No acute intracranial abnormality. ACT 112: Negative or not required by law. The above report was generated using voice recognition software. It may contain grammatical, syntax o r spelling errors. Electronically signed by: Jamal Wolfe M.D. 04/14/2022 6:42 AM
--- NOTE | 2022-04-14 07:59 | XRay Report ---
XR chest 1V portable CLINICAL HISTORY: dizzy COMPARISON STUDY: Chest CT December 14, 2020. FINDINGS: Lung volumes are normal. Is no consolidation to suggest pneumonia. Nodular densities within left midlung are similar to chest CT December 14, 2020. These were also present on chest CT March 08 9. There is no pneumothorax or pleural effusion. Cardiac size is normal. Mediastinal contours are nor mal. There is no evidence for pulmonary edema. IMPRESSION: 1. No acute cardiopulmonary findings. 2. Left midlung nodules which were present on prior CT. These these are likely benign and suggest a p revious infectious or granulomatous process. However, can be assessed on follow-up exams to ensure st ability. ACT 112: Negative or not required by law. Electronically signed by: Amari Kline M.D. 04/14/2022 7:58 AM
[2022-04-14] MEDS ORDERED: MONTELUKAST SODIUM 10 MG TABLET PO SCH (09:00)
[2022-04-14] MEDS ORDERED: ADVANCED PROBIOTIC 1250 MG CAPSULE PO SCH (09:00)
[2022-04-14] MEDS ORDERED: ENOXAPARIN INJ 40 MG/0.4 ML SYR SQ SCH (09:00)
[2022-04-14] MEDS ORDERED: DOCUSATE SODIUM 100 MG CAP PO SCH (09:00)
[2022-04-14] MEDS ORDERED: MULTIVITAMIN TAB PO SCH (09:00)
[2022-04-14] MEDS ORDERED: GADOBUTROL 65ML VIAL IV ONE (10:25)
--- NOTE | 2022-04-14 10:36 | Magnetic Resonance Report ---
MRA OF THE INTRACRANIAL CIRCULATION WITHOUT CONTRAST CLINICAL HISTORY: Vertigo. COMPARISON STUDY: Head CT performed earlier today. MRI of the brain April 29, 2014. TECHNIQUE: Utilizing a 1.5 Katty magnet and 3-D [id number] technique, unenhanced MRA of the intra cranial circulation was obtained. FINDINGS: Please note that the MRI of the brain will be reported separately. The bilateral M1, M2, A1 and A2 segments are patent. There is no intracranial aneurysm. There is no central vessel occlusion. Posterior circulation is intact. No stenosis is noted within the intracranial vessels. IMPRESSION: Unremarkable MRA of the head. ACT 112: Negative or not required by law. Electronically signed by: Amari Kline M.D. 04/14/2022 10:35 AM
--- NOTE | 2022-04-14 10:41 | Magnetic Resonance Report ---
MRI OF THE BRAIN WITHOUT AND WITH IV CONTRAST CLINICAL HISTORY: Headache. Vertigo. COMPARISON STUDY: MRI of the brain April 29, 2014. Head CT performed earlier today. TECHNIQUE: Utilizing a 1.5 Katty magnet and dedicated coil, multiplanar, multiecho imaging of the br ain was performed pre and postcontrast administration. IV administration of 10.5 mL of Gadavist cont rast was uneventful. FINDINGS: There are no foci of restricted diffusion to suggest acute infarct. No acute intracranial h emorrhage, midline shift or mass effect is present. Brain volume is normal. Ventricular system is nor mal. Basal cisterns are patent. There are no extra-axial collections. Flow-voids for the major intrac ranial vessels are present. There is no intracranial mass or pathologic enhancement. A few white carter er T2 hyperintense foci are similar to MRI April 29, 2014. Small amount of fluid within the infer ior left mastoid air cells is unchanged since previous MRI. Calvarial signal is normal. Postoperative findings within the sinuses are incidentally noted. IMPRESSION: 1. No acute intracranial findings. 2. No intracranial mass or pathologic enhancement. 3. No significant change since MRI of April 29, 2014. ACT 112: Negative or not required by law. Electronically signed by: Amari Kline M.D. 04/14/2022 10:40 AM
--- NOTE | 2022-04-14 11:43 | Ultrasound Report ---
ULTRASOUND BILATERAL LOWER EXTREMITY VENOUS CLINICAL HISTORY: Lower extremity edema. COMPARISON STUDY: No priors. TECHNIQUE: Real-time, grayscale, and color Doppler sonography of the deep veins of the right and left lower extremity was performed from the inguinal crease to the calf. Compression and augmentation wer e utilized. FINDINGS: There is no sonographic evidence of deep venous thrombosis identified in the right or left lower extremity. The common femoral, superficial femoral, and popliteal veins are patent and normally compressible bilaterally. The greater saphenous vein and the profunda femoris vein at the junction w ith the common femoral vein are clear in both legs. The visualized calf veins are patent bilaterally. IMPRESSION: There is no sonographic evidence of deep venous thrombosis identified in the right or lef t lower extremity. ACT 112: Negative or not required by law. Electronically signed by: Jett Lambert M.D. 04/14/2022 11:41 AM
--- NOTE | 2022-04-14 11:57 | Hospitalist Progress Note ---
Date of Service April 14, 2022 Assessment & Plan (1) Headache: Plan: Stroke like symptoms Likely complicated/Hemiplegic Migraine, DD TIA -MRI Brain:No acute intracranial findings. No intracranial mass or pathologic enhancement. No significant change since MRI of April 29, 2014. -MRA:Unremarkable MRA of the head. -Follows with PCP/ENT as outpatient for Vertigo as per patient Continue aspirin 81 mg daily Fall precaution PT OT evaluation Neurology consulted Currently symptoms resolved Pulmonary nodules CXR:Left midlung nodules which were present on prior CT. These these are likely benign and suggest a previous infectious or granulomatous process. However, can be assessed on follow-up exams to ensure stability. Needs follow-up with pulmonology as outpatient Nonocclusive CAD Continue aspirin Asthma stable No signs of exacerbation Continue home medications H/O NAFLD chronic anemia Fibromyalgia Continue home medications DVT Px: Lovenox SQ Code Status Full code Admission and Anticipated Discharge Date Admission Date: April 14, 2022 Subjective Patient is seen and examined at bedside States feeling a lot better. Headache, vertigo, leg weakness resolved Also denies any chest pain, dyspnea, dizziness, change in vision No other complaints Review of Systems Review of Systems: All systems reviewed & are unremarkable except as noted in Subjective Physical Exam Physical Exam: Physical Exam: Vitals signs as noted above General Appearance:Obese, no apparent distress Head: normocephalic, Atraumatic Eyes: normal inspection, EOMI Neck: supple, Trachea midline Respiratory/Chest: Normal breath sounds, CTA, No accessory muscle use Cardiovascular: S1, S2, No murmur Abdomen/GI:Soft, Non tender, Bowel sounds present Extremities/Musculoskeletal:normal inspection, no edema Neurologic/Psych:AAOX3, grossly no focal neurological deficits Skin: normal color, warm Results & Data Results & Data ([facility]) Vital Signs (Past 12 Hours) Vital Signs Temp Pulse Pulse Resp BP Pulse Ox O2 Del Method 04/14/22 07:39 36.5 C 72 18 136/89 96 Room Air 04/14/22 04:55 69 04/14/22 05:38 Room Air 04/14/22 05:38 36.7 C 66 18 131/83 95 Room Air 04/14/22 03:06 72 16 111/75 97 Room Air 04/14/22 02:30 70 18 124/75 95 Room Air 04/14/22 01:30 72 18 123/71 96 Room Air 04/14/22 01:08 74 18 127/76 95 Room Air 04/14/22 00:17 68 18 133/87 97 Room Air Laboratory Results Short CBC 04/14/22 Range/Units 00:18 WBC 10.50 (4.8-10.8) K/ul Hgb 14.6 (14.0-18.0) g/dl Hct 41.8 (40.1-51.0) % Plt Count 230 (130-400) K/uL BMP 04/14/22 00:18 Sodium 137 Potassium 3.5 Chloride 101 Carbon Dioxide 27 BUN 13 Creatinine 1.05 Glucose 103 H Calcium 9.5 Liver Function 04/14/22 Range/Units 00:18 Total Bilirubin 0.5 (0.2-1.0) mg/dl AST 50 H (13-39) U/L ALT 80 H (7-52) U/L Alkaline Phosphatase 88 (34-104) U/L Albumin 4.2 (3.4-5.0) gm/dl (1) Headache Headache chronicity pattern: episodic headache Headache type: unspecified Intractability: not intractable Qualified Code(s): R51.9 - Headache, unspecified
--- NOTE | 2022-04-14 12:28 | Neurology Consultation ---
Date of Consultation April 14, 2022 Assessment & Plan (1) Migraine with vertigo: (2) Basilar migraine: Plan 56-year-old male with a longstanding history of intermittent headaches with associated vertigo, presenting with a prolonged episode, with associated leg weakness. Symptoms resolved. Intact neurological examination, on remarkable imaging evaluation thus far including CT of the head, gadolinium-enhanced brain MRI, and MRA of the head. Patient does have an allergy to iodinated contrast media and CT angiography was not completed. However, it may be worthwhile to obtain a gadolinium enhanced MRA of the neck to further exclude vertebral artery stenosis. Alternatively, a carotid ultrasound could be completed which would evaluate vertebral artery flow. In any event, patient has been experiencing intermittent migraines and associated vertigo for many years. Symptom frequency is relatively low, 1 episode every 6 weeks or so according to the patient. Unfortunately, he has not really able to utilize acetaminophen or nonsteroidal anti-inflammatory drugs to treat his headaches. He would also be unable to utilize triptans. Of course, triptans are probably not optimal for basilar or complicated type migraine. I did discuss potentially starting a preventive medication for basilar/complicated migraine. A trial of verapamil would not be unreasonable. Would consider starting verapamil ER 120 mg at bedtime. Patient seems agreeable to a trial, this medication may be started prior to discharge. I considered a trial of topiramate although he reports a history of kidney stones which would be a relative contraindication to topiramate. He also has a history of asthma which would preclude use of beta-blockers for migraine prevention. If verapamil is not helpful, could consider lamotrigine as an alternative. It may also be reasonable to consider a trial of either Nurtec ODT or Ubrelvy for acute migraine treatment as these oral CGRP blockers are generally considered safe in individuals with a history of coronary artery disease. As above, other than potentially obtaining a gadolinium enhanced MRA of the neck and/or carotid ultrasound, I do not have any further immediate recommendations for testing. Also as above, will consider starting a trial of verapamil ER 120 mg at bedtime for treatment of suspected complicated/basilar type migraine. Patient to continue with daily low-dose aspirin. He may need an up-to-date lipid panel with consideration to start a statin as well. No further immediate recommendations. Patient may follow-up with me or one of our DENAE's in neurology clinic in 3 to 4 weeks. History of Present Illness Reason for Consultation: stroke like symptoms Requesting Physician: Irwin Farooq MD Attending Physician: Irwin Farooq MD History of Present Illness The patient is a 56-year-old male who presented to the emergency department yesterday with a chief complaint of headache and associated vertigo and leg weakness, difficulty standing. His symptoms are entirely resolved this morning. He does relay a history of intermittent headaches with associated vertigo, occurring once every 6 weeks or so, episodes typically resolve within a few hours, sometimes 1 day. He endorses a lifelong history of intermittent headache, probably migraine. Unable to take triptans given his history of coronary artery disease. Patient has an allergy to iodinated contrast media. He did not have CT angiography completed. He did have a noncontrast CT of the head that was negative for hemorrhage or acute process. It looks like he takes daily low-dose aspirin as an outpatient, he does not appear to be on a statin. There was some concern for possible posterior circulation stroke and he was admitted to the [facility] for further evaluation and management. Follow-up imaging has been completed. Gadolinium-enhanced brain MRI negative for acute infarct, hemorrhage, or other worrisome pathology. There is minimal chronic microvascular ischemic change. An MRA of the brain was completed as well, no significant abnormalities. I reviewed the images as well as the radiologist interpretation of these tests and agree with these findings. Allergies Allergy/AdvReac Type Severity Reaction Status Date / Time bee venom protein (honey bee) Allergy Severe Anaphylaxis Verified 04/14/22 01:48 mold Allergy Intermediate sneezing,watery Verified 04/14/22 01:48 eyes, runny nose Penicillins Allergy Intermediate Hives Verified 04/14/22 01:48 rizatriptan [From Maxalt] AdvReac Severe Chest Pain Verified 04/14/22 01:48 Iodinated Contrast Media AdvReac Intermediate ITCHING Unverified 04/14/22 01:48 valproic acid AdvReac Intermediate PANIC Verified 04/14/22 01:48 ATTACKS Dust Allergy Intermediate sneezing,watery Uncoded 04/14/22 01:48 eyes, runny nosed Home Medications Medication Instructions Recorded Confirmed Type acidophilus 100 million 1 cap PO QAM 07/03/18 04/14/22 History cell-pectin, citrus 10 mg capsule (Acidophilus Probiotic) aspirin 81 mg tablet,delayed 81 mg PO QAM 07/03/18 04/14/22 History release cholecalciferol (vitamin D3) 125 5,000 unit PO QAM 07/03/18 04/14/22 History mcg (5,000 unit) tablet (Vitamin D3) epinephrine 0.3 mg/0.3 mL 0.3 mg IM Q3H PRN Allergic Reaction 07/03/18 04/14/22 History injection, auto-injector (EpiPen) fexofenadine 180 mg tablet 180 mg PO DAILY PRN WHEN GETS 07/03/18 04/14/22 History (Lluvia Allergy) ALLERGY SHOTS ipratropium 20 mcg-albuterol 100 1 puff inhalation QID PRN 07/03/18 04/14/22 History mcg/actuation mist for inhalation Shortness Of Breath (Combivent Respimat) montelukast 10 mg tablet 10 mg PO QAM 07/03/18 04/14/22 History multivitamin 1 tab PO QAM 07/03/18 04/14/22 History omega 3 350 mg-dha 235 mg-epa 90 1 cap PO QAM 07/03/18 04/14/22 History mg-fish oil 597 mg capsule,delay rel (Quitaque-3) zinc 50 mg tablet 50 mg PO QAM 07/03/18 04/14/22 History iodine (kelp) 0.15 mg tablet (Kelp) 0.15 mcg PO QAM 07/08/19 04/14/22 History acetaminophen 500 mg tablet 500 mg PO Q6H PRN Pain 09/26/19 04/14/22 History (Tylenol Extra Strength) docusate sodium 100 mg capsule 100 mg PO BID #60 caps 09/26/19 04/14/22 Rx (Colace) omeprazole 20 mg capsule,delayed 20 mg PO DAILY PRN Acid Reflux 09/26/19 04/14/22 History release oxycodone 5 mg tablet 5 mg PO Q6H PRN pain #14 tabs 09/26/19 04/14/22 Rx Patient History Medical History (Updated 04/14/22 @ 12:21 by Reji Massey MD) Asthma Coronary artery disease nonocclusive disease per cardiac CT 2013 GERD (gastroesophageal reflux disease) Patent foramen ovale Post concussion syndrome Pulmonary nodules Noted on CT chest 03/08/19, multiple, larges 7 mm. 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 Beliefs That Will Affect Care: None Current Living Situation: Spouse Other Information That Helps Us Care for You: No Feels Safe at Home: Yes Safety Concerns: Feels Safe At This Time Assistive Devices: Cane, Denture - Upper and Glasses Assistive Devices Comment: used cane in past but not always Review of Systems Constitutional: no fever and no chills Eyes: no blind spots and no diplopia Ear, Nose, Mouth, Throat: no ear pain, no tinnitus and no hearing loss Respiratory: no cough and no dyspnea Cardiovascular: no chest pain and no palpitations Gastrointestinal: + nausea Genitourinary: no dysuria or no urinary incontinence Musculoskeletal: no back pain, no neck pain and no myalgia Integumentary: no rash and no lesions Neurologic: as per Subjective / HPI Psychiatric: no depression and no anxiety Hematologic / Lymphatic: no easy bleeding and no easy bruising Exam (Neuro) Constitutional: well developed and well nourished; no acute distress Eyes: normal visual brooks by confrontation, PERRL, normal accommodation and EOM intact bilaterally; no fundoscopic abnormality, no nystagmus and no papilledema Cardiovascular: Vessels: normal carotid upstroke; no carotid bruit Neurologic: Oriented to:: Person, Place and Time Memory: Short Term Intact and Remote Intact Attention: Span Intact and Concentration Intact Language: Naming Objects and Repeating Phrases Speech Fluency: negative Dysarthria Speech Aphasia: negative Aphasia Fund of Knowledge: Current Events, Past History and Vocabulary Cranial Nerves: Normal II (Visual brooks full to confrontation, visual acuity normal), III, IV, (Pupils equal round reactive to light and accommodation, eye movements normal), V (Facial sensation intact), VII (There is no facial droop or weakness), VIII (Hearing intact), IX, X (Palate elevates to midline), XI (Shoulder shrug intact) and XII (Tongue protrudes to midline) Motor Strength: Normal Lower Extremities and Normal Upper Extremities; negative Pronator Drift Motor Tone: Normal Lower Extremities and Normal Upper Extremities Muscle Bulk/Involuntary Movements: No Involuntary Movements; negative Muscle Atrophy Sensation: Light Touch Intact, Pain/Temperature Intact, Vibration Intact and Proprioception Intact Coordination: Normal; negative Limited Balance, Dysdiadochokinesia, Finger-Nose Abnormal or Heel-Palomo Abnormal Deep Tendon Reflexes: Rt Triceps: 2+, Lt Triceps: 2+, Rt Biceps: 2+, Lt Biceps: 2+, Rt Brachioradialis: 2+, Lt Brachioradialis: 2+, Rt Patellar: 2+, Lt Patellar: 2+, Rt Ankle: 2+ and Lt Ankle: 2+ Special Tests: negative Babinski Present Gait: Normal Station and Gait Results & Data ([facility]) Vital Signs (Past 12 Hours) Vital Signs Temp Pulse Pulse Resp BP BP Pulse Ox 04/14/22 11:46 37.3 C 84 20 124/86 96 04/14/22 07:39 36.5 C 72 18 136/89 96 04/14/22 04:55 69 04/14/22 05:38 04/14/22 05:38 36.7 C 66 18 131/83 04/14/22 03:06 72 16 111/75 97 04/14/22 02:30 70 18 124/75 04/14/22 01:30 72 18 123/71 96 04/14/22 01:08 74 18 127/76 95 04/14/22 00:17 68 18 133/87 97 O2 Del Method 04/14/22 11:46 Room Air 04/14/22 07:39 Room Air 04/14/22 04:55 04/14/22 05:38 Room Air 04/14/22 05:38 Room Air 04/14/22 03:06 Room Air 04/14/22 02:30 Room Air 04/14/22 01:30 Room Air 04/14/22 01:08 Room Air 04/14/22 00:17 Room Air Laboratory Results WBC 10.50, hemoglobin 14.6, hematocrit 41.8, MCV 91.9, platelet count 230, sodium 137, potassium 3.5, BUN 13, creatinine 1.05, glucose 103, calcium 9.5, magnesium 2.0, AST 50, ALT 80,, SARS-CoV-2 testing negative. Lipid panel from July 2019 reviewed, triglycerides 142, cholesterol 162, LDL 98, VLDL 28, HDL [address] of the head, brain MRI, and MRA of the head are as described in the history of present illness. I reviewed the images as well as the radiologist's interpretation of these tests. An electrocardiogram reveals a normal sinus rhythm, 74 bpm. Coding Level of Care Code 66134 Initial In Care Lvl 3 Diagnoses Migraine with vertigo G43.109 Basilar migraine G43.109
--- NOTE | 2022-04-14 13:48 | Electrocardiogram Report ---
Test Reason : Blood Pressure : / mmHG Vent. Rate : 074 BPM Atrial Rate : 074 BPM P-R Int : 160 ms QRS Dur : 092 ms QT Int : 418 ms P-R-T Axes : 028 -12 025 degrees QTc Int : 463 ms Normal sinus rhythm Normal ECG When compared with ECG of 10-JUL-2019 06:40, QT has lengthened Confirmed by Eliud Jaurez ([id number]) on 04/14/2022 1:48:07 PM Referred By: REFERRED SELF Confirmed By:Eliud Juarez
--- NOTE | 2022-04-14 14:48 | Ultrasound Report ---
ULTRASOUND OF THE CAROTID ARTERIES CLINICAL HISTORY: Strokelike symptoms. COMPARISON STUDY: No priors. TECHNIQUE: Real-time, grayscale, and color Doppler sonography of the carotid arteries is performed. I mages are reviewed in the transverse and longitudinal planes. FINDINGS: The carotid arteries are patent bilaterally and demonstrate antegrade flow. There is no significant a therosclerotic plaque identified. Normal doppler arterial waveforms are seen throughout. Velocity wilda surements are listed below. Common carotid peak systolic velocity (cm/sec): RIGHT: 114 LEFT: 116 ICA proximal peak systolic velocity (cm/sec): RIGHT: 52 LEFT: 56 ICA mid peak systolic velocity (cm/sec): RIGHT: 42 LEFT: 63 ICA distal peak systolic velocity (cm/sec): RIGHT: 20 LEFT: 52 ICA/CC peak systolic ratio: RIGHT: 0.5 LEFT: 0.5 Antegrade flow was shown in the vertebral arteries. The external carotid arteries are patent. IMPRESSION: 1. There is no sonographic evidence of hemodynamically significant stenosis in the right or left allred tid arterial system. 2. Antegrade flow is shown in the vertebral arteries. ACT 112: Negative or not required by law. Electronically signed by: Jett Lambert M.D. 04/14/2022 2:47 PM
--- NOTE | 2022-04-14 15:15 | Discharge Summary ---
Date of Service April 14, 2022 Admission HPI Per Admitting Provider History obtained from patient and records. Medical history significant for nonocclusive CAD, PFO, asthma, GERD, NAFLD, chronic anemia (baseline hemoglobin of 13), BPPV, postconcussive syndrome as per records, past alcohol abuse, fibromyalgia. Last confinement July 2019 for chest pain. Nonocclusive CAD on cardiac catheterization. Last night, patient noted pins, needles whooshing sensation on the upper third of his head after he got out from under a vehicle he was working on. Sensation later transformed to an achy headache associated with dizziness described as spinning sensation similar to his BPPV attacks but not as bad. Some nausea symptoms. Transient bilateral leg weakness. No relief with Tylenol medication given by . No chest pain. Transient shortness of breath enroute to the ER. Discomfort improved after Phenergan, Reglan, and meclizine administration at the ER. Recurrent vertigo when ED staff tried to walk him around prior to ED discharge. Patient currently with a headache symptoms but not as bad as what he had at home. Medical History as above Surgical History : Nasal septum repair Family History : Appendiceal cancer, DM, stroke, hypertension Personal/Social history : Non-smoker, past alcohol abuse, disabled Admission Exam Per Admitting Provider Physical Exam Physical Exam: GENERAL: Comfortable, slightly anxious, obese, no respiratory distress SKIN: Normal color, warm HEENT: Bespectacled, [place] palpebral conjunctivae, no ptosis, dry buccal mucosa NECK : Supple, short neck, no tenderness CHEST : CTA, no tenderness HEART : RRR, no obvious murmurs ABDOMEN: Some distention, nontender EXTREMITIES : No LE swelling/tenderness, no other conspicuous deformities noted NEUROLOGIC : Coherent, no facial asymmetry, gait and stance not assessed Principal Diagnosis Basilar/complicated migraine Pulmonary nodules Discharge Data Allergies Allergy/AdvReac Type Severity Reaction Status Date / Time bee venom protein (honey bee) Allergy Severe Anaphylaxis Verified 04/14/22 01:48 mold Allergy Intermediate sneezing,watery Verified 04/14/22 01:48 eyes, runny nose Penicillins Allergy Intermediate Hives Verified 04/14/22 01:48 rizatriptan [From [facility]] AdvReac Severe Chest Pain Verified 04/14/22 01:48 Iodinated Contrast Media AdvReac Intermediate ITCHING Unverified 04/14/22 01:48 valproic acid AdvReac Intermediate PANIC Verified 04/14/22 01:48 ATTACKS Dust Allergy Intermediate sneezing,watery Uncoded 04/14/22 01:48 eyes, runny nosed Consultations 04/14/22 02:17 ED Decision to Admit Stat 04/14/22 07:47 Consult Neurology Routine Ordered Studies 04/13/22 23:41 CT head/brain wo con Urgent 04/14/22 05:29 MR angio head wo con Urgent MR brain wo/w con Urgent 04/14/22 08:24 US venous doppler LE BI Routine 04/14/22 12:42 US carotid doppler BI Urgent Hospital Course (1) Headache: Stroke like symptoms Likely complicated/Hemiplegic Migraine, DD TIA -MRI Brain:No acute intracranial findings. No intracranial mass or pathologic enhancement. No significant change since MRI of April 29, 2014. -MRA:Unremarkable MRA of the head. -Follows with PCP/ENT as outpatient for Vertigo as per patient Continue aspirin 81 mg daily Fall precaution PT OT evaluation Neurology consulted Currently symptoms resolved Pulmonary nodules CXR:Left midlung nodules which were present on prior CT. These these are likely benign and suggest a previous infectious or granulomatous process. However, can be assessed on follow-up exams to ensure stability. Needs follow-up with pulmonology as outpatient Nonocclusive CAD Continue aspirin Asthma stable No signs of exacerbation Continue home medications H/O NAFLD chronic anemia Fibromyalgia Continue home medications DVT Px: Lovenox SQ Code Status Full code Total Time Total Time Spent Total Time Spent (In Minutes): 48 minutes Discharge Plan Discharge Items Patient Disposition: Home - Self-Care Reason For Visit: ROSAS, TRASIENT RICCO LE WEAKNESS Discharge Diagnosis: Basilar/complicated migraine Pulmonary nodules Activity: Resume your previous activity Exercise/Sports: Gradually increase as tolerated Non-emergency contact: Primary Care Provider and Neurologist Call non-emergency contact if: you have any medication questions, your symptoms worsen, your pain is concerning for you and you have a fever Follow-up/Referrals: Alex Diamond DO [Primary Care Provider] - Diet: Heart Healthy Addtl Attending Provider Instructions: Follow-up with your primary care physician in 1 week as advised. Follow up with your Neurologist Dr.Brain Massey in 3-4 weeks --- Start taking verapamil ER 120 mg at bedtime as suggested by her neurologist. -- You are incidentally noted to have lung nodules on chest x-ray. Follow-up with your physician for further management. Seek immediate medical attention if your symptoms reoccur or worsen Please take all medications as instructed on discharge list below. Please call if you have any questions or problems. You can reach a [facility] hospitalist on duty at [facility] 24 hours a day by calling [phone] Pending Studies at Discharge: No Stand-Alone Forms: My [facility], Smoking Cessation Medications and DC Order Prescriptions: New verapamil [Calan SR] 120 mg Tablet Extended Release 120 mg PO HS Qty: 30 1RF Continued Kelp 0.15 mg Tablet 0.15 mcg PO QAM multivitamin Tablet 1 tab PO QAM fexofenadine [Lluvia Allergy] 180 mg Tablet 180 mg PO DAILY PRN (Reason: WHEN GETS ALLERGY SHOTS) aspirin 81 mg Tablet,Delayed Release (Dr/Ec) 81 mg PO QAM montelukast 10 mg tablet 10 mg PO QAM zinc 50 mg Tablet 50 mg PO QAM epinephrine [EpiPen] 0.3 mg/0.3 mL Auto-Injector 0.3 mg IM Q3H PRN (Reason: Allergic Reaction) cholecalciferol (vitamin D3) [Vitamin D3] 5,000 unit Tablet 5,000 unit PO QAM acidophilus-pectin, citrus [Acidophilus Probiotic] 100 million cell-10 mg Capsule 1 cap PO QAM Combivent Respimat 20-100 mcg/actuation Mist 1 puff INHALATION QID PRN (Reason: Shortness Of Breath) [place]-3 350 mg-235 mg- 90 mg-597 mg Capsule,Delayed Release(Dr/Ec) 1 cap PO QAM oxycodone 5 mg tablet 5 mg PO Q6H PRN (Reason: pain) Qty: 14 0RF acetaminophen [Tylenol Extra Strength] 500 mg Tablet 500 mg PO Q6H PRN (Reason: Pain) omeprazole 20 mg Capsule,Delayed Release(Dr/Ec) 20 mg PO DAILY PRN (Reason: Acid Reflux) docusate sodium [Colace] 100 mg capsule 100 mg PO BID Qty: 60 0RF Discharge Orders: Discharge Order (Routine); Ordered 04/14/22 Ordered By: Irwin Farooq Admission Data Admit Date/Time: 04/14/22 03:14 Attending Provider: Irwin Farooq Admit Provider: Haider Dumas Primary Care Provider: Alex Diamond Other Providers: Haider Dumas ; Rjei Massey ; Fidencio Grant ; Hanane Guillen ; Rinku Baird ; Hanane Berger ; Bradley Foster ; Jed Gann ; Dulce Tanner
[2022-04-14] MEDS ORDERED: VERAPAMIL HCL 120 MG TABCR PO SCH (21:00)
[2022-04-15] MEDS ORDERED: ASPIRIN 81 MG ECTAB PO SCH (09:00)
--- NOTE | 2022-05-06 12:28 | Coding Query ---
A supporting diagnosis is required for the test/procedure performed on this patient in order for us to be reimbursed by the patient's insurance. Please provide a supporting diagnosis for the following test/procedure listed below next to the test name along with your signature. *If there is no additional diagnosis for this patient that would support the following test/procedure please document that below next to the test/procedure. Test(s)/Procedure(s) that require a supporting diagnosis: * 75050 CAROTID DOPPLER DIAGNOSIS: Basilar Migraine * 34988 VENOUS DOPPLER DIAGNOSIS:Lower Extremity Edema Provider Signature: DAVID LAUREANO Date: __05/10/22 Thank you Derek Elias [facility] Information Management Once completed, please kindly fax back to [phone] For questions please call [phone] TATA
== END 2022-04-14 16:33 | disposition home or self-care (01) ==
LOC: 2W 22:51 → ED 22:51 → 2W 04-14 04:36

== ENCOUNTER 2025-02-23 19:07 | Inpatient (IN) ==
--- NOTE | 2025-02-23 19:23 | Emergency Department Note ---
Impression & Plan Symptomatic anemia Admission ED Provider Note HPI: History obtained from patient. The patient is a 59-year-old gentleman who presents to the emergency department with chief complaint of palpitations and chest discomfort as well as headache that has been occurring for the past 2 days when he stands up from a seated position or laying down. Patient states that he has also had some dark-colored stool during this time that he states has been loose. Patient denies any vomiting or hematemesis. On arrival here to the ED the patient is hemodynamically stable, he otherwise appears to be in no acute distress. ROS: - Per HPI Differential Diagnosis: Orthostatic hypotension, vasovagal event, arrhythmia to include SVT, atrial fibrillation with RVR, high degree heart block, ventricular tachycardia, ACS, symptomatic anemia, amongst other potential pathologies. *Outpatient medications and allergy history reviewed. PE: General: Alert, morbidly obese HEENT: Normocephalic, trachea midline Eyes: Extraocular eye movement is intact, no scleral erythema Pulmonary: Clear to auscultation bilaterally, no wheezing Cardio: Regular rate and rhythm GI: Abdomen is soft to palpation : No suprapubic tenderness MSK: No evidence of trauma or malformation of the extremities, no edema Skin: No evidence of rash Neuro: Alert, no focal deficits Psychiatric: Cooperative INDEPENDENT INTERPRETATIONS: fisher purse seine: (As interpreted by myself): - An order was placed for continuous cardiac monitoring - Patient was noted to be in sinus rhythm with a rate of 90 EKG: (As interpreted by myself): Rate: 95 Rhythm: Normal sinus rhythm Intervals: Within normal limits ST changes: No ST elevation Time: 1913 Chest x-ray: (As interpreted by myself): No acute disease Interventions provided in ED: - IV fluid bolus, IV Protonix bolus and drip -Patient was advised to receive a blood transfusion, patient refused blood transfusion at approximately 7:50 PM. Patient stated "I do not trust that stuff". He was explained the risk of not receiving a blood transfusion including worsening in his clinical condition up to and including . Patient expressed an understanding of this, he stated he was comfortable with this risk, and requested to be made DO NOT RESUSCITATE CODE STATUS. Bedside RN (Catalina) was present for this conversation. Medical Decision Making: IV was established and lab work obtained, patient was placed on vegetable tester. Lab work shows a leukocytosis of 18.13, hemoglobin is markedly reduced at 6.5, platelet count is normal, CMP does not show any evidence of any critical findings aside from blood sugar of 565, BUN is slightly elevated at 31. There is no evidence of any anion gap elevation, serum bicarbonate level is normal at 23. Chest x-ray does not show any evidence of acute disease per my interpretation. I recommended that the patient receive a blood transfusion given his reduced hemoglobin at 6.5 in addition to his other symptoms that would suggest symptomatic anemia. Patient refused blood transfusion and stated "I do not trust that stuff". I did explain to the patient the risk of not receiving a blood transfusion including worsening of his clinical condition up to and including . Patient expressed an understanding of this risk and again stated he did not want a blood transfusion. Patient was initiated on Protonix bolus and drip, he was given IV fluids here in the ED. Stool PCR was ordered. Patient's abdomen is otherwise soft and nontender on my exam, therefore CT imaging of the abdomen was not obtained. CT imaging of the head was obtained that is negative for any acute process. On my reassessment the patient remains hemodynamically stable, I do have concern for symptomatic GI bleeding given his dark stool reported and hemoglobin of 6.5. Unfortunately the patient does decline blood transfusion. Patient was agreeable for inpatient admission. I did therefore discuss the patient's presentation with the on-call hospitalist, Dr. Manuel, and the patient was accepted for inpatient care. Of note the patient is hemodynamically stable and otherwise appears to be in no acute distress therefore I do not feel that more emergent GI evaluation is indicated at this time. Patient was in agreement to this plan and he was placed for admission in stable condition. Consultants/Discussions held with other healthcare providers: - Hospitalist, Dr. Manuel Disposition discussion held by myself with: - Patient Diagnosis: 1. Symptomatic anemia, acute 2. Dark stool, acute 3. Hyperglycemia without DKA 4. Elevated BUN, acute Disposition: Admission Anil He DO Emergency Medicine Past Med/Surg History Problem List (Updated 02/23/25 @ 21:26 by Anil He DO) Symptomatic anemia (Acute) Basilar migraine Migraine with vertigo Headache (Acute) Vertigo (Acute) CAD (coronary artery disease) Asthma (Chronic) GERD (gastroesophageal reflux disease) (Chronic) Pulmonary nodules (Chronic) Noted on CT chest 03/08/19, multiple, larges 7 mm. Follow-up CT 6-12 months per Fleischner Society guidelines Medical History (Updated 02/23/25 @ 21:26 by Anil He DO) Patent foramen ovale Renal calculi CT 07/03/18 Coronary artery disease nonocclusive disease per cardiac CT 2013 Post concussion syndrome Surgical History History of sinus surgery Family History Mother Osteoporosis Father Hypertension Stroke suspected intracranial aneurysm Social History Smoking Status: Unknown if ever smoked Second Hand Exposure: No; Do You Dip or Chew Tobacco: No; Hx Alcohol Use: Yes Hx Substance Use: No Preferred Language: [place] Communication Ability: Effective Director Trial Required: No Beliefs That Will Affect Care: None Current Living Situation: Spouse Feels Safe at Home: Yes Assistive Devices: CPAP Allergies Allergies Allergy/AdvReac Type Severity Reaction Status Date / Time bee venom protein (honey bee) Allergy Severe Anaphylaxis Verified 02/23/25 20:16 mold Allergy Intermediate sneezing,watery Verified 02/23/25 20:16 eyes, runny nose Penicillins Allergy Intermediate Hives Verified 02/23/25 20:16 rizatriptan [From [facility]] AdvReac Severe Chest Pain Verified 02/23/25 20:16 Iodinated Contrast Media AdvReac Intermediate ITCHING Verified 02/23/25 20:16 valproic acid AdvReac Intermediate PANIC Verified 02/23/25 20:16 ATTACKS Dust Allergy Intermediate sneezing,watery Uncoded 02/23/25 20:16 eyes, runny nosed Home Meds Home Medications Medication Instructions Recorded Confirmed aspirin 81 mg tablet,delayed 81 mg PO QAM 07/03/18 02/23/25 release epinephrine 0.3 mg/0.3 mL 0.3 mg IM Q3H PRN Allergic Reaction 07/03/18 02/23/25 injection, auto-injector (EpiPen) fexofenadine 180 mg tablet 180 mg PO DAILY PRN WHEN GETS 07/03/18 02/23/25 (Lluvia Allergy) ALLERGY SHOTS ipratropium 20 mcg-albuterol 100 1 puff inhalation QID PRN 07/03/18 02/23/25 mcg/actuation mist for inhalation Shortness Of Breath (Combivent Respimat) montelukast 10 mg tablet 10 mg PO QAM 07/03/18 02/23/25 omega 3 350 mg-dha 235 mg-epa 90 1 cap PO QAM 07/03/18 02/23/25 mg-fish oil 597 mg capsule,delay rel ([facility]-3) iodine (kelp) 0.15 mg tablet (Kelp) 0.15 mcg PO QAM 07/08/19 02/23/25 omeprazole 20 mg capsule,delayed 20 mg PO DAILY PRN Acid Reflux 09/26/19 02/23/25 release calcium 333 mg 1 tab PO DAILY 12/28/22 02/23/25 (carbonate)-magnesium 133 mg (oxide)-zinc 5 mg tablet cholecalciferol (vitamin D3) 125 2,000 unit PO QAM 12/28/22 02/23/25 mcg (5,000 unit) tablet (Vitamin D3) acidophilus 100 million 1 cap PO DAILY 02/23/25 02/23/25 cell-pectin, citrus 10 mg capsule azelastine 137 mcg (0.1 %) nasal 2 spray intranasal DAILY 02/23/25 02/23/25 spray ketoconazole 2 % shampoo 1 applic topical 3XWK 02/23/25 02/23/25 multivitamin with iron 1 tab PO DAILY 02/23/25 02/23/25 rimegepant 75 mg disintegrating 75 mg PO DAILY PRN Migraine 02/23/25 02/23/25 tablet (Nurtec ODT) Headache vit A 750 mcg-vit C 150 mg-D3 1 cap PO DAILY 02/23/25 02/23/25 31.25 kqj-does-rhtrcgzrl-quercet capsule (Immune Essentials Daily) zinc 25 mg tablet 25 mg PO DAILY 02/23/25 02/23/25 Results & Data (ED) Vital Signs Vital Signs - 24 hr 02/23/25 19:08 02/23/25 19:20 02/23/25 19:21 Temperature 36.6 C Temperature Source Temporal Artery Scan Pulse Rate - Lying 94 H Pulse Rate - Sitting 93 H Pulse Rate - Standing 103 H Pulse Rate 106 H 93 H Pulse Rate from SpO2 Sensor Respiratory Rate 19 Respiratory Effort / Characteristics Non-Labored Spontaneous Respiratory Depth Normal Respiratory Pattern Regular Blood Pressure - Lying 126/60 Blood Pressure - Sitting 130/72 Blood Pressure- Standing 126/69 Blood Pressure 126/83 Blood Pressure Mean 97 Pulse Oximetry 100 Oxygen Delivery Method Room Air Sepsis Recent Fever Within 48 Hours No Sepsis New/Unexplained Change in Mental Status No Sepsis Action Taken by Nursing No Action Required 02/23/25 21:12 Temperature Temperature Source Pulse Rate - Lying Pulse Rate - Sitting Pulse Rate - Standing Pulse Rate 89 Pulse Rate from SpO2 Sensor 90 Respiratory Rate 19 Respiratory Effort / Characteristics Respiratory Depth Respiratory Pattern Blood Pressure - Lying Blood Pressure - Sitting Blood Pressure- Standing Blood Pressure 132/70 Blood Pressure Mean 90 Pulse Oximetry 99 Oxygen Delivery Method Sepsis Recent Fever Within 48 Hours Sepsis New/Unexplained Change in Mental Status Sepsis Action Taken by Nursing Laboratory Data 02/23/25 19:19 02/23/25 19:19 Lab Results 02/23/25 Range/Units 19:19 WBC 18.13 H (4.8-10.8) K/ul RBC 2.21 L (4.70-6.10) M/uL Hgb 6.5 L* (14.0-18.0) g/dl Hct 20.3 L* (42.0-52.0) % MCV 91.9 (80.0-100.0) fL MCH 29.4 (25.0-34.0) pg MCHC 32.0 (32.0-36.0) g/dL RDW Std Deviation 47.8 H (36.4-46.3) fL RDW Coeff of Daily 14.6 H (11.5-14.5) % Plt Count 264 (130-400) K/uL MPV 11.3 (9.4-12.4) fL Immature Gran % (Auto) 0.9 % Neut % (Auto) 56.4 % Lymph % (Auto) 31.3 % [place] % (Auto) 10.0 % Eos % (Auto) 0.8 % Baso % (Auto) 0.6 % Neut # (Auto) 10.23 H (1.40-6.50) K/uL Lymph # (Auto) 5.68 H (1.20-3.40) K/uL [place] # (Auto) 1.81 H (0.11-0.59) K/uL Eos # (Auto) 0.14 (0.00-0.50) K/uL Baso # (Auto) 0.11 (0.00-0.20) K/uL Immature Gran # (Auto) 0.16 (0.01-0.20) K/uL Polychromasia 1+ PT 13.2 H (9.0-12.0) Seconds INR 1.2 H (0.9-1.1) Sodium 132 L (136-145) mmol/L Potassium 4.4 (3.5-5.1) mmol/L Chloride 100 (98-107) mmol/L Carbon Dioxide 23 (21-32) mmol/L Anion Gap 9 (3-11) BUN 31 H (6-23) mg/dl Creatinine 0.97 (0.6-1.4) mg/dl Est Cr Clr Drug Dosing 94.8 ml/min eGFR 88.82 BUN/Creatinine Ratio 32.0 H (10-20) Glucose 565 H* (70-99(Fasting)) mg/dl Calcium 9.0 (8.6-10.3) mg/dl Magnesium 1.8 (1.7-2.4) mg/dl Total Bilirubin 0.5 (0.2-1.0) mg/dl AST 24 (13-39) U/L ALT 31 (7-52) U/L Alkaline Phosphatase 106 H (34-104) U/L Troponin I High Sens 7.1 (0-20) pg/ml Total Protein 5.6 L (6.0-8.3) gm/dl Albumin 3.0 L (3.4-5.0) gm/dl Globulin 2.6 (2.5-4.0) gm/dl Albumin/Globulin Ratio 1.2 (0.9-2) Lipase 43 (11-82) U/L TSH 3.596 (0.300-4.500) uIu/ml Administered Medications Sodium Chloride (Nss) 1,000 mls @ 999 mls/hr IV .Q1H1M WILLIE Stop: 02/23/25 21:30 Last Infusion: 02/23/25 21:24 Dose: Infused Documented By: Admin: 02/23/25 20:20 Dose: 999 mls/hr Documented By: Infusion: 02/23/25 20:20 Dose: Infused Documented By: Admin: 02/23/25 19:25 Dose: 999 mls/hr Documented By: JUAQUIN Pantoprazole Sodium 40 mg/ (Dextrose) 100 mls @ 20 mls/hr IV Q5H WILLIE Stop: 03/25/25 20:14 Last Admin: 02/23/25 20:51 Dose: 8 mg/hr, 20 mls/hr Documented By: JUAQUIN Discontinued Medications Pantoprazole Sodium 80 mg/ (Dextrose) 120 mls @ 480 mls/hr IV NOW ONE Stop: 02/23/25 20:11 Last Infusion: 02/23/25 20:39 Dose: Infused Documented By: Admin: 02/23/25 20:20 Dose: 480 mls/hr Documented By: JUAQUIN Insulin Human Regular (Novolin-R Insulin Per Unit Charge) 5 units IV NOW STA Stop: 02/23/25 20:03 Last Admin: 02/23/25 20:21 Dose: 5 units Documented By: JUAQUIN Co-signed By: NICOLE Meclizine HCl (Meclizine Hcl 25 Mg Tab) 25 mg PO NOW STA Stop: 02/23/25 19:21 Last Admin: 02/23/25 19:25 Dose: 25 mg Documented By: JUAQUIN Pantoprazole Sodium (Pantoprazole Bolus/Drip) 1 each IV NOW STA Stop: 02/23/25 19:58 Last Admin: 02/23/25 20:26 Dose: Not Given Documented By: JUAQUIN Imaging Data Radiologist's Impression: Chest X-Ray 02/23/25 19:09 EXAM: Portable AP chest radiograph TECHNIQUE: AP portable radiograph of the chest was obtained. INDICATION: Shortness of breath Comparison: Chest radiograph April 14, 2022 FINDINGS: LINES and TUBES: None CARDIOVASCULAR: Cardiac silhouette is stably and mildly enlarged in size. LUNGS/PLEURA: No focal consolidation identified. No significant pleural fluid. No discernible pneumothorax. Scattered nodular densities over the left perihilar lung are again seen, likely representing sequela of prior granulomatous/inflammatory process OSSEOUS/OTHER: No displaced acute osseous process identified. IMPRESSION: Unchanged mild enlargement of the cardiac silhouette. No radiographic evidence of acute cardiopulmonary process. Electronically signed by Chad Pate 02-23-2025 8:[address] 02/23/25 19:20 Exam(s): CT HEAD Without Contrast EXAM: CT Head Without Intravenous Contrast CLINICAL HISTORY: Reason for exam: dizzy, ROSAS. TECHNIQUE: Axial computed tomography images of the head/brain without intravenous contrast. CTDI is 36.43 mGy and DLP is 624.41 mGy-cm. Automated exposure control was utilized for the study. A dose lowering technique was utilized adhering to the principles of ALARA. COMPARISON: 07/16/2024 FINDINGS: Brain: No acute intracranial hemorrhage, mass effect, or parenchymal edema. No evident loss of graf-white matter differentiation. No significant white matter disease. Ventricles: No hydrocephalus. Bones/joints: No acute fracture. Soft tissues: Unremarkable. Sinuses: Unremarkable as visualized. Mastoid air cells: No significant mastoid effusion. IMPRESSION: No acute intracranial process. Electronically signed by: Jyoti Marin M.D. 02/23/25 20:57 PM Discharge Plan Visit Data Chief Complaint: Chest Pain Stated Complaint: CHEST PAIN, LIGHTHEADEDNESS, RAPID HEARTBEAT ED Provider: Anil He Discharge Problem: Symptomatic anemia Patient Disposition: Admitted As Inpatient Condition: Fair Forms Stand Alone Forms: [facility] Prescriptions Prescriptions: No Action calcium carb-mag ox-zinc gluc 333-133-5 mg tablet 1 tab PO DAILY Kelp 0.15 mg Tablet 0.15 mcg PO QAM fexofenadine [Lluvia Allergy] 180 mg Tablet 180 mg PO DAILY PRN (Reason: WHEN GETS ALLERGY SHOTS) aspirin 81 mg Tablet,Delayed Release (Dr/Ec) 81 mg PO QAM montelukast 10 mg tablet 10 mg PO QAM epinephrine [EpiPen] 0.3 mg/0.3 mL Auto-Injector 0.3 mg IM Q3H PRN (Reason: Allergic Reaction) Combivent Respimat 20-100 mcg/actuation Mist 1 puff INHALATION QID PRN (Reason: Shortness Of Breath) [facility]-3 350 mg-235 mg- 90 mg-597 mg Capsule,Delayed Release(Dr/Ec) 1 cap PO QAM cholecalciferol (vitamin D3) [Vitamin D3] 125 mcg (5,000 unit) tablet 2,000 unit PO QAM omeprazole 20 mg Capsule,Delayed Release(Dr/Ec) 20 mg PO DAILY PRN (Reason: Acid Reflux) azelastine 137 mcg (0.1 %) spray,non-aerosol 2 spray INTRANASAL DAILY multivitamin with iron [Multiple Daily W/Iron] Tablet 1 tab PO DAILY ketoconazole 2 % shampoo 1 applic TOPICAL 3XWK Immune Essentials Daily 750 mcg-150 mg- 31.25 mcg Capsule 1 cap PO DAILY Nurtec ODT 75 mg tablet,disintegrating 75 mg PO DAILY PRN (Reason: Migraine Headache) Rx Instructions: take one qd prn migraine, limit 3 days / week zinc 25 mg Tablet 25 mg PO DAILY acidophilus-pectin, citrus [Acidophilus Probiotic] 100 million cell-10 mg Capsule 1 cap PO DAILY Referrals Referrals: Alex Diamond DO [Primary Care Provider] -
[2025-02-23] MEDS: MECLIZINE HCL 25 MG TAB PO STA (19:25)
[2025-02-23] MEDS: SODIUM CHLORIDE 0.9% 1,000 ML IV SCH (19:25)
[2025-02-23 19:50] LABS: INR 1.2 (0.9-1.1); Prothrombin Time 13.2 Seconds (9.0-12.0)
[2025-02-23] MEDS ORDERED: SODIUM CHLORIDE 0.9% 100 ML IV PRN (19:50)
[2025-02-23 19:53] LABS: Hematocrit (blood only) 20.3 % (42.0-52.0); Hemoglobin 6.5 g/dl (14.0-18.0); Mean Corpuscular Hemoglobin 29.4 pg (25.0-34.0); Mean Corpuscular Volume 91.9 fL (80.0-100.0); Platelet Count 264 K/uL (130-400); RDW Standard Deviation 47.8 fL (36.4-46.3); Red Blood Count 2.21 M/uL (4.70-6.10); White Blood Count 18.13 K/ul (4.8-10.8)
[2025-02-23 20:00] LABS: Alanine Aminotransferase 31.0 U/L (7-52); Albumin Globulin Ratio 1.2 (0.9-2); Alkaline Phosphatase 106.0 U/L (34-104); Anion Gap 9.0 (3-11); Bilirubin,Total 0.5 mg/dl (0.2-1.0); Blood Urea Nitrogen 31.0 mg/dl (6-23); Calcium 9.0 mg/dl (8.6-10.3); Carbon Dioxide 23.0 mmol/L (21-32); Chloride 100.0 mmol/L (98-107); Creatinine Clr Calc Pharmacy 94.8 ml/min; Globulin 2.6 gm/dl (2.5-4.0); Glucose 565.0 mg/dl (70-99(Fasting)); Lipase 43.0 U/L (11-82); Magnesium 1.8 mg/dl (1.7-2.4); Potassium 4.4 mmol/L (3.5-5.1); Sodium 132.0 mmol/L (136-145); Total Protein 5.6 gm/dl (6.0-8.3)
[2025-02-23 20:02] LABS: Immature Granulocytes # (auto) 0.16 K/uL (0.01-0.20); Immature Granulocytes % (auto) 0.9 %; Polychromasia 1+
--- NOTE | 2025-02-23 20:04 | XRay Report ---
EXAM: Portable AP chest radiograph TECHNIQUE: AP portable radiograph of the chest was obtained. INDICATION: Shortness of breath Comparison: Chest radiograph April 14, 2022 FINDINGS: LINES and TUBES: None CARDIOVASCULAR: Cardiac silhouette is stably and mildly enlarged in size. LUNGS/PLEURA: No focal consolidation identified. No significant pleural fluid. No discernible pneumothorax. Scattered nodular densities over the left perihilar lung are again seen, likely representing sequela of prior granulomatous/inflammatory process OSSEOUS/OTHER: No displaced acute osseous process identified. IMPRESSION: Unchanged mild enlargement of the cardiac silhouette. No radiographic evidence of acute cardiopulmonary process. Electronically signed by Chad Pate 02-23-2025 8:03 PM
[2025-02-23 20:14] LABS: Thyroid Stimulating Hormone 3.596 uIu/ml (0.300-4.500)
[2025-02-23] MEDS: NovoLIN-R INSULIN PER UNIT CHARGE IV STA (20:21)
[2025-02-23] MEDS: PANTOPRAZOLE BOLUS/DRIP IV STA (20:26)
[2025-02-23] MEDS: PANTOprazole 40 MG in DEXTROSE 5% MINI-B 100 ML IV SCH (20:51)
--- NOTE | 2025-02-23 20:58 | CT Scan Report ---
Exam(s): CT HEAD Without Contrast EXAM: CT Head Without Intravenous Contrast CLINICAL HISTORY: Reason for exam: dizzy, ROSAS. TECHNIQUE: Axial computed tomography images of the head/brain without intravenous contrast. CTDI is 36.43 mGy and DLP is 624.41 mGy-cm. Automated exposure control was utilized for the study. A dose lowering technique was utilized adhering to the principles of ALARA. COMPARISON: 07/16/2024 FINDINGS: Brain: No acute intracranial hemorrhage, mass effect, or parenchymal edema. No evident loss of graf-white matter differentiation. No significant white matter disease. Ventricles: No hydrocephalus. Bones/joints: No acute fracture. Soft tissues: Unremarkable. Sinuses: Unremarkable as visualized. Mastoid air cells: No significant mastoid effusion. IMPRESSION: No acute intracranial process. Electronically signed by: Jyoti Marin M.D. 02/23/25 20:57 PM
[2025-02-23] MEDS ORDERED: PHARMACY GLYCEMIC MGMT CONSULT PRN (23:46)
[2025-02-23] MEDS ORDERED: GLUCOSE 40% GEL 15 GM TUBE PO PRN (23:46)
[2025-02-23] MEDS ORDERED: DEXTROSE 50% 50 ML SYRINGE IV PRN (23:46)
[2025-02-23] MEDS ORDERED: CARBOHYDRATES FOR HYPOGLYCEMIA PO PRN (23:46)
[2025-02-23] MEDS ORDERED: GLUCAGON FOR INJ 1 MG VIAL SQ PRN (23:46)
[2025-02-23] MEDS ORDERED: IPRATROPIUM BROMIDE/ALBUTEROL respimat INH INH PRN (23:46)
[2025-02-23] MEDS ORDERED: GLUCOSE 10 TAB/TUBE PO PRN (23:46)
[2025-02-23] MEDS ORDERED: NITROGLYCERIN SL 0.4 MG/TAB TAB SL PRN (23:46)
[2025-02-23] MEDS ORDERED: ACETAMINOPHEN 1,000 MG/100 ML VIAL IV PRN (23:46)
[2025-02-23] MEDS: LANTUS PER UNIT CHARGE SQ STA (23:49)
--- NOTE | 2025-02-23 23:50 | CT Scan Report ---
Exam(s): CT ABDOMEN + PELVIS Without Contrast EXAM: CT Abdomen and Pelvis Without Intravenous Contrast CLINICAL HISTORY: Reason for exam: abd pain, anemia. TECHNIQUE: Axial computed tomography images of the abdomen and pelvis without intravenous contrast. CTDI is 27.65 mGy and DLP is 1446.03 mGy-cm. Automated exposure control was utilized for the study. A dose lowering technique was utilized adhering to the principles of ALARA. COMPARISON: 09/26/19 FINDINGS: Lung bases: Right basilar subsegmental atelectasis. Pleural space: Small right pleural effusion. ABDOMEN: Liver: Unremarkable. Gallbladder and bile ducts: Unremarkable. No calcified stones. No ductal dilation. Pancreas: Peripancreatic stranding. No ductal dilation. Spleen: Mild splenomegaly. Adrenals: Unremarkable. No mass. Kidneys and ureters: Nonobstructing nephrolithiasis bilaterally without hydronephrosis. Simple left kidney cyst measuring 12 mm; no follow-up indicated. Stomach and bowel: No bowel obstruction. Sigmoid diverticulosis. No mucosal thickening. PELVIS: Appendix: Normal appendix. Bladder: Unremarkable. No stones. Reproductive: Unremarkable as visualized. ABDOMEN and PELVIS: Intraperitoneal space: Mild ascites. Generalized mesenteric edema. No free air. Bones/joints: No acute fracture. No dislocation. Disc degeneration in the lower lumbar spine. Soft tissues: Unremarkable. Vasculature: Minimal atherosclerosis of the abdominal aorta. No abdominal aortic aneurysm. Lymph nodes: Unremarkable. No enlarged lymph nodes. IMPRESSION: 1. Peripancreatic stranding. Correlate with serum lipase for possible pancreatitis. 2. Mild ascites. Generalized mesenteric edema. 3. Small right pleural effusion. 4. Nonobstructing nephrolithiasis bilaterally without hydronephrosis. Electronically signed by: Jyoti Marin M.D. 02/23/25 23:49 PM
[2025-02-24] MEDS ORDERED: ALBUTEROL HFA 8 GM INHALER INH PRN (00:04)
[2025-02-24] MEDS ORDERED: IPRATROPIUM BROMIDE HFA INHALER INH PRN (00:04)
[2025-02-24] MEDS: SODIUM CHLORIDE 0.9% 1,000 ML IV SCH (00:41)
[2025-02-24] MEDS: NovoLIN-R INSULIN PER UNIT CHARGE IV STA (00:41)
--- NOTE | 2025-02-24 01:36 | History & Physical Report ---
Date of Service February 23, 2025 Assessment & Plan (1) Symptomatic anemia: Plan: 59-year-old male with past medical history significant for sleep apnea, multiple pulm nodules, asthma mild persistent, patent foramen ovale, GERD, postconcussion syndrome, history of chest pain, history of headaches, depression, seasonal allergies presents with abdominal pain going for last 2 days, black stools for last 2 days and also chest pains. Patient states is feeling dizzy and also when he gets up and walks getting chest pain and shortness of breath and palpitation and subsides while he is resting. Patient has history of migraine headaches and lights bother him. Currently denies any headache. No runny nose or sore throat. No cough. Afebrile. Micturating okay. Hemodynamics are okay. Hemoglobin came back at 6.5. But patient refused any blood transfusion. 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 Patient denies any blood transfusions in case of emergencies also. Symptomatic anemia Having abdominal pain and black stools last 2 days Chest pain and shortness of breath on exertion. Dizziness and palpitations. Was using ibuprofen for the last 2 days but generally does not use regularly Hemoglobin 6.5 Refused blood transfusion Started on Protonix drip, IV fluids n.p.o. H&H every 6 hours Telemetry GI consult in a.m. Chest pain shortness of breath on exertion EKG and troponin okay Mostly from above Will follow serial enzymes and echo Telemetry Cardiology consult in a.m. Abdominal pain CAT scan question of pancreatitis Lipase is okay GI consulted Leukocytosis Will follow blood cultures Will follow UA Follow repeat labs Hyperglycemia Came with sugars of 565 Received IV insulin Will continue Lantus 5's twice daily and sliding scale Glycemic pharmacy consult Close monitor Follow HbA1c levels Sleep apnea CPAP nightly Asthma Continue home inhalers History of migraines On Nurtec as needed DVT prophylaxis SCDs Disposition Telemetry CODE STATUS DNR/DNI as per my discussion with the patient. Addendum: Am labs hb 5.7. Talked with patient and he again adamantly refusing blood transfusions. History of Present Illness Chief Complaint: Chest pain and abdominal pain Primary Care Provider: Alex Diamond DO 59-year-old male with past medical history significant for sleep apnea, multiple pulm nodules, asthma mild persistent, patent foramen ovale, GERD, postconcussion syndrome, history of chest pain, history of headaches, depression, seasonal allergies presents with abdominal pain going for last 2 days, black stools for last 2 days and also chest pains. Patient states is feeling dizzy and also when he gets up and walks getting chest pain and shortness of breath and palpitation and subsides while he is resting. Patient has history of migraine headaches and lights bother him. Currently denies any headache. No runny nose or sore throat. No cough. Afebrile. Micturating okay. Hemodynamics are okay. Hemoglobin came back at 6.5. But patient refused any blood transfusion. 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 Patient denies any blood transfusions in case of emergencies also. Past medical history. As mentioned above Past surgical history. Colonoscopy. EGD. EGD with endoscopic ultrasound. Repair of nasal septum. Social history. . No smoking. Quit drinking 1986. Drinks THC as per [employer]. Family history. Mother had arthritis. Father had hypertension. Stroke. Maternal grandmother had uterine cancer. Paternal grandmother had diabetes. Sister had appendix cancer. Allergies Allergy/AdvReac Type Severity Reaction Status Date / Time bee venom protein (honey bee) Allergy Severe Anaphylaxis Verified 02/23/25 20:16 mold Allergy Intermediate sneezing,watery Verified 02/23/25 20:16 eyes, runny nose Penicillins Allergy Intermediate Hives Verified 02/23/25 20:16 rizatriptan [From [facility]] AdvReac Severe Chest Pain Verified 02/23/25 20:16 Iodinated Contrast Media AdvReac Intermediate ITCHING Verified 02/23/25 20:16 valproic acid AdvReac Intermediate PANIC Verified 02/23/25 20:16 ATTACKS Dust Allergy Intermediate sneezing,watery Uncoded 02/23/25 20:16 eyes, runny nosed Home Medications Medication Instructions Recorded Confirmed Type aspirin 81 mg tablet,delayed 81 mg PO QAM 07/03/18 02/23/25 History release epinephrine 0.3 mg/0.3 mL 0.3 mg IM Q3H PRN Allergic Reaction 07/03/18 02/23/25 History injection, auto-injector (EpiPen) fexofenadine 180 mg tablet 180 mg PO DAILY PRN WHEN GETS 07/03/18 02/23/25 History (Lluvia Allergy) ALLERGY SHOTS ipratropium 20 mcg-albuterol 100 1 puff inhalation QID PRN 07/03/18 02/23/25 History mcg/actuation mist for inhalation Shortness Of Breath (Combivent Respimat) montelukast 10 mg tablet 10 mg PO QAM 07/03/18 02/23/25 History omega 3 350 mg-dha 235 mg-epa 90 1 cap PO QAM 07/03/18 02/23/25 History mg-fish oil 597 mg capsule,delay rel (Cass-3) iodine (kelp) 0.15 mg tablet (Kelp) 0.15 mcg PO QAM 07/08/19 02/23/25 History omeprazole 20 mg capsule,delayed 20 mg PO DAILY PRN Acid Reflux 09/26/19 02/23/25 History release calcium 333 mg 1 tab PO DAILY 12/28/22 02/23/25 History (carbonate)-magnesium 133 mg (oxide)-zinc 5 mg tablet cholecalciferol (vitamin D3) 125 2,000 unit PO QAM 12/28/22 02/23/25 History mcg (5,000 unit) tablet (Vitamin D3) acidophilus 100 million 1 cap PO DAILY 02/23/25 02/23/25 History cell-pectin, citrus 10 mg capsule azelastine 137 mcg (0.1 %) nasal 2 spray intranasal DAILY 02/23/25 02/23/25 History spray ketoconazole 2 % shampoo 1 applic topical 3XWK 02/23/25 02/23/25 History multivitamin with iron 1 tab PO DAILY 02/23/25 02/23/25 History rimegepant 75 mg disintegrating 75 mg PO DAILY PRN Migraine 02/23/25 02/23/25 History tablet (Nurtec ODT) Headache vit A 750 mcg-vit C 150 mg-D3 1 cap PO DAILY 02/23/25 02/23/25 History 31.25 [id number]-dxmh-[id number]-quercet capsule (Immune Essentials Daily) zinc 25 mg tablet 25 mg PO DAILY 02/23/25 02/23/25 History Past Med/Surg History Problem List (Updated 02/23/25 @ 21:26 by Anil He DO) Symptomatic anemia (Acute) Basilar migraine Migraine with vertigo Headache (Acute) Vertigo (Acute) CAD (coronary artery disease) Asthma (Chronic) GERD (gastroesophageal reflux disease) (Chronic) Pulmonary nodules (Chronic) Noted on CT chest 03/08/19, multiple, larges 7 mm. Follow-up CT 6-12 months per Fleischner Society guidelines Medical History (Updated 02/23/25 @ 21:26 by Anil He DO) Patent foramen ovale Renal calculi CT 07/03/18 Coronary artery disease nonocclusive disease per cardiac CT 2013 Post concussion syndrome Surgical History History of sinus surgery Family History Mother Osteoporosis Father Hypertension Stroke suspected intracranial aneurysm Social History Smoking Status: Never smoker Second Hand Exposure: No; Do You Dip or Chew Tobacco: No; Hx Alcohol Use: No Hx Substance Use: Yes Substance Use Type Other:: THC gummies Preferred Language: [place] Communication Ability: Effective Membership Coordinator Required: No Beliefs That Will Affect Care: None Current Living Situation: Spouse Feels Safe at Home: Yes Safety Concerns: Feels Safe At This Time Assistive Devices: CPAP, Denture - Upper, Denture - Lower and Glasses Review of Systems Review of Systems: All systems reviewed & are unremarkable except as noted in HPI & below Physical Exam Physical Exam: General- Not in distress. Head- atraumatic Eyes- PERRL,. ENT- oropharynx clear Neck- supple, no JVD. Lungs- clear to auscultation no wheezing or crackles Heart- regular rate and rhythm; no murmur, no gallop. Abdomen- normal bowel sounds, soft, diffuse tenderness, no rigidity, no distension Extremities- no pretibial edema, no erythema seen Neuro- alert, oriented PERRL, no facial palsy; no dysarthria; moves extremities Results & Data Results & Data Vital Signs (Past 12 Hours) Vital Signs Temp Pulse Resp BP Pulse Ox O2 Del Method 02/23/25 21:12 89 19 132/70 99 02/23/25 19:21 93 H 02/23/25 19:08 36.6 C 106 H 19 126/83 100 Room Air Diagnostic Findings Laboratory Results WBC 18.13 K/ul (4.8-10.8) H 02/23/25 19:19 RBC 2.21 M/uL (4.70-6.10) L 02/23/25 19:19 Hgb 6.5 g/dl (14.0-18.0) L* 02/23/25 19:19 Hct 20.3 % (42.0-52.0) L* 02/23/25 19:19 MCV 91.9 fL (80.0-100.0) 02/23/25 19:19 MCH 29.4 pg (25.0-34.0) 02/23/25 19:19 MCHC 32.0 g/dL (32.0-36.0) 02/23/25 19:19 RDW Std Deviation 47.8 fL (36.4-46.3) H 02/23/25 19:19 RDW Coeff of Daily 14.6 % (11.5-14.5) H 02/23/25 19:19 Plt Count 264 K/uL (130-400) 02/23/25 19:19 MPV 11.3 fL (9.4-12.4) 02/23/25 19:19 Immature Gran % (Auto) 0.9 % 02/23/25 19:19 Neut % (Auto) 56.4 % 02/23/25 19:19 Lymph % (Auto) 31.3 % 02/23/25 19:19 [place] % (Auto) 10.0 % 02/23/25 19:19 Eos % (Auto) 0.8 % 02/23/25 19:19 Baso % (Auto) 0.6 % 02/23/25 19:19 Neut # (Auto) 10.23 K/uL (1.40-6.50) H 02/23/25 19:19 Lymph # (Auto) 5.68 K/uL (1.20-3.40) H 02/23/25 19:19 [place] # (Auto) 1.81 K/uL (0.11-0.59) H 02/23/25 19:19 Eos # (Auto) 0.14 K/uL (0.00-0.50) 02/23/25 19:19 Baso # (Auto) 0.11 K/uL (0.00-0.20) 02/23/25 19:19 Immature Gran # (Auto) 0.16 K/uL (0.01-0.20) 02/23/25 19:19 Polychromasia 1+ 02/23/25 19:19 PT 13.2 Seconds (9.0-12.0) H 02/23/25 19:19 INR 1.2 (0.9-1.1) H 02/23/25 19:19 Sodium 132 mmol/L (136-145) L 02/23/25 19:19 Potassium 4.4 mmol/L (3.5-5.1) 02/23/25 19:19 Chloride 100 mmol/L (98-107) 02/23/25 19:19 Carbon Dioxide 23 mmol/L (21-32) 02/23/25 19:19 Anion Gap 9 (3-11) 02/23/25 19:19 BUN 31 mg/dl (6-23) H 02/23/25 19:19 Creatinine 0.97 mg/dl (0.6-1.4) 02/23/25 19:19 Est Cr Clr Drug Dosing 94.8 ml/min 02/23/25 19:19 eGFR 88.82 02/23/25 19:19 BUN/Creatinine Ratio 32.0 (10-20) H 02/23/25 19:19 Glucose 565 mg/dl (70-99(Fasting)) H* 02/23/25 19:19 POC Glucose 435 mg/dl (70-99) H* 02/23/25 23:17 Calcium 9.0 mg/dl (8.6-10.3) 02/23/25 19:19 Magnesium 1.8 mg/dl (1.7-2.4) 02/23/25 19:19 Total Bilirubin 0.5 mg/dl (0.2-1.0) 02/23/25 19:19 AST 24 U/L (13-39) 02/23/25 19:19 ALT 31 U/L (7-52) 02/23/25 19:19 Alkaline Phosphatase 106 U/L (34-104) H 02/23/25 19:19 Troponin I High Sens 7.1 pg/ml (0-20) 02/23/25 19:19 Total Protein 5.6 gm/dl (6.0-8.3) L 02/23/25 19:19 Albumin 3.0 gm/dl (3.4-5.0) L 02/23/25 19:19 Globulin 2.6 gm/dl (2.5-4.0) 02/23/25 19:19 Albumin/Globulin Ratio 1.2 (0.9-2) 02/23/25 19:19 Lipase 43 U/L (11-82) 02/23/25 19:19 TSH 3.596 uIu/ml (0.300-4.500) 02/23/25 19:19 Impressions Chest X-Ray 02/23/25 19:09 EXAM: Portable AP chest radiograph TECHNIQUE: AP portable radiograph of the chest was obtained. INDICATION: Shortness of breath Comparison: Chest radiograph April 14, 2022 FINDINGS: LINES and TUBES: None CARDIOVASCULAR: Cardiac silhouette is stably and mildly enlarged in size. LUNGS/PLEURA: No focal consolidation identified. No significant pleural fluid. No discernible pneumothorax. Scattered nodular densities over the left perihilar lung are again seen, likely representing sequela of prior granulomatous/inflammatory process OSSEOUS/OTHER: No displaced acute osseous process identified. IMPRESSION: Unchanged mild enlargement of the cardiac silhouette. No radiographic evidence of acute cardiopulmonary process. Electronically signed by Chad Pate 02-23-2025 8:[address] 02/23/25 19:20 Exam(s): CT HEAD Without Contrast EXAM: CT Head Without Intravenous Contrast CLINICAL HISTORY: Reason for exam: dizzy, ROSAS. TECHNIQUE: Axial computed tomography images of the head/brain without intravenous contrast. CTDI is 36.43 mGy and DLP is 624.41 mGy-cm. Automated exposure control was utilized for the study. A dose lowering technique was utilized adhering to the principles of ALARA. COMPARISON: 07/16/2024 FINDINGS: Brain: No acute intracranial hemorrhage, mass effect, or parenchymal edema. No evident loss of graf-white matter differentiation. No significant white matter disease. Ventricles: No hydrocephalus. Bones/joints: No acute fracture. Soft tissues: Unremarkable. Sinuses: Unremarkable as visualized. Mastoid air cells: No significant mastoid effusion. IMPRESSION: No acute intracranial process. Electronically signed by: Jyoti Marin M.D. 02/23/25 20:57 PM Abdomen/Pelvis CT 02/23/25 22:31 Exam(s): CT ABDOMEN + PELVIS Without Contrast EXAM: CT Abdomen and Pelvis Without Intravenous Contrast CLINICAL HISTORY: Reason for exam: abd pain, anemia. TECHNIQUE: Axial computed tomography images of the abdomen and pelvis without intravenous contrast. CTDI is 27.65 mGy and DLP is 1446.03 mGy-cm. Automated exposure control was utilized for the study. A dose lowering technique was utilized adhering to the principles of ALARA. COMPARISON: 09/26/19 FINDINGS: Lung bases: Right basilar subsegmental atelectasis. Pleural space: Small right pleural effusion. ABDOMEN: Liver: Unremarkable. Gallbladder and bile ducts: Unremarkable. No calcified stones. No ductal dilation. Pancreas: Peripancreatic stranding. No ductal dilation. Spleen: Mild splenomegaly. Adrenals: Unremarkable. No mass. Kidneys and ureters: Nonobstructing nephrolithiasis bilaterally without hydronephrosis. Simple left kidney cyst measuring 12 mm; no follow-up indicated. Stomach and bowel: No bowel obstruction. Sigmoid diverticulosis. No mucosal thickening. PELVIS: Appendix: Normal appendix. Bladder: Unremarkable. No stones. Reproductive: Unremarkable as visualized. ABDOMEN and PELVIS: Intraperitoneal space: Mild ascites. Generalized mesenteric edema. No free air. Bones/joints: No acute fracture. No dislocation. Disc degeneration in the lower lumbar spine. Soft tissues: Unremarkable. Vasculature: Minimal atherosclerosis of the abdominal aorta. No abdominal aortic aneurysm. Lymph nodes: Unremarkable. No enlarged lymph nodes. IMPRESSION: 1. Peripancreatic stranding. Correlate with serum lipase for possible pancreatitis. 2. Mild ascites. Generalized mesenteric edema. 3. Small right pleural effusion. 4. Nonobstructing nephrolithiasis bilaterally without hydronephrosis. Electronically signed by: Jyoti Marin M.D. 02/23/25 23:49 PM ECG Additional Comments: ECG. Normal sinus rhythm rate of 95. No significant changes found. QTc 439 Code Status & VTE Plan VTE Prophylaxis Plan VTE Prophylaxis will be ordered: Yes
[2025-02-24] MEDS: INSULIN ASPART PER UNIT CHARGE SC SCH ×2 (02:04→13:18)
[2025-02-24] MEDS: INSULIN ASPART PER UNIT CHARGE SC STA (02:54)
[2025-02-24] MEDS ORDERED: INSULIN ASPART PER UNIT CHARGE SC SCH ×2 (06:00→07:30)
[2025-02-24 06:15] LABS: Hematocrit (blood only) 17.5 % (42.0-52.0); Hemoglobin 5.7 g/dl (14.0-18.0); Mean Corpuscular Hemoglobin 29.8 pg (25.0-34.0); Mean Corpuscular Volume 91.6 fL (80.0-100.0); Platelet Count 176 K/uL (130-400); RDW Standard Deviation 47.8 fL (36.4-46.3); Red Blood Count 1.91 M/uL (4.70-6.10); White Blood Count 10.37 K/ul (4.8-10.8)
[2025-02-24 06:29] LABS: Anion Gap 4 (3-11); Blood Urea Nitrogen 24 mg/dl (6-23); Calcium 7.5 mg/dl (8.6-10.3); Carbon Dioxide 24 mmol/L (21-32); Chloride 108 mmol/L (98-107); Creatinine Clr Calc Pharmacy 122.3 ml/min; Glucose 311 mg/dl (70-99(Fasting)); Iron < 10 mcg/dl (35-175); Magnesium 1.7 mg/dl (1.7-2.4); Potassium 3.5 mmol/L (3.5-5.1); Sodium 136 mmol/L (136-145); Total Iron Binding Cap Calc 364 mcg/dl (250-450); Transferrin 260 mg/dl (200-360)
[2025-02-24 06:42] LABS: Immature Granulocytes # (auto) 0.08 K/uL (0.01-0.20); Immature Granulocytes % (auto) 0.8 %; Polychromasia 1+
[2025-02-24 06:47] LABS: Folate (Folic Acid),Ser orPlas 20.6 ng/ml (>5.38)
[2025-02-24 06:48] LABS: Vitamin B12 780.0 pg/ml (180-914)
[2025-02-24 08:06] LABS: Hemoglobin A1C 10.3 % (4.5-5.6)
[2025-02-24] MEDS: IRON SUCROSE 300 MG in SODIUM CHLORIDE 0.9% 250 ML IV SCH (08:28)
--- NOTE | 2025-02-24 08:47 | Pharmacy Report ---
Pharmacy Glycemic Short Note 2 - Date of Service February 24, 2025 - Glycemic Short BSG Results (Last 24 hours): 02/23/25 02/23/25 02/24/25 19:19 23:17 02:42 Glucose 565 H* POC Glucose 435 H* 380 H* 02/24/25 02/24/25 02/24/25 02:44 05:11 05:16 Glucose 311 H* POC Glucose 368 H* 336 H* OUTPATIENT ANTIDIABETIC REGIMEN: * None - New diagnosis this admission HbA1c: * 10.3% (02/24/25) ASSESSMENT: * 59 yo M admitted on 02/23/25 secondary to anemia/hyperglycemia. Pharmacy has been consulted to assist with inpatient glycemic management. Patient is a newly diagnosed Type 2 diabetic per A1c during this admission. * BSG 565 mg/dL upon presentation. No acidosis or elevated anion gap present. Patient is currently NPO for anemia and need for EGD. Protonix drip currently infusing. * Received a 5 unit IV insulin bolus in the ED. BSG improved to 435 mg/dL. Patient then received 5 units basal + 5 units Novolog + 4 units IV insulin bolus overnight with BSGs improving to 380-368 mg/dL. * Fasting BSG this AM was 336 mg/dL. Will increase basal dose to 10 units x 1 dose this AM. Novolog ordered based on weight/stress of 2 with goal of 120-150 mg/dL. Will add a basal scale for this evening. Patient will likely need discharged on once daily basal insulin and Metformin given new diagnosis with A1c > 10%. PLAN FOR INPATIENT GLYCEMIC CONTROL: * Basal insulin * Lantus 10 units SC x 1 this AM * Lantus 0-10 units SC x 1 this PM * Reassess basal in AM * Bolus insulin * NovoLog per scale Q6hrs while NPO * Goal Range: Low 120 mg/dL - High 150 mg/dL * Correction Factor: 20 mg/dL/unit * Nutritional / Prandial insulin per carb ratio of 1 unit per 7 grams CHO consumed
--- NOTE | 2025-02-24 08:48 | Cardiology Consultation ---
Date of Consultation February 24, 2025 Assessment & Plan (1) GI bleeding: (2) Symptomatic anemia: (3) Chest pain: (4) CAD (coronary artery disease): Plan Symptomatic anemia. History suggests upper GI bleeding. Concern for gastroesophageal variceal hemorrhage noted. 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 Patient refusing transfusion of packed red blood cells despite education, reassurance, discussion regarding benefits as well as risk. As per Hospitalist/GI. Consider addition of beta-penelope therapy, perhaps nadolol 20 mg/day for gastroesophageal variceal hemorrhage prophylaxis as well as migraine prevention. Chest pain. Atypical. Suspect secondary to above. EKGs without acute change. High-sensitivity troponin negative x 2. Patient notably with contraindications to antiplatelet therapy and anticoagulation. Mild nonobstructive CAD via July 09, 2019 cardiac catheterization and patent foramen ovale versus small ASD. Aspirin 81 mg/day currently contraindicated. Supervising Physician Co-Signing Physician Notes Patient was seen and personally examined. Full assessment and plan as outlined above by advanced provider. Care management discussed and personally endorsed 59-year-old male admitted with symptomatic anemia atypical chest pain likely secondary to above precipitant. Hemoglobin 5.7 this morning. No indications for further cardiac intervention ultimate goal increase in hemoglobin, assess and treat any possible source of bleed. Contact for further question History of Present Illness Reason for Consultation: Chest pain [facility] Klaus Manuel [facility]ending [facility]: [facility] Fam Riley MD History of Present Illness Pritesh Pike is a 59-year-old male who presented to [facility] on February 23, 2025 with dizziness, increased heart rate upon standing, and loose black stools x 2 days which he thought was due to eating mushrooms with black fringe on them. Hemoglobin on presentation was 6.5 g/dL. Last available hemoglobin was 14.5 g/dL on July 16, 2024. Patient notes using maybe 6 ibuprofen tablets over the past 10 days. No other NSAIDs. Hemoglobin 5.7 g/dL this morning. Prior endoscopy with grade 1 esophageal varices, portal hypertensive gastropathy, biopsies with fatty liver and fibrosis to early cirrhosis. IV pantoprazole initiated in ER. Patient refusing transfusion of packed red blood cells stating "it is not biblically correct." Cardiology consultation requested secondary to chest discomfort. Patient describes a pressure/tightness that starts right of the sternum comes across to the left with positional changes. This has been ongoing for the past 2 days and is associated with some nausea. No vomiting. EKG on presentation revealed normal sinus rhythm at 95 bpm. EKG this morning revealed normal sinus rhythm at 87 bpm. High-sensitivity troponin negative x 2 at 7.1 then 7.6 pg/mL. Chest x- ray without acute cardiopulmonary process. Continuous telemetry monitoring reveals sinus with rates in the 80s and 90s predominantly, occasional atrial tachycardia and probable accelerated junctional rhythm observed, asymptomatic. Problem list: Prior admission with chest pain Indeterminate dobutamine stress echocardiography. Cardiac catheterization was performed July 09, 2019 demonstrating mild nonobstructive CAD. Evidence of patent foramen ovale or small ASD. Obstructive sleep apnea. Pulmonary nodules Postconcussion syndrome Migraine headaches Asthma GERD Reflux esophagitis Fatty liver Grade 1 esophageal varices, portal hypertensive gastropathy, early cirrhosis Diverticulosis Seasonal allergies Fibromyalgia Depression Nasal polypectomy Family History: Father with a brain aneurysm at 98. Mother is alive at 94. 1 brother and 3 sisters without cardiac issues. 1 sister has skin cancer. 1 sister had appendiceal cancer. Maternal grandmother with uterine cancer. Social History: Never smoker. No smokeless tobacco use. Prior heavy alcohol consumption, 12 pack/day until 1993. + THC. Worked in [employer] to [employer]. One 28-year-old daughter who lives in [place], [place] Allergies Allergy/AdvReac Type Severity Reaction Status Date / Time bee venom protein (honey bee) Allergy Severe Anaphylaxis Verified 02/23/25 20:16 mold Allergy Intermediate sneezing,watery Verified 02/23/25 20:16 eyes, runny nose Penicillins Allergy Intermediate Hives Verified 02/23/25 20:16 rizatriptan [From Maxalt] AdvReac Severe Chest Pain Verified 02/23/25 20:16 Iodinated Contrast Media AdvReac Intermediate ITCHING Verified 02/23/25 20:16 valproic acid AdvReac Intermediate PANIC Verified 02/23/25 20:16 ATTACKS Dust Allergy Intermediate sneezing,watery Uncoded 02/23/25 20:16 eyes, runny nosed Home Medications Medication Instructions Recorded Confirmed Type aspirin 81 mg tablet,delayed 81 mg PO QAM 07/03/18 02/23/25 History release epinephrine 0.3 mg/0.3 mL 0.3 mg IM Q3H PRN Allergic Reaction 07/03/18 02/23/25 History injection, auto-injector (EpiPen) fexofenadine 180 mg tablet 180 mg PO DAILY PRN WHEN GETS 07/03/18 02/23/25 History (Lluvia Allergy) ALLERGY SHOTS ipratropium 20 mcg-albuterol 100 1 puff inhalation QID PRN 07/03/18 02/23/25 History mcg/actuation mist for inhalation Shortness Of Breath (Combivent Respimat) montelukast 10 mg tablet 10 mg PO QAM 07/03/18 02/23/25 History omega 3 350 mg-dha 235 mg-epa 90 1 cap PO QAM 07/03/18 02/23/25 History mg-fish oil 597 mg capsule,delay rel (Bison-3) iodine (kelp) 0.15 mg tablet (Kelp) 0.15 mcg PO QAM 07/08/19 02/23/25 History omeprazole 20 mg capsule,delayed 20 mg PO DAILY PRN Acid Reflux 09/26/19 02/23/25 History release calcium 333 mg 1 tab PO DAILY 12/28/22 02/23/25 History (carbonate)-magnesium 133 mg (oxide)-zinc 5 mg tablet cholecalciferol (vitamin D3) 125 2,000 unit PO QAM 12/28/22 02/23/25 History mcg (5,000 unit) tablet (Vitamin D3) acidophilus 100 million 1 cap PO DAILY 02/23/25 02/23/25 History cell-pectin, citrus 10 mg capsule azelastine 137 mcg (0.1 %) nasal 2 spray intranasal DAILY 02/23/25 02/23/25 History spray ketoconazole 2 % shampoo 1 applic topical 3XWK 02/23/25 02/23/25 History multivitamin with iron 1 tab PO DAILY 02/23/25 02/23/25 History rimegepant 75 mg disintegrating 75 mg PO DAILY PRN Migraine 02/23/25 02/23/25 History tablet (Nurtec ODT) Headache vit A 750 mcg-vit C 150 mg-D3 1 cap PO DAILY 02/23/25 02/23/25 History 31.25 jmv-lyel-eaqsmlabp-quercet capsule (Immune Essentials Daily) zinc 25 mg tablet 25 mg PO DAILY 02/23/25 02/23/25 History Patient History Medical History Patent foramen ovale Renal calculi CT 07/03/18 Coronary artery disease nonocclusive disease per cardiac CT 2013 Post concussion syndrome Surgical History History of sinus surgery Family History Mother Osteoporosis Father Hypertension Stroke suspected intracranial aneurysm Social History Smoking Status: Never smoker Second Hand Exposure: No; Do You Dip or Chew Tobacco: No; Hx Alcohol Use: No Hx Substance Use: Yes Substance Use Type Other:: THC gummies Preferred Language: Malian Communication Ability: Effective 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 NAD. HENT: Normocephalic. Atraumatic. Skin: Pallor Eyes: PER. Conjunctiva pink, sclera pale Neck: No carotid bruits. No JVD. Heart: RRR, 90 bpm. Grade I-II/ systolic murmur at the LLSB. No rub. Lungs: Clear to auscultation. Abdomen: +BS. Soft. Nontender. No masses or organomegaly. Extremities: Mild pretibial edema. No clubbing. No cyanosis. Limited neurological examination is without focal deficits. Pulses: radial=2/4, posterior tibial=2/4. Results & Data Vital Signs (Past 12 Hours) Vital Signs Temp Pulse Pulse Resp BP BP Pulse Ox 02/24/25 08:31 92 H 115/65 02/24/25 08:13 93 H 18 122/61 98 02/24/25 07:49 86 02/24/25 07:32 36.8 C 89 18 103/59 L 98 02/24/25 02:46 37 C 92 H 18 124/68 96 02/24/25 02:00 88 16 96 02/23/25 23:47 37.3 C 88 18 124/60 97 02/23/25 23:33 88 02/23/25 23:18 88 19 126/71 98 02/23/25 21:12 89 19 132/70 99 O2 Del Method FiO2 02/24/25 08:31 02/24/25 08:13 Room Air 02/24/25 07:49 02/24/25 07:32 Room Air 02/24/25 02:46 CPAP 02/24/25 02:00 21 02/23/25 23:47 Room Air 02/23/25 23:33 02/23/25 23:18 Room Air 02/23/25 21:12 Laboratory Results Cardiac Enzymes 02/23/25 02/24/25 Range/Units 19:19 05:16 AST 24 (13-39) U/L Troponin I High Sens 7.1 7.6 (0-20) pg/ml Coagulation 02/23/25 Range/Units 19:19 PT 13.2 H (9.0-12.0) Seconds CBC 02/23/25 02/24/25 Range/Units 19:19 05:16 WBC 18.13 H 10.37 (4.8-10.8) K/ul RBC 2.21 L 1.91 L (4.70-6.10) M/uL Hgb 6.5 L* 5.7 L* (14.0-18.0) g/dl Hct 20.3 L* 17.5 L* (42.0-52.0) % Plt Count 264 176 (130-400) K/uL Neut # (Auto) 10.23 H 4.65 (1.40-6.50) K/uL Lymph # (Auto) 5.68 H 4.12 H (1.20-3.40) K/uL [place] # (Auto) 1.81 H 1.19 H (0.11-0.59) K/uL Eos # (Auto) 0.14 0.26 (0.00-0.50) K/uL Baso # (Auto) 0.11 0.07 (0.00-0.20) K/uL Comprehensive Metabolic Panel 02/23/25 02/24/25 Range/Units 19:19 05:16 Sodium 132 L 136 (136-145) mmol/L Potassium 4.4 3.5 D (3.5-5.1) mmol/L Chloride 100 108 H (98-107) mmol/L Carbon Dioxide 23 24 (21-32) mmol/L BUN 31 H 24 H (6-23) mg/dl Creatinine 0.97 0.73 (0.6-1.4) mg/dl Glucose 565 H* 311 H* (70-99(Fasting)) mg/dl Calcium 9.0 7.5 L (8.6-10.3) mg/dl AST 24 (13-39) U/L ALT 31 (7-52) U/L Alkaline Phosphatase 106 H (34-104) U/L Total Protein 5.6 L (6.0-8.3) gm/dl Albumin 3.0 L (3.4-5.0) gm/dl Intake and Output 02/23/25 02/24/25 02/24/25 22:59 06:59 14:59 Intake Total 2035.75 / 2211.417 175.667 / 2211.417 950 / 950 Balance 2035.75 / 2211.417 175.667 / 2211.417 950 / 950 Intake: IV 2035.75 / 2211.417 175.667 / 2211.417 950 / 950 PANTOprazole 40 mg In Dextrose 175.667 / 175.667 5% Mini-B 100 ml @ 8 MG/HR 20 mls/hr IV Q5H [facility] Rx#:[id number] PANTOprazole 80 mg In Dextrose 120 / 120 5% 100 ml @ 480 mls/hr IV NOW ONE Rx#:[id number] Sodium Chloride 0.9% 1,000 ml @ 1915.75 / 1915.75 950 / 950 125 mls/hr IV .Q8H [facility] Rx#: [id number] Other: Weight 106.9 kg 100.811 kg Weight Measurement Method Chair [facility] Diagnostic Findings Coronary CT report 09/2013: There are a few less than 5 mm nodules in the right lung base. A CT scan of the chest can be performed in 1 year for further evaluation if the patient is at low risk for malignancy. A CT scan of the chest can be performed in 6 months if the patient is at high risk. Coronary Findings There is right dominant coronary anatomy. The Agatston calcium score is 29. The LAD Agatston calcium score is 29. The circumflex Agatston calcium score is 3. Left Main Coronary Artery The left main is well visualized and is normal with no plaque or stenosis. Left Anterior Descending Coronary Artery In the proximal segment of the left anterior descending artery at the bifurcation point from the left main there is a calcified plaque causing minimal luminal stenosis in the range of less than 25%. There is a 2nd calcified plaque in the more distal portion of the proximal left anterior descending artery prior to the takeoff of the septal treasury consultant causing minimal luminal stenosis in the range of less than 25%. There is a moderate-sized ramus intermedius with no significant atherosclerosis. The left anterior descending gives rise to a significant diagonal branch with no significant atherosclerosis. Circumflex Coronary Artery In the mid segment of the circumflex coronary artery there is a calcified plaque causing minimal luminal stenosis in the range of less than 25%. Right Coronary Artery The right coronary artery is well visualized and is normal with no plaque or stenosis. Great Vessels The aortic root and proximal ascending aorta are normal in size. Pericardium No pericardial effusion is noted. Cardiac catheterization summary July 09, 2019: Coronary Anatomy Dominant: Co-Dominant Left Main (% Stenosis): Distal (10%) LAD (% Stenosis): Distal (10-20%) D1 (% Stenosis): Ostial (20%) and Mid (20%) Circumflex (% Stenosis): Mid (10%) OM1 (% Stenosis): Normal L PL1 (% Stenosis): Normal L PDA (% Stenosis): Normal RCA (% Stenosis): Mid (20%) R PDA (% Stenosis): Distal (30%) AM (% Stenosis): Normal Ramus (% Stenosis): Normal CT scan of the head without acute intracranial process. CT scan of the abdomen and pelvis this admission revealed Michael pancreatic stranding, mild ascites, generalized mesenteric edema, small right pleural effusion, nonobstructing nephrolithiasis bilaterally, without hydronephrosis PG Care Time/CCT Total # of Minutes Spent Total Time Spent with Patient: Total time spent is greater than 50% in coordination of care (as documented) at patient's floor/unit and/or counseling patient: Coding Level of Care Code 13009 IN/OBS CONSULT LVL 5,80M Diagnoses GI bleeding K92.2 Symptomatic anemia D64.9 Chest pain R07.9 CAD (coronary artery disease) I25.10
[2025-02-24] MEDS ORDERED: NON-FORMULARY MEDICATION (Acidophilus-Pectin, Citrus 100 million cell-10 mg Capsule) PO SCH (09:00)
[2025-02-24] MEDS ORDERED: LANTUS PER UNIT CHARGE SQ SCH (09:00)
--- NOTE | 2025-02-24 09:44 | Gastrointestinal Consultation ---
Date of Consultation February 24, 2025 Assessment & Plan (1) GI bleedin59 year old male w/ history of ORTEGA cirrhosis (grade 1 EV, portal HTN gastropathy on 2023 EGD), sleep apnea, multiple pulm nodules, asthma, patent foramen ovale, GERD, postconcussion syndrome, depression, seasonal allergies and others below admitted through the ED w/ symptomatic anemia and melena. He has had a drop in his HGB from baseline 14.5 down to 5.7. He uses ASA 81 mg daily and reports use of NSAIDs but denies chronic use. No report of anticoagulation. We discussed endoscopic evaluation given his anemia, melena. He is refusing blood transfusion. We discussed the importance of medical optimization prior to endoscopic evaluation and I have asked him to reconsider transfusion. We discussed typically we correct for HGB >7 but I would discuss his case w/ my attending and anesthesia. Maintain NPO status. IV PPI bolus/drip. IV octreotide bolus/drip. IV ABX for SBP prophylaxis. Trend H&H. Monitor and document GI output. Transfusion PRN per primary team if patient is agreeable. EGD timing to be determined pending above. We appreciate assistance in the management of any serological abnormality and corrections to include: hemoglobin >7, INR <2, platelets >50,000, potassium levels >3.5 but <5.3, and sodium levels within 5 points of the reference range prior to endoscopic evaluation. I spent a total of 60 minutes on the date of service in review of patient's record, and previously obtained information in person and appropriate medical visit, discussion and education of plan, with patient and/or caregiver, placing orders for tests/referral/procedures as medically necessary and documentation of pertinent clinical information in patient's medical records for their visit today.Thank you for allowing us to participate in the care of this patient. Please call with any acute changes, questions or concerns. Please see addendum below with additional recommendation from my supervising physician. Supervising Physician Co-Signing Physician Notes Melena upper GI bleed. Marked drop in hemoglobin with dark stools. Some abdominal pain. Peptic ulcer disease certainly should be considered. He does have a history of grade 1 esophageal varices though typically these do not bleed at this size. Patient currently on PPI drip and octreotide. Ideally an upper endoscopy should be undertaken. However with a hemoglobin of 5 this carries significant risks of potentially starting bleeding of endoscopic intervention required for visible vessel adherent clot or varices. Patient should be transfused. 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 He does note potential Nondenominational type stands in regards to protestant objections to the blood though notes he is not a Nondenominational per se. Long discussion with the patient the risks of recurrent bleeding with a hemoglobin of 5. The risks of anesthesia and endoscopic intervention with a hemoglobin at this level. Clinically is not bleeding. I would continue with PPI and octreotide for now. Endoscopic intervention when hemoglobin 7 or above either through spontaneous improvement or transfusion. Reviewed with the patient he can change his mind at any time in regards to transfusion though I do not believe an elective endoscopy at this point with a hemoglobin of 5 is in his best interest. History of Present Illness Reason for Consultation: anemia, melena Requesting Physician: Fam Riley MD Attending Physician: Fam Riley MD History of Present Illness 59 year old male w/ history of ORTEGA cirrhosis (grade 1 EV, portal HTN gastropathy on 2023 EGD) sleep apnea, multiple pulm nodules, asthma, patent foramen ovale, GERD, postconcussion syndrome, depression, seasonal allergies and others below admitted through the ED w/ symptomatic anemia in the setting of abd discomfort and melena - GI was asked to evaluate. He suggests he developed mild upper abd discomfort about a week ago. This was explained as dull, ache w/ mild nausea. Denies any vomiting. Some GERD symptoms but this is chronic, unchanged. Notes about 48 hours ago now he developed dark, tarry stools. He is unable to tell me how many movements he had but suggests he took Imodium to stop the diarrhea. No report of BRBPR. No BMs overnight. Denies AC Uses daily ASA Reports about 6-200 mg ibuprofen use in the last week Denies ETOH, tobacco No chronic steroid use HGB 14.5 --> 6.5 --> 5.7 INR 1.2 PLT 176 BUN 24 CTAP 2024: Liver: Unremarkable. Peripancreatic stranding. Correlate with serum lipase for possible pancreatitis. Mild ascites. Generalized mesenteric edema.Stomach and bowel: No bowel obstruction. Sigmoid diverticulosis. No mucosal thickening. EGD 2023: Grade I esophageal varices. Portal hypertensive gastropathy. Normal duodenal bulb and second portion of the duodenum. No specimens collected. EUS 2023: There was no sign of significant pathology in the ampulla.There was no sign of significant pathology in the common bile duct. There was no sign of significant pathology in the gallbladder. There was abnormal echotexture in the left lobe of the liver suggestive of Cirrhosis. Fine needle biopsy performed. There was no sign of significant pathology in the entire pancreas. Allergies Allergy/AdvReac Type Severity Reaction Status Date / Time bee venom protein (honey bee) Allergy Severe Anaphylaxis Verified 02/23/25 20:16 mold Allergy Intermediate sneezing,watery Verified 02/23/25 20:16 eyes, runny nose Penicillins Allergy Intermediate Hives Verified 02/23/25 20:16 rizatriptan [From Maxal] AdvReac Severe Chest Pain Verified 02/23/25 20:16 Iodinated Contrast Media AdvReac Intermediate ITCHING Verified 02/23/25 20:16 valproic acid AdvReac Intermediate PANIC Verified 02/23/25 20:16 ATTACKS Dust Allergy Intermediate sneezing,watery Uncoded 02/23/25 20:16 eyes, runny nosed Home Medications Medication Instructions Recorded Confirmed Type aspirin 81 mg tablet,delayed 81 mg PO QAM 07/03/18 02/23/25 History release epinephrine 0.3 mg/0.3 mL 0.3 mg IM Q3H PRN Allergic Reaction 07/03/18 02/23/25 History injection, auto-injector (EpiPen) fexofenadine 180 mg tablet 180 mg PO DAILY PRN WHEN GETS 07/03/18 02/23/25 History (Lluvia Allergy) ALLERGY SHOTS ipratropium 20 mcg-albuterol 100 1 puff inhalation QID PRN 07/03/18 02/23/25 History mcg/actuation mist for inhalation Shortness Of Breath (Combivent Respimat) montelukast 10 mg tablet 10 mg PO QAM 07/03/18 02/23/25 History omega 3 350 mg-dha 235 mg-epa 90 1 cap PO QAM 07/03/18 02/23/25 History mg-fish oil 597 mg capsule,delay rel ([place]-3) iodine (kelp) 0.15 mg tablet (Kelp) 0.15 mcg PO QAM 07/08/19 02/23/25 History omeprazole 20 mg capsule,delayed 20 mg PO DAILY PRN Acid Reflux 09/26/19 02/23/25 History release calcium 333 mg 1 tab PO DAILY 12/28/22 02/23/25 History (carbonate)-magnesium 133 mg (oxide)-zinc 5 mg tablet cholecalciferol (vitamin D3) 125 2,000 unit PO QAM 12/28/22 02/23/25 History mcg (5,000 unit) tablet (Vitamin D3) acidophilus 100 million 1 cap PO DAILY 02/23/25 02/23/25 History cell-pectin, citrus 10 mg capsule azelastine 137 mcg (0.1 %) nasal 2 spray intranasal DAILY 02/23/25 02/23/25 History spray ketoconazole 2 % shampoo 1 applic topical 3XWK 02/23/25 02/23/25 History multivitamin with iron 1 tab PO DAILY 02/23/25 02/23/25 History rimegepant 75 mg disintegrating 75 mg PO DAILY PRN Migraine 02/23/25 02/23/25 History tablet (Nurtec ODT) Headache vit A 750 mcg-vit C 150 mg-D3 1 cap PO DAILY 02/23/25 02/23/25 History 31.25 oak-jczg-lvrzeqtym-quercet capsule (Immune Essentials Daily) zinc 25 mg tablet 25 mg PO DAILY 02/23/25 02/23/25 History Patient History Medical History (Updated 02/24/25 @ 14:15 by Mary Pickett MD) Patent foramen ovale Renal calculi CT 07/03/18 Coronary artery disease nonocclusive disease per cardiac CT 2013 Post concussion syndrome Surgical History History of sinus surgery Family History Mother Osteoporosis Father Hypertension Stroke suspected intracranial aneurysm Social History Smoking Status: Never smoker Second Hand Exposure: No; Do You Dip or Chew Tobacco: No; Hx Alcohol Use: No Hx Substance Use: Yes Substance Use Type Other:: THC gummies Preferred Language: Wolof Communication Ability: Effective Geriatric Case Manager Required: No Beliefs That Will Affect Care: None Current Living Situation: Spouse Feels Safe at Home: Yes Safety Concerns: Feels Safe At This Time Assistive Devices: Cane Review of Systems Review of Systems: All other findings negative except as noted in HPI. Physical Exam Constitutional: WD/WN, vitals as above Respiratory: normal respiratory effort, lungs clear to auscultation Cardiovascular: Rate/Rhythm: regular rate Gastrointestinal (Abdomen): normal bowel sounds, soft, nontender, no hepatosplenomegaly Skin: no rashes, warm and dry Results & Data Vital Signs (Past 12 Hours) Vital Signs Temp Pulse Pulse Resp BP BP Pulse Ox 02/24/25 08:31 92 H 115/65 02/24/25 08:13 93 H 18 122/61 98 02/24/25 07:49 86 02/24/25 07:32 98.2 F 89 18 103/59 L 98 02/24/25 02:46 98.6 F 92 H 18 124/68 96 02/24/25 02:00 88 16 96 02/23/25 23:47 99.1 F 88 18 124/60 97 02/23/25 23:33 88 02/23/25 23:18 88 19 126/71 98 O2 Del Method FiO2 02/24/25 08:31 02/24/25 08:13 Room Air 02/24/25 07:49 02/24/25 07:32 Room Air 02/24/25 02:46 CPAP 02/24/25 02:00 21 02/23/25 23:47 Room Air 02/23/25 23:33 02/23/25 23:18 Room Air Laboratory Results 02/24/25 02/24/25 02/24/25 Range/Units 05:16 05:11 02:44 WBC 10.37 (4.8-10.8) K/ul RBC 1.91 L (4.70-6.10) M/uL Hgb 5.7 L* (14.0-18.0) g/dl Hct 17.5 L* (42.0-52.0) % MCV 91.6 (80.0-100.0) fL MCH 29.8 (25.0-34.0) pg MCHC 32.6 (32.0-36.0) g/dL RDW Std Deviation 47.8 H (36.4-46.3) fL RDW Coeff of Daily 14.7 H (11.5-14.5) % Plt Count 176 (130-400) K/uL MPV 11.3 (9.4-12.4) fL Immature Gran % (Auto) 0.8 % Neut % (Auto) 44.8 % Lymph % (Auto) 39.7 % [place] % (Auto) 11.5 % Eos % (Auto) 2.5 % Baso % (Auto) 0.7 % Neut # (Auto) 4.65 (1.40-6.50) K/uL Lymph # (Auto) 4.12 H (1.20-3.40) K/uL [place] # (Auto) 1.19 H (0.11-0.59) K/uL Eos # (Auto) 0.26 (0.00-0.50) K/uL Baso # (Auto) 0.07 (0.00-0.20) K/uL Immature Gran # (Auto) 0.08 (0.01-0.20) K/uL Blood Smear Review Polychromasia 1+ PT (9.0-12.0) Seconds INR (0.9-1.1) Sodium 136 (136-145) mmol/L Potassium 3.5 D (3.5-5.1) mmol/L Chloride 108 H (98-107) mmol/L Carbon Dioxide 24 (21-32) mmol/L Anion Gap 4 (3-11) BUN 24 H (6-23) mg/dl Creatinine 0.73 (0.6-1.4) mg/dl Est Cr Clr Drug Dosing 122.3 ml/min eGFR 103.51 BUN/Creatinine Ratio 32.9 H (10-20) Glucose 311 H* (70-99(Fasting)) mg/dl POC Glucose 336 H* 368 H* (70-99) mg/dl Estimat Average Glucose 249 mg/dl Hemoglobin A1c 10.3 H (4.5-5.6) % Calcium 7.5 L (8.6-10.3) mg/dl Magnesium 1.7 (1.7-2.4) mg/dl Iron < 10 L (35-175) mcg/dl TIBC 364 (250-450) mcg/dl Transferrin 260 (200-360) mg/dl Transferrin % Sat TNP Total Bilirubin (0.2-1.0) mg/dl AST (13-39) U/L ALT (7-52) U/L Alkaline Phosphatase (34-104) U/L Troponin I High Sens 7.6 (0-20) pg/ml Total Protein (6.0-8.3) gm/dl Albumin (3.4-5.0) gm/dl Globulin (2.5-4.0) gm/dl Albumin/Globulin Ratio (0.9-2) Lipase (11-82) U/L Vitamin B12 780 (180-914) pg/ml Folate 20.60 (>5.38) ng/ml TSH (0.300-4.500) uIu/ml Hepatitis C Ab Screen (Negative) 02/24/25 02/24/25 02/23/25 Range/Units 02:42 00:16 23:17 WBC (4.8-10.8) K/ul RBC (4.70-6.10) M/uL Hgb (14.0-18.0) g/dl Hct (42.0-52.0) % MCV (80.0-100.0) fL MCH (25.0-34.0) pg MCHC (32.0-36.0) g/dL RDW Std Deviation (36.4-46.3) fL RDW Coeff of Daily (11.5-14.5) % Plt Count (130-400) K/uL MPV (9.4-12.4) fL Immature Gran % (Auto) % Neut % (Auto) % Lymph % (Auto) % [place] % (Auto) % Eos % (Auto) % Baso % (Auto) % Neut # (Auto) (1.40-6.50) K/uL Lymph # (Auto) (1.20-3.40) K/uL [place] # (Auto) (0.11-0.59) K/uL Eos # (Auto) (0.00-0.50) K/uL Baso # (Auto) (0.00-0.20) K/uL Immature Gran # (Auto) (0.01-0.20) K/uL Blood Smear Review Polychromasia PT (9.0-12.0) Seconds INR (0.9-1.1) Sodium (136-145) mmol/L Potassium (3.5-5.1) mmol/L Chloride (98-107) mmol/L Carbon Dioxide (21-32) mmol/L Anion Gap (3-11) BUN (6-23) mg/dl Creatinine (0.6-1.4) mg/dl Est Cr Clr Drug Dosing ml/min eGFR BUN/Creatinine Ratio (10-20) Glucose (70-99(Fasting)) mg/dl POC Glucose 380 H* 435 H* (70-99) mg/dl Estimat Average Glucose mg/dl Hemoglobin A1c (4.5-5.6) % Calcium (8.6-10.3) mg/dl Magnesium (1.7-2.4) mg/dl Iron (35-175) mcg/dl TIBC (250-450) mcg/dl Transferrin (200-360) mg/dl Transferrin % Sat Total Bilirubin (0.2-1.0) mg/dl AST (13-39) U/L ALT (7-52) U/L Alkaline Phosphatase (34-104) U/L Troponin I High Sens (0-20) pg/ml Total Protein (6.0-8.3) gm/dl Albumin (3.4-5.0) gm/dl Globulin (2.5-4.0) gm/dl Albumin/Globulin Ratio (0.9-2) Lipase (11-82) U/L Vitamin B12 (180-914) pg/ml Folate (>5.38) ng/ml TSH (0.300-4.500) uIu/ml Hepatitis C Ab Screen Negative (Negative) 02/23/25 Range/Units 19:19 WBC 18.13 H (4.8-10.8) K/ul RBC 2.21 L (4.70-6.10) M/uL Hgb 6.5 L* (14.0-18.0) g/dl Hct 20.3 L* (42.0-52.0) % MCV 91.9 (80.0-100.0) fL MCH 29.4 (25.0-34.0) pg MCHC 32.0 (32.0-36.0) g/dL RDW Std Deviation 47.8 H (36.4-46.3) fL RDW Coeff of Daily 14.6 H (11.5-14.5) % Plt Count 264 (130-400) K/uL MPV 11.3 (9.4-12.4) fL Immature Gran % (Auto) 0.9 % Neut % (Auto) 56.4 % Lymph % (Auto) 31.3 % [place] % (Auto) 10.0 % Eos % (Auto) 0.8 % Baso % (Auto) 0.6 % Neut # (Auto) 10.23 H (1.40-6.50) K/uL Lymph # (Auto) 5.68 H (1.20-3.40) K/uL [place] # (Auto) 1.81 H (0.11-0.59) K/uL Eos # (Auto) 0.14 (0.00-0.50) K/uL Baso # (Auto) 0.11 (0.00-0.20) K/uL Immature Gran # (Auto) 0.16 (0.01-0.20) K/uL Blood Smear Review Polychromasia 1+ PT 13.2 H (9.0-12.0) Seconds INR 1.2 H (0.9-1.1) Sodium 132 L (136-145) mmol/L Potassium 4.4 (3.5-5.1) mmol/L Chloride 100 (98-107) mmol/L Carbon Dioxide 23 (21-32) mmol/L Anion Gap 9 (3-11) BUN 31 H (6-23) mg/dl Creatinine 0.97 (0.6-1.4) mg/dl Est Cr Clr Drug Dosing 94.8 ml/min eGFR 88.82 BUN/Creatinine Ratio 32.0 H (10-20) Glucose 565 H* (70-99(Fasting)) mg/dl POC Glucose (70-99) mg/dl Estimat Average Glucose mg/dl Hemoglobin A1c (4.5-5.6) % Calcium 9.0 (8.6-10.3) mg/dl Magnesium 1.8 (1.7-2.4) mg/dl Iron (35-175) mcg/dl TIBC (250-450) mcg/dl Transferrin (200-360) mg/dl Transferrin % Sat Total Bilirubin 0.5 (0.2-1.0) mg/dl AST 24 (13-39) U/L ALT 31 (7-52) U/L Alkaline Phosphatase 106 H (34-104) U/L Troponin I High Sens 7.1 (0-20) pg/ml Total Protein 5.6 L (6.0-8.3) gm/dl Albumin 3.0 L (3.4-5.0) gm/dl Globulin 2.6 (2.5-4.0) gm/dl Albumin/Globulin Ratio 1.2 (0.9-2) Lipase 43 (11-82) U/L Vitamin B12 (180-914) pg/ml Folate (>5.38) ng/ml TSH 3.596 (0.300-4.500) uIu/ml Hepatitis C Ab Screen (Negative) PG Care Time/CCT Total # of Minutes Spent Total Time Spent with Patient: Total time spent is greater than 50% in coordination of care (as documented) at patient's floor/unit and/or counseling patient: Coding Level of Care Code 60942 INT INP/OBS CARE 2/55MIN Diagnoses GI bleeding K92.2
[2025-02-24] MEDS ORDERED: STAT IV/IM STA (09:55)
[2025-02-24] MEDS: AZELASTINE HCL 0.1% NASAL 200 SPRAYS/27,400 MCG BTL SCH (09:57)
[2025-02-24] MEDS: LANTUS PER UNIT CHARGE SQ ONE (10:00)
[2025-02-24] MEDS: cefTRIAXone SODIUM 2,000 MG/50 ML BAG IV SCH (10:18)
[2025-02-24 10:47] LABS: Appearance Urine Cloudy (Clear); Bacteria Urine Automated 4+ (None Seen); Cast Urine Automated 0-2 /lpf (0-2); Epithelial Cell Urine Auto 0-2 /hpf (0-2); Glucose Urine UA 3+ (Negative); RBC Urine Automated 0-2 /hpf (0-2); WBC Urine Automated 21-50 /hpf (0-5)
[2025-02-24] MEDS: OCTREOTIDE ACETATE 50 MCG in SYRINGE 9.5 ML IV STA (10:56)
[2025-02-24] MEDS: OCTREOTIDE ACETATE 500 MCG in SODIUM CHLORIDE 0.9% 100 ML IV SCH (10:59)
[2025-02-24 11:23] LABS: Hematocrit (blood only) 17.6 % (42.0-52.0); Hemoglobin 5.6 g/dl (14.0-18.0)
--- NOTE | 2025-02-24 11:41 | Anesthesiology Consultation ---
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 Hb on arrival 6.4, now 5.7. Patient refusing all transfusions at this time. Vitals are currently stable. No active hematemsis however patient has history of grade 1 varices. Plan for EGD. Per cardiology chest discomfort thought to be due to anemia given absence of EKG change and negative troponins. Cardiac cath in 2019 without obstructive disease. Consults Requested none History Surgery Operation Date: 02/24/25 08:20 Proposed Procedures p Esophagogastroduodenoscopy - Liu Key MD Operation Date: 02/24/25 16:45 Proposed Procedures p Esophagogastroduodenoscopy Dr. Key - Liu Key MD Height/Weight Height: 5 ft 8 in Weight: 100.811 kg Allergies Allergy/AdvReac Type Severity Reaction Status Date / Time bee venom protein (honey bee) Allergy Severe Anaphylaxis Verified 02/23/25 20:16 mold Allergy Intermediate sneezing,watery Verified 02/23/25 20:16 eyes, runny nose Penicillins Allergy Intermediate Hives Verified 02/23/25 20:16 rizatriptan [From Maxalt] AdvReac Severe Chest Pain Verified 02/23/25 20:16 Iodinated Contrast Media AdvReac Intermediate ITCHING Verified 02/23/25 20:16 valproic acid AdvReac Intermediate PANIC Verified 02/23/25 20:16 ATTACKS Dust Allergy Intermediate sneezing,watery Uncoded 02/23/25 20:16 eyes, runny nosed Medications Home Medications Medication Instructions Recorded Confirmed Last Taken aspirin 81 mg tablet,delayed 81 mg PO QAM 07/03/18 02/23/25 09/26/19 release epinephrine 0.3 mg/0.3 mL 0.3 mg IM Q3H PRN Allergic Reaction 07/03/18 02/23/25 Unknown injection, auto-injector (EpiPen) fexofenadine 180 mg tablet 180 mg PO DAILY PRN WHEN GETS 07/03/18 02/23/25 Unknown (Lluvia Allergy) ALLERGY SHOTS ipratropium 20 mcg-albuterol 100 1 puff inhalation QID PRN 07/03/18 02/23/25 Unknown mcg/actuation mist for inhalation Shortness Of Breath (Combivent Respimat) montelukast 10 mg tablet 10 mg PO QAM 07/03/18 02/23/25 09/26/19 omega 3 350 mg-dha 235 mg-epa 90 1 cap PO QAM 07/03/18 02/23/25 09/26/19 mg-fish oil 597 mg capsule,delay rel ([place]-3) iodine (kelp) 0.15 mg tablet (Kelp) 0.15 mcg PO QAM 07/08/19 02/23/25 09/26/19 omeprazole 20 mg capsule,delayed 20 mg PO DAILY PRN Acid Reflux 09/26/19 02/23/25 09/26/19 release calcium 333 mg 1 tab PO DAILY 12/28/22 02/23/25 Unknown (carbonate)-magnesium 133 mg (oxide)-zinc 5 mg tablet cholecalciferol (vitamin D3) 125 2,000 unit PO QAM 12/28/22 02/23/25 Unknown mcg (5,000 unit) tablet (Vitamin D3) acidophilus 100 million 1 cap PO DAILY 02/23/25 02/23/25 Unknown cell-pectin, citrus 10 mg capsule azelastine 137 mcg (0.1 %) nasal 2 spray intranasal DAILY 02/23/25 02/23/25 Unknown spray ketoconazole 2 % shampoo 1 applic topical [id number] 02/23/25 02/23/25 Unknown multivitamin with iron 1 tab PO DAILY 02/23/25 02/23/25 Unknown rimegepant 75 mg disintegrating 75 mg PO DAILY PRN Migraine 02/23/25 02/23/25 Unknown tablet (Nurtec ODT) Headache vit A 750 mcg-vit C 150 mg-D3 1 cap PO DAILY 02/23/25 02/23/25 Unknown 31.25 lxv-kpvl-wvyvytikk-quercet capsule (Immune Essentials Daily) zinc 25 mg tablet 25 mg PO DAILY 02/23/25 02/23/25 Unknown Active Medications Generic Name Dose Route Start Last Admin Trade Name Freq PRN Reason Stop Dose Admin Azelastine HCl 2 sprays 02/24/25 09:00 02/24/25 09:57 Azelastine Hcl 0.1% Nasal 200 Sprays/27,400 Mcg Btl NA 03/26/25 08:59 2 sprays DAILY WILLIE Administration Pantoprazole Sodium 40 mg/ 100 mls @ 20 mls/hr 02/23/25 20:15 02/24/25 11:08 Dextrose IV 03/25/25 20:14 8 mg/hr Q5H WILLIE 20 mls/hr Administration 8 MG/HR Sodium Chloride 1,000 mls @ 125 mls/hr 02/23/25 23:46 02/24/25 08:17 Nss IV 02/26/25 23:45 125 mls/hr .Q8H WILLIE Administration Octreotide Acetate 500 mcg/ 100.5 mls @ 10.05 mls/hr 02/24/25 10:00 02/24/25 10:59 Sodium Chloride IV 03/26/25 09:59 50 mcg/hr .Q10H WILLIE 10.1 mls/hr Administration 50 MCG/HR Ceftriaxone Sodium 2,000 mg in 50 mls @ 100 mls/hr 02/24/25 10:00 02/24/25 10:51 Rocephin IV 02/26/25 09:59 Infused Q24H WILLIE Infusion Miscellaneous 1 each 02/24/25 08:00 02/24/25 09:57 Rimegepant [Nurtec Odt] - Order Awaiting Action N/A 03/26/25 07:59 Not Given QS WILLIE Past Medical History Medical History Patent foramen ovale Renal calculi CT 07/03/18 Coronary artery disease nonocclusive disease per cardiac CT 2013 Post concussion syndrome Past Family History Family History Mother Osteoporosis Father Hypertension Stroke suspected intracranial aneurysm Past Surgical History Surgical History History of sinus surgery Social History Smoking Status: Never smoker Do You Dip or Chew Tobacco: No Hx Alcohol Use: No alcohol intake frequency: holidays/special occasions only Hx Substance Use: Yes substance use type: other Substance Use Type Other:: THC gummies Physical Exam Vital Signs Last Vital Signs Temp 36.8 C 02/24/25 10:48 Pulse 84 02/24/25 10:48 Resp 16 02/24/25 10:48 BP 119/64 02/24/25 10:48 Pulse Ox 96 02/24/25 10:48 O2 Del Method Room Air 02/24/25 10:48 FiO2 21 02/24/25 02:00 Testing Laboratory Results 02/24/25 10:55 02/24/25 05:16 PT 13.2 Seconds (9.0-12.0) H 02/23/25 19:19 INR 1.2 (0.9-1.1) H 02/23/25 19:19 Hemoglobin A1c 10.3 % (4.5-5.6) H 02/24/25 05:16 Urine Color Yellow 02/24/25 10:11 Urine Appearance Cloudy (Clear) A 02/24/25 10:11 Urine pH 5.0 (4.5-7.5) 02/24/25 10:11 Ur Specific [place] 1.027 (1.000-1.030) 02/24/25 10:11 Urine Protein Negative (Negative) 02/24/25 10:11 Urine Glucose (UA) 3+ (Negative) H 02/24/25 10:11 Urine Ketones Negative (Negative) 02/24/25 10:11 Urine Nitrite Negative (Negative) 02/24/25 10:11 Ur Leukocyte Esterase Trace (Negative) H 02/24/25 10:11 Urine WBC (Auto) 21-50 /hpf (0-5) H 02/24/25 10:11 Urine RBC (Auto) 0-2 /hpf (0-2) 02/24/25 10:11 U Hyaline Cast (Auto) 0-2 /lpf (0-2) 02/24/25 10:11 U Epithel Cells (Auto) 0-2 /hpf (0-2) 02/24/25 10:11 Urine Bacteria (Auto) 4+ (None Seen) H 02/24/25 10:11 02/24/25 02/24/25 02/24/25 05:11 02:44 02:42 POC Glucose 336 H* 368 H* 380 H* Electrocardiogram Date: 02/24/25 Findings: + NSR @ and + pertinent finding (Qtc 480) Other Testing Cardiac catheterization summary July 09, 2019: Coronary Anatomy Dominant: Co-Dominant Left Main (% Stenosis): Distal (10%) LAD (% Stenosis): Distal (10-20%) D1 (% Stenosis): Ostial (20%) and Mid (20%) Circumflex (% Stenosis): Mid (10%) OM1 (% Stenosis): Normal L PL1 (% Stenosis): Normal L PDA (% Stenosis): Normal RCA (% Stenosis): Mid (20%) R PDA (% Stenosis): Distal (30%) AM (% Stenosis): Normal Ramus (% Stenosis): Normal
--- NOTE | 2025-02-24 12:58 | Hospitalist Progress Note ---
Date of Service February 24, 2025 Assessment & Plan (1) Symptomatic anemia: Plan: 59-year-old male with past medical history significant for sleep apnea, multiple pulm nodules, asthma mild persistent, patent foramen ovale, GERD, postconcussion syndrome, history of chest pain, history of headaches, depression, seasonal allergies presents with abdominal pain going for last 2 days, black stools for last 2 days and also chest pains. Patient states is feeling dizzy and also when he gets up and walks getting chest pain and shortness of breath and palpitation and subsides while he is resting. Patient has history of migraine headaches and lights bother him. Currently denies any headache. No runny nose or sore throat. No cough. Afebrile. Micturating okay. Hemodynamics are okay. Hemoglobin came back at 6.5. But patient refused any blood transfusion. 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 Patient denies any blood transfusions in case of emergencies also. GI bleed Acute blood loss anemia Symptomatic anemia Having abdominal pain and black stools last 2 days Chest pain and shortness of breath on exertion. Dizziness and palpitations. Was using ibuprofen for the last 2 days but generally does not use regularly Hemoglobin 6.5 in ER -> now 5.6 Refused blood transfusion Started on Protonix drip, IV fluids n.p.o. H&H every 6 hours Telemetry 02/24 Had a prolonged conversation with the pt regarding blood transfusion - as above, pt refusing accepting even possible . His does not agree and will be discussing this with the pt. also feels that pt is not in right mind. Psychiatry consulted. GI consulted and discussed with - plan for EGD this PM. Pt has hx of esophageal varices - started octreotide, also started ceftriaxone. Ideally would like pt to be transfused prior to procedure. Chest pain shortness of breath on exertion EKG and troponin okay Mostly from above Will follow serial enzymes and echo Telemetry Echo - LV is normal in size. mild concentric LVH. LV wall motion is normal. LV EF 60-65%. grade I diastolic dysfunction. There is no valvular disease. Cardiology consulted - 59-year-old male admitted with symptomatic anemia atypical chest pain likely secondary to anemia. Hemoglobin 5.7 this morning. No indications for further cardiac intervention ultimate goal increase in hemoglobin, assess and treat any possible source of bleed. Abdominal pain CAT scan question of pancreatitis Lipase is okay GI consulted, as above Leukocytosis Will follow blood cultures Will follow UA Follow repeat labs WBC now normalized Hyperglycemia Came with sugars of 565 Received IV insulin Will continue Lantus 5's twice daily and sliding scale Glycemic pharmacy consult Close monitor Current HbA1c level 10.3% Sleep apnea CPAP nightly Asthma Continue home inhalers History of migraines On Nurtec as needed DVT prophylaxis - SCDs Disposition - Telemetry CODE STATUS DNR/DNI as per admitting provider discussion with the patient. Admission and Anticipated Discharge Date Admission Date: February 23, 2025 Subjective Pt seen in follow up of GI bleed, Acute blood loss anemia Current Hgb 5.6 Pt presented with Hgb 6.5 and been refusing blood transfusion since coming to the hospital - see note from ER provider, and admitting physician , as well as GI Discussed in detail with the pt, who is now lying in bed in NAD. He just had BM, which he describes as black. Had some abd. discomfort, back ache, now says it's little better. Pt was also seen by cardiology - they recommend treatment of bleed and anemia. Regarding his refusal of blood transfusion - pt says he heard of pt who who received blood and also "it's not biblically correct". Educated the pt about very low chances of adverse reactions with blood transfusions and risk of dying if bleed continues and not be able to possibly treat, also discussed possible complications during the procedure (EGD). Pt says "he is OK to , he already before, when he had anaphylaxis from bee sting". I had this same conversation again with his RN present at the bedside as well. Pt says he is not Jehovah witness. He also says his , sister and brother are all aware of him being in the hospital, and refusing blood transfusion and agree with him on that. I contacted pt's Azalia, who does not agree with this decision, calls it "stupid", she says she is [employer] and not aware of why he would refuse blood transfusion. She says that pt has been taking supplements at home and that he is not right in his mind. She also says she is his POA, and paperwork should be at the hospital. I asked her to talk to her , we will be able to connect her to his phone, and she agrees to do that. I checked EMR and there is no POA that I can find (it says "No" next to POA). I consulted and contacted psychiatry to evaluate the pt, poss. capacity (and POA status). Review of Systems Review of Systems: All systems reviewed & are unremarkable except as noted in Subjective Physical Exam Physical Exam: General- obese adult M, Not in distress. Head- atraumatic Eyes- PERRL, EOMI Neck- supple, no JVD. Lungs- clear to auscultation no wheezing or crackles Heart- regular rate and rhythm; no murmur. Abdomen- normal bowel sounds, soft, diffuse tenderness, no rigidity, no distension Extremities- no pretibial edema, no erythema seen Neuro- alert, oriented PERRL, no facial palsy; no dysarthria; moves extremities Results & Data Results & Data Vital Signs (Past 12 Hours) Vital Signs Temp Pulse Pulse Resp BP Pulse Ox O2 Del Method 02/24/25 10:48 36.8 C 84 16 119/64 96 Room Air 02/24/25 08:31 92 H 115/65 02/24/25 08:13 93 H 18 122/61 98 Room Air 02/24/25 07:49 86 02/24/25 07:32 36.8 C 89 18 103/59 L 98 Room Air 02/24/25 02:46 37 C 92 H 18 124/68 96 CPAP 02/24/25 02:00 88 16 96 FiO2 02/24/25 10:48 02/24/25 08:31 02/24/25 08:13 02/24/25 07:49 02/24/25 07:32 02/24/25 02:46 02/24/25 02:00 21 Laboratory Results 02/24/25 02/24/25 02/24/25 Range/Units 11:58 10:55 10:30 WBC (4.8-10.8) K/ul RBC (4.70-6.10) M/uL Hgb 5.6 L* (14.0-18.0) g/dl Hct 17.6 L* (42.0-52.0) % MCV (80.0-100.0) fL MCH (25.0-34.0) pg MCHC (32.0-36.0) g/dL RDW Std Deviation (36.4-46.3) fL RDW Coeff of Daily (11.5-14.5) % Plt Count (130-400) K/uL MPV (9.4-12.4) fL Immature Gran % (Auto) % Neut % (Auto) % Lymph % (Auto) % [place] % (Auto) % Eos % (Auto) % Baso % (Auto) % Neut # (Auto) (1.40-6.50) K/uL Lymph # (Auto) (1.20-3.40) K/uL [place] # (Auto) (0.11-0.59) K/uL Eos # (Auto) (0.00-0.50) K/uL Baso # (Auto) (0.00-0.20) K/uL Immature Gran # (Auto) (0.01-0.20) K/uL Blood Smear Review Polychromasia PT (9.0-12.0) Seconds INR (0.9-1.1) Sodium (136-145) mmol/L Potassium (3.5-5.1) mmol/L Chloride (98-107) mmol/L Carbon Dioxide (21-32) mmol/L Anion Gap (3-11) BUN (6-23) mg/dl Creatinine (0.6-1.4) mg/dl Est Cr Clr Drug Dosing ml/min eGFR BUN/Creatinine Ratio (10-20) Glucose (70-99(Fasting)) mg/dl POC Glucose 245 H (70-99) mg/dl Estimat Average Glucose mg/dl Hemoglobin A1c (4.5-5.6) % Calcium (8.6-10.3) mg/dl Magnesium (1.7-2.4) mg/dl Iron (35-175) mcg/dl TIBC (250-450) mcg/dl Transferrin (200-360) mg/dl Transferrin % Sat Total Bilirubin (0.2-1.0) mg/dl AST (13-39) U/L ALT (7-52) U/L Alkaline Phosphatase (34-104) U/L Troponin I High Sens 6.6 (0-20) pg/ml Total Protein (6.0-8.3) gm/dl Albumin (3.4-5.0) gm/dl Globulin (2.5-4.0) gm/dl Albumin/Globulin Ratio (0.9-2) Lipase (11-82) U/L Vitamin B12 (180-914) pg/ml Folate (>5.38) ng/ml TSH (0.300-4.500) uIu/ml Urine Color Urine Appearance (Clear) Urine pH (4.5-7.5) Ur Specific Anna (1.000-1.030) Urine Protein (Negative) Urine Glucose (UA) (Negative) Urine Ketones (Negative) Urine Blood (Negative) Urine Nitrite (Negative) Urine Bilirubin (Negative) Urine Urobilinogen (Negative) Ur Leukocyte Esterase (Negative) Urine WBC (Auto) (0-5) /hpf Urine RBC (Auto) (0-2) /hpf U Hyaline Cast (Auto) (0-2) /lpf U Epithel Cells (Auto) (0-2) /hpf Urine Bacteria (Auto) (None Seen) Urine Comment Stool Occult Bld Scrn (Negative) Stl C. cayetanensis PCR Pending Stool Rotavirus A PCR Pending Stl Adenov F 40/41 PCR Pending Stool Astrovirus (PCR) Pending Stool Campylobacter PCR Pending Stool Cryptosporidium PCR Pending Stl E.coli Shiga Tox PCR Pending Stl Enterotoxigenic E PCR Pending Stool EAEC (PCR) Pending Stl E. histolytica PCR Pending Stool Giardia Lamblia PCR Pending Stool Salmonella PCR Pending Stool Sapovirus (PCR) Pending Stl P. shigelloides PCR Pending Stl Shigella/EIEC PCR Pending St Y.enterocolitica PCR Pending Stool Vibrio (PCR) Pending Stl Vibrio cholerae PCR Pending Stl Norovirus GI/GII PCR Pending Hepatitis C Ab Screen (Negative) 02/24/25 02/24/25 02/24/25 Range/Units 10:25 10:11 05:16 WBC 10.37 (4.8-10.8) K/ul RBC 1.91 L (4.70-6.10) M/uL Hgb 5.7 L* (14.0-18.0) g/dl Hct 17.5 L* (42.0-52.0) % MCV 91.6 (80.0-100.0) fL MCH 29.8 (25.0-34.0) pg MCHC 32.6 (32.0-36.0) g/dL RDW Std Deviation 47.8 H (36.4-46.3) fL RDW Coeff of Daily 14.7 H (11.5-14.5) % Plt Count 176 (130-400) K/uL MPV 11.3 (9.4-12.4) fL Immature Gran % (Auto) 0.8 % Neut % (Auto) 44.8 % Lymph % (Auto) 39.7 % [place] % (Auto) 11.5 % Eos % (Auto) 2.5 % Baso % (Auto) 0.7 % Neut # (Auto) 4.65 (1.40-6.50) K/uL Lymph # (Auto) 4.12 H (1.20-3.40) K/uL [place] # (Auto) 1.19 H (0.11-0.59) K/uL Eos # (Auto) 0.26 (0.00-0.50) K/uL Baso # (Auto) 0.07 (0.00-0.20) K/uL Immature Gran # (Auto) 0.08 (0.01-0.20) K/uL Blood Smear Review Polychromasia 1+ PT (9.0-12.0) Seconds INR (0.9-1.1) Sodium 136 (136-145) mmol/L Potassium 3.5 D (3.5-5.1) mmol/L Chloride 108 H (98-107) mmol/L Carbon Dioxide 24 (21-32) mmol/L Anion Gap 4 (3-11) BUN 24 H (6-23) mg/dl Creatinine 0.73 (0.6-1.4) mg/dl Est Cr Clr Drug Dosing 122.3 ml/min eGFR 103.51 BUN/Creatinine Ratio 32.9 H (10-20) Glucose 311 H* (70-99(Fasting)) mg/dl POC Glucose (70-99) mg/dl Estimat Average Glucose 249 mg/dl Hemoglobin A1c 10.3 H (4.5-5.6) % Calcium 7.5 L (8.6-10.3) mg/dl Magnesium 1.7 (1.7-2.4) mg/dl Iron < 10 L (35-175) mcg/dl TIBC 364 (250-450) mcg/dl Transferrin 260 (200-360) mg/dl Transferrin % Sat TNP Total Bilirubin (0.2-1.0) mg/dl AST (13-39) U/L ALT (7-52) U/L Alkaline Phosphatase (34-104) U/L Troponin I High Sens 7.6 (0-20) pg/ml Total Protein (6.0-8.3) gm/dl Albumin (3.4-5.0) gm/dl Globulin (2.5-4.0) gm/dl Albumin/Globulin Ratio (0.9-2) Lipase (11-82) U/L Vitamin B12 780 (180-914) pg/ml Folate 20.60 (>5.38) ng/ml TSH (0.300-4.500) uIu/ml Urine Color Yellow Urine Appearance Cloudy A (Clear) Urine pH 5.0 (4.5-7.5) Ur Specific Anna 1.027 (1.000-1.030) Urine Protein Negative (Negative) Urine Glucose (UA) 3+ H (Negative) Urine Ketones Negative (Negative) Urine Blood Negative (Negative) Urine Nitrite Negative (Negative) Urine Bilirubin Negative (Negative) Urine Urobilinogen Negative (Negative) Ur Leukocyte Esterase Trace H (Negative) Urine WBC (Auto) 21-50 H (0-5) /hpf Urine RBC (Auto) 0-2 (0-2) /hpf U Hyaline Cast (Auto) 0-2 (0-2) /lpf U Epithel Cells (Auto) 0-2 (0-2) /hpf Urine Bacteria (Auto) 4+ H (None Seen) Urine Comment Stool Occult Bld Scrn Positive A (Negative) Stl C. cayetanensis PCR Stool Rotavirus A PCR Stl Adenov F 40/41 PCR Stool Astrovirus (PCR) Stool Campylobacter PCR Stool Cryptosporidium PCR Stl E.coli Shiga Tox PCR Stl Enterotoxigenic E PCR Stool EAEC (PCR) Stl E. histolytica PCR Stool Giardia Lamblia PCR Stool Salmonella PCR Stool Sapovirus (PCR) Stl P. shigelloides PCR Stl Shigella/EIEC PCR St Y.enterocolitica PCR Stool Vibrio (PCR) Stl Vibrio cholerae PCR Stl Norovirus GI/GII PCR Hepatitis C Ab Screen (Negative) 02/24/25 02/24/25 02/24/25 Range/Units 05:11 02:44 02:42 WBC (4.8-10.8) K/ul RBC (4.70-6.10) M/uL Hgb (14.0-18.0) g/dl Hct (42.0-52.0) % MCV (80.0-100.0) fL MCH (25.0-34.0) pg MCHC (32.0-36.0) g/dL RDW Std Deviation (36.4-46.3) fL RDW Coeff of Daily (11.5-14.5) % Plt Count (130-400) K/uL MPV (9.4-12.4) fL Immature Gran % (Auto) % Neut % (Auto) % Lymph % (Auto) % [place] % (Auto) % Eos % (Auto) % Baso % (Auto) % Neut # (Auto) (1.40-6.50) K/uL Lymph # (Auto) (1.20-3.40) K/uL [place] # (Auto) (0.11-0.59) K/uL Eos # (Auto) (0.00-0.50) K/uL Baso # (Auto) (0.00-0.20) K/uL Immature Gran # (Auto) (0.01-0.20) K/uL Blood Smear Review Polychromasia PT (9.0-12.0) Seconds INR (0.9-1.1) Sodium (136-145) mmol/L Potassium (3.5-5.1) mmol/L Chloride (98-107) mmol/L Carbon Dioxide (21-32) mmol/L Anion Gap (3-11) BUN (6-23) mg/dl Creatinine (0.6-1.4) mg/dl Est Cr Clr Drug Dosing ml/min eGFR BUN/Creatinine Ratio (10-20) Glucose (70-99(Fasting)) mg/dl POC Glucose 336 H* 368 H* 380 H* (70-99) mg/dl Estimat Average Glucose mg/dl Hemoglobin A1c (4.5-5.6) % Calcium (8.6-10.3) mg/dl Magnesium (1.7-2.4) mg/dl Iron (35-175) mcg/dl TIBC (250-450) mcg/dl Transferrin (200-360) mg/dl Transferrin % Sat Total Bilirubin (0.2-1.0) mg/dl AST (13-39) U/L ALT (7-52) U/L Alkaline Phosphatase (34-104) U/L Troponin I High Sens (0-20) pg/ml Total Protein (6.0-8.3) gm/dl Albumin (3.4-5.0) gm/dl Globulin (2.5-4.0) gm/dl Albumin/Globulin Ratio (0.9-2) Lipase (11-82) U/L Vitamin B12 (180-914) pg/ml Folate (>5.38) ng/ml TSH (0.300-4.500) uIu/ml Urine Color Urine Appearance (Clear) Urine pH (4.5-7.5) Ur Specific Anna (1.000-1.030) Urine Protein (Negative) Urine Glucose (UA) (Negative) Urine Ketones (Negative) Urine Blood (Negative) Urine Nitrite (Negative) Urine Bilirubin (Negative) Urine Urobilinogen (Negative) Ur Leukocyte Esterase (Negative) Urine WBC (Auto) (0-5) /hpf Urine RBC (Auto) (0-2) /hpf U Hyaline Cast (Auto) (0-2) /lpf U Epithel Cells (Auto) (0-2) /hpf Urine Bacteria (Auto) (None Seen) Urine Comment Stool Occult Bld Scrn (Negative) Stl C. cayetanensis PCR Stool Rotavirus A PCR Stl Adenov F 40/41 PCR Stool Astrovirus (PCR) Stool Campylobacter PCR Stool Cryptosporidium PCR Stl E.coli Shiga Tox PCR Stl Enterotoxigenic E PCR Stool EAEC (PCR) Stl E. histolytica PCR Stool Giardia Lamblia PCR Stool Salmonella PCR Stool Sapovirus (PCR) Stl P. shigelloides PCR Stl Shigella/EIEC PCR St Y.enterocolitica PCR Stool Vibrio (PCR) Stl Vibrio cholerae PCR Stl Norovirus GI/GII PCR Hepatitis C Ab Screen (Negative) 02/24/25 02/23/25 02/23/25 Range/Units 00:16 23:17 19:19 WBC 18.13 H (4.8-10.8) K/ul RBC 2.21 L (4.70-6.10) M/uL Hgb 6.5 L* (14.0-18.0) g/dl Hct 20.3 L* (42.0-52.0) % MCV 91.9 (80.0-100.0) fL MCH 29.4 (25.0-34.0) pg MCHC 32.0 (32.0-36.0) g/dL RDW Std Deviation 47.8 H (36.4-46.3) fL RDW Coeff of Daily 14.6 H (11.5-14.5) % Plt Count 264 (130-400) K/uL MPV 11.3 (9.4-12.4) fL Immature Gran % (Auto) 0.9 % Neut % (Auto) 56.4 % Lymph % (Auto) 31.3 % [place] % (Auto) 10.0 % Eos % (Auto) 0.8 % Baso % (Auto) 0.6 % Neut # (Auto) 10.23 H (1.40-6.50) K/uL Lymph # (Auto) 5.68 H (1.20-3.40) K/uL [place] # (Auto) 1.81 H (0.11-0.59) K/uL Eos # (Auto) 0.14 (0.00-0.50) K/uL Baso # (Auto) 0.11 (0.00-0.20) K/uL Immature Gran # (Auto) 0.16 (0.01-0.20) K/uL Blood Smear Review Polychromasia 1+ PT 13.2 H (9.0-12.0) Seconds INR 1.2 H (0.9-1.1) Sodium 132 L (136-145) mmol/L Potassium 4.4 (3.5-5.1) mmol/L Chloride 100 (98-107) mmol/L Carbon Dioxide 23 (21-32) mmol/L Anion Gap 9 (3-11) BUN 31 H (6-23) mg/dl Creatinine 0.97 (0.6-1.4) mg/dl Est Cr Clr Drug Dosing 94.8 ml/min eGFR 88.82 BUN/Creatinine Ratio 32.0 H (10-20) Glucose 565 H* (70-99(Fasting)) mg/dl POC Glucose 435 H* (70-99) mg/dl Estimat Average Glucose mg/dl Hemoglobin A1c (4.5-5.6) % Calcium 9.0 (8.6-10.3) mg/dl Magnesium 1.8 (1.7-2.4) mg/dl Iron (35-175) mcg/dl TIBC (250-450) mcg/dl Transferrin (200-360) mg/dl Transferrin % Sat Total Bilirubin 0.5 (0.2-1.0) mg/dl AST 24 (13-39) U/L ALT 31 (7-52) U/L Alkaline Phosphatase 106 H (34-104) U/L Troponin I High Sens 7.1 (0-20) pg/ml Total Protein 5.6 L (6.0-8.3) gm/dl Albumin 3.0 L (3.4-5.0) gm/dl Globulin 2.6 (2.5-4.0) gm/dl Albumin/Globulin Ratio 1.2 (0.9-2) Lipase 43 (11-82) U/L Vitamin B12 (180-914) pg/ml Folate (>5.38) ng/ml TSH 3.596 (0.300-4.500) uIu/ml Urine Color Urine Appearance (Clear) Urine pH (4.5-7.5) Ur Specific Anna (1.000-1.030) Urine Protein (Negative) Urine Glucose (UA) (Negative) Urine Ketones (Negative) Urine Blood (Negative) Urine Nitrite (Negative) Urine Bilirubin (Negative) Urine Urobilinogen (Negative) Ur Leukocyte Esterase (Negative) Urine WBC (Auto) (0-5) /hpf Urine RBC (Auto) (0-2) /hpf U Hyaline Cast (Auto) (0-2) /lpf U Epithel Cells (Auto) (0-2) /hpf Urine Bacteria (Auto) (None Seen) Urine Comment Stool Occult Bld Scrn (Negative) Stl C. cayetanensis PCR Stool Rotavirus A PCR Stl Adenov F 40/41 PCR Stool Astrovirus (PCR) Stool Campylobacter PCR Stool Cryptosporidium PCR Stl E.coli Shiga Tox PCR Stl Enterotoxigenic E PCR Stool EAEC (PCR) Stl E. histolytica PCR Stool Giardia Lamblia PCR Stool Salmonella PCR Stool Sapovirus (PCR) Stl P. shigelloides PCR Stl Shigella/EIEC PCR St Y.enterocolitica PCR Stool Vibrio (PCR) Stl Vibrio cholerae PCR Stl Norovirus GI/GII PCR Hepatitis C Ab Screen Negative (Negative) Medications Administered Current Inpatient Medications Albuterol (Albuterol Hfa 8 Gm Inhaler) 1 puffs INH QID PRN; Protocol PRN Reason: Shortness Of Breath Stop: 03/26/25 00:03 Azelastine HCl (Azelastine Hcl 0.1% Nasal 200 Sprays/27,400 Mcg Btl) 2 sprays NA DAILY WILLIE Stop: 03/26/25 08:59 Last Admin: 02/24/25 09:57 Dose: 2 sprays Dextrose (Dextrose 50% 50 Ml Syringe) 25 - 50 ml IV UD PRN; Protocol PRN Reason: Hypoglycemia Protocol Stop: 03/25/25 23:45 Glucagon (Glucagon For Inj 1 Mg Vial) 1 mg SQ UD PRN; Protocol PRN Reason: Hypoglycemia Protocol Stop: 03/25/25 23:45 Glucose (Glucose 40% Gel 15 Gm Tube) 15 - 30 gm PO UD PRN; Protocol PRN Reason: Hypoglycemia Protocol Stop: 03/25/25 23:45 Glucose (Glucose 10 Tab/Tube) 4 - 8 tab PO UD PRN; Protocol PRN Reason: Hypoglycemia Protocol Stop: 03/25/25 23:45 Pantoprazole Sodium 40 mg/ (Dextrose) 100 mls @ 20 mls/hr IV Q5H WILLIE Stop: 03/25/25 20:14 Last Admin: 02/24/25 11:08 Dose: 8 mg/hr, 20 mls/hr Sodium Chloride (Nss) 1,000 mls @ 125 mls/hr IV .Q8H WILLIE Stop: 02/26/25 23:45 Last Admin: 02/24/25 08:17 Dose: 125 mls/hr Acetaminophen (Ofirmev) 1,000 mg in 100 mls @ 400 mls/hr IV Q8H PRN PRN Reason: Pain or Fever Stop: 02/26/25 23:45 Octreotide Acetate 500 mcg/ (Sodium Chloride) 100.5 mls @ 10.05 mls/hr IV .Q10H WILLIE Stop: 03/26/25 09:59 Last Admin: 02/24/25 10:59 Dose: 50 mcg/hr, 10.1 mls/hr Ceftriaxone Sodium (Rocephin) 2,000 mg in 50 mls @ 100 mls/hr IV Q24H WILLIE Stop: 02/26/25 09:59 Last Infusion: 02/24/25 10:51 Dose: Infused Insulin Aspart (Insulin Aspart Per Unit Charge) 0 units SC Q6 WILLIE Stop: 03/26/25 11:59 Insulin Glargine (Lantus Per Unit Charge) 0 units SC ONE ONE; Protocol Stop: 02/24/25 21:01 Ipratropium Hemet (Ipratropium Hemet Hfa Inhaler) 1 puffs INH QID PRN; Protocol PRN Reason: Shortness Of Breath Stop: 03/26/25 00:03 Miscellaneous (Rimegepant [Nurtec Odt] - Order Awaiting Action) 1 each N/A QS [facility] Stop: 03/26/25 07:59 Last Admin: 02/24/25 09:57 Dose: Not Given Miscellaneous (Carbohydrates For Hypoglycemia ) 15 - 30 gm PO UD PRN PRN Reason: Hypoglycemia Protocol Stop: 03/25/25 23:45 Miscellaneous Information (Pharmacy Glycemic Mgmt Consult) 1 each N/A UD PRN PRN Reason: Consult Stop: 03/25/25 23:45 Nitroglycerin (Nitroglycerin Sl 0.4 Mg/Tab Tab) 0.4 mg SL Q5M PRN PRN Reason: Chest Pain Stop: 03/25/25 23:45
[2025-02-24 13:07] LABS: Adenovirus F 40/41 PCR Not Detected (NotDetected); Campylobacter PCR Not Detected (NotDetected); Enteroaggregative E.coli(EAEC) Not Detected (NotDetected); Shiga-like Toxin E.coli (STEC) Not Detected (NotDetected); Vibrio species PCR Not Detected (NotDetected)
--- NOTE | 2025-02-24 14:08 | Electrocardiogram Report ---
Test Reason : Blood Pressure : */* mmHG Vent. Rate : 95 BPM Atrial Rate : 95 BPM P-R Int : 152 ms QRS Dur : 88 ms QT Int : 350 ms P-R-T Axes : 45 1 13 degrees QTcB Int : 439 ms Normal sinus rhythm Normal ECG When compared with ECG of 14-Apr-2022 01:52, No significant change was found Confirmed by Codey Kaur ([id number]) on 02/24/2025 2:07:44 PM Referred By: Confirmed By: Codey Kaur
--- NOTE | 2025-02-24 14:16 | Psychiatric Consultation ---
Date of Consultation February 24, 2025 Impression / Recommendations Impression Asked to assess patient for decision making capacity regarding his refusal for a blood transfusion especially given plan for endoscopy procedure with potential for complications that could require use of blood products and with recommendations for transfusion prior to the procedure. In terms of decision making capacity it is foremost critical to emphasis that this assessment is task specific, dimensional and DOES NOT REPRESENT NOR CAN IT BE USED A MEANS OF ASSESSING GLOBAL LEGAL COMPETENCY OR NEED FOR GUARDIANSHIP. MOCA assessment showed no signs for major cognitive impairment nor delirium interfering with his thought process. Based on interview and Aid to Capacity evaluation (YANIRA): Assessment of Decision-Making Capacity Criterion Patient Task YES Communicates a choice Patient is able to clearly indicate preferred treatment option in a clear and consistent manner. YES Understands information provided Patient understands their condition and treatment options YES Appreciates consequences Patient shows appropriately nuanced appreciation for the risks & benefits associated with available treatment options, including no treatment YES Manipulates relevant information Patient able to rationally weigh risks & benefits, as well as offer reasons for their decision At this time Pritesh is deemed to have decision making capacity to refuse a blood transfusion including during any procedures. Rather states his preference that if bleeding occurred during any procedures or while in the hospital and he started to show signs of decompensation that he be given fluids and other medications to sustain life. If these interventions were not successful he would still not want any blood transfusions or blood products and would prefer he then be allowed to if no other alternative interventions were available. It is important to note that a patient's decision can be unwise as long as a rational process was used to arrive at it. Decision making capacity determinations are decision and time specific. This patient has capacity with respect to this particular decision-making task at this time. They are able to articulate reasons for their decision and shows no signs of significant c ognitive impairment, delirium, psychosis, or severe depression that could otherwise interfere with their ability to meaningfully understand information and appreciate the risks of refusing treatment. The patient's decision making capacity could change in the future given that their mental status and various other factors can certainly fluctuate over time. Overall, I spent a total of 60 minutes with this case including review of chart records, review of labwork, review of MOCA, direct evaluation of the patient at bedside, counseling the patient, discussion of the patient with the hospitalist provider, discussion with the psychiatric liason during clinical rounds and documentation in the electronic health record. (1) Encounter for assessment of healthcare decision-making capacity: (2) GI bleeding: Plan -He has decision making capacity to refuse blood transfusions -Offered and he declined option to speak with hospital farmer and grazier regarding his sabianist concerns about using blood products Psych History Identifying Data Pritesh Pike is a 59-year-old man with past medical history significant for sleep apnea, multiple pulmonary nodules, asthma mild persistent, patent foramen ovale, GERD, postconcussion syndrome, history of chest pain, history of headache s, depression, seasonal allergies presents with abdominal pain going for last 2 days, black stools for last 2 days and also chest pains. Psychiatry consulted for decision making capacity. Chief Complaint "It's not biblically correct". History of Present Illness Tayo was seen and using the Aid to Capacity Evaluation structured interview to assess his decision making capacity. Psych liason administered a Nadir cognitive assessment just prior to my interview with score of 26/30 (missed 1 point for categorical fluency and 3 points on delayed recall). Pritesh, who goes by Tayo, presents with gastrointestinal bleeding and severe dizziness. He reports his current problem and reason for hospitalization is bleeding "someplace between my nose and my rectum". He describes coming in after developing dizziness and noticing black stool. He is able to identify that the medical team has recommended a treatment of "an endoscope and clamp it off and get it to stop bleeding" and that they would like him to get a blood transfusion "first to bring my hemoglobin up". He does feel that if he had gotten his endoscopy sooner, earlier today, that he would not be continuing to lose blood and might not feel quite as weak as he does currently. He recognizes that alternatives would be use of dietary changes to try to bring up his hemoglobin or other fluids but recognizes that an endoscopy to find the source of the bleeding is the main treatment. He recognizes that he can refuse a blood transfusion and has been doing so. He recognizes that accepting a blood transfusion could help his hemoglobin go up faster but he also feels that it can cause problems and other side effects. He recognizes that refusing a blood transfusion could result in his . He is able to state that he does not want a blood transfusion due to his sabianist beliefs as well as not trusting that the blood supply might not end up giving him some sort of blood-borne disease. His decision does not seem to be affected by depression nor psychosis. The medical team has recommended an endoscopy to locate and potentially clamp off the source of bleeding. However they have also suggested a blood transfusion prior to the procedure which Tayo is refusing based on his sabianist beliefs and concerns about the safety of the blood supply. He expresses worry about potential contaminants such as hepatitis or AIDS and donated blood despite being aware that the blood bank tests for such issues and does extensive screeni ng. He states that "I believe if you go before God I don't know that he'd look favorably upon you" if he were to get a blood transfusion. Tayo also cites anecdotal evidence of negative personality changes and suicidal thoughts in individuals he knows who have received blood transfusions. Tayo's decision to refuse blood transfusions extends to life-threatening situations. He states he would prefer to rather than receive a transfusion even in the event of uncontrollable bleeding during an endoscopy. He is open to alternative treatments such as "blood expanders" like IV fluids to replace v olume and to help the circulatory system. Tayo also mentions longer-term alternatives to raise his hemoglobin count such as consuming iron rich foods like meat fish poultry spinach and beans if the endoscopy procedure is successful in finding and stopping the source of the bleeding to bring up his blood count over time. Despite his concerns Tayo maintains trust in his healthcare providers and does not feel that anyone is trying to harm him. He expresses hope for the future mentioning plans for a fall trip to [facility] [facility] this May over his birthday. He denies feeling as though he is being punished or that he is a bad person. He also expresses that he does feel he deserves to be treated and continues to desire an endoscopy procedure or any other medical interventions besides a blood transfusion. He reports that when he has done advanced type directives in the past he has similarly indicated he is not interested in blood transfusions and has previously discussed this with his , sister and mother whom he reports are aware of and support his decisions regarding blood transfusions. Notably his is currently trying to convince him to agree to a transfusion. Allergies Allergy/AdvReac Type Severity Reaction Status Date / Time bee venom protein (honey bee) Allergy Severe Anaphylaxis Verified 02/23/25 20:16 mold Allergy Intermediate sneezing,watery Verified 02/23/25 20:16 eyes, runny nose Penicillins Allergy Intermediate Hives Verified 02/23/25 20:16 rizatriptan [From [facility]] AdvReac Severe Chest Pain Verified 02/23/25 20:16 Iodinated Contrast Media AdvReac Intermediate ITCHING Verified 02/23/25 20:16 valproic acid AdvReac Intermediate PANIC Verified 02/23/25 20:16 ATTACKS Dust Allergy Intermediate sneezing,watery Uncoded 02/23/25 20:16 eyes, runny nosed Home Medications Medication Instructions Recorded Confirmed Type aspirin 81 mg tablet,delayed 81 mg PO QAM 07/03/18 02/23/25 History release epinephrine 0.3 mg/0.3 mL 0.3 mg IM Q3H PRN Allergic Reaction 07/03/18 02/23/25 History injection, auto-injector (EpiPen) fexofenadine 180 mg tablet 180 mg PO DAILY PRN WHEN GETS 07/03/18 02/23/25 History (Lluvia Allergy) ALLERGY SHOTS ipratropium 20 mcg-albuterol 100 1 puff inhalation QID PRN 07/03/18 02/23/25 History mcg/actuation mist for inhalation Shortness Of Breath (Combivent Respimat) montelukast 10 mg tablet 10 mg PO QAM 07/03/18 02/23/25 History omega 3 350 mg-dha 235 mg-epa 90 1 cap PO QAM 07/03/18 02/23/25 History mg-fish oil 597 mg capsule,delay rel (Reinholds-3) iodine (kelp) 0.15 mg tablet (Kelp) 0.15 mcg PO QAM 07/08/19 02/23/25 History omeprazole 20 mg capsule,delayed 20 mg PO DAILY PRN Acid Reflux 09/26/19 02/23/25 History release calcium 333 mg 1 tab PO DAILY 12/28/22 02/23/25 History (carbonate)-magnesium 133 mg (oxide)-zinc 5 mg tablet cholecalciferol (vitamin D3) 125 2,000 unit PO QAM 12/28/22 02/23/25 History mcg (5,000 unit) tablet (Vitamin D3) acidophilus 100 million 1 cap PO DAILY 02/23/25 02/23/25 History cell-pectin, citrus 10 mg capsule azelastine 137 mcg (0.1 %) nasal 2 spray intranasal DAILY 02/23/25 02/23/25 History spray ketoconazole 2 % shampoo 1 applic topical 3XWK 02/23/25 02/23/25 History multivitamin with iron 1 tab PO DAILY 02/23/25 02/23/25 History rimegepant 75 mg disintegrating 75 mg PO DAILY PRN Migraine 02/23/25 02/23/25 History tablet (Nurtec ODT) Headache vit A 750 mcg-vit C 150 mg-D3 1 cap PO DAILY 02/23/25 02/23/25 History 31.25 dme-kaes-easbskxem-quercet capsule (Immune Essentials Daily) zinc 25 mg tablet 25 mg PO DAILY 02/23/25 02/23/25 History Patient History Medical History (Updated 02/24/25 @ 14:15 by Mary Pickett MD) Patent foramen ovale Renal calculi CT 07/03/18 Coronary artery disease nonocclusive disease per cardiac CT 2013 Post concussion syndrome Surgical History History of sinus surgery Family History Mother Osteoporosis Father Hypertension Stroke suspected intracranial aneurysm Social History Smoking Status: Never smoker Second Hand Exposure: No; Do You Dip or Chew Tobacco: No; Hx Alcohol Use: No Hx Substance Use: Yes Substance Use Type Other:: THC gummies Preferred Language: Bulgarian Communication Ability: Effective Security Researcher Required: No Beliefs That Will Affect Care: None Current Living Situation: Spouse Feels Safe at Home: Yes Safety Concerns: Feels Safe At This Time Assistive Devices: CPAP, Denture - Upper, Denture - Lower and Glasses Physical Exam Psychiatric: Orientation: alert, oriented x 3 and cooperative Eye Contact: good eye contact Motor Behavior: no abnormal motor movements Speech: normal rate/rhythm/volume of speech Affect: euthymic affect Mood: no depressed mood and no anxious mood Thought Process: goal directed thought process Thought Content: reality based without delusions Suicidal Thoughts: denies suicidal thoughts Homicidal Thoughts: denies homicidal thoughts Hallucinations: no auditory hallucinations and no visual hallucinat ions Cognition: recent memory grossly intact, remote memory grossly intact, attention grossly intact and language grossly intact Insight: good insight Judgment: + fair judgement Vital Signs (Past 24 Hours): Last Vital Signs Temp 36.8 C 02/24/25 10:48 Pulse 84 02/24/25 10:48 Resp 16 02/24/25 10:48 BP 119/64 02/24/25 10:48 Pulse Ox 96 02/24/25 10:48 O2 Del Method Room Air 02/24/25 10:48 FiO2 21 02/24/25 02:00 Results & Data (PSY) Medications Administered Azelastine HCl (Azelastine Hcl 0.1% Nasal 200 Sprays/27,400 Mcg Btl) 2 sprays NA DAILY WILLIE Stop: 03/26/25 08:59 Last Admin: 02/24/25 09:57 Dose: 2 sprays Documented By: AM Pantoprazole Sodium 40 mg/ (Dextrose) 100 mls @ 20 mls/hr IV Q5H WILLIE Stop: 03/25/25 20:14 Last Admin: 02/24/25 11:08 Dose: 8 mg/hr, 20 mls/hr Documented By: Infusion: 02/24/25 11:08 Dose: Infused Documented By: Admin: 02/24/25 05:51 Dose: 8 mg/hr, 20 mls/hr Documented By: Infusion: 02/24/25 05:51 Dose: Infused Documented By: Admin: 02/24/25 02:04 Dose: 8 mg/hr, 20 mls/hr Documented By: Infusion: 02/24/25 01:51 Dose: Infused Documented By: Admin: 02/23/25 20:51 Dose: 8 mg/hr, 20 mls/hr Documented By: JUAQUIN Sodium Chloride (Nss) 1,000 mls @ 125 mls/hr IV .Q8H WILLIE Stop: 02/26/25 23:45 Last Admin: 02/24/25 08:17 Dose: 125 mls/hr Documented By: Infusion: 02/24/25 08:17 Dose: Infused Documented By: Admin: 02/24/25 00:41 Dose: 125 mls/hr Documented By: LINA Octreotide Acetate 500 mcg/ (Sodium Chloride) 100.5 mls @ 10.05 mls/hr IV .Q10H WILLIE Stop: 03/26/25 09:59 Last Admin: 02/24/25 10:59 Dose: 50 mcg/hr, 10.1 mls/hr Documented By: AM Ceftriaxone Sodium (Rocephin) 2,000 mg in 50 mls @ 100 mls/hr IV Q24H [facility] Stop: 02/26/25 09:59 Last Infusion: 02/24/25 10:51 Dose: Infused Documented By: Admin: 02/24/25 10:18 Dose: 100 mls/hr Documented By: AM Insulin Aspart (Insulin Aspart Per Unit Charge) 0 units SC Q6 [facility] Stop: 03/26/25 11:59 Last Admin: 02/24/25 13:18 Dose: 5 units Documented By: AM Co-signed By: PK Miscellaneous (Rimegepant [Nurtec Odt] - Order Awaiting Action) 1 each N/A QS [facility] Stop: 03/26/25 07:59 Last Admin: 02/24/25 09:57 Dose: Not Given Documented By: AM Coding Level of Care Code 95285 IN/OBS CONSULT LVL 4,60M Diagnoses Encounter for assessment of healthcare decision-making capacity Z02.79 GI bleeding K92.2
[2025-02-24 14:38] VITALS: RESP 18
[2025-02-24] MEDS: AZITHROMYCIN 250 MG TAB PO SCH (14:40)
--- NOTE | 2025-02-24 15:35 | Electrocardiogram Report ---
Test Reason : Blood Pressure : */* mmHG Vent. Rate : 87 BPM Atrial Rate : 87 BPM P-R Int : 138 ms QRS Dur : 92 ms QT Int : 404 ms P-R-T Axes : 73 12 19 degrees QTcB Int : 486 ms Normal sinus rhythm QTcB >= 480 msec Borderline ECG When compared with ECG of 23-Feb-2025 19:14, (unconfirmed) No significant change was found Confirmed by Codey Kaur ([id number]) on 02/24/2025 3:35:32 PM Referred By: REFERRED SELF Confirmed By: Codey Kaur
[2025-02-24 17:16] LABS: Hematocrit (blood only) 19.6 % (42.0-52.0); Hemoglobin 6.1 g/dl (14.0-18.0)
[2025-02-24] MEDS: LANTUS PER UNIT CHARGE SC ONE (21:25)
[2025-02-24 22:45] VITALS: BP 103/64; PULSE 85; TEMP 99.3; O2SAT 99
--- NOTE | 2025-02-25 07:16 | Discharge Summary ---
Date of Service February 25, 2025 Admission HPI Per Admitting Provider 59-year-old male with past medical history significant for sleep apnea, multiple pulm nodules, asthma mild persistent, patent foramen ovale, GERD, postconcussion syndrome, history of chest pain, history of headaches, depression, seasonal allergies presents with abdominal pain going for last 2 days, black stools for last 2 days and also chest pains. Patient states is feeling dizzy and also when he gets up and walks getting chest pain and shortness of breath and palpitation and subsides while he is resting. Patient has history of migraine headaches and lights bother him. Currently denies any headache. No runny nose or sore throat. No cough. Afebrile. Micturating okay. Hemodynamics are okay. Hemoglobin came back at 6.5. But patient refused any blood transfusion. 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 Patient denies any blood transfusions in case of emergencies also. Past medical history. As mentioned above Past surgical history. Colonoscopy. EGD. EGD with endoscopic ultrasound. Repair of nasal septum. Social history. . No smoking. Quit drinking 1986. Drinks THC as per [employer]. Family history. Mother had arthritis. Father had hypertension. Stroke. Maternal grandmother had uterine cancer. Paternal grandmother had diabetes. Sister had appendix cancer. Admission Exam Per Admitting Provider General- Not in distress. Head- atraumatic Eyes- PERRL,. ENT- oropharynx clear Neck- supple, no JVD. Lungs- clear to auscultation no wheezing or crackles Heart- regular rate and rhythm; no murmur, no gallop. Abdomen- normal bowel sounds, soft, diffuse tenderness, no rigidity, no distension Extremities- no pretibial edema, no erythema seen Neuro- alert, oriented PERRL, no facial palsy; no dysarthria; moves extremities Principal Diagnosis GI bleed Acute blood loss anemia Discharge Exam General- obese adult M, Not in distress. Head- atraumatic Eyes- PERRL, EOMI Neck- supple, no JVD. Lungs- clear to auscultation no wheezing or crackles Heart- regular rate and rhythm; no murmur. Abdomen- normal bowel sounds, soft, diffuse tenderness, no rigidity, no distension Extremities- no pretibial edema, no erythema seen Neuro- alert, oriented PERRL, no facial palsy; no dysarthria; moves extremities Discharge Data Allergies Allergy/AdvReac Type Severity Reaction Status Date / Time bee venom protein (honey bee) Allergy Severe Anaphylaxis Verified 03/01/25 14:52 mold Allergy Intermediate sneezing,watery Verified 03/01/25 14:52 eyes, runny nose Penicillins Allergy Intermediate Hives Verified 03/01/25 14:52 rizatriptan [From Maxal] AdvReac Severe Chest Pain Verified 03/01/25 14:52 Iodinated Contrast Media AdvReac Intermediate ITCHING Verified 03/01/25 14:52 valproic acid AdvReac Intermediate PANIC Verified 03/01/25 14:52 ATTACKS Dust Allergy Intermediate sneezing,watery Uncoded 03/01/25 14:52 eyes, runny nosed Consultations 02/23/25 20:11 ED Decision to Admit Stat 02/24/25 08:00 Consult Cardiology Routine Consult Gastroenterology Routine 02/24/25 12:30 Consult Psychiatry Routine 02/24/25 20:17 Burn CD for patient Stat Procedures Performed Operation Date: 02/24/25 16:45 <No data on this case meets the specified criteria> Ordered Studies 02/23/25 19:20 CT head/brain wo con Stat IMPRESSION: 1. No evidence of any acute intracranial event on this unenhanced CT examination. Further evaluation with an MRI can be considered if clinically indicated. 2. Frontal sinus mucosal disease(unchanged). 3. No interval change since the last scan. 02/23/25 22:31 CT abd pelvis wo con Urgent FINDINGS: Real-time ultrasound imaging in all 4 abdominal quadrants was performed. No ascites fluid was identified. IMPRESSION: No ascites fluid identified on today's study. Hospital Course (1) Symptomatic anemia: 59-year-old male with past medical history significant for sleep apnea, multiple pulm nodules, asthma mild persistent, patent foramen ovale, GERD, postconcussion syndrome, history of chest pain, history of headaches, depression, seasonal allergies presents with abdominal pain going for last 2 days, black stools for last 2 days and also chest pains. Patient states is feeling dizzy and also when he gets up and walks getting chest pain and shortness of breath and palpitation and subsides while he is resting. Patient has history of migraine headaches and lights bother him. Currently denies any headache. No runny nose or sore throat. No cough. Afebrile. Micturating okay. Hemodynamics are okay. Hemoglobin came back at 6.5. But patient refused any blood transfusion. 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 Patient denies any blood transfusions in case of emergencies also. GI bleed Acute blood loss anemia Symptomatic anemia Having abdominal pain and black stools last 2 days Chest pain and shortness of breath on exertion. Dizziness and palpitations. Was using ibuprofen for the last 2 days but generally does not use regularly Hemoglobin 6.5 in ER -> now 5.6 Refused blood transfusion Started on Protonix drip, IV fluids n.p.o. H&H every 6 hours Telemetry 02/24 Had a prolonged conversation with the pt regarding blood transfusion - as above, pt refusing accepting even possible . His does not agree and will be discussing this with the pt. also feels that pt is not in right mind. Psychiatry consulted. GI consulted and discussed with - plan was for EGD this PM. Pt has hx of esophageal varices - started octreotide, also started ceftriaxone. EGD cancelled by GI as pt continues to refuse transfusion. Psychiatry consulted - Asked to assess patient for decision making capacity regarding his refusal for a blood transfusion especially given plan for endoscopy procedure with potential for complications that could require use of blood products and with recommendations for transfusion prior to the procedure. At this time Pritesh is deemed to have decision making capacity to refuse a blood transfusion including during any procedures. Update: Pt requests transfer to medical center that would be willing to do EGD without prior blood transfusion. Contacted and discussed with provider at [facility] and pt was accepted to be transferred there for further evaluation and care. Chest pain shortness of breath on exertion EKG and troponin okay Mostly from above Will follow serial enzymes and echo Telemetry Echo - LV is normal in size. mild concentric LVH. LV wall motion is normal. LV EF 60-65%. grade I diastolic dysfunction. There is no valvular disease. Cardiology consulted - 59-year-old male admitted with symptomatic anemia atypical chest pain likely secondary to anemia. Hemoglobin 5.7 this morning. No indications for further cardiac intervention ultimate goal increase in hemoglobin, assess and treat any possible source of bleed. Abdominal pain CAT scan question of pancreatitis Lipase is okay GI consulted, as above Leukocytosis Will follow blood cultures Will follow UA Follow repeat labs WBC now normalized Hyperglycemia Came with sugars of 565 Received IV insulin Will continue Lantus 5's twice daily and sliding scale Glycemic pharmacy consult Close monitor Current HbA1c level 10.3% Sleep apnea CPAP nightly Asthma Continue home inhalers History of migraines On Nurtec as needed Disposition - Pt to be transferred to [facility] Total Time Total Time Spent Total Time Spent (In Minutes): 40 Discharge Plan Discharge Items Patient Disposition: Transfer Acute Care Hospital Reason For Visit: SYMPTOMATIC ANEMIA Discharge Diagnosis: GI bleed Acute blood loss anemia Condition on Discharge: Fair Activity: Per Instructions section Non-emergency contact: Hospitalist, Specialist and Chemical Tester Call non-emergency contact if: you have any medication questions and your symptoms worsen Follow-up/Referrals: Alex Diamond DO [Primary Care Provider] - Diet: Nothing by Mouth Addtl Attending Provider Instructions: Patient to be transferred to [facility] for further evaluation and care of GI bleed, and severe blood loss anemia. Pending Studies at Discharge: Yes Studies:: blood cultx, urine cultx Stand-Alone Forms: [facility] Skilled Items Patient informed of condition?: Yes DNR: Yes Discharge Level of Care: Other Communicable Disease: No Discharge Prognosis: Other Lines: Peripheral IV Urinary Catheter: No Medications and DC Order Prescriptions: Continued calcium carb-mag ox-zinc gluc 333-133-5 mg tablet 1 tab PO DAILY fexofenadine [Lluvia Allergy] 180 mg Tablet 180 mg PO DAILY PRN (Reason: WHEN GETS ALLERGY SHOTS) montelukast 10 mg tablet 10 mg PO QAM epinephrine [EpiPen] 0.3 mg/0.3 mL Auto-Injector 0.3 mg IM Q3H PRN (Reason: Allergic Reaction) cholecalciferol (vitamin D3) [Vitamin D3] 125 mcg (5,000 unit) tablet 2,000 unit PO QAM azelastine 137 mcg (0.1 %) spray,non-aerosol 2 spray INTRANASAL DAILY multivitamin with iron Tablet 1 tab PO DAILY ketoconazole 2 % shampoo 1 applic TOPICAL [id number] Immune Essentials Daily 750 mcg-150 mg- 31.25 mcg Capsule 1 cap PO DAILY Nurtec ODT 75 mg tablet,disintegrating 75 mg PO DAILY PRN (Reason: Migraine Headache) Rx Instructions: take one qd prn migraine, limit 3 days / week acidophilus-pectin, citrus 100 million cell-10 mg Capsule 1 cap PO DAILY Held aspirin 81 mg Tablet,Delayed Release (Dr/Ec) 81 mg PO QAM Hold Instructions: Resume on 03/03/25. discuss w/ your doctor if/when you should resume this Patient Comments: Currently on hold until 03/03/25 per patient. Original Directions: 81mg by mouth once daily - 03/01/25 Vass-3 350 mg-235 mg- 90 mg-597 mg Capsule,Delayed Release(Dr/Ec) 1 cap PO QAM Hold Instructions: Resume on 03/03/25. discuss w/ your doctor if/when you should resume this No Action metformin 500 mg tablet 500 mg PO QAM omeprazole 40 mg capsule,delayed release(DR/EC) 40 mg PO BID nadolol 40 mg Tablet 40 mg PO QAM Qty: 30 0RF ferrous sulfate [Feosol] 325 mg (65 mg iron) tablet 325 mg PO DAILY Qty: 30 0RF spironolactone [Aldactone] 50 mg tablet 50 mg PO DAILY Qty: 30 0RF Discharge Orders: Discharge Order (Routine); Ordered 02/24/25 Ordered By: Fam Riley Admission Data Admit Date/Time: 02/23/25 22:27 Attending Provider: Fam Riley Admit Provider: Klaus Manuel Primary Care Provider: Alex Diamond Other Providers: Klaus Manuel; Neel Owusu; Mary Pickett; Liu Key Other Interventions: Discharge Summary Assessment (RN) Last Done: 02/25/25 00:39
--- NOTE | 2025-02-25 09:39 | Communication Note ---
Date of Service: February 25, 2025 Called and notified at [facility] that Pritesh Rendon stool biofire was positive for EPEC and urine cultures growing streptococcus mitis/oralis grp
== END 2025-02-25 00:40 | disposition short-term general hospital (02) | DRG 378 ==
LOC: ED 19:07 → 2E 22:27

== ENCOUNTER 2025-03-01 10:45 | Inpatient (IN) ==
--- NOTE | 2025-03-01 11:18 | Emergency Department Note ---
Impression & Plan GI bleeding, Symptomatic anemia, Superficial venous thrombosis of arm, Transaminitis ED Provider Note CHIEF COMPLAINT: Infection HISTORY OF PRESENTING ILLNESS: The patient is a 59-year-old male who arrives to the emergency department for evaluation of right arm pain. The patient was recently discharged from [facility] in [place] post endoscopy for upper GI bleed. The patient is concerned for thrombus in the right AC from peripheral IV insertion. He states he is also having pain in his right lower calf. He also states he is currently having a migraine headache, that is consistent with his previous migraine pattern. He reports slight left-sided chest pain, with radiation into the left shoulder and the left neck. The patient states he was informed he would need a blood transfusion for his low hemoglobin, due to the upper GI bleed, however his family is Gnosticism, and he declined transfusion. Patient is slightly tachycardic, afebrile, with stable vital signs otherwise. REVIEW OF SYSTEMS: See HPI for pertinent positives and pertinent negatives. ALLERGIES: See below MEDICATIONS: See below PAST MEDICAL HISTORY: See below PHYSICAL EXAM: VITALS: Vitals are noted on the nurse's note and reviewed by myself. Tachycardia, normotensive. GENERAL: 59-year-old male, in no acute distress, nondiaphoretic, obese. SKIN: Pallor noted, no ecchymosis. Erythema, with warmth noted to the right antecubital region. HEAD: Normocephalic atraumatic. EYES: Pupils equal round and reactive to light and accommodation. Conjunctivae without injection, sclerae without icterus. Extraocular movements intact. MOUTH: Mucous membranes moist. Tonsils are not enlarged. Pharynx without erythema or exudate. Uvula midline. Airway patent. Tongue does not deviate. NECK: Supple without nuchal rigidity. No lymphadenopathy. HEART: Regular rate and rhythm without murmurs gallops or rubs. LUNGS: Clear to auscultation bilaterally without wheezes, rales or rhonchi. No retractions or accessory muscle use. ABDOMEN: Positive bowel sounds x 4. Soft, right upper quadrant tenderness to palpation, no rebound tenderness or guarding. MUSCULOSKELETAL: Tenderness to palpation right posterior calf, no warmth, no edema, no new erythema noted. Tenderness to palpation right antecubital region, palpable firmness noted, extending above and below the IV insertion site, warmth, erythema noted. NEURO: Patient was alert and oriented to person place and time. No focal neurological deficits. DIFFERENTIAL DIAGNOSIS: Cardiac ischemia, aortic dissection, pulmonary embolism, pneumothorax, pneumonia, pericarditis, myocarditis, esophageal rupture, GERD, cholecystitis, pancreatitis, musculoskeletal, DVT, superficial venous thrombus, thrombophlebitis, migraine, infections, diverticulitis, UTI, obstruction, mesenteric ischemia, aortic pathology, inflammatory bowel disease, renal colic, PUD, pancreatitis, biliary pathology, hernia, volvulus, constipation, as well as other pathologies. ED COURSE AND MEDICAL DECISION MAKING: HISTORY FROM INDEPENDENT HISTORIAN: at bedside serving as secondary historian. MEDICATIONS GIVEN: 1 L NSS bolus, 1 g IV acetaminophen, 5 mg IV Compazine, 10 mg IV dexamethasone, 25 mg IV Benadryl. MONITOR: Continuous vehicle monitor technician: Order was placed for continuous vehicle monitor technician. Patient was placed on the vehicle monitor technician and continuous pulse ox. Patient was noted to be in normal sinus rhythm at an initial rate of 93 bpm per my interpretation. EKG: EKG was interpreted by myself as NSR at a rate of 86 bpm, no ST elevation or depression. No concerning signs of ischemia. EKG from February 24, 2025 shows no significant change. INTERPRETATION OF LABS: I interpreted the labs with full lab results as below in the lab section of this note. Pertinent lab results discussed in the MDM section below. INTERPRETATION OF IMAGING: Imaging studies were interpreted by myself and read by radiology as per the imaging section of this note. EXTERNAL RECORDS REVIEWED: Records reviewed from [facility]. CHRONIC MEDICAL/SOCIAL CONDITIONS AFFECTING CARE: Upper GI bleed, anemia, history Gnosticism. CONSULTATIONS: I spoke with Dr. Sierra, from GI, who stated he was agreeable to consulting the patient post admission. MDM SUMMARY: The patient is a pleasant, 59-year-old male who arrives to the emergency department for evaluation of the above-stated complaint. A saline lock was established, CBC, CMP, PT/INR, PTT, CMP were obtained. CBC shows no leukocytosis, chronic anemia, however slightly improved from 6.1-7.5 from previous visit on 02/24. PT/INR, PTT within normal limits. CMP shows elevated blood glucose at 279, slight hypocalcemia at 8.5, with a transaminitis present. The patient did have right upper quadrant tenderness to palpation on examination, therefore right upper quadrant ultrasound imaging was obtained. Ultrasound imaging per my interpretation shows dilation of the common bile duct up to 1.3 cm, with recommended follow-up MRCP. Gallbladder is normal. Ultrasound imaging of the right upper and right lower extremity were obtained which shows a 5 cm superficial venous thrombus within the right cephalic vein from the antecubital fossa through the mid forearm, no DVT noted on upper or lower extremity imaging. Chest x-ray obtained per my interpretation shows no acute cardiopulmonary process. EKG interpreted as above. Patient was having migraine symptoms, and provided a migraine cocktail which was successful in alleviating his symptoms. I spoke to Dr. Sierra from GI, who agreed to evaluate the patient during his admission. The patient will have MRCP imaging, and ERCP if indicated. Dr. Sierra stated the patient's low hemoglobin, and hesitancy to have blood transfusion may impact his ability to have an ERCP performed, however he will evaluate that if needed. The patient does follow with [facility] on an outpatient basis, and was admitted to the [facility] hospitalist group. Dr. Soria was informed of the patient workup, and was agreeable to admitting the patient with GIs consultation. Please refer to their documentation for further patient workup and care. DIAGNOSIS: Superficial venous thrombus, transaminitis, GI bleed, anemia The chart was completed utilizing [employer] Speech voice recognition software. Grammatical errors, random word insertions, pronoun errors, and incomplete sentences are an occasional consequence of this system due to software limitations, ambient noise, and hardware issues. Any formal questions or concerns about the content, text, or information contained within the body of this dictation should be directly addressed to the provider for clarification. The patient's case was discussed with Dr. He, who agreed with my evaluation and treatment plan. Past Med/Surg History Problem List Elevated LFTs Common bile duct dilatation Encounter for assessment of healthcare decision-making capacity GI bleeding Chest pain at rest Symptomatic anemia (Acute) Basilar migraine Migraine with vertigo Headache (Acute) Vertigo (Acute) CAD (coronary artery disease) Asthma (Chronic) GERD (gastroesophageal reflux disease) (Chronic) Pulmonary nodules (Chronic) Noted on CT chest 03/08/19, multiple, larges 7 mm. Follow-up CT 6-12 months per Fleischner Society guidelines Medical History Patent foramen ovale Renal calculi CT 07/03/18 Coronary artery disease nonocclusive disease per cardiac CT 2013 Post concussion syndrome Surgical History History of sinus surgery Family History Mother Osteoporosis Father Hypertension Stroke suspected intracranial aneurysm Social History Smoking Status: Never smoker Second Hand Exposure: No; Do You Dip or Chew Tobacco: No; Hx Alcohol Use: No Hx Substance Use: No Preferred Language: Malay Communication Ability: Effective Physical Medicine Specialist Required: No Beliefs That Will Affect Care: None Current Living Situation: Spouse Feels Safe at Home: Yes Safety Concerns: Feels Safe At This Time Assistive Devices: CPAP, Denture - Upper, Denture - Lower and Glasses Allergies Allergies Allergy/AdvReac Type Severity Reaction Status Date / Time bee venom protein (honey bee) Allergy Severe Anaphylaxis Verified 03/01/25 14:52 mold Allergy Intermediate sneezing,watery Verified 03/01/25 14:52 eyes, runny nose Penicillins Allergy Intermediate Hives Verified 03/01/25 14:52 rizatriptan [From Maxalt] AdvReac Severe Chest Pain Verified 03/01/25 14:52 Iodinated Contrast Media AdvReac Intermediate ITCHING Verified 03/01/25 14:52 valproic acid AdvReac Intermediate PANIC Verified 03/01/25 14:52 ATTACKS Dust Allergy Intermediate sneezing,watery Uncoded 03/01/25 14:52 eyes, runny nosed Home Meds Home Medications Medication Instructions Recorded Confirmed aspirin 81 mg tablet,delayed 0 mg PO QAM 07/03/18 03/01/25 release epinephrine 0.3 mg/0.3 mL 0.3 mg IM Q3H PRN Allergic Reaction 07/03/18 03/01/25 injection, auto-injector (EpiPen) fexofenadine 180 mg tablet 180 mg PO DAILY PRN WHEN GETS 07/03/18 03/01/25 (Lluvia Allergy) ALLERGY SHOTS montelukast 10 mg tablet 10 mg PO QAM 07/03/18 03/01/25 omega 3 350 mg-dha 235 mg-epa 90 1 cap PO QAM 07/03/18 03/01/25 mg-fish oil 597 mg capsule,delay rel ([place] [facility]-3) calcium 333 mg 1 tab PO DAILY 12/28/22 03/01/25 (carbonate)-magnesium 133 mg (oxide)-zinc 5 mg tablet cholecalciferol (vitamin D3) 125 2,000 unit PO QAM 12/28/22 03/01/25 mcg (5,000 unit) tablet (Vitamin D3) acidophilus 100 million 1 cap PO DAILY 02/23/25 03/01/25 cell-pectin, citrus 10 mg capsule azelastine 137 mcg (0.1 %) nasal 2 spray intranasal DAILY 02/23/25 03/01/25 spray ketoconazole 2 % shampoo 1 applic topical 3XWK 02/23/25 03/01/25 multivitamin with iron 1 tab PO DAILY 02/23/25 03/01/25 rimegepant 75 mg disintegrating 75 mg PO DAILY PRN Migraine 02/23/25 03/01/25 tablet (Nurtec ODT) Headache vit A 750 mcg-vit C 150 mg-D3 1 cap PO DAILY 02/23/25 03/01/25 31.25 [id number]-quercet capsule (Immune Essentials Daily) metformin 500 mg tablet 500 mg PO QAM 03/01/25 03/01/25 omeprazole 40 mg capsule,delayed 40 mg PO BID 03/01/25 03/01/25 release Results & Data (ED) Vital Signs Vital Signs - 24 hr 03/01/25 11:09 03/01/25 11:16 03/01/25 11:44 Temperature 36.5 C Temperature Source Temporal Artery Scan Pulse Rate 93 H Pulse Rate [Left Apical] 86 Pulse Rhythm [Left Apical] Pulse Strength [Left Apical] Respiratory Rate 16 18 Respiratory Effort / Characteristics Non-Labored Spontaneous Non-Labored Spontaneous Respiratory Depth Normal Normal Respiratory Pattern Regular Blood Pressure 129/68 Blood Pressure [Left Arm] 125/71 Blood Pressure Mean 88 Blood Pressure Mean [Left Arm] 89 Blood Pressure Position [Left Arm] Pulse Oximetry 98 97 Oxygen Delivery Method Room Air Room Air Sepsis Recent Fever Within 48 Hours No Sepsis New/Unexplained Change in Mental Status N/A Sepsis Action Taken by Nursing No Action Required 03/01/25 12:00 03/01/25 12:42 03/01/25 13:03 Temperature Temperature Source Pulse Rate 83 80 Pulse Rate [Left Apical] 87 Pulse Rhythm [Left Apical] Pulse Strength [Left Apical] Respiratory Rate 17 19 19 Respiratory Effort / Characteristics Non-Labored Spontaneous Respiratory Depth Normal Respiratory Pattern Regular Blood Pressure 123/76 137/75 Blood Pressure [Left Arm] 129/74 Blood Pressure Mean 91 95 Blood Pressure Mean [Left Arm] 92 Blood Pressure Position [Left Arm] Pulse Oximetry 97 96 95 Oxygen Delivery Method Room Air Room Air Room Air Sepsis Recent Fever Within 48 Hours Sepsis New/Unexplained Change in Mental Status Sepsis Action Taken by Nursing 03/01/25 13:33 03/01/25 14:03 03/01/25 14:15 Temperature Temperature Source Pulse Rate 81 79 Pulse Rate [Left Apical] Pulse Rhythm [Left Apical] Pulse Strength [Left Apical] Respiratory Rate 12 16 Respiratory Effort / Characteristics Respiratory Depth Respiratory Pattern Blood Pressure 123/75 Blood Pressure [Left Arm] 128/78 Blood Pressure Mean 91 Blood Pressure Mean [Left Arm] 94 Blood Pressure Position [Left Arm] Pulse Oximetry 93 94 Oxygen Delivery Method Room Air Room Air Sepsis Recent Fever Within 48 Hours Sepsis New/Unexplained Change in Mental Status Sepsis Action Taken by Nursing 03/01/25 14:30 03/01/25 16:00 Temperature Temperature Source Pulse Rate 80 Pulse Rate [Left Apical] 79 Pulse Rhythm [Left Apical] Regular Pulse Strength [Left Apical] Normal Respiratory Rate 16 22 Respiratory Effort / Characteristics Non-Labored Spontaneous Respiratory Depth Normal Respiratory Pattern Regular Blood Pressure Blood Pressure [Left Arm] 137/79 Blood Pressure Mean Blood Pressure Mean [Left Arm] 98 Blood Pressure Position [Left Arm] Semi-fowlers Pulse Oximetry 96 95 Oxygen Delivery Method Room Air Room Air Sepsis Recent Fever Within 48 Hours Sepsis New/Unexplained Change in Mental Status Sepsis Action Taken by [facility] Medications Current Medication List: was personally reviewed by me Laboratory Data Attestation: I reviewed the patient's lab results. 03/01/25 11:40 03/01/25 11:40 Lab Results 03/01/25 03/01/25 03/01/25 Range/Units 11:40 12:57 16:13 WBC 6.24 (4.8-10.8) K/ul RBC 2.54 L (4.70-6.10) M/uL Hgb 7.5 L (14.0-18.0) g/dl Hct 25.1 L (42.0-52.0) % MCV 98.8 (80.0-100.0) fL MCH 29.5 (25.0-34.0) pg MCHC 29.9 L (32.0-36.0) g/dL RDW Std Deviation 65.4 H (36.4-46.3) fL RDW Coeff of Daily 19.3 H (11.5-14.5) % Plt Count 161 (130-400) K/uL MPV 11.5 (9.4-12.4) fL Immature Gran % (Auto) 1.3 % Neut % (Auto) 58.4 % Lymph % (Auto) 26.0 % Swain % (Auto) 9.5 % Eos % (Auto) 4.0 % Baso % (Auto) 0.8 % Neut # (Auto) 3.65 (1.40-6.50) K/uL Lymph # (Auto) 1.62 (1.20-3.40) K/uL Swain # (Auto) 0.59 (0.11-0.59) K/uL Eos # (Auto) 0.25 (0.00-0.50) K/uL Baso # (Auto) 0.05 (0.00-0.20) K/uL Immature Gran # (Auto) 0.08 (0.01-0.20) K/uL Polychromasia 1+ Anisocytosis Present PT 11.7 (9.0-12.0) Seconds INR 1.1 (0.9-1.1) APTT 26 (21-31) Seconds PTT Ratio 1.0 Sodium 136 (136-145) mmol/L Potassium 3.9 (3.5-5.1) mmol/L Chloride 105 (98-107) mmol/L Carbon Dioxide 25 (21-32) mmol/L Anion Gap 6 (3-11) BUN 7 (6-23) mg/dl Creatinine 0.75 (0.6-1.4) mg/dl Est Cr Clr Drug Dosing 125.5 ml/min eGFR 102.67 BUN/Creatinine Ratio 9.3 L (10-20) Glucose 279 H (70-99(Fasting)) mg/dl POC Glucose 189 H (70-99) mg/dl Calcium 8.5 L (8.6-10.3) mg/dl Total Bilirubin 0.5 (0.2-1.0) mg/dl AST 69 H (13-39) U/L ALT 61 H (7-52) U/L Alkaline Phosphatase 143 H (34-104) U/L Troponin I High Sens 5.2 (0-20) pg/ml Total Protein 6.2 (6.0-8.3) gm/dl Albumin 3.3 L (3.4-5.0) gm/dl Globulin 2.9 (2.5-4.0) gm/dl Albumin/Globulin Ratio 1.1 (0.9-2) Lipase 27 (11-82) U/L Urine Color Yellow Urine Appearance Clear (Clear) Urine pH 6.5 (4.5-7.5) Ur Specific [place] 1.006 (1.000-1.030) Urine Protein Negative (Negative) Urine Glucose (UA) 2+ H (Negative) Urine Ketones Negative (Negative) Urine Blood Negative (Negative) Urine Nitrite Negative (Negative) Urine Bilirubin Negative (Negative) Urine Urobilinogen Negative (Negative) Ur Leukocyte Esterase Negative (Negative) Urine Comment Blood Type A Positive Antibody Screen NEGATIVE 03/01/25 Range/Units 17:14 WBC (4.8-10.8) K/ul RBC (4.70-6.10) M/uL Hgb (14.0-18.0) g/dl Hct (42.0-52.0) % MCV (80.0-100.0) fL MCH (25.0-34.0) pg MCHC (32.0-36.0) g/dL RDW Std Deviation (36.4-46.3) fL RDW Coeff of Daily (11.5-14.5) % Plt Count (130-400) K/uL MPV (9.4-12.4) fL Immature Gran % (Auto) % Neut % (Auto) % Lymph % (Auto) % Swain % (Auto) % Eos % (Auto) % Baso % (Auto) % Neut # (Auto) (1.40-6.50) K/uL Lymph # (Auto) (1.20-3.40) K/uL Swain # (Auto) (0.11-0.59) K/uL Eos # (Auto) (0.00-0.50) K/uL Baso # (Auto) (0.00-0.20) K/uL Immature Gran # (Auto) (0.01-0.20) K/uL Polychromasia Anisocytosis PT (9.0-12.0) Seconds INR (0.9-1.1) APTT (21-31) Seconds PTT Ratio Sodium (136-145) mmol/L Potassium (3.5-5.1) mmol/L Chloride (98-107) mmol/L Carbon Dioxide (21-32) mmol/L Anion Gap (3-11) BUN (6-23) mg/dl Creatinine (0.6-1.4) mg/dl Est Cr Clr Drug Dosing ml/min eGFR BUN/Creatinine Ratio (10-20) Glucose (70-99(Fasting)) mg/dl POC Glucose (70-99) mg/dl Calcium (8.6-10.3) mg/dl Total Bilirubin (0.2-1.0) mg/dl AST (13-39) U/L ALT (7-52) U/L Alkaline Phosphatase (34-104) U/L Troponin I High Sens 4.3 (0-20) pg/ml Total Protein (6.0-8.3) gm/dl Albumin (3.4-5.0) gm/dl Globulin (2.5-4.0) gm/dl Albumin/Globulin Ratio (0.9-2) Lipase (11-82) U/L Urine Color Urine Appearance (Clear) Urine pH (4.5-7.5) Ur Specific [place] (1.000-1.030) Urine Protein (Negative) Urine Glucose (UA) (Negative) Urine Ketones (Negative) Urine Blood (Negative) Urine Nitrite (Negative) Urine Bilirubin (Negative) Urine Urobilinogen (Negative) Ur Leukocyte Esterase (Negative) Urine Comment Blood Type Antibody Screen Administered Medications Discontinued Medications Dexamethasone Sodium Phosphate (DexamethasonePf 10 Mg/Ml Vial) 10 mg IV NOW ONE Stop: 03/01/25 11:32 Last Admin: 03/01/25 11:51 Dose: 10 mg Documented By: [facility] Diphenhydramine HCl (Diphenhydramine 50 Mg/Ml Vial) 25 mg IV NOW STA Stop: 03/01/25 11:32 Last Admin: 03/01/25 11:51 Dose: 25 mg Documented By: MACY Sodium Chloride (Nss) 500 mls @ 999 mls/hr IV .Q31M ONE Stop: 03/01/25 12:01 Last Infusion: 03/01/25 12:42 Dose: Infused Documented By: Admin: 03/01/25 11:50 Dose: 999 mls/hr Documented By: MACY Prochlorperazine (Compazine) 1 mls @ 1 mls/min IV ONE ONE Stop: 03/01/25 11:32 Last Admin: 03/01/25 11:50 Dose: 1 mls/min Documented By: MACY Acetaminophen (Ofirmev) 1,000 mg in 100 mls @ 400 mls/hr IV NOW STA Stop: 03/01/25 11:45 Last Infusion: 03/01/25 12:11 Dose: Infused Documented By: Admin: 03/01/25 11:51 Dose: 400 mls/hr Documented By: MACY Imaging Data Attestation: I personally reviewed and interpreted this imaging study as follows: Radiologist's Impression: Venous Doppler Study 03/01/25 11:18 US venous doppler LE RT HISTORY: r/o dvt COMPARISON: 04/14/2022 TECHNIQUE: Multiple real-time sonographic images of the right lower extremity deep venous structures were obtained assessing grayscale appearance, color and spectral flow. FINDINGS: No evidence of DVT seen at the right lower extremity. IMPRESSION: No DVT seen. ACT 112: Negative or not required by law. The above report was generated using voice recognition software. It may contain grammatical, syntax or spelling errors. Electronically signed by: Harshil Plaza M.D. 03/01/2025 12:42 PM Venous Doppler Study 03/01/25 11:18 ULTRASOUND RIGHT UPPER EXTREMITY VENOUS CLINICAL HISTORY: Pain. COMPARISON STUDY: None. TECHNIQUE: Real-time, grayscale, and color Doppler sonography of the deep veins of the right upper extremity is performed. Compression and augmentation were utilized. FINDINGS: There is superficial venous thrombus within the right cephalic vein from the antecubital fossa through the mid forearm measuring approximately 5 cm in length. No DVT seen at the right upper extremity. IMPRESSION: 1. No DVT seen of the right upper extremity. 2. Superficial venous thrombus at the right cephalic vein. ACT 112: Negative or not required by law. Electronically signed by: Harshil Plaza M.D. 03/01/2025 12:47 PM Chest X-Ray 03/01/25 11:31 XR chest 1V portable CLINICAL HISTORY: Chest pain, nonspecific COMPARISON STUDY: 02/23/2025 FINDINGS: Heart size and pulmonary vasculature are normal. No consolidation or pleural effusion. No pneumothorax. IMPRESSION: No acute findings. ACT 112: Negative or not required by law. Electronically signed by: Harshil Plaza M.D. 03/01/2025 12:02 PM Liver Ultrasound 03/01/25 12:23 EXAMINATION: US abdomen right upper quadrant COMPARISON: None HISTORY: Abdominal pain TECHNIQUE: The right upper quadrant of the abdomen was scanned in standard fashion with specialized ultrasound transducers using both shaver scale and limited color Doppler techniques. Findings: Liver: The liver demonstrates heterogeneous echotexture and appears somewhat nodular of contour. No evidence of a focal hepatic mass or intrahepatic biliary ductal dilatation. The main portal vein is patent with antegrade flow. Gallbladder: The gallbladder is well distended and of normal morphology. There is no wall thickening, pericholecystic fluid, sonographic Dubois's sign nor evidence for cholelithiasis. Bile Ducts: Dilated common bile duct at 1.3 cm in diameter. Pancreas: Visualized portions of the head and body of the pancreas are unremarkable. Right kidney: Normal echotexture, without mass or hydronephrosis. Right kidney craniocaudal dimension: 13.1 cm Fluid: There is ascites seen in all 4 quadrants. Impression: 1. Heterogeneous echotexture of the liver, and a somewhat nodular contour is appreciated, suspicious for cirrhosis. 2. Ascites. 3. Dilated common bile duct up to 1.3 cm. Recommend follow-up MRCP. 4. Normal gallbladder. Electronically signed by Bhargav Palafox 03-01-2025 2:12 PM Discharge Plan Visit Data Chief Complaint: Infection Stated Complaint: IV SITE SORE, STIFF, HIGH HEART RATE ED Provider: Anil He ED Midlevel Provider: Mary Romo Discharge Problem: GI bleeding, Symptomatic anemia, Superficial venous thrombosis of arm, Transaminitis Patient Disposition: Admitted As Inpatient Condition: Fair Forms Stand Alone Forms: [facility] [employer] Prescriptions Prescriptions: No Action calcium carb-mag ox-zinc gluc 333-133-5 mg tablet 1 tab PO DAILY fexofenadine [Lluvia Allergy] 180 mg Tablet 180 mg PO DAILY PRN (Reason: WHEN GETS ALLERGY SHOTS) aspirin 81 mg Tablet,Delayed Release (Dr/Ec) 0 mg PO QAM Hold Instructions: Resume on 03/03/25. discuss w/ your doctor if/when you should resume this Patient Comments: Currently on hold until 03/03/25 per patient. Original Directions: 81mg by mouth once daily - 03/01/25 montelukast 10 mg tablet 10 mg PO QAM epinephrine [EpiPen] 0.3 mg/0.3 mL Auto-Injector 0.3 mg IM Q3H PRN (Reason: Allergic Reaction) [place] [facility]-3 350 mg-235 mg- 90 mg-597 mg Capsule,Delayed Release(Dr/Ec) 1 cap PO QAM Hold Instructions: Resume on 03/03/25. discuss w/ your doctor if/when you should resume this cholecalciferol (vitamin D3) [Vitamin D3] 125 mcg (5,000 unit) tablet 2,000 unit PO QAM azelastine 137 mcg (0.1 %) spray,non-aerosol 2 spray INTRANASAL DAILY multivitamin with iron Tablet 1 tab PO DAILY ketoconazole 2 % shampoo 1 applic TOPICAL [id number] Immune Essentials Daily 750 mcg-150 mg- 31.25 mcg Capsule 1 cap PO DAILY Nurtec ODT 75 mg tablet,disintegrating 75 mg PO DAILY PRN (Reason: Migraine Headache) Rx Instructions: take one qd prn migraine, limit 3 days / week acidophilus-pectin, citrus 100 million cell-10 mg Capsule 1 cap PO DAILY metformin 500 mg tablet 500 mg PO QAM omeprazole 40 mg capsule,delayed release(DR/EC) 40 mg PO BID Referrals Referrals: Alex Diamond DO [Primary Care Provider] -
[2025-03-01] MEDS: PROCHLORPERAZINE 1 ML IV ONE (11:50)
[2025-03-01] MEDS: SODIUM CHLORIDE 0.9% 500 ML IV ONE (11:50)
[2025-03-01] MEDS: diphenhydrAMINE 50 MG/ML VIAL IV STA (11:51)
[2025-03-01] MEDS: dexAMETHasone**PF** 10 MG/ML VIAL IV ONE (11:51)
[2025-03-01] MEDS: ACETAMINOPHEN 1,000 MG/100 ML VIAL IV STA (11:51)
[2025-03-01 11:57] LABS: Hematocrit (blood only) 25.1 % (42.0-52.0); Hemoglobin 7.5 g/dl (14.0-18.0); Immature Granulocytes # (auto) 0.08 K/uL (0.01-0.20); Immature Granulocytes % (auto) 1.3 %; Mean Corpuscular Hemoglobin 29.5 pg (25.0-34.0); Mean Corpuscular Volume 98.8 fL (80.0-100.0); Platelet Count 161 K/uL (130-400); RDW Standard Deviation 65.4 fL (36.4-46.3); Red Blood Count 2.54 M/uL (4.70-6.10); White Blood Count 6.24 K/ul (4.8-10.8)
--- NOTE | 2025-03-01 12:03 | XRay Report ---
XR chest 1V portable CLINICAL HISTORY: Chest pain, nonspecific COMPARISON STUDY: 02/23/2025 FINDINGS: Heart size and pulmonary vasculature are normal. No consolidation or pleural effusion. No p neumothorax. IMPRESSION: No acute findings. ACT 112: Negative or not required by law. Electronically signed by: Harshil Plaza M.D. 03/01/2025 12:02 PM
[2025-03-01 12:13] LABS: Alanine Aminotransferase 61.0 U/L (7-52); Albumin Globulin Ratio 1.1 (0.9-2); Alkaline Phosphatase 143.0 U/L (34-104); Anion Gap 6.0 (3-11); Bilirubin,Total 0.5 mg/dl (0.2-1.0); Blood Urea Nitrogen 7.0 mg/dl (6-23); Calcium 8.5 mg/dl (8.6-10.3); Carbon Dioxide 25.0 mmol/L (21-32); Chloride 105.0 mmol/L (98-107); Creatinine Clr Calc Pharmacy 125.5 ml/min; Globulin 2.9 gm/dl (2.5-4.0); Glucose 279.0 mg/dl (70-99(Fasting)); Lipase 27.0 U/L (11-82); Potassium 3.9 mmol/L (3.5-5.1); Sodium 136.0 mmol/L (136-145); Total Protein 6.2 gm/dl (6.0-8.3)
[2025-03-01 12:22] LABS: INR 1.1 (0.9-1.1); Partial Thromboplastin Time 26 Seconds (21-31); Prothrombin Time 11.7 Seconds (9.0-12.0)
[2025-03-01 12:29] LABS: Anisocytosis Present; Polychromasia 1+
--- NOTE | 2025-03-01 12:43 | Ultrasound Report ---
US venous doppler LE RT HISTORY: r/o dvt COMPARISON: 04/14/2022 TECHNIQUE: Multiple real-time sonographic images of the right lower extremity deep venous structures were obtained assessing grayscale appearance, color and spectral flow. FINDINGS: No evidence of DVT seen at the right lower extremity. IMPRESSION: No DVT seen. ACT 112: Negative or not required by law. The above report was generated using voice recognition software. It may contain grammatical, syntax o r spelling errors. Electronically signed by: Harshil Plaza M.D. 03/01/2025 12:42 PM
--- NOTE | 2025-03-01 12:50 | Ultrasound Report ---
ULTRASOUND RIGHT UPPER EXTREMITY VENOUS CLINICAL HISTORY: Pain. COMPARISON STUDY: None. TECHNIQUE: Real-time, grayscale, and color Doppler sonography of the deep veins of the right upper ex tremity is performed. Compression and augmentation were utilized. FINDINGS: There is superficial venous thrombus within the right cephalic vein from the antecubital fo ssa through the mid forearm measuring approximately 5 cm in length. No DVT seen at the right upper ex tremity. IMPRESSION: 1. No DVT seen of the right upper extremity. 2. Superficial venous thrombus at the right cephalic vein. ACT 112: Negative or not required by law. Electronically signed by: Harshil Plaza M.D. 03/01/2025 12:47 PM
[2025-03-01 13:16] LABS: Appearance Urine Clear (Clear); Glucose Urine UA 2+ (Negative)
--- NOTE | 2025-03-01 14:13 | Ultrasound Report ---
EXAMINATION: US abdomen right upper quadrant COMPARISON: None HISTORY: Abdominal pain TECHNIQUE: The right upper quadrant of the abdomen was scanned in standard fashion with specialized ultrasound transducers using both shaver scale and limited color Doppler techniques. Findings: Liver: The liver demonstrates heterogeneous echotexture and appears somewhat nodular of contour. No evidence of a focal hepatic mass or intrahepatic biliary ductal dilatation. The main portal vein is patent with antegrade flow. Gallbladder: The gallbladder is well distended and of normal morphology. There is no wall thickening, pericholecystic fluid, sonographic Dubois's sign nor evidence for cholelithiasis. Bile Ducts: Dilated common bile duct at 1.3 cm in diameter. Pancreas: Visualized portions of the head and body of the pancreas are unremarkable. Right kidney: Normal echotexture, without mass or hydronephrosis. Right kidney craniocaudal dimension: 13.1 cm Fluid: There is ascites seen in all 4 quadrants. Impression: 1. Heterogeneous echotexture of the liver, and a somewhat nodular contour is appreciated, suspicious for cirrhosis. 2. Ascites. 3. Dilated common bile duct up to 1.3 cm. Recommend follow-up MRCP. 4. Normal gallbladder. Electronically signed by Bhargav Palafox 03-01-2025 2:12 PM
--- NOTE | 2025-03-01 15:13 | History & Physical Report ---
Date of Service March 01, 2025 Assessment & Plan (1) Common bile duct dilatation: (2) Elevated LFTs: Plan: 59-year-old male with history of ORTEGA cirrhosis, recent upper GI bleed secondary to portal hypertensive gastropathy and varices, acute blood loss anemia, recently diagnosed diabetes type 2, CAD, and other problems noted below presenting with right arm pain and swelling. Common bile duct dilatation with elevated LFTs Rule out choledocholithiasis versus stricture ORTEGA cirrhosis with portal hypertension, esophageal varices status post EGD at [facility] last week after presenting with melena, severe anemia EGD showed portal hypertensive gastropathy with contact oozing, grade 2 esophageal varices (+) RUQ tenderness during ER assessment Afebrile, no leukocytosis Liver US: 1. Heterogeneous echotexture of the liver, and a somewhat nodular contour is appreciated, suspicious for cirrhosis. 2. Ascites. 3. Dilated common bile duct up to 1.3 cm. Recommend follow-up MRCP. 4. Normal gallbladder. MRCP ordered GI consulted NPO for now Episode of Chest pain History of nonobstructive CAD Chest pain has resolved in the ER, did not receive any nitro Patient reports palpitations and dizzy on minimal exertion at home, denies having chest pain at home Troponin x 1 negative, 2nd and 3rd sets ordered EKG no signs of acute ischemia or infarct also presented with chest pain during last week's admission at [facility], evaluated by cardiology service, underwent echocardiogram, felt to be atypical chest pain secondary to severe anemia, patient strongly declined blood transfusion due to personal beliefs Headache, dizziness, neck pain mostly resolving has history of migraine check CT head, Carotid Duplex Superficial venous thrombosis Right cephalic vein From IV insertion site No signs of infection Monitor for now Severe anemia secondary to Acute blood loss secondary to recent upper GI bleed Iron deficiency hemoglobin around 5-6 during last week's admission Strongly declined blood transfusions despite extensive discussion Patient given IV iron, EPO during admission to [facility] Hemoglobin currently 7.5 Patient still declining blood transfusion Diabetes type 2 Diagnosed last week, A1c 10 Discharged on metformin Insulin sliding scale for now, with pharmacy glycemic control consult Obstructive sleep apnea Continue CPAP Asthma Continue inhalers DVT prophylaxis SCDs for now DNR as per patient Disposition Lives with family at home History of Present Illness Primary Care Provider: Alex Diamond DO 59-year-old male with history of ORTEGA cirrhosis, recent upper GI bleed secondary to portal hypertensive gastropathy and varices, acute blood loss anemia, recently diagnosed diabetes type 2, CAD, and other problems noted below presenting with right arm pain and swelling. Patient was recently admitted to [facility] then transferred to [facility] 5 days ago after presenting with melena, severe anemia and subsequently undergoing EGD which showed portal hypertension gastropathy with oozing and grade 2 esophageal varices. His hemoglobin was 6 but patient strongly declined to receive blood transfusions due to personal beliefs. he was seen by blood management service and was administered IV iron, EPO, etc. He was also found to have newly diagnosed diabetes type 2 A1c of 10 and was discharged on metformin. Since discharge, the patient still reports persistent fatigue and also experiences palpitations and dyspnea with minimal exertion. He denies having any chest pain. He also noted progressive pain and swelling over the right arm, antecubital fossa region, site of IV insertion. he denies fevers or chills. He presented to the ER today to be evaluated for the right arm pain and swelling. At the ER, patient received with stable vital signs overall, afebrile. Venous Doppler study of the right arm revealed a superficial thrombus in the cephalic vein. patient was reporting pain over the right calf but venous Doppler study of the right lower extremity was negative for DVT. He was reporting headache reminiscent of his migraine, and neck pain as well. He was given Benadryl, Decadron and Tylenol IV. While at the ER, patient reported left sided chest pain as well. Troponin negative, EKG no signs of acute ischemia or infarct. He also experienced tenderness over the right upper quadrant during exam. right upper quadrant ultrasound showed dilation of the common bile duct and nodular shape of the liver. AST ALT, Alk phos mildly elevated, bilirubin normal. ER discussed with the GI car sales consultant Dr. Cuate Sierra who agreed to have the patient be admitted for further evaluation and management. On my exam, patient seen at the MRI suite. Resting in bed, comfortable, not in distress. Patient denies active abdominal pain or nausea during my exam. reports chest pain has resolved, no active shortness of breath. Reports headache, dizziness, neck pain mostly resolving as well. Allergies Allergy/AdvReac Type Severity Reaction Status Date / Time bee venom protein (honey bee) Allergy Severe Anaphylaxis Verified 03/01/25 14:52 mold Allergy Intermediate sneezing,watery Verified 03/01/25 14:52 eyes, runny nose Penicillins Allergy Intermediate Hives Verified 03/01/25 14:52 rizatriptan [From [facility]] AdvReac Severe Chest Pain Verified 03/01/25 14:52 Iodinated Contrast Media AdvReac Intermediate ITCHING Verified 03/01/25 14:52 valproic acid AdvReac Intermediate PANIC Verified 03/01/25 14:52 ATTACKS Dust Allergy Intermediate sneezing,watery Uncoded 03/01/25 14:52 eyes, runny nosed Home Medications Medication Instructions Recorded Confirmed Type aspirin 81 mg tablet,delayed 81 mg PO QAM 07/03/18 03/01/25 History release epinephrine 0.3 mg/0.3 mL 0.3 mg IM Q3H PRN Allergic Reaction 07/03/18 03/01/25 History injection, auto-injector (EpiPen) fexofenadine 180 mg tablet 180 mg PO DAILY PRN WHEN GETS 07/03/18 03/01/25 History (Lluvia Allergy) ALLERGY SHOTS montelukast 10 mg tablet 10 mg PO QAM 07/03/18 03/01/25 History omega 3 350 mg-dha 235 mg-epa 90 1 cap PO QAM 07/03/18 03/01/25 History mg-fish oil 597 mg capsule,delay rel ([place]-3) calcium 333 mg 1 tab PO DAILY 12/28/22 03/01/25 History (carbonate)-magnesium 133 mg (oxide)-zinc 5 mg tablet cholecalciferol (vitamin D3) 125 2,000 unit PO QAM 12/28/22 03/01/25 History mcg (5,000 unit) tablet (Vitamin D3) acidophilus 100 million 1 cap PO DAILY 02/23/25 03/01/25 History cell-pectin, citrus 10 mg capsule azelastine 137 mcg (0.1 %) nasal 2 spray intranasal DAILY 02/23/25 03/01/25 History spray ketoconazole 2 % shampoo 1 applic topical 3XWK 02/23/25 03/01/25 History multivitamin with iron 1 tab PO DAILY 02/23/25 03/01/25 History rimegepant 75 mg disintegrating 75 mg PO DAILY PRN Migraine 02/23/25 03/01/25 History tablet (Nurtec ODT) Headache vit A 750 mcg-vit C 150 mg-D3 1 cap PO DAILY 02/23/25 03/01/25 History 31.25 qzi-vudu-uwfnzlzpo-quercet capsule (Immune Essentials Daily) metformin 500 mg tablet 500 mg PO QAM 03/01/25 03/01/25 History omeprazole 40 mg capsule,delayed 40 mg PO BID 03/01/25 03/01/25 History release Past Med/Surg History Problem List Elevated LFTs Common bile duct dilatation Encounter for assessment of healthcare decision-making capacity GI bleeding Chest pain at rest Symptomatic anemia (Acute) Basilar migraine Migraine with vertigo Headache (Acute) Vertigo (Acute) CAD (coronary artery disease) Asthma (Chronic) GERD (gastroesophageal reflux disease) (Chronic) Pulmonary nodules (Chronic) Noted on CT chest 03/08/19, multiple, larges [address] mm[address] Follow-up CT 6-12 months per Fleischner Society guidelines Medical History Patent foramen ovale Renal calculi CT 07/03/18 Coronary artery disease nonocclusive disease per cardiac CT 2013 Post concussion syndrome Surgical History History of sinus surgery Family History Mother Osteoporosis Father Hypertension Stroke suspected intracranial aneurysm Social History Smoking Status: Never smoker Second Hand Exposure: No; Do You Dip or Chew Tobacco: No; Hx Alcohol Use: No Hx Substance Use: No Preferred Language: Vietnamese Communication Ability: Effective Motorcyles Final Inspector Required: No Beliefs That Will Affect Care: None Current Living Situation: Spouse Feels Safe at Home: Yes Safety Concerns: Feels Safe At This Time Assistive Devices: CPAP, Denture - Upper, Denture - Lower and Glasses Review of Systems Review of Systems: all noted and negative except for above Physical Exam Physical Exam: General- oriented x 3, not in distress, speaks in sentences with no effort or accessory muscle use Head- atraumatic Eyes- PERRL, EOMI, anicteric (+) pale Conjunctivae ENT- oropharynx clear Neck- supple, no JVD, no adenopathy, no thyromegaly; carotids +2/2, no bruits appreciated Lungs- clear to auscultation bilaterally, no rales/wheezes Heart- normal rate, regular rhythm; no murmur, no gallop, no rub appreciated Abdomen- normal bowel sounds, nondistended, soft, nontender, no masses or hepatosplenomegaly Extremities- R upper arm: no edema small area of faint hematoma near the antecubital fossa, No warmth, tenderness no pretibial edema, no calf tenderness; peripheral pulses intact Neuro- alert, oriented x 3; CN 2-12 grossly intact; motor 5/5 bilaterally;sensation 100% on all extremities; no other gross focal neurologic deficits Skin- warm & dry Results & Data Results & Data Vital Signs (Past 12 Hours) Vital Signs Temp Pulse Pulse Resp BP BP Pulse Ox 03/01/25 14:30 80 16 96 03/01/25 14:15 79 16 94 03/01/25 14:03 128/78 03/01/25 13:33 81 12 123/75 93 03/01/25 13:03 80 19 137/75 95 03/01/25 12:42 83 19 123/76 96 03/01/25 12:00 87 17 129/74 97 03/01/25 11:44 86 18 97 03/01/25 11:16 125/71 03/01/25 11:09 36.5 C 93 H 16 129/68 98 O2 Del Method 03/01/25 14:30 Room Air 03/01/25 14:15 Room Air 03/01/25 14:03 03/01/25 13:33 Room Air 03/01/25 13:03 Room Air 03/01/25 12:42 Room Air 03/01/25 12:00 Room Air 03/01/25 11:44 Room Air 03/01/25 11:16 03/01/25 11:09 Room Air all noted and reviewed including below
[2025-03-01] MEDS ORDERED: GLUCOSE 10 TAB/TUBE PO PRN (16:00)
[2025-03-01] MEDS ORDERED: GLUCAGON FOR INJ 1 MG VIAL SQ PRN (16:00)
[2025-03-01] MEDS ORDERED: CARBOHYDRATES FOR HYPOGLYCEMIA PO PRN (16:00)
[2025-03-01] MEDS ORDERED: GLUCOSE 40% GEL 15 GM TUBE PO PRN (16:00)
[2025-03-01] MEDS ORDERED: DEXTROSE 50% 50 ML SYRINGE IV PRN (16:00)
[2025-03-01] MEDS ORDERED: PHARMACY GLYCEMIC MGMT CONSULT PRN (16:00)
[2025-03-01] MEDS ORDERED: ONDANSETRON INJ 2 MG/ML 2 ML VIAL IV PRN (18:11)
[2025-03-01] MEDS ORDERED: ACETAMINOPHEN 325 MG TAB PO PRN (18:11)
[2025-03-01] MEDS: SODIUM CHLORIDE 0.9% 1,000 ML IV SCH (18:40)
[2025-03-01] MEDS: INSULIN ASPART PER UNIT CHARGE SC SCH (18:40)
[2025-03-01] MEDS ORDERED: Nursing to Pharmacy Communication SCH (19:00)
--- NOTE | 2025-03-01 19:03 | Magnetic Resonance Report ---
MRCP Without Contrast CLINICAL HISTORY: Dilated CBD on ultrasound TECHNIQUE: T2-weighted MRCP images were acquired without intravenous gadolinium contrast through the upper abdomen. Comparison study: Same-day ultrasound FINDINGS: Biliary Tree: No biliary ductal dilatation. Pancreas: No pancreatic duct dilatation. No visualized cyst. Liver: Nodular contour. Enlarged measuring 19 cm craniocaudal. Gallbladder: Mild pericholecystic fluid is nonspecific in the setting of intrinsic liver disease. No gallstones. Spleen: Enlarged measuring 17.2 cm. Kidneys: Normal. Few small cysts. Adrenal glands: Normal Bowel: No normally dilated bowel. Lymph nodes: No pathologic lymph adenopathy. Blood vessels: No aortic aneurysm. Lung bases: Moderate right and trace left pleural effusion. Bones and soft tissues: Unremarkable Mesentery and abdominal wall: Unremarkable Ascites: Mild IMPRESSION: No biliary ductal dilatation. The structure identified on ultrasound is not the common bile duct. Cirrhotic morphology of the liver with evidence of portal hypertension, including splenomegaly, mild ascites, pleural effusions, and nonspecific pericholecystic fluid. Electronically signed by Bhargav Palafox 03-01-2025 7:01 PM
--- NOTE | 2025-03-01 23:21 | Ultrasound Report ---
Exam(s): US CAROTID EXAM: US Duplex Bilateral Extracranial Arteries CLINICAL HISTORY: Neck Pain and dizziness, concern for dissection TECHNIQUE: Real-time duplex ultrasound scan of the extracranial arteries integrating B-mode two-dimensional vascular structure, Doppler spectral analysis and color flow Doppler imaging. COMPARISON: No relevant prior studies available. FINDINGS: Right common carotid artery: The peak systolic velocity of the right common carotid artery is 79 cm/s. There is spectral broadening. No occlusion or significant stenosis on color flow and spectral Doppler imaging. Right internal carotid artery: The peak systolic velocity of the right internal carotid artery is 113 cm/s. There is spectral broadening. No occlusion or significant stenosis on color flow and spectral Doppler imaging. Right external carotid artery: Unremarkable. No occlusion or significant stenosis on color flow and spectral Doppler imaging. Right vertebral artery: Unremarkable. Antegrade flow. Right ICA/CCA ratio: The right ICA/CCA ratio is 1.4. Left common carotid artery: The peak systolic velocity of the left common carotid artery is 117 cm/s. There is spectral broadening. No occlusion or significant stenosis on color flow and spectral Doppler imaging. Left internal carotid artery: The peak systolic velocity of the left internal carotid artery is 95 cm/s. There is spectral broadening. No occlusion or significant stenosis on color flow and spectral Doppler imaging. Left external carotid artery: Unremarkable. No occlusion or significant stenosis on color flow and spectral Doppler imaging. Left vertebral artery: Unremarkable. Antegrade flow. Left ICA/CCA ratio: The left ICA/CCA ratio is 0.8. Lymph nodes: Unremarkable. No lymphadenopathy. CAROTID STENOSIS REFERENCE USING IAC CRITERIA: Mild - <50% stenosis. ICA PSV is less than 180 cm/s and plaque or intimal thickening is visible. Moderate - 50-69% stenosis. ICA PSV is 180 to 230 cm/s and plaque is visible. Severe - 70-94% stenosis. ICA PSV is more than 230 cm/s and visible plaque with lumen narrowing is seen. Near occlusion - 95-99% stenosis. ICA PSV is variable and significant plaque with luminal narrowing is seen. Occluded - 100% stenosis. No flow identified. IMPRESSION: No hemodynamically significant stenosis by ratio or velocity criteria. No evidence of dissection. Electronically signed by: Aaliyah Perez MD 03/01/25 23:20 PM
[2025-03-02] MEDS: INSULIN ASPART PER UNIT CHARGE SC SCH ×2 (00:08→11:44)
--- NOTE | 2025-03-02 01:56 | CT Scan Report ---
EXAM: CT head/brain wo con CLINICAL HISTORY: headache, dizziness. TECHNIQUE: Axial non-contrast CT scan of the brain was performed from the skull base to the high parietal region. One of the following dose reduction techniques was utilized for this exam: Automated exposure control, adjustment of the mA and/or kV according to patient size, and use of iterative reconstruction. COMPARISON: CT dated 02/23/2025. FINDINGS: Brain Parenchyma: Normal attenuation of the cerebral hemispheres, cerebellum, and brainstem. No evidence of acute infarct, hemorrhage, or mass effect. No abnormal areas of hypo- or hyperattenuation. Ventricular System: Ventricles are normal in size and configuration. No evidence of hydrocephalus or ventricular enlargement. Subarachnoid Spaces: The cortical sulci and basal cisterns are mildly prominent and consistent with senile changes. No evidence of subarachnoid hemorrhage or extra-axial fluid collections. Cerebellum and Brainstem: No masses, lesions, or areas of abnormal density. Orbits: Normal appearance of the globes, optic nerves, and extraocular muscles. No evidence of orbital masses or abnormal density. Sinuses: Mucosal thickening in the frontal sinus. The rest of the visualized sinuses are clear. Mastoid Air Cells: Clear mastoid air cells. No evidence of mastoiditis. Skull: Normal skull morphology. IMPRESSION: 1. No evidence of any acute intracranial event on this unenhanced CT examination. Further evaluation with an MRI can be considered if clinically indicated. 2. Frontal sinus mucosal disease(unchanged). 3. No interval change since the last scan. Electronically signed by Saul Nielson 03-02-2025 01:56 AM
[2025-03-02 06:16] LABS: Hematocrit (blood only) 23.2 % (42.0-52.0); Hemoglobin 7.1 g/dl (14.0-18.0); Immature Granulocytes # (auto) 0.06 K/uL (0.01-0.20); Immature Granulocytes % (auto) 0.8 %; Mean Corpuscular Hemoglobin 30.1 pg (25.0-34.0); Mean Corpuscular Volume 98.3 fL (80.0-100.0); Platelet Count 156 K/uL (130-400); RDW Standard Deviation 65.2 fL (36.4-46.3); Red Blood Count 2.36 M/uL (4.70-6.10); White Blood Count 7.81 K/ul (4.8-10.8)
[2025-03-02 06:39] LABS: Polychromasia 2+
[2025-03-02] MEDS: CHOLECALCIFEROL 25 MCG (1000 UNITS) TAB PO SCH (07:06)
[2025-03-02 07:26] LABS: Alanine Aminotransferase 48.0 U/L (7-52); Alkaline Phosphatase 119.0 U/L (34-104); Anion Gap 6.0 (3-11); Bilirubin,Total 0.5 mg/dl (0.2-1.0); Blood Urea Nitrogen 10.0 mg/dl (6-23); Calcium 8.3 mg/dl (8.6-10.3); Carbon Dioxide 25.0 mmol/L (21-32); Chloride 109.0 mmol/L (98-107); Creatinine Clr Calc Pharmacy 162.2 ml/min; Glucose 168.0 mg/dl (70-99(Fasting)); Potassium 4.2 mmol/L (3.5-5.1); Sodium 140.0 mmol/L (136-145); Total Protein 5.6 gm/dl (6.0-8.3)
--- NOTE | 2025-03-02 09:02 | Gastrointestinal Consultation ---
Date of Consultation March 02, 2025 Assessment & Plan (1) Elevated LFTs: Suspect elevated liver enzymes related to his underlying liver disease. MRI/MRCP did not show any gallbladder disease or bile duct pathology. (2) GI bleeding: Based on recent endoscopy suspect GI blood loss due to portal gastropathy from underlying cirrhosis. He also had small varices with no stigmata which would not not bleeding. Recommend starting patient on low-dose nadolol or carvedilol to reduce portal hypertension. In addition recommend daily iron. Consider consulting hematology for recommendations regarding additional options to treat his anemia in light of his aversion to blood transfusions. No indication for endoscopic intervention at this time. (3) Cirrhosis: Complicated by portal gastropathy varices and ascites. In light of his abdominal pain recommended diagnostic paracentesis to exclude SBP. History of Present Illness Reason for Consultation: Abdominal pain and cirrhosis Attending Physician: Erick Patricio MD History of Present Illness Patient presented to the emergency room with right arm pain found to have a superficial thrombosis of his right cephalic vein. He had been admitted to [facility] week ago and transferred to [place] for GI bleed. Endoscopy last week showed portal gastropathy with some spontaneous bleeding small to medium varices with no stigmata. He also was complaining of some mid abdominal pain intermittent over the last several days. 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 On imaging he has documented cirrhosis as well as ascites. He denies any melena hematochezia or change in bowel habits. No hematemesis. Patient is a [employer] adverse to blood transfusions in the past. Allergies Allergy/AdvReac Type Severity Reaction Status Date / Time bee venom protein (honey bee) Allergy Severe Anaphylaxis Verified 03/01/25 14:52 mold Allergy Intermediate sneezing,watery Verified 03/01/25 14:52 eyes, runny nose Penicillins Allergy Intermediate Hives Verified 03/01/25 14:52 rizatriptan [From Maxalt] AdvReac Severe Chest Pain Verified 03/01/25 14:52 Iodinated Contrast Media AdvReac Intermediate ITCHING Verified 03/01/25 14:52 valproic acid AdvReac Intermediate PANIC Verified 03/01/25 14:52 ATTACKS Dust Allergy Intermediate sneezing,watery Uncoded 03/01/25 14:52 eyes, runny nosed Home Medications Medication Instructions Recorded Confirmed Type aspirin 81 mg tablet,delayed 81 mg PO QAM 07/03/18 03/01/25 History release epinephrine 0.3 mg/0.3 mL 0.3 mg IM Q3H PRN Allergic Reaction 07/03/18 03/01/25 History injection, auto-injector (EpiPen) fexofenadine 180 mg tablet 180 mg PO DAILY PRN WHEN GETS 07/03/18 03/01/25 Hist ory (Lluvia Allergy) ALLERGY SHOTS montelukast 10 mg tablet 10 mg PO QAM 07/03/18 03/01/25 History omega 3 350 mg-dha 235 mg-epa 90 1 cap PO QAM 07/03/18 03/01/25 History mg-fish oil 597 mg capsule,delay rel ([place]-3) calcium 333 mg 1 tab PO DAILY 12/28/22 03/01/25 History (carbonate)-magnesium 133 mg (oxide)-zinc 5 mg tablet cholecalciferol (vitamin D3) 125 2,000 unit PO QAM 12/28/22 03/01/25 History mcg (5,000 unit) tablet (Vitamin D3) acidophilus 100 million 1 cap PO DAILY 02/23/25 03/01/25 History cell-pectin, citrus 10 mg capsule azelastine 137 mcg (0.1 %) nasal 2 spray intranasal DAILY 02/23/25 03/01/25 History spray ketoconazole 2 % shampoo 1 applic topical 3XWK 02/23/25 03/01/25 History multivitamin with iron 1 tab PO DAILY 02/23/25 03/01/25 History rimegepant 75 mg disintegrating 75 mg PO DAILY PRN Migraine 02/23/25 03/01/25 History tablet (Nurtec ODT) Headache vit A 750 mcg-vit C 150 mg-D3 1 cap PO DAILY 02/23/25 03/01/25 History 31.25 ppu-auah-nzpacxezu-quercet capsule (Immune Essentials Daily) metformin 500 mg tablet 500 mg PO QAM 03/01/25 03/01/25 History omeprazole 40 mg capsule,delayed 40 mg PO BID 03/01/25 03/01/25 History release Patient History Medical History (Updated 03/02/25 @ 08:58 by Cuate Sierra MD) Patent foramen ovale Renal calculi CT 07/03/18 Coronary artery disease nonocclusive disease per cardiac CT 2013 Post concussion syndrome Surgical History History of sinus surgery Family History Mother Osteoporosis Father Hypertension Stroke suspected intracranial aneurysm Social History Smoking Status: Never smoker Second Hand Exposure: No; Do You Dip or Chew Tobacco: No; Hx Alcohol Use: No Hx Substance Use: No Preferred Language: Azerbaijani Communication Ability: Effective 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 Beliefs That Will Affect Care: None Current Living Situation: Spouse Feels Safe at Home: Yes Safety Concerns: Feels Safe At This Time Assistive Devices: CPAP, Denture - Upper, Denture - Lower and Glasses Review of Systems Review of Systems: No fever No chills No SOB No CP No Abd pain Physical Exam Physical Exam: Eyes; anicteric HENT No masses Chest clear to A Cor S1, S2 physiologic Abd: softer nontender no masses distended with possible ascites Ext no edema Results & Data Vital Signs (Past 12 Hours) Vital Signs Temp Pulse Pulse Pulse Resp BP Pulse Ox 03/02/25 07:32 36.6 C 77 20 113/67 97 03/02/25 04:04 36.6 C 80 19 128/78 94 03/02/25 03:04 71 14 93 03/02/25 01:35 76 03/02/25 00:35 75 20 94 03/01/25 23:11 36.5 C 76 19 134/80 93 O2 Del Method FiO2 03/02/25 07:32 Room Air 03/02/25 04:04 Room Air 03/02/25 03:04 21 03/02/25 01:35 03/02/25 00:35 03/01/25 23:11 Room Air Laboratory Results Laboratory Results - last 48 hr 03/01/25 03/01/25 03/01/25 11:40 12:57 16:13 WBC 6.24 RBC 2.54 L Hgb 7.5 L Hct 25.1 L MCV 98.8 MCH 29.5 MCHC 29.9 L RDW Std Deviation 65.4 H RDW Coeff of Daily 19.3 H Plt Count 161 MPV 11.5 Immature Gran % (Auto) 1.3 Neut % (Auto) 58.4 Lymph % (Auto) 26.0 [place] % (Auto) 9.5 Eos % (Auto) 4.0 Baso % (Auto) 0.8 Neut # (Auto) 3.65 Lymph # (Auto) 1.62 [place] # (Auto) 0.59 Eos # (Auto) 0.25 Baso # (Auto) 0.05 Immature Gran # (Auto) 0.08 Polychromasia 1+ Anisocytosis Present PT 11.7 INR 1.1 APTT 26 PTT Ratio 1.0 Sodium 136 Potassium 3.9 Chloride 105 Carbon Dioxide 25 Anion Gap 6 BUN 7 Creatinine 0.75 Est Cr Clr Drug Dosing 125.5 eGFR 102.67 BUN/Creatinine Ratio 9.3 L Glucose 279 H POC Glucose 189 H Calcium 8.5 L Total Bilirubin 0.5 Direct Bilirubin AST 69 H ALT 61 H Alkaline Phosphatase 143 H Troponin I High Sens 5.2 Total Protein 6.2 Albumin 3.3 L Globulin 2.9 Albumin/Globulin Ratio 1.1 Lipase 27 Urine Color Yellow Urine Appearance Clear Urine pH 6.5 Ur Specific [place] 1.006 Urine Protein Negative Urine Glucose (UA) 2+ H Urine Ketones Negative Urine Blood Negative Urine Nitrite Negative Urine Bilirubin Negative Urine Urobilinogen Negative Ur Leukocyte Esterase Negative Urine Comment Blood Type A Positive Antibody Screen NEGATIVE 03/01/25 03/01/25 03/01/25 17:14 18:25 23:20 WBC RBC Hgb Hct MCV MCH MCHC RDW Std Deviation RDW Coeff of Daily Plt Count MPV Immature Gran % (Auto) Neut % (Auto) Lymph % (Auto) [place] % (Auto) Eos % (Auto) Baso % (Auto) Neut # (Auto) Lymph # (Auto) [place] # (Auto) Eos # (Auto) Baso # (Auto) Immature Gran # (Auto) Polychromasia Anisocytosis PT INR APTT PTT Ratio Sodium Potassium Chloride Carbon Dioxide Anion Gap BUN Creatinine Est Cr Clr Drug Dosing eGFR BUN/Creatinine Ratio Glucose POC Glucose 225 H Calcium Total Bilirubin Direct Bilirubin AST ALT Alkaline Phosphatase Troponin I High Sens 4.3 3.2 Total Protein Albumin Globulin Albumin/Globulin Ratio Lipase Urine Color Urine Appearance Urine pH Ur Specific [place] Urine Protein Urine Glucose (UA) Urine Ketones Urine Blood Urine Nitrite Urine Bilirubin Urine Urobilinogen Ur Leukocyte Esterase Urine Comment Blood Type Antibody Screen 07/27/25 07/27/25 07/27/25 00:03 05:38 05:55 WBC 7.81 RBC 2.36 L Hgb 7.1 L Hct 23.2 L MCV 98.3 MCH 30.1 MCHC 30.6 L RDW Std Deviation 65.2 H RDW Coeff of Daily 18.6 H Plt Count 156 MPV 11.0 Immature Gran % (Auto) 0.8 Neut % (Auto) 74.5 Lymph % (Auto) 18.8 [place] % (Auto) 5.6 Eos % (Auto) 0.0 Baso % (Auto) 0.3 Neut # (Auto) 5.82 Lymph # (Auto) 1.47 [place] # (Auto) 0.44 Eos # (Auto) 0.00 Baso # (Auto) 0.02 Immature Gran # (Auto) 0.06 Polychromasia 2+ Anisocytosis PT INR APTT PTT Ratio Sodium 140 Potassium 4.2 Chloride 109 H Carbon Dioxide 25 Anion Gap 6 BUN 10 Creatinine 0.57 L Est Cr Clr Drug Dosing 162.2 eGFR 111.54 BUN/Creatinine Ratio 17.5 Glucose 168 H POC Glucose 203 H 164 H Calcium 8.3 L Total Bilirubin 0.5 Direct Bilirubin 0.1 AST 46 H ALT 48 Alkaline Phosphatase 119 H Troponin I High Sens Total Protein 5.6 L Albumin 3.2 L Globulin Albumin/Globulin Ratio Lipase Urine Color Urine Appearance Urine pH Ur Specific [place] Urine Protein Urine Glucose (UA) Urine Ketones Urine Blood Urine Nitrite Urine Bilirubin Urine Urobilinogen Ur Leukocyte Esterase Urine Comment Blood Type Antibody Screen Diagnostic Findings Venous Doppler Study 03/01/25 11:18 US venous doppler LE RT HISTORY: r/o dvt COMPARISON: 04/14/2022 TECHNIQUE: Multiple real-time sonographic images of the right lower extremity deep venous structures were obtained assessing grayscale appearance, color and spectral flow. FINDINGS: No evidence of DVT seen at the right lower extremity. IMPRESSION: No DVT seen. ACT 112: Negative or not required by law. The above report was generated using voice recognition software. It may contain grammatical, syntax or spelling errors. Electronically signed by: Harshil Plaza M.D. 03/01/2025 12:42 PM Venous Doppler Study 03/01/25 11:18 ULTRASOUND RIGHT UPPER EXTREMITY VENOUS CLINICAL HISTORY: Pain. COMPARISON STUDY: None. TECHNIQUE: Real-time, grayscale, and color Doppler sonography of the deep veins of the right upper extremity is performed. Compression and augmentation were utilized. FINDINGS: There is superficial venous thrombus within the right cephalic vein from the antecubital fossa through the mid forearm measuring approximately 5 cm in length. No DVT seen at the right upper extremity. IMPRESSION: 1. No DVT seen of the right upper extremity. 2. Superficial venous thrombus at the right cephalic vein. ACT 112: Negative or not required by law. Electronically signed by: Harshil Plaza M.D. 03/01/2025 12:47 PM Chest X-Ray 03/01/25 11:31 XR chest 1V portable CLINICAL HISTORY: Chest pain, nonspecific COMPARISON STUDY: 02/23/2025 FINDINGS: Heart size and pulmonary vasculature are normal. No consolidation or pleural effusion. No pneumothorax. IMPRESSION: No acute findings. ACT 112: Negative or not required by law. Electronically signed by: Harshil Plaza M.D. 03/01/2025 12:02 PM Liver Ultrasound 03/01/25 12:23 EXAMINATION: US abdomen right upper quadrant COMPARISON: None HISTORY: Abdominal pain TECHNIQUE: The right upper quadrant of the abdomen was scanned in standard fashion with specialized ultrasound transducers using both shaver scale and limited color Doppler techniques. Findings: Liver: The liver demonstrates heterogeneous echotexture and appears somewhat nodular of contour. No evidence of a focal hepatic mass or intrahepatic biliary ductal dilatation. The main portal vein is patent with antegrade flow. Gallbladder: The gallbladder is well distended and of normal morphology. There is no wall thickening, pericholecystic fluid, sonographic Dubois's sign nor evidence for cholelithiasis. Bile Ducts: Dilated common bile duct at 1.3 cm in diameter. Pancreas: Visualized portions of the head and body of the pancreas are unremarkable. Right kidney: Normal echotexture, without mass or hydronephrosis. Right kidney craniocaudal dimension: 13.1 cm Fluid: There is ascites seen in all 4 quadrants. Impression: 1. Heterogeneous echotexture of the liver, and a somewhat nodular contour is appreciated, suspicious for cirrhosis. 2. Ascites. 3. Dilated common bile duct up to 1.3 cm. Recommend follow-up MRCP. 4. Normal gallbladder. Electronically signed by Bhargav Palafox 03-01-2025 2:12 PM Cholangiopancreatography MRI 03/01/25 15:58 MRCP Without Contrast CLINICAL HISTORY: Dilated CBD on ultrasound TECHNIQUE: T2-weighted MRCP images were acquired without intravenous gadolinium contrast through the upper abdomen. Comparison study: Same-day ultrasound FINDINGS: Biliary Tree: No biliary ductal dilatation. Pancreas: No pancreatic duct dilatation. No visualized cyst. Liver: Nodular contour. Enlarged measuring 19 cm craniocaudal. Gallbladder: Mild pericholecystic fluid is nonspecific in the setting of intrinsic liver disease. No gallstones. Spleen: Enlarged measuring 17.2 cm. Kidneys: Normal. Few small cysts. Adrenal glands: Normal Bowel: No normally dilated bowel. Lymph nodes: No pathologic lymph adenopathy. Blood vessels: No aortic aneurysm. Lung bases: Moderate right and trace left pleural effusion. Bones and soft tissues: Unremarkable Mesentery and abdominal wall: Unremarkable Ascites: Mild IMPRESSION: No biliary ductal dilatation. The structure identified on ultrasound is not the common bile duct. Cirrhotic morphology of the liver with evidence of portal hypertension, including splenomegaly, mild ascites, pleural effusions, and nonspecific pericholecystic fluid. Electronically signed by Bhargav Palafox 03-01-2025 7:01 PM Carotid Doppler Study 03/01/25 18:17 Exam(s): US CAROTID EXAM: US Duplex Bilateral Extracranial Arteries CLINICAL HISTORY: Neck Pain and dizziness, concern for dissection TECHNIQUE: Real-time duplex ultrasound scan of the extracranial arteries integrating B-mode two-dimensional vascular structure, Doppler spectral analysis and color flow Doppler imaging. COMPARISON: No relevant prior studies available. FINDINGS: Right common carotid artery: The peak systolic velocity of the right common carotid artery is 79 cm/s. There is spectral broadening. No occlusion or significant stenosis on color flow and spectral Doppler imaging. Right internal carotid artery: The peak systolic velocity of the right internal carotid artery is 113 cm/s. There is spectral broadening. No occlusion or significant stenosis on color flow and spectral Doppler imaging. Right external carotid artery: Unremarkable. No occlusion or significant stenosis on color flow and spectral Doppler imaging. Right vertebral artery: Unremarkable. Antegrade flow. Right ICA/CCA ratio: The right ICA/CCA ratio is 1.4. Left common carotid artery: The peak systolic velocity of the left common carotid artery is 117 cm/s. There is spectral broadening. No occlusion or significant stenosis on color flow and spectral Doppler imaging. Left internal carotid artery: The peak systolic velocity of the left internal carotid artery is 95 cm/s. There is spectral broadening. No occlusion or significant stenosis on color flow and spectral Doppler imaging. Left external carotid artery: Unremarkable. No occlusion or significant stenosis on color flow and spectral Doppler imaging. Left vertebral artery: Unremarkable. Antegrade flow. Left ICA/CCA ratio: The left ICA/CCA ratio is 0.8. Lymph nodes: Unremarkable. No lymphadenopathy. CAROTID STENOSIS REFERENCE USING IAC CRITERIA: Mild - <50% stenosis. ICA PSV is less than 180 cm/s and plaque or intimal thickening is visible. Moderate - 50-69% stenosis. ICA PSV is 180 to 230 cm/s and plaque is visible. Severe - 70-94% stenosis. ICA PSV is more than 230 cm/s and visible plaque with lumen narrowing is seen. Near occlusion - 95-99% stenosis. ICA PSV is variable and significant plaque with luminal narrowing is seen. Occluded - 100% stenosis. No flow identified. IMPRESSION: No hemodynamically significant stenosis by ratio or velocity criteria. No evidence of dissection. Electronically signed by: Aaliyah Perez MD 03/01/25 23:[address] 03/01/25 18:17 EXAM: CT head/brain wo con CLINICAL HISTORY: headache, dizziness. TECHNIQUE: Axial non-contrast CT scan of the brain was performed from the skull base to the high parietal region. One of the following dose reduction techniques was utilized for this exam: Automated exposure control, adjustment of the mA and/or kV according to patient size, and use of iterative reconstruction. COMPARISON: CT dated 02/23/2025. FINDINGS: Brain Parenchyma: Normal attenuation of the cerebral hemispheres, cerebellum, and brainstem. No evidence of acute infarct, hemorrhage, or mass effect. No abnormal areas of hypo- or hyperattenuation. Ventricular System: Ventricles are normal in size and configuration. No evidence of hydrocephalus or ventricular enlargement. Subarachnoid Spaces: The cortical sulci and basal cisterns are mildly prominent and consistent with senile changes. No evidence of subarachnoid hemorrhage or extra-axial fluid collections. Cerebellum and Brainstem: No masses, lesions, or areas of abnormal density. Orbits: Normal appearance of the globes, optic nerves, and extraocular muscles. No evidence of orbital masses or abnormal density. Sinuses: Mucosal thickening in the frontal sinus. The rest of the visualized sinuses are clear. Mastoid Air Cells: Clear mastoid air cells. No evidence of mastoiditis. Skull: Normal skull morphology. IMPRESSION: 1. No evidence of any acute intracranial event on this unenhanced CT examination. Further evaluation with an MRI can be considered if clinically indicated. 2. Frontal sinus mucosal disease(unchanged). 3. No interval change since the last scan. Electronically signed by Saul Nielson 03-02-2025 01:56 AM PG Care Time/CCT Total # of Minutes Spent Total Time Spent with Patient: Total time spent is greater than 50% in coordination of care (as documented) at patient's floor/unit and/or counseling patient: Coding Level of Care Code 85034 INT INP/OBS CARE 3/75MIN Diagnoses Elevated LFTs R79.89 GI bleeding K92.2 Cirrhosis K74.60
[2025-03-02] MEDS ORDERED: Nursing to Pharmacy Communication SCH (10:15)
[2025-03-02] MEDS: MONTELUKAST SODIUM 10 MG TABLET PO SCH (10:32)
--- NOTE | 2025-03-02 12:21 | Hospitalist Progress Note ---
Date of Service March 02, 2025 Assessment & Plan (1) Common bile duct dilatation: (2) Elevated LFTs: Plan: 59-year-old male with history of ORTEGA cirrhosis, recent upper GI bleed secondary to portal hypertensive gastropathy and varices, acute blood loss anemia, recently diagnosed diabetes type 2, CAD, and other problems noted below presenting with right arm pain and swelling. Common bile duct dilatation with elevated LFTs Rule out choledocholithiasis versus stricture ORTEGA cirrhosis with portal hypertension, esophageal varices Status post EGD at [facility] [place] [facility] last week after presenting with melena, severe anemia EGD showed portal hypertensive gastropathy with contact oozing, grade 2 esophageal varices (+) RUQ tenderness during ER assessment Afebrile, no leukocytosis Liver US: 1. Heterogeneous echotexture of the liver, and a somewhat nodular contour is appreciated, suspicious for cirrhosis. 2. Ascites. 3. Dilated common bile duct up to 1.3 cm. Recommend follow-up MRCP. 4. Normal gallbladder. MRCP did not show any biliary ductal dilatation and no stone in the common bile duct and/or in the gallbladder. 8 confirmed cirrhotic morphology of the liver with evidence of portal hypertension including splenomegaly, mild ascites, pleural effusions and nonspecific pericholecystic fluid. Appreciate GI input and recommendation- no recommendation for any procedure for now Will put him on nadolol 40 mg p.o. daily to keep the heart rate around 60s With ongoing abdominal pain will get diagnostic paracentesis to rule out any infection Diet has been started and the patient will be kept n.p.o. after midnight Episode of Chest pain History of nonobstructive CAD Chest pain has resolved in the ER, did not receive any nitro Patient reports palpitations and dizzy on minimal exertion at home, denies having chest pain at home Troponin x 1 negative, 2nd and 3rd sets ordered EKG no signs of acute ischemia or infarct Also presented with chest pain during last week's admission at [facility], evaluated by cardiology service, underwent echocardiogram, felt to be atypical chest pain secondary to severe anemia, patient strongly declined blood transfusion due to personal beliefs Serial troponins are unremarkable for any ACS. Will observe the patient in the telemetry unit Diabetes type 2 Diagnosed last week, A1c 10 Discharged on metformin- Insulin sliding scale for now, with pharmacy glycemic control consult Appreciate pharmacy input and recommendation Most likely the patient will need insulin on discharge Dietitian has been involved Headache, dizziness, neck pain mostly resolving has history of migraine check CT head, Carotid Duplex Superficial venous thrombosis Right cephalic vein From IV insertion site No signs of infection Monitor for now Severe anemia secondary to Acute blood loss secondary to recent upper GI bleed Iron deficiency Hemoglobin around 5-6 during last week's admission Strongly declined blood transfusions despite extensive discussion Patient given IV iron, EPO during admission to [facility] [place] Hemoglobin currently 7.5 Patient still declining blood transfusion Hemoglobin went down to 7.1 and the patient again stressed that if it falls below 7 , he will need to have blood transfusion Obstructive sleep apnea Continue CPAP Asthma Continue inhalers DVT prophylaxis SCDs for now DNR as per patient Disposition Lives with family at home Discussed with the patient in detail and with the Admission and Anticipated Discharge Date Admission Date: March 01, 2025 Subjective 03/02/2025 The patient was seen and examined in telemetry unit in presence of the He was admitted with abdominal pain and also complained of right arm pain and swelling The pain seems to be controlled and has minimal discomfort in the epigastrium without any nausea or vomiting His right upper extremity pain is improved too Denies any fever no chills, no chest pain or palpitation Review of Systems Review of Systems: All systems reviewed and are unremarkable except as noted below Physical Exam Physical Exam: Lying in bed without any acute distress Constitutional: well developed, well nourished, + ill appearing and + obese Eyes: PERRL, conjunctivae normal, anicteric sclerae ENMT: external ear and nose normal, oropharynx normal Neck: trachea midline, no thyromegaly Respiratory: no respiratory distress Auscultation: lungs clear to auscultation bilaterally Cardiovascular: Rate/Rhythm: regular rate and regular rhythm; not tachycardic Heart Sounds: normal S1 and normal S2; no murmur Extremities: + edema ( trace edema bilaterally) Gastrointestinal (Abdomen): Inspection/Auscultation: + abdomen distended and normal bowel sounds Percussion/Palpation: + abdomen tender ( mildly tender epigastrium), abdomen soft and + ascites ( clinically mild to moderate ascites) Musculoskeletal: No acute arthritis involving any of the joint Neurologic: normal touch/pain/proprioception and moves all extremities; no focal motor deficits Lymphatic: no cervical or axillary lymphadenopathy Results & Data Results & Data Vital Signs (Past 12 Hours) Vital Signs Temp Pulse Pulse Pulse Resp BP Pulse Ox 03/02/25 11:16 36.7 C 85 16 130/74 95 03/02/25 10:22 69 03/02/25 07:32 36.6 C 77 20 113/67 97 03/02/25 04:04 36.6 C 80 19 128/78 94 03/02/25 03:04 71 14 93 03/02/25 01:35 76 03/02/25 00:35 75 20 94 O2 Del Method FiO2 03/02/25 11:16 Room Air 03/02/25 10:22 03/02/25 07:32 Room Air 03/02/25 04:04 Room Air 03/02/25 03:04 21 03/02/25 01:35 03/02/25 00:35 Laboratory Results Short CBC 03/02/25 Range/Units 05:55 WBC 7.81 (4.8-10.8) K/ul Hgb 7.1 L (14.0-18.0) g/dl Hct 23.2 L (42.0-52.0) % Plt Count 156 (130-400) K/uL BMP 03/01/25 03/02/25 11:40 05:55 Sodium 136 140 Potassium 3.9 4.2 Chloride 105 109 H Carbon Dioxide 25 25 BUN 7 10 Creatinine 0.75 0.57 L Glucose 279 H 168 H Calcium 8.5 L 8.3 L Liver Function 03/01/25 03/02/25 Range/Units 11:40 05:55 Total Bilirubin 0.5 0.5 (0.2-1.0) mg/dl Direct Bilirubin 0.1 (0-0.2) mg/dl AST 69 H 46 H (13-39) U/L ALT 61 H 48 (7-52) U/L Alkaline Phosphatase 143 H 119 H (34-104) U/L Albumin 3.3 L 3.2 L (3.4-5.0) gm/dl Urine 03/01/25 Range/Units 12:57 Urine Color Yellow Urine Appearance Clear (Clear) Urine pH 6.5 (4.5-7.5) Ur Specific [place] 1.006 (1.000-1.030) Urine Protein Negative (Negative) Urine Glucose (UA) 2+ H (Negative) Medications Administered Current Inpatient Medications Acetaminophen (Acetaminophen 325 Mg Tab) 650 mg PO Q8H PRN PRN Reason: Pain or Fever Stop: 03/31/25 18:10 Dextrose (Dextrose 50% 50 Ml Syringe) 25 - 50 ml IV UD PRN; Protocol PRN Reason: Hypoglycemia Protocol Stop: 03/31/25 15:59 Glucagon (Glucagon For Inj 1 Mg Vial) 1 mg SQ UD PRN; Protocol PRN Reason: Hypoglycemia Protocol Stop: 03/31/25 15:59 Glucose (Glucose 40% Gel 15 Gm Tube) 15 - 30 gm PO UD PRN; Protocol PRN Reason: Hypoglycemia Protocol Stop: 03/31/25 15:59 Glucose (Glucose 10 Tab/Tube) 4 - 8 tab PO UD PRN; Protocol PRN Reason: Hypoglycemia Protocol Stop: 03/31/25 15:59 Sodium Chloride (Nss) 1,000 mls @ 80 mls/hr IV .[id number] [facility] Stop: 03/04/25 18:29 Last Admin: 03/02/25 07:06 Dose: 80 mls/hr Insulin Aspart (Insulin Aspart Per Unit Charge) 0 units SC ACHS [facility] Stop: 04/01/25 11:29 Last Admin: 03/02/25 11:44 Dose: 5 units Miscellaneous (Carbohydrates For Hypoglycemia ) 15 - 30 gm PO UD PRN PRN Reason: Hypoglycemia Protocol Stop: 03/31/25 15:59 Miscellaneous Information (Pharmacy Glycemic Mgmt Consult) 1 each N/A UD PRN PRN Reason: Consult Stop: 03/31/25 15:59 Montelukast Sodium (Montelukast Sodium 10 Mg Tablet) 10 mg PO QAM [facility] Stop: 04/01/25 08:59 Last Admin: 03/02/25 10:32 Dose: 10 mg Ondansetron HCl (Ondansetron Inj 2 Mg/Ml 2 Ml Vial) 4 mg IV Q6H PRN PRN Reason: Nausea Stop: 03/31/25 18:10 Pantoprazole Sodium (Pantoprazole 40 Mg Tab) 40 mg PO BID [facility] Stop: 03/31/25 20:59 Last Admin: 03/02/25 07:06 Dose: 40 mg Vitamin D (Cholecalciferol 25 Mcg (1000 Units) Tab) 50 mcg PO QAM [facility] Stop: 04/01/25 08:59 Last Admin: 03/02/25 07:06 Dose: 50 mcg
--- NOTE | 2025-03-02 14:23 | Pharmacy Report ---
Pharmacy Glycemic Short Note 2 - Date of Service March 02, 2025 - Glycemic Short BSG Results (Last 24 hours): 03/01/25 03/01/25 03/02/25 16:13 18:25 00:03 Glucose POC Glucose 189 H 225 H 203 H 03/02/25 03/02/25 03/02/25 05:38 05:55 11:30 Glucose 168 H POC Glucose 164 H 136 H OUTPATIENT ANTIDIABETIC REGIMEN: * metformin 500mg PO daily (new diagnosis last week) * HbA1c 10.3 (02/24/25) ASSESSMENT: * Pritesh is a 59 year old male admitted with abdominal pain and a history of newly diagnosed type 2 diabetes mellitus. Pharmacy has been consulted to assist with glycemic management while inpatient. * BSGs elevated yesterday upon admission, also received dexamethasone 10mg IV x1 in ED, NovoLog initiated at a weight based stress of 2, BSGs trended down overnight with NPO status. Lantus scale initiated based on BSGs up to a weight based stress of 2. Diet advanced to clears with lunch, no glycemic stressors noted at this time. PLAN FOR INPATIENT GLYCEMIC CONTROL: * Hold outpatient oral diabetes medications * Basal insulin * Lantus 0-20 units SQ BID (see eMAR for additional details) * Bolus insulin * NovoLog per scale ACHS or Q6hrs while NPO * Goal Range: Low 110 mg/dL - High 140 mg/dL * Correction Factor: 20 mg/dL/unit * Nutritional / Prandial insulin per carb ratio of 1 unit per 7 grams CHO consumed
[2025-03-02] MEDS: LANTUS PER UNIT CHARGE SC SCH (20:20)
[2025-03-03 09:15] LABS: Hematocrit (blood only) 27.1 % (42.0-52.0); Hemoglobin 7.9 g/dl (14.0-18.0); Mean Corpuscular Hemoglobin 29.3 pg (25.0-34.0); Mean Corpuscular Volume 100.4 fL (80.0-100.0); Platelet Count 205 K/uL (130-400); RDW Standard Deviation 68.0 fL (36.4-46.3); Red Blood Count 2.70 M/uL (4.70-6.10); White Blood Count 10.44 K/ul (4.8-10.8)
[2025-03-03 09:45] LABS: Alanine Aminotransferase 69.0 U/L (7-52); Albumin Globulin Ratio 1.4 (0.9-2); Alkaline Phosphatase 129.0 U/L (34-104); Anion Gap 5.0 (3-11); Bilirubin,Total 0.6 mg/dl (0.2-1.0); Blood Urea Nitrogen 11.0 mg/dl (6-23); Calcium 8.2 mg/dl (8.6-10.3); Carbon Dioxide 25.0 mmol/L (21-32); Chloride 108.0 mmol/L (98-107); Creatinine Clr Calc Pharmacy 127.6 ml/min; Globulin 2.5 gm/dl (2.5-4.0); Glucose 194.0 mg/dl (70-99(Fasting)); Magnesium 1.9 mg/dl (1.7-2.4); Potassium 3.8 mmol/L (3.5-5.1); Sodium 138.0 mmol/L (136-145); Total Protein 5.9 gm/dl (6.0-8.3)
[2025-03-03 09:47] LABS: Anisocytosis Present; Immature Granulocytes # (auto) 0.05 K/uL (0.01-0.20); Immature Granulocytes % (auto) 0.5 %; Polychromasia 2+; Tear Drop Cells 1+
--- NOTE | 2025-03-03 10:20 | Gastroenterology Progress Note ---
Date of Service March 03, 2025 Assessment & Plan (1) Cirrhosis: Plan: 59 year old male w/ history of ORTEGA cirrhosis (grade 1 EV, portal HTN gastropathy on 2023 EGD), sleep apnea, multiple pulm nodules, asthma, patent foramen ovale, GERD, postconcussion syndrome, depression, seasonal allergies recently transferred from [facility] to [facility] for evaluation of anemia, EGD w/ nonbleeding grade 2 varices, portal HTN gastropathy readmitted to [facility] w/ Superficial venous thrombosis of right cephalic vein 1. Abdominal pain - Presenting resolved - ABD US w/ CBD dilation 1.3 - MRCP w/o biliary dilation - Follow paracentesis if able to be completed 2. Elevated LFTs - MRCP w/o CBD dilation or obstruction - Likely related to underlying liver disease - Follow up with [facility] and [facility] as already established 3. Anemia - Not agreeable to transfusion related to sabianist beliefs - No signs of active GI bleeding - No plan for repeat endoscopic evaluation - Recommend low-dose nadolol reduce portal hypertension titrated to pulse and BP - Daily iron supplementation 4. Cirrhosis management - MELD labs every 6 months - ABD imaging w/ AFP every 6 months - EGD every 1-2 years - No ETOH - No NSAIDs - Avoid hepatotoxin - Low NA diet, less than 2G daily - Less than 2G acetaminophen containing products daily I spent a total of 40 minutes on the date of service in review of patient's record, and previously obtained information in person and appropriate medical visit, discussion and education of plan, with patient and/or caregiver, placing orders for tests/referral/procedures as medically necessary and documentation of pertinent clinical information in patient's medical records for their visit today. Admission and Anticipated Discharge Date Admission Date: March 01, 2025 Supervising Physician Co-Signing Physician Notes I saw and examined this patient with our nurse practitioner and agree with her assessment and plan. No ascites on ultrasound paracentesis canceled. Hemoglobin stable no overt bleeding. Suspect related to portal gastropathy. Continue nadolol for portal hypertension. Subjective Enroute to US for potential paracentesis. Notes episodic abd pain. No nausea/vomiting. Denies black/bloody stools. EGD 2024: Grade II esophageal varices. No features/stigmata of recent bleeding. - Z-line irregular, 39 cm from the incisors. - Moderate portal hypertensive gastropathy with contact oozing. - Normal examined duodenum. - No specimens collected. Review of Systems Review of Systems: All other findings negative except as noted in HPI. Physical Exam Constitutional: WD/WN, vitals as above Respiratory: normal respiratory effort Gastrointestinal (Abdomen): normal bowel sounds, soft, nontender, no hepatosplenomegaly Skin: no rashes, warm and dry Results & Data Results & Data Vital Signs (Past 12 Hours) Vital Signs Temp Pulse Pulse Resp BP Pulse Ox O2 Del Method 03/03/25 08:00 62 03/03/25 07:11 97.9 F 67 97 H 115/80 97 Room Air 03/03/25 04:00 97.5 F L 61 19 121/78 99 CPAP 03/03/25 03:40 19 03/03/25 00:16 97.7 F 63 17 119/77 98 Room Air 03/02/25 23:25 64 17 98 03/02/25 23:10 67 03/02/25 22:18 Room Air FiO2 03/03/25 08:00 03/03/25 07:11 03/03/25 04:00 03/03/25 03:40 21 03/03/25 00:16 03/02/25 23:25 21 03/02/25 23:10 03/02/25 22:18 Laboratory Results 03/03/25 03/03/25 03/02/25 Range/Units 08:42 07:10 20:18 WBC 10.44 (4.8-10.8) K/ul RBC 2.70 L (4.70-6.10) M/uL Hgb 7.9 L (14.0-18.0) g/dl Hct 27.1 L (42.0-52.0) % MCV 100.4 H (80.0-100.0) fL MCH 29.3 (25.0-34.0) pg MCHC 29.2 L (32.0-36.0) g/dL RDW Std Deviation 68.0 H (36.4-46.3) fL RDW Coeff of Daily 19.0 H (11.5-14.5) % Plt Count 205 (130-400) K/uL MPV 11.4 (9.4-12.4) fL Immature Gran % (Auto) 0.5 % Neut % (Auto) 50.9 % Lymph % (Auto) 37.9 % Nolan % (Auto) 8.9 % Eos % (Auto) 0.9 % Baso % (Auto) 0.9 % Neut # (Auto) 5.32 (1.40-6.50) K/uL Lymph # (Auto) 3.96 H (1.20-3.40) K/uL Nolan # (Auto) 0.93 H (0.11-0.59) K/uL Eos # (Auto) 0.09 (0.00-0.50) K/uL Baso # (Auto) 0.09 (0.00-0.20) K/uL Immature Gran # (Auto) 0.05 (0.01-0.20) K/uL Polychromasia 2+ Anisocytosis Present Tear Drop Cells 1+ Sodium 138 (136-145) mmol/L Potassium 3.8 (3.5-5.1) mmol/L Chloride 108 H (98-107) mmol/L Carbon Dioxide 25 (21-32) mmol/L Anion Gap 5 (3-11) BUN 11 (6-23) mg/dl Creatinine 0.73 (0.6-1.4) mg/dl Est Cr Clr Drug Dosing 127.6 ml/min eGFR 103.51 BUN/Creatinine Ratio 15.1 (10-20) Glucose 194 H (70-99(Fasting)) mg/dl POC Glucose 94 108 H (70-99) mg/dl Calcium 8.2 L (8.6-10.3) mg/dl Phosphorus 2.5 (2.5-4.9) mg/dl Magnesium 1.9 (1.7-2.4) mg/dl Total Bilirubin 0.6 (0.2-1.0) mg/dl AST 92 H (13-39) U/L ALT 69 H (7-52) U/L Alkaline Phosphatase 129 H (34-104) U/L Total Protein 5.9 L (6.0-8.3) gm/dl Albumin 3.4 (3.4-5.0) gm/dl Globulin 2.5 (2.5-4.0) gm/dl Albumin/Globulin Ratio 1.4 (0.9-2) 03/02/25 03/02/25 Range/Units 16:17 11:30 WBC (4.8-10.8) K/ul RBC (4.70-6.10) M/uL Hgb (14.0-18.0) g/dl Hct (42.0-52.0) % MCV (80.0-100.0) fL MCH (25.0-34.0) pg MCHC (32.0-36.0) g/dL RDW Std Deviation (36.4-46.3) fL RDW Coeff of Daily (11.5-14.5) % Plt Count (130-400) K/uL MPV (9.4-12.4) fL Immature Gran % (Auto) % Neut % (Auto) % Lymph % (Auto) % Nolan % (Auto) % Eos % (Auto) % Baso % (Auto) % Neut # (Auto) (1.40-6.50) K/uL Lymph # (Auto) (1.20-3.40) K/uL Nolan # (Auto) (0.11-0.59) K/uL Eos # (Auto) (0.00-0.50) K/uL Baso # (Auto) (0.00-0.20) K/uL Immature Gran # (Auto) (0.01-0.20) K/uL Polychromasia Anisocytosis Tear Drop Cells Sodium (136-145) mmol/L Potassium (3.5-5.1) mmol/L Chloride (98-107) mmol/L Carbon Dioxide (21-32) mmol/L Anion Gap (3-11) BUN (6-23) mg/dl Creatinine (0.6-1.4) mg/dl Est Cr Clr Drug Dosing ml/min eGFR BUN/Creatinine Ratio (10-20) Glucose (70-99(Fasting)) mg/dl POC Glucose 134 H 136 H (70-99) mg/dl Calcium (8.6-10.3) mg/dl Phosphorus (2.5-4.9) mg/dl Magnesium (1.7-2.4) mg/dl Total Bilirubin (0.2-1.0) mg/dl AST (13-39) U/L ALT (7-52) U/L Alkaline Phosphatase (34-104) U/L Total Protein (6.0-8.3) gm/dl Albumin (3.4-5.0) gm/dl Globulin (2.5-4.0) gm/dl Albumin/Globulin Ratio (0.9-2) PG Care Time/CCT Total # of Minutes Spent Total Time Spent with Patient: Total time spent is greater than 50% in coordination of care (as documented) at patient's floor/unit and/or counseling patient: Coding Level of Care Code 43394 SUB INP/OBS CARE 2/35MIN Diagnoses Cirrhosis K74.60
--- NOTE | 2025-03-03 10:43 | Ultrasound Report ---
Limited abdominal ultrasound INDICATION: Paracentesis requested; history of ascites FINDINGS: Real-time ultrasound imaging in all 4 abdominal quadrants was performed. No ascites fluid w as identified. IMPRESSION: No ascites fluid identified on today's study. Performed, dictated, and signed by Ramiro Sutherland PA-C; to be co-signed by Dr. Harshil Plaza. Electronically signed by: Harshil Plaza M.D. 03/03/2025 11:06 AM
[2025-03-03 10:55] VITALS: BP 123/76; RESP 16; TEMP 97.5; O2SAT 98
--- NOTE | 2025-03-03 11:32 | Discharge Summary ---
Discharge Summary Date of Service March 03, 2025 Principal Dx & Hospital Course #1 = Principal Diagnosis (1) Cirrhosis: (2) Acute on chronic blood loss anemia: (3) Portal hypertension with esophageal varices: (4) Portal hypertensive gastropathy: (5) Superficial phlebitis: (6) Diabetes mellitus type 2 with complications: Plan Patient presented to the emergency room with complaints of pain and swelling of his arm. Patient had recently been in the hospital for significant anemia due to portal gastropathy. LFTs were also noted to be abnormal and there was concern that he had dilated common bile duct and was referred for further evaluation. Patient was diagnosed with a superficial phlebitis. Patient underwent MRCP which showed no bile duct dilatation or obstruction. GI consultation was obtained. [place] that his liver testing abnormalities were due to his cirrhosis and portal hypertension. The patient had declined any blood transfusions. His hemoglobin actually remained stable. He was started on nadolol for his chronic liver disease and portal hypertension. He was given symptomatic care for his superficial phlebitis. Ultrasound of the abdomen was performed there was no significant amount of ascites that could be removed via paracentesis and the patient did not undergo paracentesis. Otherwise he was feeling well. Understands need for ongoing follow-up. To help coordinate outpatient hepatology appointment for ongoing management and he will be discharged home to follow-up with his PCP. Notes For Next Care Provider Follow with hepatology Medication Changes From Visit Nadolol added Aldactone added Admission HPI Per Admitting Provider 59-year-old male with history of ORTEGA cirrhosis, recent upper GI bleed secondary to portal hypertensive gastropathy and varices, acute blood loss anemia, recently diagnosed diabetes type 2, CAD, and other problems noted below presenting with right arm pain and swelling. Patient was recently admitted to [facility] then transferred to [facility] 5 days ago after presenting with melena, severe anemia and subsequently undergoing EGD which showed portal hypertension gastropathy with oozing and grade 2 esophageal varices. His hemoglobin was 6 but patient strongly declined to receive blood transfusions due to personal beliefs. he was seen by blood management service and was administered IV iron, EPO, etc. He was also found to have newly diagnosed diabetes type 2 A1c of 10 and was discharged on metformin. Since discharge, the patient still reports persistent fatigue and also experiences palpitations and dyspnea with minimal exertion. He denies having any chest pain. He also noted progressive pain and swelling over the right arm, antecubital fossa region, site of IV insertion. he denies fevers or chills. He presented to the ER today to be evaluated for the right arm pain and swelling. At the ER, patient received with stable vital signs overall, afebrile. Venous Doppler study of the right arm revealed a superficial thrombus in the cephalic vein. patient was reporting pain over the right calf but venous Doppler study of the right lower extremity was negative for DVT. He was reporting headache reminiscent of his migraine, and neck pain as well. He was given Benadryl, Decadron and Tylenol IV. While at the ER, patient reported left sided chest pain as well. Troponin negative, EKG no signs of acute ischemia or infarct. He also experienced tenderness over the right upper quadrant during exam. right upper quadrant ultrasound showed dilation of the common bile duct and nodular shape of the liver. AST ALT, Alk phos mildly elevated, bilirubin normal. ER discussed with the GI health management consultant Dr. Cuate Sierra who agreed to have the patient be admitted for further evaluation and management. On my exam, patient seen at the MRI suite. Resting in bed, comfortable, not in distress. Patient denies active abdominal pain or nausea during my exam. reports chest pain has resolved, no active shortness of breath. Reports headache, dizziness, neck pain mostly resolving as well. Admission Exam Per Admitting Provider See H&P Discharge Exam Constitutional: Alert HEENT: Mucous membranes moist. Lungs: Clear to auscultation, decreased, no wheezes rales or rhonchi CV: S1-S2, regular Abdomen: Soft, nontender, nondistended, no fluid wave Extremities: Decreased edema lower extremity and ankles Neuro: No focal deficits Psych: Cooperative, normal mood Updated Medication List Medication Instructions Recorded Confirmed Type aspirin 81 mg tablet,delayed 81 mg PO QAM 07/03/18 03/01/25 History release epinephrine 0.3 mg/0.3 mL 0.3 mg IM Q3H PRN Allergic Reaction 07/03/18 03/01/25 History injection, auto-injector (EpiPen) fexofenadine 180 mg tablet 180 mg PO DAILY PRN WHEN GETS 07/03/18 03/01/25 History (Lluvia Allergy) ALLERGY SHOTS montelukast 10 mg tablet 10 mg PO QAM 07/03/18 03/01/25 History omega 3 350 mg-dha 235 mg-epa 90 1 cap PO QAM 07/03/18 03/01/25 History mg-fish oil 597 mg capsule,delay rel (Randolph-3) calcium 333 mg 1 tab PO DAILY 12/28/22 03/01/25 History (carbonate)-magnesium 133 mg (oxide)-zinc 5 mg tablet cholecalciferol (vitamin D3) 125 2,000 unit PO QAM 12/28/22 03/01/25 History mcg (5,000 unit) tablet (Vitamin D3) acidophilus 100 million 1 cap PO DAILY 02/23/25 03/01/25 History cell-pectin, citrus 10 mg capsule azelastine 137 mcg (0.1 %) nasal 2 spray intranasal DAILY 02/23/25 03/01/25 History spray ketoconazole 2 % shampoo 1 applic topical 3XWK 02/23/25 03/01/25 History multivitamin with iron 1 tab PO DAILY 02/23/25 03/01/25 History rimegepant 75 mg disintegrating 75 mg PO DAILY PRN Migraine 02/23/25 03/01/25 History tablet (Nurtec ODT) Headache vit A 750 mcg-vit C 150 mg-D3 1 cap PO DAILY 02/23/25 03/01/25 History 31.25 [id number]-[id number] capsule (Immune Essentials Daily) metformin 500 mg tablet 500 mg PO QAM 03/01/25 03/01/25 History omeprazole 40 mg capsule,delayed 40 mg PO BID 03/01/25 03/01/25 History release ferrous sulfate 325 mg (65 mg 325 mg PO DAILY #30 tabs 03/03/25 Rx iron) tablet (Feosol) nadolol 40 mg tablet 40 mg PO QAM #30 tabs 03/03/25 Rx spironolactone 50 mg tablet 50 mg PO DAILY #30 tabs 03/03/25 Rx (Aldactone) Hospital Stay Data Consultations 03/01/25 15:51 ED Decision to Admit Stat 03/01/25 18:11 Consult Gastroenterology Routine Diagnostic Imagining Performed 03/01/25 11:18 US venous doppler LE RT Stat US venous doppler UE RT Stat 03/01/25 12:23 US RUQ [US liver] Stat 03/01/25 15:58 MR MRCP Urgent 03/01/25 18:17 CT head/brain wo con Urgent Carotid duplex [US carotid doppler BI] Urgent 03/03/25 US abdomen ltd ascites Routine Reviewed imaging, laboratory and diagnostic studies. Pertinent findings as below. WBCs 10.4 Hemoglobin 7.9 improved without transfusion Platelets of 205 Electrolytes stable Creatinine 0.73 AST 92 ALT 69 Alk phos 129 Total bilirubin 0.6 Ultrasound of the abdomen showed no identifiable ascites MRCP showed no biliary ductal dilatation Ultrasound of the right upper extremity negative for DVT but did show superficial phlebitis of the right cephalic vein ultrasound of the right lower extremity negative for DVT Carotid Dopplers no significant stenosis Pending Results Patient Have Any Pending Studies at Discharge: No Discharge Instructions Given to Patient (Per Discharging Provider) Follow-up with liver specialist as coordinated Follow-up with your PCP Strict adherence to low-sodium diet Total Time Total Time Spent Total Time Spent (In Minutes): 38
[2025-03-03 11:45] VITALS: PULSE 80
== END 2025-03-03 12:51 | disposition home or self-care (01) | DRG 442 ==
LOC: ED 10:45 → 2S 15:57 → SUATTDRO 15:57 → 2S 18:10